=== PATIENT | female | born 1955 | race Caucasian/White ===

== ENCOUNTER → 2018-01-18 09:45 | Outpatient (CLI) | payer OTHER, SELFPAY ==
[2018-01-18 12:20] LABS: Anion Gap 8 (5-15); BUN 9 mg/dL (7-18); BUN/Creat Ratio 11.8 RATIO (10-20); Calcium,Total 9.6 mg/dL (8.5-10.1); Chloride 105 mmol/L (98-107); Creatinine, Serum 0.76 mg/dL (0.55-1.02); EST Glomerular Filtration Rate 82 mL/min (>60); Est Glom Filt Rate - Afr Amer 99 mL/min (>60); Glucose 96 mg/dL (74-106); Sodium Level 141 mmol/L (136-145)
== END ==
PROVIDERS: Family Provider Family Medicine; PCP Family Medicine; Visit Provider Family Medicine
DX: I10 Essential (primary) hypertension (principal)
CPT/HCPCS: 36415; 80048

== ENCOUNTER → 2018-02-02 10:51 | Outpatient (CLI) | payer OTHER, SELFPAY ==
--- NOTE | 2018-02-02 10:54 | ECHOD_ITS ---
Reason For Study: MURMUR Procedure This was a 2D Doppler, Color Flow transthoracic echocardiogram. Exam performed in department. Left Ventricle Normal LV size. Moderate eccentric left ventricular hypertrophy. Left ventricular systolic function is hyperdynamic. The estimated ejection fraction is 75 %. Mid cavitary dynamic gradient 64 mm/Hg. Transmitral diastolic flow velocities suggest mild (stage 1) diastolic dysfunction (reversed pattern). No regional wall motion abnormalities noted. Right Ventricle Normal RV size. Normal systolic function. Atria Normal left atrium. Normal right atrium. Mitral Valve Bileaflet diffuse mitral valve thickening. Systolic anterior motion of the mitral valve. Tricuspid Valve Normal tricuspid valve. Unable to estimate RV systolic pressure, pulmonary artery pressure probably normal. Aortic Valve Normal aortic valve. Trisinus/trileaflet aortic valve. Pulmonic Valve Normal pulmonic valve. Great Vessels Normal aortic root. Pericardium/Pleural No pericardial effusion. MMode/2D Measurements & Calculations LVIDd: 2.8 cm IVSd: 1.5 cm Ao root diam: 3.0 cm LVIDs: 1.9 cm LVPWd: 1.0 cm RVDd: 2.3 cm FS: 33.1 % LAV(MOD-bp): 16.7 ml EDV(MOD-sp4): 48.0 ml SV(MOD-sp4): 29.8 ml LAV(MOD-bp) Indexed: 9.5 ml/m2 ESV(MOD-sp4): 18.1 ml LAV(MOD-sp2): 15.5 ml EF(MOD-sp4): 62.2 % LAV(MOD-sp4): 17.4 ml LA A4 area: 8.9 cm2 RA A4 area: 7.7 cm2 Doppler Measurements & Calculations MV E max mikey: 64.3 cm/sec Lat Peak E' Mikey: 9.3 cm/sec Med Peak E' Mikey: 6.9 cm/sec MV A max mikey: 110.6 cm/sec E/E' lat: 6.9 E/E' med: 9.4 MV E/A: 0.58 Ao V2 max: 194.9 cm/sec LV V1 max: 190.7 cm/sec PA V2 max: 153.8 cm/sec Ao max P.2 mmHg LV V1 max P.5 mmHg Interpretation Summary Mid cavitary dynamic gradient 64 mm/Hg. Normal LV size. Moderate eccentric left ventricular hypertrophy. Left ventricular systolic function is hyperdynamic. The estimated ejection fraction is 75 %. Systolic anterior motion of the mitral valve. Ordering Physician: Hoda Concepcion Referring Physician: HODA CONCEPCION Performed By: So Wise RDCS
== END ==
PROVIDERS: Family Provider Family Medicine; PCP Family Medicine; Visit Provider Family Medicine
DX: R01.1 Cardiac murmur, unspecified (principal)
CPT/HCPCS: 93306

== ENCOUNTER → 2018-03-15 11:06 | Outpatient (CLI) | payer OTHER, SELFPAY ==
--- NOTE | 2018-03-15 17:59 | STRESSREP ---
Stress Test Report Exercise stress test. 62-year-old lady with a history of hypertrophic cardiomyopathy. Stress protocol: Resting EKG demonstrates sinus bradycardia with a rate of 57 bpm normal intervals and noted resting blood pressure is 124/84 mmHg. The patient exercised according to regular Brandon protocol for total duration of 9 minutes completing stage III of the Brandon protocol the maximum heart rate attained was 136 bpm which was 85% of maximum predicted heart rate the maximum workload attained was 10.1 metabolic equivalents. At rest there were no ST or T-wave changes noted suggest ischemia peak exercise upsloping ST changes only were noted with no meet the criteria for ischemia. No clinical angina was noted the test was terminated due to leg fatigue no arrhythmias were present. The resting blood pressure is 124/84 with a peak blood pressure 178/60. Exercise stress test with no EKG criteria at a high workload for ischemia No arrhythmias noted.
== END ==
PROVIDERS: Family Provider Family Medicine; PCP Family Medicine; Visit Provider Internal Medicine Cardiovascular Disease
DX: I42.2 Other hypertrophic cardiomyopathy (principal); I10 Essential (primary) hypertension; R00.2 Palpitations; R00.1 Bradycardia, unspecified
CPT/HCPCS: 93017; 93225; 93226

== ENCOUNTER → 2018-03-31 09:02 | Outpatient (CLI) | payer OTHER, SELFPAY ==
--- NOTE | 2018-03-31 09:06 | BI_ITS ---
MAMMOGRAPHY - UNILATERAL DIAGNOSTIC: RIGHT BREAST REASON FOR EXAM: Female, 62 years old. Abnormal screening mammogram. PERTINENT HISTORY: Non-contributory. TECHNIQUE: Compression spot views of the right breast were obtained in the mediolateral oblique and craniocaudad projections. A 90 degree lateral view was obtained as well. Were obtained. CAD: Full Field Digital Mammography with Computer Added Detection was performed. COMPARISON: Comparison is made with prior examination dated March 07, 2018. FINDINGS: Breast Composition: There are scattered areas of fibroglandular density. There is a 1.2 cm x 0.9 cm nodular density in the slightly upper lateral portion of the right breast. A central notch is seen. This may represent a small lymph node. Correlation with ultrasound is recommended. No other significant abnormalities are identified. BI/DIAG MAMM W/CAD, UNILAT IMPRESSION: 1.2 cm x 0.9 sign a nodular density in the right breast as described. Correlation with ultrasound is recommended. ASSESSMENT CATEGORY: BIRADS Category 0: Incomplete. Need additional imaging evaluation. A letter regarding these results will be sent to the patient by the facility within 30 days. Approximately 10% of breast cancers are not detected by mammography. A normal mammogram should not delay biopsy of a clinically suspicious abnormality. Electronically Signed: Radhames Nielsen MD at 10:26 EDT Tel [phone], Service support ,
--- NOTE | 2018-03-31 09:06 | US_ITS ---
STUDY: ULTRASOUND BREAST - RIGHT REASON FOR EXAM: Female, 62 years old. Abnormal screening mammogram. TECHNIQUE: Axial and longitudinal images of the RIGHT breast were performed with a high resolution ultrasound transducer. COMPARISON: Comparison is made with prior mammogram done earlier today. FINDINGS: RIGHT Breast: The lateral aspect of the right breast was examined by ultrasound. There is homogeneous fibroglandular tissue. No sonographic abnormality is seen. MRI of the breast is recommended. US/Breast Limited Unilateral IMPRESSION: No sonographic abnormality is seen. Correlation with MRI of the breast is recommended. ASSESSMENT CATEGORY: BIRADS Category 0: Incomplete. Need additional imaging evaluation. A letter regarding these results will be sent to the patient by the facility within 30 days. Electronically Signed: Radhames Nielsen MD at 11:14 EDT Tel [phone], Service support ,
== END ==
PROVIDERS: Family Provider Family Medicine; PCP Family Medicine; Visit Provider Family Medicine
DX: R92.8 Other abnormal and inconclusive findings on diagnostic imaging of breast (principal)
CPT/HCPCS: 76642; 77065

== ENCOUNTER → 2018-04-20 10:04 | Outpatient (CLI) | payer OTHER, SELFPAY ==
--- NOTE | 2018-04-20 10:08 | MRI_ITS ---
STUDY: BILATERAL BREAST MR WITHOUT AND WITH CONTRAST REASON FOR EXAM: Female, 62 years old. Abnormal mammogram with no ultrasonographic correlate. TECHNIQUE: Multi-sequence multi-echo imaging of both breasts was performed with a dedicated breast coil. T1-weighted and T2-weighted images were performed before the administration of contrast. T1-weighted images were also performed after the administration of 8 mL of Gadavist contrast intravenously without complications. COMPARISON: Mammograms dated July 08, 2005 and March 07, 2018. Diagnostic right mammogram and ultrasound dated March 31, 2018. FINDINGS: RIGHT BREAST: The breast tissue is fatty with minimal background enhancement. There are no abnormal enhancing masses or areas of non-mass enhancement in the right breast. As there is a small asymmetry in the upper outer quadrant of the right breast on the mammogram, a 6 month follow-up right mammogram is recommended. LEFT BREAST: The breast tissue is fatty with minimal background enhancement. There are no abnormal enhancing masses or areas of non-mass enhancement in the left breast. There are no enlarged or abnormal lymph nodes. There is no abnormality in the visualized regions of the chest or liver. MRI/Breast w/o and/or W Cont Bilat IMPRESSION: Unremarkable breast MR examination with contrast. A six-month follow-up right mammogram is recommended because of the small asymmetry in the upper outer quadrant of the breast. Since there is no enhancing area, this most likely represents a rest of glandular tissue. CATEGORY: BIRADS Category 3: Probably Benign - Short-Interval Follow-up Suggested. A letter regarding these results will be sent to the patient by the facility within 30 days. Electronically Signed: Unruly Colon MD at 10:22 EDT , Service support ,
[2018-04-20 10:46] LABS: CREATININE FINGERSTICK 0.8 mg/dL (0.55-1.02); EGFR FINGERSTICK > 60.0000 mL/min (>60)
== END ==
PROVIDERS: Family Provider Family Medicine; PCP Family Medicine; Visit Provider Family Medicine
DX: R92.8 Other abnormal and inconclusive findings on diagnostic imaging of breast (principal)
CPT/HCPCS: 77059; A9585; C8908

== ENCOUNTER → 2018-10-03 15:26 | Outpatient (CLI) | payer OTHER, SELFPAY ==
[2018-03-01 15:27] VITALS: BMI 26.2
[2018-10-03 18:28] LABS: AST(SGOT) 27 U/L (15-37); Anion Gap 10 (5-15); BUN 12 mg/dL (7-18); BUN/Creat Ratio 14.6 RATIO (10-20); Calcium,Total 10.1 mg/dL (8.5-10.1); Chloride 101 mmol/L (98-107); Cholesterol 208 mg/dL (200); Creatinine, Serum 0.82 mg/dL (0.55-1.02); EST Glomerular Filtration Rate 75 mL/min (>60); Est Glom Filt Rate - Afr Amer 91 mL/min (>60); Glucose 93 mg/dL (74-106); High Density Lipoprotein 38 mg/dL; Potassium 4.1 mmol/L (3.5-5.1); Sodium Level 140 mmol/L (136-145); Thyroid Stim Hormone (TSH) 2.48 uIU/mL (0.358-3.74); Triglycerides 443 mg/dL
--- OUTSIDE RECORDS SUMMARY | 2018-11-29 08:25 | XMS RPT_ITS ---
:1955 Author Organization [place] Support Name Relationship Address Phone LUIS MICK Unavailable [address] + [place] [address] NAVDEEP MORRISSEY Unavailable [address] + [place] [address] [employer] Unavailable [address] + [place] [address] LUIS, MICK Unavailable [address] + [place] [address] NAVDEEP MORRISSEY Unavailable [address] + [place] [address] [employer] Unavailable [address] + [place] [address] LUIS, MICK Unavailable [address] + [place] [address] NAVDEEP MORRISSEY Unavailable [address] + [place] [address] [employer] Unavailable [address] + [place] [address] LUIS, MICK Unavailable [address] + [place], [place] [address]NAVDEEP JAVIER Unavailable [address] + [place] [address] [employer] Unavailable [address] + [place] [address] LUIS, MICK Unavailable [address] + [place], [place] [address]NAVDEEP JAVIER Unavailable [address] + [place] [address] [employer] Unavailable [address] + [place] [address] LUIS, MICK Unavailable [address] + [place] [address] NAVDEEP MORRISSEY Unavailable [address] + [place] [address] [employer] Unavailable [address] + [place] [address] LUIS, MICK Unavailable [address] + [place] [address] NAVDEEP MORRISSEY Unavailable [address] + [place] [address] [employer] Unavailable [address] + [place] [address] LUIS, EMILY Unavailable [address] + [place] NAVDEEP MORRISSEY Unavailable [address] + [place] [address] [employer] Unavailable [address] + [place] [address] LUIS, EMILY Unavailable [address] + [place] NAVDEEP MORRISSEY Unavailable [address] + [place] [address] [employer] Unavailable [address] + [place] [address] LUIS, EMILY Unavailable [address] + [place], [place] / NAVDEEP MORRISSEY Unavailable [address] + [place] [address] [employer] Unavailable [address] + [place] [address] Care Team Providers Name Role Phone Hoda Concepcion Attending Unavailable Jolliff, Hoda Primary Care Unavailable Jolliff, Hoda Attending Unavailable Jolliff, Hoda Primary Care Unavailable Jaymie, Rodrigo Attending Unavailable Jolliff, Hoda Referring Unavailable Jaymie, Rodrigo Attending Unavailable Jolliff, Hoda Referring Unavailable Jolliff, Hoda Primary Care Unavailable Jaymie, Mellen Attending Unavailable Jaymie, Mellen Referring Unavailable Jolliff, Hoda Primary Care Unavailable Jolliff, Hoda Attending Unavailable Jolliff, Hoda Referring Unavailable Jolliff, Hoda Primary Care Unavailable Jaymie, Mellen Attending Unavailable Jaymie, Mellen Attending Unavailable Jolliff, Hoda Attending Unavailable Jolliff, Hoda Referring Unavailable Jolliff, Hoda Primary Care Unavailable Hoda Concepcion Attending Unavailable Hoda Concepcion Primary Care Unavailable PROBLEMS PROBLEMS DATE TYPE CONDITION / CODE ATTENDING STATUS SOURCE 04/20/2018 Unknown R92.8 - Other Hoda Concepcion Active [facility] abnormal and Community inconclusive Hospital findings on Repository diagnostic imaging of breast / R92.8(ICD-10) 03/01/2018 Unknown R01.1 - Cardiac Jaymie, Rodrigo Active [facility] murmur, unspecified Community / R01.1(ICD-10) Hospital Repository 03/01/2018 Unknown I42.2 - Other Jaymie, Mellen Active [facility] hypertrophic Community cardiomyopathy / Hospital I42.2(ICD-10) Repository 03/01/2018 Unknown I10 - Essential Jaymie, Mellen Active [facility] (primary) Community hypertension / Hospital I10(ICD-10) Repository 03/01/2018 Unknown R07.9 - Chest pain, Jaymie, Mellen Active [facility] unspecified / Community R07.9(ICD-10) Hospital Repository PROCEDURES PROCEDURES No Procedure Records FoundRESULTS RESULTS BASIC METABOLIC Collected: 10/03/2018 Status: F Source: CODY PROFILE (BMP) 3:27 PM [facility] REPOSITORY TYPE CODE TESTS RESULT OUT OF RANGE REFERENCE UNITS LAB L501.0100 74-106 mg/dL Normal GLU 93 Result Comment: Please note revised GLUCOSE reference range effective 2017. LAB L501.1000 7-18 mg/dL Normal BUN 12 LAB L501.1100 0.55-1.02 mg/dL Normal CREAT,SERUM 0.82 Result Comment: The validity of the calculated GFR AND GFRAA in patients over 70 years has not been determined. Clinical correlation is essential. LAB L501.1110 >60 mL/min Normal EST GFR 75 Result Comment: Non- GFR Calc LAB L501.1115 >60 mL/min Normal EST GFR - AA 91 Result Comment: GFR Calc LAB L501.1300 10-20 RATIO Normal BUN/CRE 14.6 LAB L501.2200 8.5-10.1 mg/dL CA Normal 10.1 LAB L501.5300 136-145 mmol/L NA Normal 140 LAB L501.5600 3.5-5.1 mmol/L K Normal 4.1 LAB L501.5900 98-107 mmol/L CL Normal 101 LAB L501.6100 21.0-32.0 mmol/L Normal CO2 29.0 LAB L501.6200 5-15 Normal GAP 10 Performed By: #### L500.2500, L500.4100, L501.4100, L501.9520 #### [facility] [address] [place], [address] LIPID PROFILE Collected: 10/03/2018 Status: F Source: MOBILE 3:27 PM [facility] [place] TYPE CODE TESTS RESULT OUT OF RANGE REFERENCE UNITS LAB L501.4900 200 mg/dL High CHOL 208 Result Comment: <200 mg/dL Desirable 200-240 mg/dL Borderline >240 mg/dL High Risk LAB L501.5000 mg/dL High TRIG 443 Result Comment: The drugs N-Acetylcysteine and Metamizole may falsely depress this assay. TRIGLYCERIDE IS GREATER THAN 400 mg/dL. LDL RESULT IS INVALID AND WILL NOT BE REPORTED. Serum Triglycerides Reference Interval Normal <150 mg/dL Borderline high 150 - 199 mg/dL High 200 - 499 mg/dL Very High > or = 500 mg/dL LAB L501.6400 mg/dL Low HDL 38 Result Comment: The drugs N-Acetylcysteine and Metamizole may falsely depress this assay. Reference Range HDL <40 mg/dL Low HDL Cholesterol HDL >or= 60 mg/dL High HDL Cholesterol LAB L501.6500 0-130 mg/dL Test Normal not performed LDL LAB L501.6600 5-40 mg/dL Test Normal not performed VLDL Performed By: #### L500.2500, L500.4100, L501.4100, L501.9520 #### [facility] [address] [place], [address] AST(SGOT) Collected: 10/03/2018 Status: F Source: MOBILE 3:27 PM [facility] [place] TYPE CODE TESTS RESULT OUT OF RANGE REFERENCE UNITS LAB L501.4100 15-37 U/L Normal AST 27 Performed By: #### L500.2500, L500.4100, L501.4100, L501.9520 #### [facility] [address] [place], [address] THYROID STIM HORMONE Collected: 10/03/2018 Status: F Source: CODY (TSH) 3:27 PM [facility] [place] TYPE CODE TESTS RESULT OUT OF RANGE REFERENCE UNITS LAB L501.9520 0.358-3.74 uIU/mL Normal TSH 2.48 Performed By: #### L500.2500, L500.4100, L501.4100, L501.9520 #### [facility] [address] [place], [address] CREATININE FINGERSTICK Collected: 04/20/2018 Status: F Source: CODY 10:25 AM [facility] [place] TYPE CODE TESTS RESULT OUT OF RANGE REFERENCE UNITS LAB L9100.0210 0.55-1.02 mg/dL Normal CREATININE WB 0.8 LAB L9100.0220 >60 mL/min EGFR WB Normal > 60.0000 Performed By: #### L9100.0200 #### [facility] Point of Care [address] [place] [address] BREAST W/O AND/OR W Observed: 04/20/2018 Status: F Source: CODY CONT BILAT 10:08 AM [facility] [place] [facility] Imaging Services [address] [place] [address] Breast w/o and/or W Cont Bilat MR#: [id number] Acct: [id number] Name: FELIBERTO MORRISSEY Rep #: [id number] : 1955 F 62 From: Unruly Colon MD PCP: Hoda Concepcion MD Status: REG CLI Study: Breast w/o and/or W Cont Bilat Date of Exam: 04/20/18 Exam# [id number] Ordering Dr: Hoda Concepcion MD STUDY: BILATERAL BREAST MR WITHOUT AND WITH CONTRAST REASON FOR EXAM: Female, 62 years old. Abnormal mammogram with no ultrasonographic correlate. TECHNIQUE: Multi-sequence multi-echo imaging of both breasts was performed with a dedicated breast coil. T1-weighted and T2- weighted images were performed before the administration of contrast. T1- weighted images were also performed after the administration of 8 mL of Gadavist contrast intravenously without complications. COMPARISON: Mammograms dated July 08, 2005 and March 07, 2018. Diagnostic right mammogram and ultrasound dated March 31, 2018. FINDINGS: RIGHT BREAST: The breast tissue is fatty with minimal background enhancement. There are no abnormal enhancing masses or areas of non-mass enhancement in the right breast. As there is a small asymmetry in the upper outer quadrant of the right breast on the mammogram, a 6 month follow-up right mammogram is recommended. LEFT BREAST: The breast tissue is fatty with minimal background enhancement. There are no abnormal enhancing masses or areas of non-mass enhancement in the left breast. There are no enlarged or abnormal lymph nodes. There is no abnormality in the visualized regions of the chest or liver. MRI/Breast w/o and/or W Cont Bilat IMPRESSION: Unremarkable breast MR examination with contrast. A six-month follow-up right mammogram is recommended because of the small asymmetry in the upper outer quadrant of the breast. Since there is no enhancing area, this most likely represents a rest of glandular tissue. CATEGORY: BIRADS Category 3: Probably Benign - Short-Interval Follow- up Suggested. A letter regarding these results will be sent to the patient by the facility within 30 days. Electronically Signed: Unruly Colon MD at 10:22 EDT , Service support , CC: Hoda Concepcion MD Guest Relations Representative: Signed DIAG MAMM W/CAD, Observed: 03/31/2018 Status: F Source: CODY ARIZMENDI 9:07 AM [facility] [place] [facility] Imaging Services [address] [place] [address] DIAG MAMM W/CAD, UNILAT MR#: [id number] Acct: [id number] Name: FELIBERTO MORRISSEY Rep #: [id number] : 1955 F 62 From: Radhames Nielsen MD PCP: Hoda Concepcion MD Status: REG CLI Study: DIAG MAMM W/CAD, UNILAT Date of Exam: 03/31/18 Exam# [id number] Ordering Dr: Hoda Concepcion MD MAMMOGRAPHY - UNILATERAL DIAGNOSTIC: RIGHT BREAST REASON FOR EXAM: Female, 62 years old. Abnormal screening mammogram. PERTINENT HISTORY: Non-contributory. TECHNIQUE: Compression spot views of the right breast were obtained in the mediolateral oblique and craniocaudad projections. A 90 degree lateral view was obtained as well. Were obtained. CAD: Full Field Digital Mammography with Computer Added Detection was performed. COMPARISON: Comparison is made with prior examination dated March 07, 2018. FINDINGS: Breast Composition: There are scattered areas of fibroglandular density. There is a 1.2 cm x 0.9 cm nodular density in the slightly upper lateral portion of the right breast. A central notch is seen. This may represent a small lymph node. Correlation with ultrasound is recommended. No other significant abnormalities are identified. BI/DIAG MAMM W/CAD, UNILAT IMPRESSION: 1.2 cm x 0.9 sign a nodular density in the right breast as described. Correlation with ultrasound is recommended. ASSESSMENT CATEGORY: BIRADS Category 0: Incomplete. Need additional imaging evaluation. A letter regarding these results will be sent to the patient by the facility within 30 days. Approximately 10% of breast cancers are not detected by mammography. A normal mammogram should not delay biopsy of a clinically suspicious abnormality. Electronically Signed: Radhames Nielsen MD at 10:26 EDT Tel [phone], Service support , CC: Hoda Concepcion MD Guest Relations Representative: Signed BREAST LIMITED Observed: 03/31/2018 Status: F Source: CODY UNILATERAL 9:07 AM [facility] [place] [facility] Imaging Services [address] [place] [address] Breast Limited Unilateral MR#: [id number] Acct: [id number] Name: FELIBERTO MORRISSEY Rep #: [id number] : 1955 F 62 From: Radhames Nielsen MD PCP: Hoda Concepcion MD Status: REG CLI Study: Breast Limited Unilateral Date of Exam: 03/31/18 Exam# [id number] Ordering Dr: Hoda Concepcion MD STUDY: ULTRASOUND BREAST - RIGHT REASON FOR EXAM: Female, 62 years old. Abnormal screening mammogram. TECHNIQUE: Axial and longitudinal images of the RIGHT breast were performed with a high resolution ultrasound transducer. COMPARISON: Comparison is made with prior mammogram done earlier today. FINDINGS: RIGHT Breast: The lateral aspect of the right breast was examined by ultrasound. There is homogeneous fibroglandular tissue. No sonographic abnormality is seen. MRI of the breast is recommended. US/Breast Limited Unilateral IMPRESSION: No sonographic abnormality is seen. Correlation with MRI of the breast is recommended. ASSESSMENT CATEGORY: BIRADS Category 0: Incomplete. Need additional imaging evaluation. A letter regarding these results will be sent to the patient by the facility within 30 days. Electronically Signed: Radhames Nielsen MD at 11:14 EDT Tel [phone], Service support , CC: Hoda Concepcion MD Guest Relations Representative: Signed STRESS REPORT Observed: 03/15/2018 Status: F Source: CODY 6:01 PM [facility] REPOSITORY [facility] Cardiovascular Services [address] [place] [address] MR#: [id number] Acct: [id number] Name: FELIBERTO MORRISSEY Rep #: [id number] : 1955 62 From: Rodrigo Coon MD Primary Care: Hoda Concepcion MD Status: REG CLI Ordering Dr: Sex: F C Stress Test Report Exercise stress test. 62-year-old lady with a history of hypertrophic cardiomyopathy. Stress protocol: Resting EKG demonstrates sinus bradycardia with a rate of 57 bpm normal intervals and noted resting blood pressure is 124/84 mmHg. The patient exercised according to regular Brandon protocol for total duration of 9 minutes completing stage III of the Brandon protocol the maximum heart rate attained was 136 bpm which was 85% of maximum predicted heart rate the maximum workload attained was 10.1 metabolic equivalents. At rest there were no ST or T-wave changes noted suggest ischemia peak exercise upsloping ST changes only were noted with no meet the criteria for ischemia. No clinical angina was noted the test was terminated due to leg fatigue no arrhythmias were present. The resting blood pressure is 124/84 with a peak blood pressure 178/60. Exercise stress test with no EKG criteria at a high workload for ischemia No arrhythmias noted. 03/15/181800 <Electronically signed by Rodrigo Coon MD> Date Rodrigo Coon MD CC: Hoda Concepcion MD; Rodrigo Coon MD Date Dictated: 03/15/181758 Date Transcribed: 03/15/181758 Guest Relations Representative: [place] Signed CARDIOLOGY VISIT Observed: 03/01/2018 Status: F Source: MOBILE REPORT 4:04 PM [facility] [place] [facility] [address] [place] [address] OFFICE VISIT Date of Service: 03/01/18 MR#: [id number] Acct: [id number] Name: FELIBERTO MORRISSEY Rep #: [id number] : 1955 Provider: Rodrigo Coon MD Age/Sex: 62/F [place] [facility] [place]: Signed HPI HPI Chief Complaint: initial visit Details: FELIBERTO MORRISSEY, is a 62 F who presents to the office today for an initial visit. She tells me that she had had some shortness of breath and had presented to see you in the office and during the physical exam a heart murmur was heard. She has had no recent dizziness or diaphoresis no near syncope or syncope she does have a history of hypertension as well as hyperlipidemia. She states that a number of years ago however she did have a syncopal episode. She has been compliant with her medications. As part of her workup she underwent an echocardiogram which demonstrated an ejection fraction of 75% with moderate concentric left ventricular hypertrophy and a mid cavitary dynamic gradient of 64 mmHg. She also did have systolic anterior motion of the mitral valve. She has complained of some chest discomfort which appears to be alongside both clavicles and not necessarily related to activity or position. Her physical exam today demonstrates clear lung wilson regular rate and rhythm a 2/6 systolic murmur noted over the left sternal border increasing with Valsalva motion. Intake Vital Signs03/01/18 Height 5 ft 4 in 03/01/18 Weight: 153 lb 03/01/18 Body Mass Index (BMI) 26.2 03/01/18 Blood Pressure 120/60 Intake Visit Reasons: PCP ref'd for murmur, SOB, fatigue Allergies mold spores Allergy (Intermediate, Uncoded 02/27/18 20:55) URI symptoms pollens Allergy (Intermediate, Uncoded 02/27/18 20:55) URI symptoms Medications atorvastatin 40 mg tablet 40 mg PO .q hs tab 02/27/18 [History Confirmed 02/27/18] cholecalciferol (vitamin D3) 2,000 unit capsule 2,000 unit PO QDAY 02/27/18 [History Confirmed 02/27/18] esomeprazole magnesium 40 mg capsule,delayed release 40 mg PO QDAY 02/27/18 [History Confirmed 02/27/18] loratadine 10 mg tablet 10 mg PO QDAY 02/27/18 [History Confirmed 02/27/18] paroxetine 40 mg tablet 20 mg PO QDAY tab 02/27/18 [History Confirmed 02/27/18] lisinopril 10 mg-hydrochlorothiazide 12.5 mg tablet 1 tab PO QDAY #90 tab 03/01/18 [Rx Confirmed 03/01/18] metoprolol succinate ER 50 mg tablet,extended release 24 hr 50 mg PO QDAY #90 tab 03/01/18 [Rx Confirmed 03/01/18] Ejection fraction %: 65 to 70 [facility] Medical History Chest pain on exertion (Acute) SOB (shortness of breath) on exertion (Chronic) Seasonal allergies (Chronic) GERD (gastroesophageal reflux disease) (Chronic) Fatigue (Acute) Shortness of breath (Acute) Hyperlipidemia (Chronic) Hypertension (Chronic) Family History Mother CAD (coronary artery disease) Diabetes Arthritis Father CAD (coronary artery disease) Social History Smoking Status: Former smoker ROS Const Const: Positive for other (Referred by PCP for murmur, also some chest tightness and sob); negative for fatigue, weakness, body ache, fever(s), headache(s), chills, frequent falls, night sweats, daytime sleepiness, difficulty sleeping, excessive sweating, weight gain, weight loss, increased appetite, poor appetite or anorexia Eyes Eyes: Negative for blind spots, loss of peripheral vision, transient loss of vision, blurry vision, change in vision, double vision, floaters, tunnel vision or other ENT ENT: Negative for headache(s), dizziness, hearing loss, tinnitus, Nosebleed/epistaxis, balance problems, post nasal drip, lip swelling, tongue swelling, bleeding gums, hoarseness, neck pain, dry mouth or other Cardio Chest Pain: Yes (Has had tightness near each clavicle when walking) Frequency: other (every day when walking any distance) Location: other (bilateral clavicles) Duration: brief Exacerbation: exercise Recurrence: rest Palpitations: No Edema: None Muscle aches with walking: None Additional Details: Murmur is readily audible on auscultation. Resp Respiratory: Positive for SOB with activity; negative for SOB at rest, SOB orthopnea\SOB lying down, Coughing up blood/hemoptysis, chest congestion, pain on inspiration, snoring, stridor, wheezing, crackles, paroxysmal nocturnal dyspnea or other GI GI: Negative nausea, vomiting, heartburn, constipation, belching, bloating, cramping, vomiting blood/hematemesis, bright, red blood in stools, black,tarry stools, loose stools, Difficulty Swallowing or other : Negative for hematuria, frequent nighttime urination/ nocturia, erectile dysfunction or abnormal vaginal bleeding Musc Musc: Negative for balance problems, muscle aches/ myalgia, muscle weakness or joint pain Skin Skin: Negative redness, non-healing lesions, rash, unusual bruising, skin ulcer, wounds, jaundice or other Neuro Neuro: Negative for weakness, headache(s), frequent falls, blurry vision, double vision, dizziness, lightheadedness, near syncope, syncope, orthostatic symptoms, confusion, memory loss, restless legs, vertigo, seizures, lack of coordination or other Marco Hematologic/Lymphatic: Negative for easy bleeding, easy bruising, enlarged lymph nodes or other Endo Endo: Negative for fatigue, excessive sweating, cold intolerance, heat intolerance, flushing, increased thirst/drinking, increased hunger, hair loss, hair growth or other Psych Psych: Negative for anxiety, depression, thoughts of harming anyone, thoughts of harming yourself, visual hallucinations, panic attacks or audible hallucinations Allergy Allergy/Immunology: Negative for lip swelling, Negative for tongue swelling, Negative for rash, Negative for throat swelling, Negative for hives Cardiology Exam Const Appearance: cooperative, healthy appearing, well developed, well groomed and no acute distress Nutritional Appearance: well nourished and average body habitus Orientation: alert, awake and oriented x3 Head Head: normal to inspection, normocephalic and atraumatic Ears: hearing grossly normal bilaterally and external ears normal Nose: external nose normal, nasal mucous membranes and turbinates normal, nares normal, septum normal, no nasal discharge Face and Sinus: face symmetric Mouth: oral mucosae normal, tongue normal, oropharynx normal and moist mucous membranes Teeth and gingiva: dentition normal Throat: posterior oropharynx normal, tonsils normal and uvula midline Eyes General: appearance normal, both eyes and all related structures Eyelids: eyelids normal Conjunctivae: conjunctivae normal Pupils: PERRL, normal by confrontation and accommodation normal EOM: EOM intact bilaterally Neck Neck: normal visual inspection, trachea midline and no JVD JVD: +5 Carotids: normal carotid upstroke and bounding pulses Chest Chest inspection: normal inspection of the chest, symmetric chest movement and normal respiratory effort Auscultation: Bilateral: Clear to Auscultation Cardio Palpation: normal PMI Rate: regular rate Rhythm: regular rhythm Heart sounds: S1 normal and S2 normal Murmur: Grade 2/6, soft, mid systolic and LLSB GI GI: normal to inspection, soft, no hepatosplenomegaly and bowel sounds present Neuro General: alert, awake, oriented x3, no focal sensory deficit, gait normal and moves all extremities Skin Skin: no rashes or lesions noted Extremities Pulses: Normal: Right Femoral Pulse, Left Femoral Pulse, Right Dorsalis Pedis Pulse, Left Dorsalis Pedis Pulse, Right Posterior Tibial Pulse, Left Posterior Tibial Pulse, Right Radial Pulse, Left Radial Pulse Lower Extremity Edema: None: Bilateral Musculoskel Musculoskeletal: No joint tenderness Psych Psychological: normal affect Assessment AND Plan 1. 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 With his septum measuring 1.5 cm. She has systolic anterior motion noted of the mitral valve with a mid cavitary gradient. This appears to be worse with Valsalva. My recommendation would for us to place on a beta-saul with Toprol-XL 50 mg a day and reduce the dose of her lisinopril hydrochlorothiazide. We would want to avoid vasodilatation as this may make the murmur worse and predispose her to syncope. I would also like us to obtain a 24-hour Holter monitor to exclude any arrhythmias. She also should be considered for an exercise stress test to exclude the same. She will need antibiotic prophylaxis as per AHA recommendations. Orders Orders: 2. Essential hypertension I10 Plan Her blood pressure appears to be under good control on the current medical therapy and the only change will be to reduce the dose to 10/12.5 mg once a day. 3. Chest pain on exertion R07.9 Plan This appears to be atypical and I do not think is secondary to coronary artery disease and may be related to costochondritis due to the location of her discomfort. Thank you for allowing me to participate in the care of your patient. 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) Coding Level of Care Code Off vis,new,level 4 Diagnoses Hypertrophic cardiomyopathy I42.2 Essential hypertension I10 Hypertension type: essential hypertension Chest pain on exertion R07.9 Coding Level of Care Code Off vis,new,level 4 Diagnoses Hypertrophic cardiomyopathy I42.2 Essential hypertension I10 Hypertension type: essential hypertension Chest pain on exertion R07.9 03/01/18 1604 <Electronically signed by Rodrigo Coon MD> Date Rodrigo Coon MD Cosigner Signature: Date (if applicable) CC: Hoda Concepcion MD 12 LEAD EKG PERFORMED Observed: 03/01/2018 Status: F Source: MOBILE [place] [facility] [place] 3:[address] [address] 12 Lead EKG performed by [facility] [place] 03/01/18 152 MR#: [id number] Acct: [id number] Name: FELIBERTO MORRISSEY Rep #: [id number] : 1955 62 From: Rodrigo Coon MD Attending Dr: Rodrigo Coon MD Status: DEP AMB Ordering Dr: Rodrigo Coon MD Date: 03/01/18 [place] [facility] [place]: F C Admitted: [facility] [place]/12 Lead EKG performed by [facility] [place] ECG Report Interpretation Atrial flutter ABNORMAL RHYTHMElectronically signed on 03/09/2018 at 17:09 by Rodrigo Coon 03/09/18 1710 Date Rodrigo Coon MD CC: Hoda Concepcion MD Date Dictated: 03/01/18 152 Date Transcribed: 03/01/181521 Guest Relations Representative: CO Signed ECHOCARDIOGRAM COMPLETE Observed: 02/02/2018 Status: F Source: MOBILE 5:43 PM [facility] [place] [facility] Cardiovascular [place] [address] Echo Complete 02/02/18 1111 MR#: [id number] Acct: [id number] Name: FELIBERTO MORRISSEY Rep #: [id number] : 1955 62 From: Rodrigo Coon MD Attending Dr: Hoda Concepcion MD Status: REG CLI Ordering Dr: Hoda Concepcion MD Date: 02/02/18 Location: [facility] Sex: F C Admitted: Reason For Study: MURMUR Procedure This was a 2D Doppler, Color Flow transthoracic echocardiogram. Exam performed in department. Left Ventricle Normal LV size. Moderate eccentric left ventricular hypertrophy. Left ventricular systolic function is hyperdynamic. The estimated ejection fraction is 75 %. Mid cavitary dynamic gradient 64 mm/Hg. Transmitral diastolic flow velocities suggest mild (stage 1) diastolic dysfunction (reversed pattern). No regional wall motion abnormalities noted. Right Ventricle Normal RV size. Normal systolic function. Atria Normal left atrium. Normal right atrium. Mitral Valve Bileaflet diffuse mitral valve thickening. Systolic anterior motion of the mitral valve. Tricuspid Valve Normal tricuspid valve. Unable to estimate RV systolic pressure, pulmonary artery pressure probably normal. Aortic Valve Normal aortic valve. Trisinus/trileaflet aortic valve. Pulmonic Valve Normal pulmonic valve. Great Vessels Normal aortic root. Pericardium/Pleural No pericardial effusion. MMode/2D Measurements AND Calculations LVIDd: 2.8 cm IVSd: 1.5 cm Ao root diam: 3.0 cm LVIDs: 1.9 cm LVPWd: 1.0 cm RVDd: 2.3 cm FS: 33.1 % LAV(MOD-bp): 16.7 ml EDV(MOD-sp4): 48.0 ml SV(MOD-sp4): 29.8 ml LAV(MOD-bp) Indexed: 9.5 ml/m2 ESV(MOD-sp4): 18.1 ml LAV(MOD-sp2): 15.5 ml EF(MOD-sp4): 62.2 % LAV(MOD-sp4): 17.4 ml LA A4 area: 8.9 cm2 RA A4 area: 7.7 cm2 Doppler Measurements AND Calculations MV E max mikey: 64.3 cm/sec Lat Peak E' Mikey: 9.3 cm/sec Med Peak E' Mikey: 6.9 cm/sec MV A max mikey: 110.6 cm/sec E/E' lat: 6.9 E/E' med: 9.4 MV E/A: 0.58 Ao V2 max: 194.9 cm/sec LV V1 max: 190.7 cm/sec PA V2 max: 153.8 cm/sec Ao max P.2 mmHg LV V1 max P.5 mmHg Interpretation Summary Mid cavitary dynamic gradient 64 mm/Hg. Normal LV size. Moderate eccentric left ventricular hypertrophy. Left ventricular systolic function is hyperdynamic. The estimated ejection fraction is 75 %. Systolic anterior motion of the mitral valve. Ordering Physician: Hoda Concepcion Referring Physician: HODA CONCEPCION Performed By: So Wise RDCS 02/02/18 174 Date Rodrigo Coon MD CC: Hoda Concepcion MD Date Dictated: 02/02/18 1111 Date Transcribed: 02/02/181742 Guest Relations Representative: Signed BASIC METABOLIC Collected: 01/18/2018 Status: F Source: MOBILE PROFILE ([facility]) 9:48 AM [facility] [place] TYPE CODE TESTS RESULT OUT OF RANGE REFERENCE UNITS LAB L501.0100 74-106 mg/dL Normal GLU 96 Result Comment: Please note revised GLUCOSE reference range effective 2017. LAB L501.1000 7-18 mg/dL Normal BUN 9 LAB L501.1100 0.55-1.02 mg/dL Normal CREAT,SERUM 0.76 Result Comment: The validity of the calculated GFR AND GFRAA in patients over 70 years has not been determined. Clinical correlation is essential. LAB L501.1110 >60 mL/min Normal EST GFR 82 Result Comment: Non- GFR Calc LAB L501.1115 >60 mL/min Normal EST GFR - AA 99 Result Comment: GFR Calc LAB L501.1300 10-20 RATIO Normal BUN/CRE 11.8 LAB L501.2200 8.5-10.1 mg/dL CA Normal 9.6 LAB L501.5300 136-145 mmol/L NA Normal 141 LAB L501.5600 3.5-5.1 mmol/L K Normal 4.0 LAB L501.5900 98-107 mmol/L CL Normal 105 LAB L501.6100 21.0-32.0 mmol/L Normal CO2 28.0 LAB L501.6200 5-15 Normal GAP 8 Performed By: #### L500.2500 #### [facility] [address] [place], [address] ALLERGIES ALLERGIES DATE TYPE / CODE NAME / CODE REACTION SEVERITY SOURCE 02/27/2018 Miscellaneous mold spores URI symptoms [place] Allergy/[id number]([facility]) Hospital Repository 02/27/2018 Miscellaneous pollens URI symptoms [place] Allergy/[id number]([facility]) Hospital Repository ENCOUNTERS ENCOUNTERS ADMIT/DISCHARGE ACCOUNT ADMITTING ENCOUNTER LOCATION SOURCE NUMBER CLASS 10/03/2018 [id number] Ambulatory [place] 2 [facility] ing:MFPLAB Repository 04/20/2018 [id number] Ambulatory [place] 5 [facility] ing:MRI Repository 03/31/2018 [id number] Amb[place] [facility] ing:OPUS Repository 03/17/2018 [id number] Ambulatory BMSBuilding:W [place] 8 [facility] Repository 03/15/2018 [id number] Ambulatory [place] 3 [facility] ing:PSN Repository 03/15/2018 [id number] Ambulatory BMSBuilding:W [place] 9 [facility] Repository 03/01/2018/ [id number] Ambulatory BMSBuilding:B [place] 8 6 [facility] Repository 02/02/2018 [id number] Ambulatory [place] 1 [facility] ing:[facility]S Repository 02/02/2018 [id number] Ambulatory BMSBuilding:W [place] 8 [facility] Repository 01/18/2018 [id number] Ambulatory [place] 4 [facility] ing:MFPLAB Repository PAYERS PAYERS ENCOUNTER GUARANTOR PAYER SUBSCRIBER SOURCE 10/03/2018 FELIBERTO S Primary FELIBERTO S [place] [id number] [facility] [id number] [id number] Number: Repository [address]Ieb: [phone] [id number] [phone] () Date:0123-27-13[address], [place] [address]UD: 10/03/2018 Secondary NOT GIVENUNK [place] Insurance:SELF PAY [facility] Number: Effective Repository Date:2018-10-03 04/20/2018 FELIBERTO S Primary FELIBERTO S [place] [id number] Insurance:[facility] MURPHYDOB: [address] [id number], [place] Number: Repository [address]Bhj: 330 [id number] [phone] (HP) Date:5178-81-87TI [address] [place] [address]EK: 04/20/2018 Secondary NOT GIVENUNK [place] Insurance:SELF PAY [facility] Number: Effective Repository Date:2018-04-13 03/31/2018 FELIBERTO S Primary FELIBERTO S [place] [id number] Insurance:[employer] [facility] MURPHYDOB: [address] [id number], [place] Number: Repository [address]Sku: 330 [id number] [phone] () Date:2978-10-68JK [address] [address]FX: 03/31/2018 Secondary NOT GIVENUNK [place] Insurance:SELF PAY [facility] Number: Effective Repository Date:2018-03-27 03/17/2018 FELIBERTO S Primary FELIBERTO S [place] [id number] Insurance:UNITED TH MURPHYDOB: [place] 412166-10-25[facility] [place] Number: Repository [address]Vmt: 330 [id number] [phone] (HP) Date:6859-99-48JA [id number] [place] [address]AR: 03/17/2018 Secondary NOT GIVENUNK [place] Insurance:SELF PAY [facility] Number: Effective Repository Date:2018-03-17 03/15/2018 FELIBERTO S Primary FELIBERTO S [place] [id number] Insurance:[facility] MURPHYDOB: [address] [id number] [place] Number: Repository [address]Vwq: 330 [id number] [phone] (HP) Date:9243-61-36UG [facility] [address]16[address]RN[place], [place] [address]IJ: 03/15/2018 Secondary NOT GIVENUNK [place] Insurance:SELF PAY [facility] Number: Effective Repository Date:2018-03-01 03/15/2018 FELIBERTO S Primary FELIBERTO [place] [id number] Insurance:[facility] MURPHYDOB: [facility] [address]Xvukxh 1298-13-13RBNEly, [place] Number: Repository [address]Ieh: 330 [id number] [phone] (HP) Date:0848-41-88UA [facility] [address]88[address]KO, [place] [address]AQ: 03/15/2018 Secondary NOT GIVENUNK [place] Insurance:SELF PAY [facility] Number: Effective Repository Date:2018-03-15 03/01/2018 Navdeep Primary FELIBERTO [place] [id number] Insurance:[facility] HLTH YUNIDOB: [facility] [id number] 0587-17-87[place]CD[place], [place] Number: Repository [address]Yzz: 330 [id number] [phone] (HP) Date:0890-60-65BX [address]GEZMYN, [place] [address]WY: 03/01/2018 Secondary NOT GIVENUNK [place] Insurance:SELF PAY [facility] Number: Effective Repository Date:2018-03-01 02/02/2018 Navdeep Primary FELIBERTO [place] [id number] Insurance:UNITED TH YUNIDOB: [facility] [id number] 1822-72-25LBNOlalla, [place] Number: Repository [address]Bfh: 330 [id number] [phone] (HP) Date:8247-62-43KH [facility] [address]2338QTKJSKT, [place] [address]FD: 02/02/2018 Secondary NOT GIVENUNK [place] Insurance:SELF PAY [facility] Number: Effective Repository Date:2018-01-18 02/02/2018 Navdeep [place] [id number] [facility] [id number] [id number], [place] Number: Repository [address]Fxz: [phone] [id number] [phone] () Date:3955-22-56DP [address]MYTDNBQ, [place] [address]VC: 02/02/2018 Secondary NOT GIVENUNK [place] Insurance:SELF PAY [facility] Number: Effective Repository Date:2018-02-02 01/18/2018 Navdeep [place] [id number] [facility] [id number], [place] Number: Repository [address]Sih: [phone] [id number] [phone] () Date:8617-07-40WK [address]FNEWWSU, [place] [address]NC: 01/18/2018 Secondary NOT GIVENUNK [place] Insurance:SELF PAY [facility] Number: Effective Repository Date:2018-01-18
== END ==
PROVIDERS: Family Provider Family Medicine; PCP Family Medicine; Visit Provider Family Medicine
DX: I10 Essential (primary) hypertension (principal); E78.5 Hyperlipidemia, unspecified
CPT/HCPCS: 36415; 80048; 80061; 84443; 84450

== ENCOUNTER 2018-11-08 15:06 | Emergency (ER) | payer OTHER, SELFPAY ==
[2018-11-08 15:07] VITALS: BP 157/86; PULSE 71; RESP 16; TEMP 36.6; O2SAT 97; BMI 29.2
--- NOTE | 2018-11-08 15:27 | ED.VISSUMM ---
- ER Visit Summary Date of Service: 11/08/18 Chief Complaint: Depression History of Present Illness: The patient is a 63 F presenting with depression and suicidal thoughts. Patient was sent in by her primary care physician due to suicidal comments. Patient states she has been crying frequently. She states her work is currently overwhelming and she has had increased stress. She states she is unable to focus and frequently starts crying. She has no specific suicide plan. She states that she does not care what happens to her. She has had a history of previous overdose 40 years ago when she was having depression. She was recently switched from Paxil to Cymbalta. She denies homicidal ideations. Denies hallucinations. Physical Examination: Vitals are stable. Patient is afebrile. Alert no acute distress. HEENT exam is unremarkable. Neck is supple. Lungs are clear and equal bilaterally. Heart is regular rate and rhythm. Abdomen is soft nontender nondistended. Extremities are unremarkable. Skin is warm and dry. No focal neurologic deficit. Depressed affect Remainder of exam is unremarkable. Emergency Department Course and Treatment: Patient was seen by the outreach and education social worker in the emergency department. Patient is not currently suicidal. She has good support at home. Follow-up was arranged with the counseling center. She agreed to safety plan. She will be discharged with her . She is comfortable with this plan. Advised return to ED if worsening complaints. Disposition: Discharge home Impression: Depression This note was generated with [employer] dictation software. It may contain incorrect words, spelling, and punctuation that were not noted in review of the chart prior to signing ED Disposition - Plan for ED Patient: Chief Complaint: Depression Referrals: Hoda Concepcion MD [Primary Care Provider] -
--- NOTE | 2018-11-08 15:30 | ED.DCSUM_ITS ---
- ER Visit Summary Date of Service: 11/08/18 Chief Complaint: Depression History of Present Illness: The patient is a 63 F presenting with depression and suicidal thoughts. Patient was sent in by her primary care physician due to suicidal comments. Patient states she has been crying frequently. She states her work is currently overwhelming and she has had increased stress. She states she is unable to focus and frequently starts crying. She has no specific suicide plan. She states that she does not care what happens to her. She has had a history of previous overdose 40 years ago when she was having depression. She was recently switched from Paxil to Cymbalta. She denies homicidal ideations. Denies hallucinations. Physical Examination: Vitals are stable. Patient is afebrile. Alert no acute distress. HEENT exam is unremarkable. Neck is supple. Lungs are clear and equal bilaterally. Heart is regular rate and rhythm. Abdomen is soft nontender nondistended. Extremities are unremarkable. Skin is warm and dry. No focal neurologic deficit. Depressed affect Remainder of exam is unremarkable. Emergency Department Course and Treatment: Patient was seen by the manager social work in the emergency department. Patient is not currently suicidal. She has good support at home. Follow-up was arranged with the counseling center. She agreed to safety plan. She will be discharged with her . She is comfortable with this plan. Advised return to ED if worsening complaints. Disposition: Discharge home Impression: Depression This note was generated with [employer] dictation software. It may contain incorrect words, spelling, and punctuation that were not noted in review of the chart prior to signing ED Disposition - Plan for ED Patient: Chief Complaint: Depression Referrals: Hoda Concepcion MD [Primary Care Provider] -
--- NOTE | 2018-11-08 16:40 | CM.ED ---
SOCIAL WORK ASSESSMENT REFERRAL DATE: 11/08/18 DATE OF ASSESSMENT: 11/08/18 INFORMANT: SELF-REFERRAL REASON FOR CONSULT: PT WITH DEPRESSION INFORMATION OBTAINED FROM: PT, PT'S , AND CHART REVIEW LIVING ARRANGEMENTS: PT LIVES HOME WITH . PT REPORTS NEIGHBORS ARE DTR, SISTER, AND NEPHEW. 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 PT HAS RESOURCES TO SUPPORT FINANCIAL NEEDS. SUPPORTS: PT REPORTS GOOD SUPPORT FROM FAMILY. AGREES. SOCIAL/FAMILY STRESSORS: PT STATES HX OF DEPRESSION AND FRUSTRATION WITH CHANGE IN MEDICATION. PT STATES HAS BEEN TEARFUL SINCE TUESDAY. MENTAL HEALTH HX: PT ADMITS TO HX OF MENTAL HEALTH. PT STATES FOLLOWED WITH THE [facility]SELING C[facility] IN THE [place] AND WOULD BE IN AGREEMENT TO COUNSELING SERVICES AGAIN. DIAGNOSIS: DEPRESSION MEDICATIONS: PT STATES DID WELL ON PAXIL FOR MANY YEARS AND WAS RECENTLY SWITCHED TO CYMBALTA. PT STATES DOES NOT FEEL THE MEDICATION IS WORKING SHE HAS BEEN TEARFUL AND FEELS DEPRESSION IS WORSE. PT STATES IS OUT PICKING UP NEW PRESCRIPTION FOR PAXIL PRESCRIBED BY PCP DR. MARIN. SUBSTANCE ABUSE HX: PT ADMITS TO HX OF SUBSTANCE USE. SUBSTANCE: MARIJUANA AND ALCOHOL LAST USE: PT STATES HAS NOT USED MARIJUANA OR ALCOHOL SINCE HER 20'S. INTERVENTIONS: SET UP INTAKE APPOINTMENT WITH COUNSELING AT THE [facility]ING C[facility] ESTABLISH SAFETY PLAN WITH FAMILY ASSESSMENT: PT IS A 63 Y/O FEMALE WHO PRESENTS TO THE ER FROM DR. MARIN'S OFFICE. PT WITH DEPRESSION AND CURRENTLY HAS A SITTER. PT DENIES ANY SUICIDAL OR HOMICIDAL IDEATION TO THIS WORKER. PT DENIES PLAN OR INTENT OF HARMING SELF. PT DISCUSSED WITH THIS WORKER THE RECENT CHANGE IN MEDICATIONS AND FEELINGS OF DEPRESSION. PT STATES HAS BEEN UNABLE TO CONTROL CRYING SINCE TUESDAY. 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 PT STATES HER EMPLOYER HAS BEEN VERY UNDERSTANDING OF HER MENTAL HEALTH. PT STATES PLANS TO TAKE THE REST OF THE WEEK OFF. PT ADMITS TO HX OF SUBSTANCE USE: ALCOHOL AND MARIJUANA AND STATES HAS NOT USED EITHER SINCE HER 20'S. DISCUSSED PREVIOUS HX OF DEPRESSION AND PT STATES USED TO ATTEND COUNSELING AT THE [facility]ING C[facility]. PT IN AGREEMENT WITH THIS WORKER SETTING UP INTAKE APPOINTMENT. DISCUSSED PLAN FOR SAFETY WITH A D/C PLAN FOR HOME GOING. PT STATES WOULD LIKE TO GO ON THE ROAD WITH HER KIM ( IS A LUCIEN). PT STATES HAS FAMILY MEMBERS THAT ARE NEIGHBORS (SISTER, DTR, AND NEPHEWS). THIS WORKER TO DISCUSS PLAN WITH PT'S AND ED PHYSICIAN-DR. IQBAL. UPDATED PT'S NURSE ON THIS WORKER'S ASSESSMENT. PLAN: RECOMMEND D/C OF SITTER PROTOCOL PT IS NOT SUICIDAL-NO PLAN OR INTENT. D/C HOME WITH AND FAMILY SUPPORT.
--- NOTE | 2018-11-08 16:50 | CM.ED ---
SOCIAL WORK NOTE DISCUSSED WITH ED PHYSICIAN-DR. IQBAL AND RECOMMENDED THE REMOVAL OF THE SITTER THIS PROTOCOL IS NOT NECESSARY AT THIS TIME. CALL TO PT'S , NAVDEEP WITH PT'S PERMISSION TO DISCUSS SAFETY OF PLAN FOR HOME GOING. IN AGREEMENT WITH PLAN AND DOES NOT FEEL PT IS SUICIDAL. CALL TO THE [facility], SPOKE WITH YORDAN. INTAKE APPOINTMENT SCHEDULED FOR 11/21/18 AT 8:30AM. WILL UPDATE PT, AND DR. IQBAL. CAMERON MARTINEZ, ACO COORDINATOR, GL ACCOUNTANT.
--- NOTE | 2018-11-08 17:09 | ED.DEP ---
ED Disposition - Plan for ED Patient: Chief Complaint: Depression Instructions: ED Depression Referrals: Hoda Concepcion MD [Primary Care Provider] - Counseling,Center [GROUP OF PHYSICIANS] -
--- NOTE | 2018-11-08 17:10 | CM.ED ---
Addendum entered by Camilla Krishnan 11/08/18 17:59: PT AND GIVEN INFORMATION ON CRISIS HOTLINE IF NEEDED. Original Note: SOCIAL WORK NOTE MET WITH PT AND PT'S IN ROOM. UPDATED ON APPOINTMENT WITH THE [facility]SELING [facility] SCHEDULED FOR 11/21/18 AT 8:30A. PT AND STATE PT IS GOING TO GO ON THE ROAD WITH HIM THIS EVENING HE IS A MANAGER PAYMENT. PT WITH SAFE PLAN IN PLACE. PT CONTINUES TO DENY ANY SUICIDAL OR HOMICIDAL IDEATIONS, NO PLAN OR INTENT. UPDATED NURSING AND DR. IQBLA ON PLAN. PLAN: PT TO BE D/C'ED HOME WITH SPOUSE.
[2018-11-08 17:28] VITALS: BP 152/65; PULSE 89; RESP 16; O2SAT 96
== END 2018-11-08 17:35 | disposition home or self-care (01) ==
PROVIDERS: Emergency Provider Emergency Medicine; Family Provider Family Medicine; PCP Family Medicine
DX: F32.9 Major depressive disorder, single episode, unspecified (principal); R45.851 Suicidal ideations; I10 Essential (primary) hypertension; I42.2 Other hypertrophic cardiomyopathy; M79.7 Fibromyalgia; K21.9 Gastro-esophageal reflux disease without esophagitis; Z79.899 Other long term (current) drug therapy
CPT/HCPCS: 99283

== ENCOUNTER → 2018-12-08 13:27 | Outpatient (CLI) | payer OTHER, SELFPAY ==
[2018-11-08 15:07] VITALS: BMI 29.2
--- NOTE | 2018-12-08 13:30 | US_ITS ---
STUDY: ULTRASOUND BREAST - RIGHT REASON FOR EXAM: Female, 63 years old. Abnormal screening mammogram. TECHNIQUE: Axial and longitudinal images of the RIGHT breast were performed with a high resolution ultrasound transducer. COMPARISON: Comparison is made with prior mammogram dated December 08, 2018 and prior ultrasound of the right breast dated March 31, 2018. FINDINGS: RIGHT Breast: The lateral half of the right breast was examined by ultrasound. There is homogeneous fibroglandular tissue. No solid or cystic masses seen. This is unchanged as compared to prior study. Mammographic follow-up is recommended. US/Breast Limited Unilateral IMPRESSION: Unremarkable sonographic examination of the lateral half of the right breast ASSESSMENT CATEGORY: BIRADS Category 1: Negative. A letter regarding these results will be sent to the patient by the facility within 30 days. Electronically Signed: Radhames Nielsen MD at 8:30 EST , Service support ,
--- NOTE | 2018-12-08 13:30 | BI_ITS ---
MAMMOGRAPHY - UNILATERAL DIAGNOSTIC: RIGHT BREAST REASON FOR EXAM: Female, 63 years old. Abnormal screening mammogram. Follow-up for nodular density in the upper outer quadrant of the breast. PERTINENT HISTORY: Non-contributory. TECHNIQUE: Digital unilateral breast iliana (3D mammographic acquisition) in the CC and MLO projections. 2-D mediolateral oblique (MLO) and craniocaudad (CC) views of both breasts were obtained. CAD: Full Field Digital Mammography with Computer Added Detection was performed. COMPARISON: Comparison is made with prior mammogram dated March 31, 2018 and prior MRI of the breasts dated April 20, 2018. FINDINGS: Breast Composition: There are scattered areas of fibroglandular density. There are no dominant masses or suspicious calcifications. There is a stable slightly lobulated well-defined 1.2 cm x 0.7 cm nodular density in the upper lateral portion of the right breast. No other significant abnormalities are identified. There has been no significant change since the prior study. BI/DIAG MAMM W/CAD, UNILAT IMPRESSION: Stable unilateral diagnostic mammogram. A repeat sonogram is recommended. ASSESSMENT CATEGORY: BIRADS Category 0: Incomplete. Need additional imaging evaluation. A letter regarding these results will be sent to the patient by the facility within 30 days. Approximately 10% of breast cancers are not detected by mammography. A normal mammogram should not delay biopsy of a clinically suspicious abnormality. Electronically Signed: Radhames Nielsen MD at 14:57 EST , Service support ,
== END ==
PROVIDERS: Family Provider Family Medicine; PCP Family Medicine; Referring Provider Family Medicine; Visit Provider Family Medicine
DX: R92.8 Other abnormal and inconclusive findings on diagnostic imaging of breast (principal); N63.11 Unspecified lump in the right breast, upper outer quadrant
CPT/HCPCS: 76642; 77061; 77065; G0279

== ENCOUNTER → 2018-12-11 17:15 | Outpatient (CLI) | payer OTHER, SELFPAY ==
[2018-12-11 17:57] LABS: Absolute Lymphocyte Count 2.11 X10^3/ul (0.83-4.51); Absolute Neutrophil Count 3.7 X10^3/uL (2.0-7.7); Basophil# 0.04 X10^3/uL; Basophil% 0.6 % (0-1); Eosinophil# 0.12 X10^3/uL; Eosinophils% 1.9 % (0-5); Hematocrit 41.6 % (37-47); Lymphocyte # 2.11 X10^3/ul (4.0); Lymphocyte % 32.9 % (19-41); Mean Corp Hgb Conc 33.7 g/gl (32-36); Mean Corpuscular Hgb 30.9 pg (27.0-32.0); Mean Corpuscular Volume 91.8 fL (81-99); Mean Platelet Vol. 10.5 fl (6.2-12.0); Monocyte# 0.42 X10^3/uL; Monocyte% 6.5 % (0-10); Neutrophil # 3.71 X10^3/uL (2.7-7.7); Neutrophil % 57.8 % (47-70); Platelet Count 316 K/mm3 (150-450); RBC Distribution Width CV 12.3 % (11.6-14.6); RBC Distribution Width SD 40.7 fl (35.1-43.9); Red Blood Count 4.53 M/mm3 (4.2-5.4); White Blood Count 6.4 K/mm3 (4.4-11.0)
[2018-12-11 18:02] LABS: POSITIVE COUNT NO; POSITIVE DIFFERENTIAL NO; POSITIVE MORPHOLOGY NO
[2018-12-11 18:21] LABS: Internal QC Validated? YES +Cl - CLEAR BKGD; Monotest Negative (Negative)
[2018-12-11 18:27] LABS: ALB/GLOB Ratio 1.3 RATIO (0.9-2.4); AST(SGOT) 23 U/L (15-37); Alanine Aminotransfer ALT/SGPT 49 U/L (13-56); Albumin, Serum 4.4 g/dL (3.2-5.0); Alkaline Phosphatase 137 U/L (45-117); Anion Gap 9 (5-15); BUN 14 mg/dL (7-18); BUN/Creat Ratio 16.6 RATIO (10-20); Calcium,Total 10.3 mg/dL (8.5-10.1); Chloride 104 mmol/L (98-107); Creatinine, Serum 0.84 mg/dL (0.55-1.02); EST Glomerular Filtration Rate 73 mL/min (>60); Est Glom Filt Rate - Afr Amer 88 mL/min (>60); Globulin 3.3 g/dL (2.2-4.2); Glucose 149 mg/dL (74-106); Potassium 3.9 mmol/L (3.5-5.1); Protein, Total 7.7 g/dL (6.4-8.2); Sodium Level 142 mmol/L (136-145)
[2018-12-12 15:18] LABS: Hemoglobin A1c 6.7 % (4.2-6.3)
== END ==
PROVIDERS: Family Provider Family Medicine; PCP Family Medicine; Referring Provider Family Medicine; Visit Provider Family Medicine
DX: R42 Dizziness and giddiness (principal)
CPT/HCPCS: 36415; 80053; 83036; 85025; 86308

== ENCOUNTER → 2019-04-03 13:49 | Outpatient (CLI) | payer OTHER, SELFPAY ==
[2019-03-02 16:06] VITALS: BMI 27.3
--- NOTE | 2019-04-03 13:58 | ECHOCS_ITS ---
Reason For Study: HCM Procedure This was a 2D Doppler, Color Flow transthoracic echocardiogram. The study was technically difficult. Contrast injection was performed. Exam performed in department. Left Ventricle Normal LV size. Left ventricular systolic function is normal. The estimated ejection fraction is 65 %. Stage 1 diastolic dysfunction. No regional wall motion abnormalities noted. Right Ventricle Normal RV size. Normal systolic function. Atria Normal left atrium. Normal right atrium. Mitral Valve Normal mitral valve. Tricuspid Valve Normal tricuspid valve. Aortic Valve The aortic valve is not well visualized. Pulmonic Valve Normal pulmonic valve. Great Vessels Normal aortic root. The pulmonary artery is normal size. Normal inferior vena cava. Pericardium/Pleural No pericardial effusion. Medication 22 gauge I.V. with prn adaptor inserted into right arm. Diluted definity 2ml given slow IV push to enhance endocardial definition. MMode/2D Measurements & Calculations LVIDd: 3.7 cm IVSd: 1.0 cm Ao root diam: 3.0 cm LVIDs: 2.2 cm LVPWd: 0.91 cm RVDd: 3.5 cm FS: 40.3 % LAV(MOD-bp): 35.8 ml LA A4 area: 15.1 cm2 RA A4 area: 14.1 cm2 LAV(MOD-bp) Indexed: 20.3 ml/m2 LAV(MOD-sp2): 35.5 ml LAV(MOD-sp4): 36.1 ml Time Measurements MV dec time: 0.26 sec Doppler Measurements & Calculations MV E max mikey: 86.3 cm/sec Lat Peak E' Mikey: 9.4 cm/sec Med Peak E' Mikey: 6.3 cm/sec MV A max mikey: 103.5 cm/sec E/E' lat: 9.2 E/E' med: 13.8 MV E/A: 0.83 MV V2 max: 125.2 cm/sec MV P1/2t max mikey: 99.2 cm/sec Ao V2 max: 141.3 cm/sec MV max P.3 mmHg MV P1/2t: 61.2 msec Ao max P.0 mmHg MV V2 mean: 71.1 cm/sec MV dec slope: 474.8 cm/sec2 MV mean P.3 mmHg MV V2 VTI: 43.2 cm MVA(P1/2t): 3.6 cm2 LV V1 max: 128.3 cm/sec PA V2 max: 105.9 cm/sec LV V1 max P.6 mmHg Interpretation Summary Normal LV size. Left ventricular systolic function is normal. The estimated ejection fraction is 65 %. Stage 1 diastolic dysfunction. Contrast injection was performed. Ordering Physician: Dilan Kimble Referring Physician: Dilan Kimble Performed By: Willie Guerrero RCS
== END ==
PROVIDERS: Family Provider Family Medicine; PCP Family Medicine; Referring Provider Nurse Practitioner Family; Visit Provider Nurse Practitioner Family
DX: E78.5 Hyperlipidemia, unspecified (principal); I42.2 Other hypertrophic cardiomyopathy
CPT/HCPCS: 93306; Q9957; A4216; C8929

== ENCOUNTER → 2019-04-25 16:27 | Outpatient (CLI) | payer OTHER, SELFPAY ==
[2019-03-02 16:06] VITALS: BMI 27.3
[2019-04-25 17:47] LABS: Absolute Lymphocyte Count 2.85 X10^3/ul (0.83-4.51); Absolute Neutrophil Count 3.1 X10^3/uL (2.0-7.7); Basophil# 0.04 X10^3/uL; Basophil% 0.6 % (0-1); Eosinophil# 0.12 X10^3/uL; Eosinophils% 1.9 % (0-5); Hematocrit 39.5 % (37-47); Hemoglobin 13.2 g/dl (12.0-15.0); Lymphocyte # 2.85 X10^3/ul (4.0); Mean Corp Hgb Conc 33.4 g/gl (32-36); Mean Corpuscular Hgb 30.1 pg (27.0-32.0); Mean Corpuscular Volume 90.2 fL (81-99); Mean Platelet Vol. 9.8 fl (6.2-12.0); Monocyte# 0.39 X10^3/uL; Neutrophil # 3.08 X10^3/uL (2.7-7.7); Neutrophil % 47.5 % (47-70); Platelet Count 300 K/mm3 (150-450); RBC Distribution Width CV 12.3 % (11.6-14.6); RBC Distribution Width SD 40.4 fl (35.1-43.9); Red Blood Count 4.38 M/mm3 (4.2-5.4); White Blood Count 6.5 K/mm3 (4.4-11.0)
[2019-04-25 17:56] LABS: POSITIVE COUNT NO; POSITIVE DIFFERENTIAL NO; POSITIVE MORPHOLOGY NO
[2019-04-25 18:26] LABS: Erythrocyte Sedimentation Rate 12 mm/hr (0-30)
[2019-04-25 19:08] LABS: CRP < 2.90 mg/L (0.0-3.0); Rheumatoid Factor < 10.0 IU/mL (<15); Thyroid Stim Hormone (TSH) 1.76 uIU/mL (0.358-3.74)
[2019-04-27 14:43] LABS: ANTINUCLEAR ANTIBODIES DIRECT Negative (Negative)
== END ==
PROVIDERS: Family Provider Family Medicine; PCP Family Medicine; Referring Provider Family Medicine; Visit Provider Family Medicine
DX: M79.7 Fibromyalgia (principal)
CPT/HCPCS: 36415; 84443; 85025; 85652; 86038; 86140; 86431

== ENCOUNTER → 2020-12-24 13:33 | Outpatient (CLI) | payer OTHER, SELFPAY ==
[2020-02-18 14:11] VITALS: BMI 27.9
== END ==
PROVIDERS: PCP Family Medicine; Visit Provider Family Medicine
DX: R35.0 Frequency of micturition (principal)
CPT/HCPCS: 87077; 87086; 87088; 87186

== ENCOUNTER → 2021-02-11 | Outpatient (CLI) | payer OTHER, SELFPAY ==
[2020-02-18 14:11] VITALS: BMI 27.9
== END | disposition home or self-care (01) ==
PROVIDERS: PCP Family Medicine; Visit Provider Family Medicine
DX: N39.0 Urinary tract infection, site not specified (principal)
CPT/HCPCS: 87086; 87088

== ENCOUNTER → 2021-02-16 07:46 | Outpatient (CLI) | payer OTHER, SELFPAY ==
[2020-02-18 14:11] VITALS: BMI 27.9
--- NOTE | 2021-02-16 07:51 | ECHOD_ITS ---
Reason For Study: HTN Procedure This was a 2D Doppler, Color Flow transthoracic echocardiogram. Exam performed in department. Left Ventricle Normal LV size. Sigmoid septum. Left ventricular systolic function is normal. Stage 1 diastolic dysfunction. The estimated ejection fraction is 65 %. No regional wall motion abnormalities noted. Right Ventricle Normal RV size. Normal systolic function. Atria Normal left atrium. Normal right atrium. Mitral Valve Normal mitral valve. Mild-Moderate (1-2+) eccentric mitral valve insufficiency. Tricuspid Valve Normal tricuspid valve. Mild tricuspid valve insufficiency. Pulmonary artery systolic pressure is 34 mmHg. Aortic Valve Normal aortic valve. Trisinus/trileaflet aortic valve. Pulmonic Valve Normal pulmonic valve. Great Vessels Normal aortic root. The pulmonary artery is normal size. Normal inferior vena cava. Pericardium/Pleural No pericardial effusion. MMode/2D Measurements & Calculations LVIDd: 3.3 cm IVSd: 1.3 cm Ao root diam: 2.8 cm LVIDs: 1.5 cm LVPWd: 0.83 cm RVDd: 3.6 cm FS: 52.7 % LAV(MOD-bp): 30.4 ml LVAd ap4: 22.1 cm2 SV(MOD-sp4): 36.9 ml LAV(MOD-bp) Indexed: 16.9 ml/m2 EDV(MOD-sp4): 55.5 ml LAV(MOD-sp2): 27.9 ml EDV(sp4-el): 59.2 ml LAV(MOD-sp4): 32.9 ml LVAs ap4: 11.3 cm2 ESV(MOD-sp4): 18.6 ml ESV(sp4-el): 19.4 ml EF(MOD-sp4): 66.4 % EF(sp4-el): 67.2 % SV(sp4-el): 39.8 ml LA A4 area: 14.1 cm2 LA dimension(2D): 3.4 cm RA A4 area: 14.5 cm2 Doppler Measurements & Calculations MV E max mikey: 96.1 cm/sec Lat Peak E' Mikey: 9.6 cm/sec Med Peak E' Mikey: 5.8 cm/sec MV A max mikey: 109.6 cm/sec E/E' lat: 10.0 E/E' med: 16.7 MV E/A: 0.88 Ao V2 max: 158.4 cm/sec LV V1 max: 118.0 cm/sec PA V2 max: 111.5 cm/sec Ao max P.0 mmHg LV V1 max P.6 mmHg TR max mikey: 263.7 cm/sec TR max P.0 mmHg ECHO/Echo Complete Interpretation Summary Normal LV size. Left ventricular systolic function is normal. Stage 1 diastolic dysfunction. The estimated ejection fraction is 65 %. Mild tricuspid valve insufficiency. Pulmonary artery systolic pressure is 34 mmHg. Ordering Physician: Rodrigo Coon Referring Physician: Hoda Concepcion M.D. Performed By: Kasie Mckeon RDCS
== END ==
PROVIDERS: PCP Family Medicine; Referring Provider Internal Medicine Cardiovascular Disease; Visit Provider Internal Medicine Cardiovascular Disease
DX: R06.00 Dyspnea, unspecified (principal); I10 Essential (primary) hypertension
CPT/HCPCS: 93306

== ENCOUNTER → 2021-02-18 06:51 | Outpatient (CLI) | payer OTHER, SELFPAY ==
[2020-02-18 14:11] VITALS: BMI 27.9
[2021-02-17 08:31] VITALS: BMI 28.1
--- NOTE | 2021-02-18 07:05 | US_ITS ---
STUDY: RENAL ULTRASOUND - COMPLETE REASON FOR EXAM: Female, 65 years old. recurrent UTI TECHNIQUE: Ultrasound evaluation of the kidneys was performed with real-time and static albright-scale imaging. COMPARISON: None. FINDINGS: RIGHT KIDNEY: Normal location of the right kidney, which is normal in size. The right kidney measures 11 cm. There is a normal cortex of the right kidney. There is no right renal mass or cyst. There are no right renal calculi. There is no right hydronephrosis. DISTAL RIGHT URETER: There is non-visualization of the distal right ureter. There is no demonstrated right ureterovesical junction calculus. There is a visualized right ureteral jet. LEFT KIDNEY: Normal location of the left kidney, which is normal in size. The left kidney measures 11.3 cm. There is a normal cortex of the left kidney. There is no left renal mass or cyst. There is a 5 mm nonobstructing midpole renal pelvic stone. There is no left hydronephrosis. DISTAL LEFT URETER: There is non-visualization of the distal left ureter. There is no demonstrated left ureterovesical junction calculus. There is a visualized left ureteral jet. BLADDER: The distended urinary bladder has a volume of 156 ml. There is a normal wall thickness of the distended urinary bladder. There is no demonstrated mass within the urinary bladder. There are no demonstrated bladder calculi. US/Kidney and Bladder IMPRESSION: Normal ultrasound of the kidneys and urinary bladder. There is a nonobstructing 5 mm stone in the left renal midpole. Electronically Signed: Carey Dailey MD at 11:08 EDT Tel , Service support ,
[2021-02-18 07:37] LABS: AST(SGOT) 26 U/L (15-37); Alanine Aminotransfer ALT/SGPT 62 U/L (13-56); Albumin, Serum 4.3 g/dL (3.2-5.0); Alkaline Phosphatase 136 U/L (45-117); Bilirubin, Direct 0.15 mg/dL (0.00-0.30); Cholesterol 144 mg/dL (200); Globulin 3.4 g/dL (2.2-4.2); High Density Lipoprotein 55 mg/dL; Protein, Total 7.7 g/dL (6.4-8.2); Triglycerides 121 mg/dL; Very Low Density Lipoprotein 24 mg/dL (5-40)
== END ==
PROVIDERS: Internal Medicine Cardiovascular Disease; PCP Family Medicine; Referring Provider Family Medicine; Visit Provider Family Medicine
DX: N39.0 Urinary tract infection, site not specified (principal); E78.00 Pure hypercholesterolemia, unspecified
CPT/HCPCS: 36415; 76770; 80061; 80076

== ENCOUNTER → 2021-03-20 13:15 | Outpatient (CLI) | payer OTHER, SELFPAY ==
[2021-02-17 08:31] VITALS: BMI 28.1
--- NOTE | 2021-03-20 13:16 | BI_ITS ---
MAMMOGRAPHY - BILATERAL SCREENING REASON FOR EXAM: Female, 65 years old. Routine annual screening examination. PERTINENT HISTORY: Non-contributory. TECHNIQUE: Digital bilateral breast ashley (3D mammographic acquisition) in the CC and MLO projections. 2-D mediolateral oblique (MLO) and craniocaudad (CC) views of both breasts were obtained. CAD: Full Field Digital Mammography with Computer Added Detection was performed. COMPARISON: Comparison is made with prior study dated 03/31/2018. FINDINGS: Breast Composition: There are scattered areas of fibroglandular density. There are no dominant masses or suspicious calcifications. Previously seen 1.2 cm nodular density in the deep upper lateral portion of the right breast is not seen at this time. No other significant abnormalities are identified. BI/SCRN MAMM (CAD)W/ASHLEY BILAT IMPRESSION: Interval resolution of the nodular density in the deep upper lateral portion of the right breast. Yearly follow-up mammogram recommended. (A) ASSESSMENT CATEGORY: BIRADS Category 2: Benign. A letter regarding these results will be sent to the patient by the facility within 30 days. Approximately 10% of breast cancers are not detected by mammography. A normal mammogram should not delay biopsy of a clinically suspicious abnormality. [id number] Electronically Signed: Radhames Nielsen MD at 14:06 EDT , Service support ,
== END ==
PROVIDERS: PCP Family Medicine; Referring Provider Student in an Organized Health Care Education/Training Program; Visit Provider Student in an Organized Health Care Education/Training Program
DX: Z12.31 Encounter for screening mammogram for malignant neoplasm of breast (principal)
CPT/HCPCS: 77063; 77067

== ENCOUNTER 2021-07-21 22:00 | Emergency (ER) | payer OTHER, SELFPAY ==
[2021-07-21 22:01] VITALS: BP 124/53; PULSE 61; RESP 18; TEMP 36.4; O2SAT 93; BMI 25.4
[2021-07-21 22:06] VITALS: BP 124/53; PULSE 61; RESP 18; O2SAT 93
--- NOTE | 2021-07-21 22:17 | EKG12_ITS ---
Test Reason : DYSRHYTHMIA Blood Pressure : / mmHG Vent. Rate : 063 BPM Atrial Rate : 063 BPM P-R Int : 212 ms QRS Dur : 090 ms QT Int : 398 ms P-R-T Axes : 054 049 036 degrees QTc Int : 407 ms Sinus rhythm with 1st degree A-V block Otherwise normal ECG Confirmed by JOSELIN PRATER, ALEN ([id number]), editor dictionary HARISH SALAZAR ([id number]) on 07/22/2021 1:26:11 PM Referred By: BERYL Confirmed By:ALEN OLIVERA MD
--- NOTE | 2021-07-21 22:17 | EDS_ITS ---
HPI History of Present Illness Chief Complaint: Syncope Detail of Chief Complaint: Near syncope Informant: patient Narrative Narrative: Patient presents to the emergency department via EMS from the [facility]. Patient states that she had spent the day in her pool and then went to the [facility] this evening. Patient was sitting in the stands at the [facility] and it was quite hot. Patient recalls feeling very hot and sweaty and lightheaded. Patient be tahmina feeling nauseated and felt like she was in a pass out. Patient went to the [place] tent where she was able to lay down and then began having dry heaves. Patient was referred to the emergency department. She denied any chest pain or palpitations. Patient has had similar thing happen in the past when she was dehydrated. Patient states that they were talking to her in the tent but she just felt like she was numb and tingly and could not really speak back to them but did not completely pass out. On arrival to the emergency department patient states that she feels much improved currently. She is no longer nauseated. Patient would like something to drink. Prior similar symptoms: Yes PFSH PFSH Medical History (Updated 07/21/21 @ 23:[address] Enedina Silveira DO) Essential (primary) hypertension GERD (gastroesophageal reflux disease) Hyperlipidemia Hypertrophic cardiomyopathy Obstructive sleep apnea Seasonal allergies Home Medications esomeprazole magnesium 40 mg capsule,delayed release 40 mg PO QDAY 02/27/18 [History Last Taken Unknown] rosuvastatin 40 mg tablet 40 mg PO DAILY tab 02/18/20 [History Last Taken Unknown] lisinopril 10 mg-hydrochlorothiazide 12.5 mg tablet 1 tab PO QDAY #90 tab 03/23/21 [Rx Last Taken Unknown] metoprolol succinate 100 mg tablet,extended release 24 hr 100 mg PO QDAY #90 tablet 03/23/21 [Rx Last Taken Unknown] Allergy/AdvReac Type Severity Reaction Status Date / Time mold spores Allergy Intermediate URI Uncoded 07/21/21 22:01 symptoms pollens Allergy Intermediate URI Uncoded 07/21/21 22:01 symptoms Family History Mother CAD (coronary artery disease) Diabetes Arthritis Father CAD (coronary artery disease) Surgical History (Updated 07/21/21 @ 22:05 by Gonzalo Torres) History of tonsillectomy History of tubal ligation Social History (Updated 02/17/21 @ 09:[address] Rodrigo Coon MD) Smoking Status: Former smoker ROS ROS ED ROS Narrative Near syncope, lightheadedness, diaphoresis Constitutional Constitutional ED: Reports systems reviewed and no addt'l complaints, except as documented; Denies body ache(s), change in weight or chills Eyes Eyes: Denies acute decrease in peripheral vision, change in vision, double vision or loss of vision ENT ENT ED: Reports none; Denies ear pain, lip swelling, loss taste/smell, neck pain, otalgia or sore throat Cardiovascular Cardiovascular: Reports none; Denies abdominal pain, chest pain with activity, leg edema, lightheadedness, palpitations, rapid heart rate or syncope Respiratory/Chest Respiratory/Chest: Reports none; Denies change in mental status, dry cough, dyspnea, hemoptysis, shortness of breath at rest or shortness of breath with exertion Gastrointestinal Gastrointestinal: Reports none; Denies abdominal pain, change in stool character, diarrhea, hematemesis, hematochezia, melena, rectal bleeding or vomiting Genitourinary Genitourinary ED: Reports none; Denies abdominal discomfort, anuria, dysuria, genital pain or polyuria Musculoskeletal Musculoskeletal: Reports none; Denies arthralgias, back pain, difficulty walking, extremity pain, muscle weakness or myalgias Integumentary Reports none; Denies abscess or rash Neurologic Neurologic: Reports none; Denies abnormal gait, confusion, focal weakness, frequent falls, headache(s), loss of vision, numbness, paresthesias, radicular pain, vertigo or weakness Psychiatric Psychiatric: Reports systems reviewed and no addt'l complaints, except as documented and none; Denies behavioral changes, confusion, difficulty concentrating, hallucinations, suicidal ideation, tactile hallucinations or visual hallucinations Endocrine Endocrinology: Denies none, cold intolerance, excessive sweating, fatigue or heat intolerance Hematologic/Lymphatic Hematologic/Lymphatic: Reports none; Denies anemia, easy bleeding or easy bruising Allergic/Immunologic Allergic/Immunologic ED: Denies as per HPI, none, lip swelling, mouth swelling, throat swelling, tongue swelling or hives EXAM Physical Exam Const Vital Signs: 07/21/21 22:01 07/21/21 22:06 07/21/21 22:07 Temperature 97.5 F L Temperature Source Temporal Pulse Rate 61 61 Respiratory Rate 18 18 Respiratory Effort Normal Non-Labored Respiratory Pattern Normal Blood Pressure 124/53 H 124/53 H Blood Pressure Mean 76 76 Pulse Ox 93 93 Oxygen Delivery Method Room Air Room Air Positive well nourished and well developed General Appearance ED: well developed and NAD HEENT Reports TM's clear and moist mucous membranes normocephalic and atraumatic; Negative for trauma or tenderness Tympanic Membrane ED: Yes TM's clear Eyes PERRL and EOMs intact bilaterally General Eye ED: Negative for pale conjunctiva or scleral icterus Neck no lymphadenopathy, supple and no JVD General: Negative for tenderness Chest Wall inspection of chest normal and palpation of chest normal Chest: Negative for tenderness Resp normal respiratory effort and clear to auscultation bilaterally Effort and Inspection: Negative for respiratory distress or pain with movement Auscultation: Negative for rhonchi, wheezes or diminished lung sounds Cardio regular rate, regular rhythm, S1 normal heart sound, S2 normal heart sound and no murmurs Peripheral Pulses: pulses 2+ throughout GI normal to inspection, nondistended, normoactive bowel sounds, soft to palpation, non-tender, non-distended and no masses Back/Spine no CVA tenderness and no thoracic nor lumbar tenderness Extremity normal to inspection General Extremety ED: Negative for edema General Extremity: Negative for edema Neuro oriented x3, CN's II-XII intact bilaterally, no sensory deficits noted and gait normal Sensorium / Orientation: awake, alert, oriented to person, oriented to place and oriented to time Motor Exam: strength 5/5 throughout and strength abnormal Psych mental status grossly normal Skin no rashes or lesions noted and no wounds MDM MDM MDM Narrative Medical decision making narrative: IV line established. Patient was given a liter massive fluid bolus. Patient was placed on a personnel monitor. Patient had no recurrence of symptoms. Orthostatic vital signs this point unremarkable. Patient feels well. I suspect she likely had a vasovagal episode. Lab Data Attestation: I reviewed the patient's lab results. Labs: Laboratory Results - last 24 hr 07/21/21 07/21/21 22:30 22:30 WBC 8.0 RBC 4.41 Hgb 13.6 Hct 39.5 MCV 89.6 MCH 30.8 MCHC 34.4 RDW Std Deviation 40.0 RDW Coeff of Mark 12.2 Plt Count 269 MPV 10.5 Immature Gran % (Auto) 0.300 Neut % (Auto) 68.3 Lymph % (Auto) 24.1 [place] % (Auto) 5.6 Eos % (Auto) 1.1 Baso % (Auto) 0.6 Absolute Neuts (auto) 5.4 Absolute Lymphs (auto) 1.92 Nucleated RBC % 0 Sodium 139 Potassium 3.1 L Chloride 104 Carbon Dioxide 25.0 Anion Gap 10 BUN 16 Creatinine 1.07 H Estim Creat Clear Calc 45.87 Est GFR (MDRD) Af Amer 66 Est GFR (MDRD) Non-Af 55 L BUN/Creatinine Ratio 15.0 Glucose 175 H Calcium 11.0 H Troponin I High Sens 6 EKG Initial EKG: Attestation: I personally reviewed and interpreted this EKG as follows: Comments: Sinus rhythm with a ventricular rate of 63 bpm with a first- degree AV block Discharge Plan Triage Chief Complaint: Syncope ED Provider: Enedina Silveira Dx/Rx/DC Orders Clinical Impression: Near syncope, Vasovagal episode Instructions: ED Fainting, Vagal Reaction Prescriptions: No Action esomeprazole magnesium 40 mg capsule,delayed release(DR/EC) 40 mg PO QDAY RF: 0 rosuvastatin 40 mg tablet 40 mg PO DAILY RF: 0 lisinopril-hydrochlorothiazide 10-12.5 mg tablet 1 tab PO QDAY Qty: 90 RF: 3 metoprolol succinate 100 mg tablet extended release 24 hr 100 mg PO QDAY Qty: 90 RF: 3 Primary Care Provider: Hoda Concepcion Referrals: Hoda Concepcion MD [Primary Care Provider] - 3-5 Days Disposition Disposition: Home, Self Care
[2021-07-21] MEDS: 0.9% Normal Saline 1,000 ML 1000 ML IV (22:33)
[2021-07-21 22:51] LABS: Absolute Lymphocyte Count 1.92 X10^3/uL (0.83-4.51); Absolute Neutrophil Count 5.4 X10^3/uL (2.0-7.7); Basophil# 0.05 X10^3/uL; Basophil% 0.6 % (0-1); Eosinophil# 0.09 X10^3/uL; Eosinophils% 1.1 % (0-5); Hematocrit 39.5 % (37-47); Hemoglobin 13.6 g/dL (12.0-15.0); Lymphocyte # 1.92 X10^3/ul (0.83-4.51); Lymphocyte % 24.1 % (19-41); Mean Corp Hgb Conc 34.4 g/dL (32-36); Mean Corpuscular Hgb 30.8 pg (27.0-32.0); Mean Corpuscular Volume 89.6 fL (81-99); Mean Platelet Vol. 10.5 fl (6.2-12.0); Monocyte# 0.45 X10^3/uL; Monocyte% 5.6 % (0-10); NRBC Flagged by Analyzer 0 % (0-5); Neutrophil # 5.44 X10^3/uL (2.7-7.7); Neutrophil % 68.3 % (47-70); Platelet Count 269 K/mm3 (150-450); RBC Distribution Width CV 12.2 % (11.6-14.6); Red Blood Count 4.41 M/mm3 (4.2-5.4)
[2021-07-21 23:04] LABS: Anion Gap 10 (5-15); BUN 16 mg/dL (7-18); Chloride 104 mmol/L (98-107); Creatinine, Serum 1.07 mg/dL (0.55-1.02); EST Glomerular Filtration Rate 55 mL/min (>60); Est Glom Filt Rate - Afr Amer 66 mL/min (>60); Estimated Creatinine Clearance 45.87 ml/min; Glucose 175 mg/dL (74-106); Potassium 3.1 mmol/L (3.5-5.1); Sodium Level 139 mmol/L (136-145); Troponin-I HS 6 pg/mL (3.0-54.0)
[2021-07-21 23:05] VITALS: BP 118/66; BP 123/72; BP 130/97; PULSE 75; PULSE 77; PULSE 80
[2021-07-21] MEDS: Potassium Chloride Oral Tablet 20 MEQ 40 MEQ PO (23:30)
[2021-07-21] MEDS: Ondansetron 4 MG/2 ML Vial IV (23:30)
== END 2021-07-21 23:59 | disposition home or self-care (01) ==
PROVIDERS: Emergency Provider Emergency Medicine; PCP Family Medicine
DX: R55 Syncope and collapse (principal); I10 Essential (primary) hypertension; I42.2 Other hypertrophic cardiomyopathy; E78.5 Hyperlipidemia, unspecified; Z79.899 Other long term (current) drug therapy; Z87.891 Personal history of nicotine dependence
CPT/HCPCS: 80048; 84484; 85025; 93005; 96361; 96374; 99285; J2405

== ENCOUNTER → 2021-08-10 11:22 | Outpatient (CLI) | payer OTHER, SELFPAY ==
[2021-08-10 15:42] LABS: Thyroid Stim Hormone (TSH) 0.95 uIU/mL (0.358-3.74)
== END ==
PROVIDERS: PCP Family Medicine; Referring Provider Family Medicine; Visit Provider Family Medicine
DX: R73.02 Impaired glucose tolerance (oral) (principal); R55 Syncope and collapse; N39.0 Urinary tract infection, site not specified
CPT/HCPCS: 36415; 84443; 87086

== ENCOUNTER → 2021-08-14 08:47 | Outpatient (CLI) | payer OTHER, SELFPAY ==
--- NOTE | 2021-08-14 08:55 | US_ITS ---
INDICATION: rule out cholelithiasis EXAMINATION: Ultrasound US Abdomen Limited (quadrant) TECHNIQUE: Aguilar scale and color doppler imaging was performed of the right upper quadrant. COMPARISON: 02/18/2021. FINDINGS: LIVER: The liver demonstrates increased echogenicity suggestive of for hepatic steatosis. No evidence of hepatic masses, no evidence of intrahepatic biliary dilatation is seen. There is no free fluid. GALLBLADDER AND BILIARY TREE: No shadowing gallstone, pericholecystic fluid or gallbladder wall thickening is demonstrated. The proximal common bile duct measures 4, which is within normal limits for the patient''s age. Songraphic Meng''s sign: Negative. PANCREAS: No focal abnormality is demonstrated in the pancreas. No pancreatic ductal dilatation. The right kidney demonstrates unremarkable echogenicity, unremarkable size, shape and configuration, no evidence of right renal masses, no evidence of right hydronephrosis. The right kidney measures 10.9 x 5.0 x 4.7 cm. The right renal cortex measures 1.7 cm. US/Abdomen Limited IMPRESSION: Hepatic steatosis, no evidence of hepatic masses, no evidence of acute abdominal pathology is seen. Electronically Signed: Moses Zelaya MD at 12:29 EDT Tel , Service support ,
== END ==
PROVIDERS: PCP Family Medicine; Visit Provider Family Medicine
DX: K76.0 Fatty (change of) liver, not elsewhere classified (principal)
CPT/HCPCS: 76705

== ENCOUNTER → 2021-08-21 09:08 | Outpatient (CLI) | payer OTHER, SELFPAY ==
[2021-08-21 10:41] LABS: AST(SGOT) 21 U/L (15-37); Alanine Aminotransfer ALT/SGPT 41 U/L (13-56); Albumin, Serum 4.2 g/dL (3.2-5.0); Alkaline Phosphatase 128 U/L (45-117); Bilirubin, Direct 0.18 mg/dL (0.00-0.30); Cholesterol 125 mg/dL (200); Globulin 3.8 g/dL (2.2-4.2); High Density Lipoprotein 51 mg/dL; Triglycerides 94 mg/dL; Very Low Density Lipoprotein 19 mg/dL (5-40)
[2021-08-21 10:47] LABS: Anion Gap 3 (5-15); BUN 12 mg/dL (7-18); BUN/Creat Ratio 14.4 RATIO (10-20); Calcium,Total 11.7 mg/dL (8.5-10.1); Chloride 106 mmol/L (98-107); Creatinine, Serum 0.83 mg/dL (0.55-1.02); EST Glomerular Filtration Rate 73 mL/min (>60); Est Glom Filt Rate - Afr Amer 88 mL/min (>60); Glucose 127 mg/dL (74-106); Sodium Level 140 mmol/L (136-145)
== END ==
PROVIDERS: Internal Medicine Cardiovascular Disease; PCP Family Medicine; Referring Provider Nurse Practitioner Gerontology; Visit Provider Nurse Practitioner Gerontology
DX: E87.6 Hypokalemia (principal); E78.00 Pure hypercholesterolemia, unspecified
CPT/HCPCS: 36415; 80048; 80061; 80076

== ENCOUNTER → 2022-02-25 | Outpatient (CLI) | payer MEDICARE, SELFPAY ==
[2022-02-25 11:13] LABS: Absolute Lymphocyte Count 2.32 X10^3/uL (0.83-4.51); Absolute Neutrophil Count 2.9 X10^3/uL (2.0-7.7); Basophil# 0.08 X10^3/uL; Basophil% 1.4 % (0-1); Eosinophil# 0.16 X10^3/uL; Eosinophils% 2.7 % (0-5); Hemoglobin 14.4 g/dL (12.0-15.0); Lymphocyte # 2.32 X10^3/ul (0.83-4.51); Lymphocyte % 39.6 % (19-41); Mean Corp Hgb Conc 33.5 g/dL (32-36); Mean Corpuscular Hgb 30.1 pg (27.0-32.0); Mean Corpuscular Volume 89.8 fL (81-99); Monocyte# 0.39 X10^3/uL; Monocyte% 6.7 % (0-10); NRBC Flagged by Analyzer 0 % (0-5); Neutrophil # 2.89 X10^3/uL (2.7-7.7); Neutrophil % 49.3 % (47-70); Platelet Count 292 K/mm3 (150-450); RBC Distribution Width CV 12.2 % (11.6-14.6); RBC Distribution Width SD 40.5 fl (35.1-43.9); Red Blood Count 4.79 M/mm3 (4.2-5.4); White Blood Count 5.9 K/mm3 (4.4-11.0)
[2022-02-25 11:39] LABS: AST(SGOT) 23 U/L (15-37); Alanine Aminotransfer ALT/SGPT 35 U/L (13-56); Alkaline Phosphatase 137 U/L (45-117); Cholesterol 150 mg/dL (200); Globulin 3.7 g/dL (2.2-4.2); High Density Lipoprotein 54 mg/dL; Protein, Total 7.7 g/dL (6.4-8.2); Triglycerides 138 mg/dL; Very Low Density Lipoprotein 28 mg/dL (5-40)
[2022-02-25 11:45] LABS: Anion Gap 3 (5-15); BUN 11 mg/dL (7-18); BUN/Creat Ratio 13.3 RATIO (10-20); Calcium,Total 11.3 mg/dL (8.5-10.1); Chloride 106 mmol/L (98-107); Creatinine, Serum 0.83 mg/dL (0.55-1.02); EST Glomerular Filtration Rate 73 mL/min (>60); Est Glom Filt Rate - Afr Amer 89 mL/min (>60); Free T3 2.6 pg/mL (2.18-3.98); Glucose 107 mg/dL (74-106); Magnesium 2.1 mg/dL (1.6-2.6); Potassium 4.1 mmol/L (3.5-5.1); Sodium Level 140 mmol/L (136-145); T4 Free Direct 0.85 ng/dL (0.76-1.46); Thyroid Stim Hormone (TSH) 1.27 uIU/mL (0.358-3.74)
== END | disposition home or self-care (01) ==
LOC: LAB 10:42
PROVIDERS: Nurse Practitioner Gerontology; PCP Family Medicine; Referring Provider Internal Medicine Cardiovascular Disease; Visit Provider Internal Medicine Cardiovascular Disease
DX: R00.2 Palpitations (principal); E78.00 Pure hypercholesterolemia, unspecified; E78.5 Hyperlipidemia, unspecified
CPT/HCPCS: 36415; 80048; 80061; 80076; 83735; 84439; 84443; 84481; 85025

== ENCOUNTER → 2022-03-16 | Outpatient (CLI) | payer MEDICARE, SELFPAY | END | disposition home or self-care (01) | LOC: PSN 10:34 | PROVIDERS: PCP Family Medicine; Referring Provider Nurse Practitioner Gerontology; Visit Provider Nurse Practitioner Gerontology | DX: R00.2 Palpitations (principal) | CPT/HCPCS: 93225; 93226 ==

== ENCOUNTER → 2022-04-19 | Outpatient (CLI) | payer MEDICARE, SELFPAY ==
[2022-04-19 18:07] LABS: Anion Gap 7 (5-15); BUN 15 mg/dL (7-18); BUN/Creat Ratio 15.4 RATIO (10-20); Calcium,Total 11.7 mg/dL (8.5-10.1); Chloride 98 mmol/L (98-107); Creatinine, Serum 0.97 mg/dL (0.55-1.02); EST Glomerular Filtration Rate 61 mL/min (>60); Est Glom Filt Rate - Afr Amer 74 mL/min (>60); Glucose 105 mg/dL (74-106); Magnesium 2.1 mg/dL (1.6-2.6); Potassium 3.8 mmol/L (3.5-5.1); Sodium Level 134 mmol/L (136-145)
== END | disposition home or self-care (01) ==
LOC: MFPLAB 15:10
PROVIDERS: PCP Family Medicine; Visit Provider Nurse Practitioner Family
DX: E86.0 Dehydration (principal)
CPT/HCPCS: 36415; 80048; 83735

== ENCOUNTER → 2022-04-20 | Outpatient (CLI) | payer MEDICARE, SELFPAY ==
[2022-04-20 10:13] LABS: Absolute Lymphocyte Count 1.03 X10^3/uL (0.83-4.51); Basophil# 0.02 X10^3/uL; Basophil% 0.8 % (0-1); Eosinophil# 0.01 X10^3/uL; Eosinophils% 0.4 % (0-5); Hematocrit 42.4 % (37-47); Hemoglobin 14.3 g/dL (12.0-15.0); Lymphocyte # 1.03 X10^3/ul (0.83-4.51); Mean Corp Hgb Conc 33.7 g/dL (32-36); Mean Corpuscular Hgb 30.3 pg (27.0-32.0); Mean Corpuscular Volume 89.8 fL (81-99); Mean Platelet Vol. 9.9 fl (6.2-12.0); Monocyte% 15.9 % (0-10); NRBC Flagged by Analyzer 0 % (0-5); Neutrophil # 1.04 X10^3/uL (2.7-7.7); Neutrophil % 41.5 % (47-70); Platelet Count 228 K/mm3 (150-450); RBC Distribution Width CV 11.9 % (11.6-14.6); RBC Distribution Width SD 39.4 fl (35.1-43.9); Red Blood Count 4.72 M/mm3 (4.2-5.4); White Blood Count 2.5 K/mm3 (4.4-11.0)
[2022-04-20 11:07] LABS: BNP,B-Type NATRIURETIC PEPTIDE 6.5 pg/mL (0-100)
== END | disposition home or self-care (01) ==
LOC: LAB 09:44
PROVIDERS: PCP Family Medicine; Referring Provider Nurse Practitioner Gerontology; Visit Provider Nurse Practitioner Gerontology
DX: R06.00 Dyspnea, unspecified (principal); R53.83 Other fatigue
CPT/HCPCS: 36415; 83880; 85025

== ENCOUNTER 2022-04-22 11:18 | Emergency (ER) | payer MEDICARE, SELFPAY ==
[2022-04-22 11:19] VITALS: BP 146/83; PULSE 74; RESP 12; TEMP 36.7; O2SAT 99; BMI 24.5
--- NOTE | 2022-04-22 11:31 | RAD_ITS ---
STUDY: X-RAY CHEST REASON FOR EXAM: Female, 66 years old. Cough and weakness. TECHNIQUE: Single AP portable view of the chest. COMPARISON: None. FINDINGS: The lungs are clear and expanded. There is no demonstrated pleural abnormality. Normal size heart. Normal mediastinum and lauren. Normal visualized pulmonary arteries. Normal visualized aortic arch and descending thoracic aorta. Normal visualized thoracic spine. Normal visualized ribs, clavicles, and shoulders. There is no demonstrated abnormality of the visualized soft tissue structures of the upper abdomen. RAD/Chest 1 View (Portable) IMPRESSION: Normal x-ray examination of the chest. Electronically Signed: Radhames Nielsen MD at 12:46 EDT ,
--- NOTE | 2022-04-22 11:32 | EX.ED.DYSGE1 ---
HPI <RANJANA Parrish - Last Filed: 04/22/22 12:38> History of Present Illness Chief Complaint: Fatigue Narrative Narrative: 66-year-old female presents with 6-day history of fatigue, hot and cold spells, nausea, and myalgias. Over the last 3 days she is also had phlegm and a dry cough. The day symptoms started she was seen at [facility] ED and had blood work which showed low potassium and magnesium. These were replaced and she was discharged. She followed up with her primary care who did blood work which showed low WBCs. Patient is concerned she is not getting better and presents for evaluation. She denies documented fever, chest pain, shortness of breath, abdominal pain, diarrhea, or urinary symptoms. She is not vaccinated but denies sick contacts. [facility] <RANJANA Parrish - Last Filed: 04/22/22 12:38> [facility] Medical History (Updated 04/22/22 @ 12:36 by Kelly Nguyen) Depression Essential (primary) hypertension Fibromyalgia GERD (gastroesophageal reflux disease) Hyperlipidemia Hypertrophic cardiomyopathy Obstructive sleep apnea Seasonal allergies Home Medications esomeprazole magnesium 40 mg capsule,delayed release 40 mg PO QDAY 02/27/18 [History Last Taken Unknown] rosuvastatin 40 mg tablet 40 mg PO DAILY #90 tabs 02/25/22 [Rx Last Taken Unknown] metoprolol succinate 50 mg tablet,extended release 24 hr 100 mg PO QDAY #90 tabs 04/14/22 [Rx Last Taken Unknown] duloxetine 30 mg capsule,delayed release (Cymbalta) 30 mg PO DAILY 04/20/22 [History Last Taken Unknown] lisinopril 10 mg tablet 10 mg PO DAILY #30 tabs 04/20/22 [Rx Last Taken Unknown] Allergy/AdvReac Type Severity Reaction Status Date / Time mold spores Allergy Intermediate URI Uncoded 04/22/22 11:19 symptoms pollens Allergy Intermediate URI Uncoded 04/22/22 11:19 symptoms Family History (Reviewed 04/20/22 @ 15:10 by Brooklynn Herbert [employer], [employer]) Mother CAD (coronary artery disease) Diabetes Arthritis Father CAD (coronary artery disease) Surgical History History of tonsillectomy History of tubal ligation Social History Smoking Status: Former smoker how long ago did patient quit smokin years ago alcohol intake: never substance use type: marijuana caffeine: Yes Type: coffee Number of servings: 2 ROS <RANJANA Parrish - Last Filed: 04/22/22 12:38> ROS ED ROS Narrative Constitutional: Positive for chills, malaise. Negative for fever. Eyes: Negative for visual change. ENT: Negative for sore throat, ear pain, rhinorrhea. CVS: Negative for palpitations, chest pain, syncope. Respiratory: Positive for cough. Negative for shortness of breath, orthopnea. GI: Positive for nausea. Negative for abdominal pain, vomiting, diarrhea, constipation, melena, hematochezia. : Negative for dysuria, hematuria or frequency. Neuro: Negative for headache, motor/sensory dysfunction. Skin: Negative for rash, abscess, or wound. Musc: Positive for myalgias. Negative for joint pain, swelling, trauma. Heme: Negative for easy bruising, bleeding, lymphadenopathy. EXAM <RANJANA Parrish - Last Filed: 04/22/22 12:38> Physical Exam Const Vital Signs: 04/22/22 11:19 04/22/22 12:00 04/22/22 12:38 Temperature 98.1 F Temperature Source Temporal Pulse Rate 74 Respiratory Rate 12 18 Respiratory Effort Normal Non-Labored Respiratory Pattern Normal Blood Pressure 146/83 H Blood Pressure Mean 104 Pulse Ox 99 Oxygen Delivery Method Room Air <Dr. Ralph Ruano DO - Last Filed: 04/22/22 13:07> Physical Exam Const Vital Signs: 04/22/22 11:19 04/22/22 12:00 04/22/22 12:38 Temperature 98.1 F Temperature Source Temporal Pulse Rate 74 Respiratory Rate 12 18 Respiratory Effort Normal Non-Labored Respiratory Pattern Normal Blood Pressure 146/83 H Blood Pressure Mean 104 Pulse Ox 99 Oxygen Delivery Method Room Air MDM <RANJANA Parrish - Last Filed: 04/22/22 12:38> MDM MDM Narrative Medical decision making narrative: Patient presents with fatigue, myalgias, cough and cold symptoms. She appears well and nontoxic. Afebrile and vital signs unremarkable. Medical exam is benign. Labs show leukocytosis of 2.9, otherwise normal. K and Mg are within normal limits. COVID-19 test is positive. This explains her symptoms and also her leukocytosis. Her CXR is clear and with no hypoxia she does not require admission. She is out of the treatment window for oral antivirals so we discussed symptomatic treatment at home and return precautions and she was discharged in stable condition. 1. Covid 19 Lab Data Attestation: I reviewed the patient's lab results. Labs: Laboratory Results - last 24 hr 04/22/22 04/22/22 04/22/22 11:57 11:57 11:57 WBC 2.9 L RBC 5.12 Hgb 15.4 H Hct 45.1 MCV 88.1 MCH 30.1 MCHC 34.1 RDW Std Deviation 38.3 RDW Coeff of Mark 11.8 Plt Count 223 MPV 9.8 Immature Gran % (Auto) 0.300 Neut % (Auto) 38.4 L Lymph % (Auto) 47.2 H [place] % (Auto) 13.5 H Eos % (Auto) 0.3 Baso % (Auto) 0.3 Absolute Neuts (auto) 1.1 L Absolute Lymphs (auto) 1.36 Nucleated RBC % 0 Sodium 133 L Potassium 3.9 Chloride 99 Carbon Dioxide 29.0 Anion Gap 5 BUN 11 Creatinine 0.72 Estim Creat Clear Calc 67.27 Est GFR (MDRD) Af Amer 105 Est GFR (MDRD) Non-Af 87 BUN/Creatinine Ratio 15.4 Glucose 100 Lactic Acid 1.3 Calcium 11.5 H Magnesium 2.3 Total Bilirubin 0.60 AST 29 ALT 56 Alkaline Phosphatase 120 H Total Protein 8.0 Albumin 4.1 Globulin 3.9 Albumin/Globulin Ratio 1.1 Radiography Chest X-Ray - ED: 1 View, Read by ED Physician, Normal, Heart, Lungs, Mediastinum, Bony Structures and No Acute Disease Diagnostic Testing: Clinical Impression(s) from Imaging Studies Chest X-Ray 04/22/22 11:31 IMPRESSION: Normal x-ray examination of the chest. Electronically Signed: Radhames Nielsen MD at 12:46 EDT , ED attending interpretation shows normal heart size, no acute infiltrate, edema, or effusion. <Dr. Ralph Ruano DO - Last Filed: 04/22/22 13:07> [facility] Narrative Medical decision making narrative: Patient presents with fatigue, myalgias, cough and cold symptoms. She appears well and nontoxic. Afebrile and vital signs unremarkable. Medical exam is benign. Labs show leukocytosis of 2.9, otherwise normal. K and Mg are within normal limits. COVID-19 test is positive. This explains her symptoms and also her leukocytosis. Her CXR is clear and with no hypoxia she does not require admission. She is out of the treatment window for oral antivirals so we discussed symptomatic treatment at home and return precautions and she was discharged in stable condition. 1. Covid 19 I performed a history and physical examination of the patient and discussed management plan with the physician assistant fitness manager. I reviewed the physician assistant fitness manager's note and agree with the documented findings and plan of care. Residual palmar ring couple days ago was following up with her primary care noted to have a low white blood cell count. She continues to feel poorly have nausea and diarrhea. She notes fatigue and dizziness. She is COVID-positive. Hemodynamically she is stable. On interpretation of the chest x-ray is no acute process. Ralph Ruano DO, MS Lab Data Labs: Laboratory Results - last 24 hr 04/22/22 04/22/22 04/22/22 11:57 11:57 11:57 WBC 2.9 L RBC 5.12 Hgb 15.4 H Hct 45.1 MCV 88.1 MCH 30.1 MCHC 34.1 RDW Std Deviation 38.3 RDW Coeff of Mark 11.8 Plt Count 223 MPV 9.8 Immature Gran % (Auto) 0.300 Neut % (Auto) 38.4 L Lymph % (Auto) 47.2 H [place] % (Auto) 13.5 H Eos % (Auto) 0.3 Baso % (Auto) 0.3 Absolute Neuts (auto) 1.1 L Absolute Lymphs (auto) 1.36 Nucleated RBC % 0 Sodium 133 L Potassium 3.9 Chloride 99 Carbon Dioxide 29.0 Anion Gap 5 BUN 11 Creatinine 0.72 Estim Creat Clear Calc 67.27 Est GFR (MDRD) Af Amer 105 Est GFR (MDRD) Non-Af 87 BUN/Creatinine Ratio 15.4 Glucose 100 Lactic Acid 1.3 Calcium 11.5 H Magnesium 2.3 Total Bilirubin 0.60 AST 29 ALT 56 Alkaline Phosphatase 120 H Total Protein 8.0 Albumin 4.1 Globulin 3.9 Albumin/Globulin Ratio 1.1 Radiography Diagnostic Testing: Clinical Impression(s) from Imaging Studies Chest X-Ray 04/22/22 11:31 IMPRESSION: Normal x-ray examination of the chest. Electronically Signed: Radhames Nielsen MD at 12:46 EDT , Discharge Plan Triage Chief Complaint: Fatigue ED Midlevel Provider: Jacqueline Hernandez ED Provider: Ralph Ruano Dx/Rx/DC Orders Clinical Impression: COVID-19 Instructions: Coronavirus Disease 2019 (COVID-19): Caring for Yourself or Others Prescriptions: No Action esomeprazole magnesium 40 mg capsule,delayed release(DR/EC) 40 mg PO QDAY rosuvastatin 40 mg tablet 40 mg PO DAILY Qty: 90 3RF duloxetine [Cymbalta] 30 mg capsule,delayed release(DR/EC) 30 mg PO DAILY lisinopril 10 mg tablet 10 mg PO DAILY Qty: 30 6RF metoprolol succinate 50 mg tablet extended release 24 hr 100 mg PO QDAY Qty: 90 3RF Primary Care Provider: Hoda Concepcion Referrals: Hoda Concepcion MD [Primary Care Provider] - Activity Restrictions/Additional Instructions: Today you tested positive for COVID-19. Continue symptomatic treatment with rest, fluids, Tylenol or ibuprofen as needed. If you develop worsening symptoms or shortness of breath return to the ER. Disposition Disposition: Home, Self Care
[2022-04-22] MEDS: 0.9% Normal Saline 1,000 ML 1000 ML IV (12:04)
[2022-04-22 12:06] LABS: Absolute Lymphocyte Count 1.36 X10^3/uL (0.83-4.51); Absolute Neutrophil Count 1.1 X10^3/uL (2.0-7.7); Basophil# 0.01 X10^3/uL; Basophil% 0.3 % (0-1); Eosinophil# 0.01 X10^3/uL; Eosinophils% 0.3 % (0-5); Hematocrit 45.1 % (37-47); Hemoglobin 15.4 g/dL (12.0-15.0); Lymphocyte # 1.36 X10^3/ul (0.83-4.51); Lymphocyte % 47.2 % (19-41); Mean Corp Hgb Conc 34.1 g/dL (32-36); Mean Corpuscular Hgb 30.1 pg (27.0-32.0); Mean Corpuscular Volume 88.1 fL (81-99); Mean Platelet Vol. 9.8 fl (6.2-12.0); Monocyte# 0.39 X10^3/uL; Monocyte% 13.5 % (0-10); NRBC Flagged by Analyzer 0 % (0-5); Neutrophil % 38.4 % (47-70); Platelet Count 223 K/mm3 (150-450); RBC Distribution Width CV 11.8 % (11.6-14.6); RBC Distribution Width SD 38.3 fl (35.1-43.9); Red Blood Count 5.12 M/mm3 (4.2-5.4); White Blood Count 2.9 K/mm3 (4.4-11.0)
[2022-04-22 12:24] LABS: ALB/GLOB Ratio 1.1 RATIO (0.9-2.4); AST(SGOT) 29 U/L (15-37); Alanine Aminotransfer ALT/SGPT 56 U/L (13-56); Albumin, Serum 4.1 g/dL (3.2-5.0); Alkaline Phosphatase 120 U/L (45-117); Anion Gap 5 (5-15); BUN 11 mg/dL (7-18); BUN/Creat Ratio 15.4 RATIO (10-20); Calcium,Total 11.5 mg/dL (8.5-10.1); Chloride 99 mmol/L (98-107); Creatinine, Serum 0.72 mg/dL (0.55-1.02); EST Glomerular Filtration Rate 87 mL/min (>60); Est Glom Filt Rate - Afr Amer 105 mL/min (>60); Estimated Creatinine Clearance 67.27 ml/min; Globulin 3.9 g/dL (2.2-4.2); Glucose 100 mg/dL (74-106); Magnesium 2.3 mg/dL (1.6-2.6); Potassium 3.9 mmol/L (3.5-5.1); Sodium Level 133 mmol/L (136-145)
[2022-04-22 12:33] LABS: Lactic Acid 1.3 mmol/L (0.4-1.9)
[2022-04-22 12:38] VITALS: RESP 18
== END 2022-04-22 13:17 | disposition home or self-care (01) ==
PROVIDERS: Physician Assistant; Emergency Provider Emergency Medicine; PCP Family Medicine; Visit Provider Emergency Medicine
DX: U07.1 COVID-19 (principal); I10 Essential (primary) hypertension; E78.5 Hyperlipidemia, unspecified; M79.7 Fibromyalgia; Z28.310 Unvaccinated for COVID-19; Z28.9 Immunization not carried out for unspecified reason; Z79.899 Other long term (current) drug therapy; Z87.891 Personal history of nicotine dependence
CPT/HCPCS: 71045; 80048; 80053; 83605; 83735; 85025; 87040; 87428; 96360; 99284; J7030; A4216

== ENCOUNTER → 2022-05-03 | Outpatient (CLI) | payer MEDICARE, SELFPAY | END | disposition home or self-care (01) | LOC: SL 21:40 | PROVIDERS: PCP Family Medicine; Referring Provider Nurse Practitioner Gerontology; Visit Provider Nurse Practitioner Gerontology | DX: G47.33 Obstructive sleep apnea (adult) (pediatric) (principal) | CPT/HCPCS: 95811 ==

== ENCOUNTER → 2022-06-30 | Outpatient (CLI) | payer MEDICARE, SELFPAY ==
[2022-06-30 17:21] LABS: Anion Gap 4 (5-15); BUN 22 mg/dL (7-18); BUN/Creat Ratio 25.9 RATIO (10-20); Calcium,Total 11.1 mg/dL (8.5-10.1); Chloride 104 mmol/L (98-107); Creatinine, Serum 0.85 mg/dL (0.55-1.02); EST Glomerular Filtration Rate 71 mL/min (>60); Est Glom Filt Rate - Afr Amer 86 mL/min (>60); Glucose 102 mg/dL (74-106); Potassium 4.5 mmol/L (3.5-5.1); Sodium Level 138 mmol/L (136-145)
== END | disposition home or self-care (01) ==
LOC: LAB 15:16
PROVIDERS: PCP Family Medicine; Referring Provider Nurse Practitioner Gerontology; Visit Provider Nurse Practitioner Gerontology
DX: E87.1 Hypo-osmolality and hyponatremia (principal)
CPT/HCPCS: 36415; 80048

== ENCOUNTER → 2022-08-20 | Outpatient (CLI) | payer MEDICARE, SELFPAY | END | disposition home or self-care (01) | LOC: SL 10:23 | PROVIDERS: PCP Family Medicine; Visit Provider Nurse Practitioner Acute Care | DX: G47.33 Obstructive sleep apnea (adult) (pediatric) (principal) ==

== ENCOUNTER → 2022-08-25 | Outpatient (CLI) | payer MEDICARE, SELFPAY ==
--- NOTE | 2022-08-25 14:00 | RAD_ITS ---
STUDY: X-RAY CHEST REASON FOR EXAM: Female, 66 years old. HYPERCALCEMIA TECHNIQUE: PA and lateral views of the chest. COMPARISON: 04/22/2022 FINDINGS: The lungs are clear and expanded. There is no demonstrated pleural abnormality. Normal size heart. Normal mediastinum and lauren. Normal visualized pulmonary arteries. Normal visualized aortic arch and descending thoracic aorta. Normal visualized thoracic spine. Normal visualized ribs, clavicles, and shoulders. There is no demonstrated abnormality of the visualized soft tissue structures of the upper abdomen. RAD/Chest PA and Lateral IMPRESSION: Normal x-ray examination of the chest. No interval change Electronically Signed: Hugo Keller MD at 14:11 EDT ,
[2022-08-25 15:33] LABS: PTHIN 202.6 pg/mL (18.4-80.1)
== END | disposition home or self-care (01) ==
LOC: MTRAD 13:58
PROVIDERS: PCP Family Medicine; Visit Provider Family Medicine
DX: E83.52 Hypercalcemia (principal)
CPT/HCPCS: 36415; 71046; 83970

== ENCOUNTER → 2022-08-30 | Outpatient (CLI) | payer MEDICARE, SELFPAY ==
[2022-08-30 13:40] LABS: AST(SGOT) 21 U/L (15-37); Alanine Aminotransfer ALT/SGPT 34 U/L (13-56); Albumin, Serum 3.9 g/dL (3.2-5.0); Alkaline Phosphatase 165 U/L (45-117); Anion Gap 9 (5-15); BUN 15 mg/dL (7-18); BUN/Creat Ratio 18.3 RATIO (10-20); Bilirubin, Direct 0.13 mg/dL (0.00-0.30); Calcium,Total 11.2 mg/dL (8.5-10.1); Chloride 107 mmol/L (98-107); Cholesterol 114 mg/dL (200); Creatinine, Serum 0.82 mg/dL (0.55-1.02); EST Glomerular Filtration Rate 74 mL/min (>60); Est Glom Filt Rate - Afr Amer 90 mL/min (>60); Globulin 3.7 g/dL (2.2-4.2); Glucose 114 mg/dL (74-106); High Density Lipoprotein 48 mg/dL; Potassium 4.2 mmol/L (3.5-5.1); Protein, Total 7.6 g/dL (6.4-8.2); Sodium Level 142 mmol/L (136-145); Triglycerides 106 mg/dL; Very Low Density Lipoprotein 21 mg/dL (5-40)
== END | disposition home or self-care (01) ==
LOC: MTLAB 09:30
PROVIDERS: PCP Family Medicine; Referring Provider Nurse Practitioner Gerontology; Visit Provider Nurse Practitioner Gerontology
DX: E87.1 Hypo-osmolality and hyponatremia (principal); E78.00 Pure hypercholesterolemia, unspecified
CPT/HCPCS: 36415; 80048; 80061; 80076

== ENCOUNTER → 2022-08-31 | Outpatient (CLI) | payer MEDICARE, SELFPAY ==
--- NOTE | 2022-08-31 16:22 | US_ITS ---
STUDY: THYROID ULTRASOUND REASON FOR EXAM: Female, 67 years old. tumor on parathyroid gland TECHNIQUE: Ultrasound evaluation of the thyroid was performed with real-time and static alvarado-scale imaging. COMPARISON: None. FINDINGS: RIGHT LOBE: The right lobe of the thyroid gland measures 4.8 x 1.7 cm. There is a homogeneous echotexture. There are no demonstrated solid, cystic or complex lesions. LEFT LOBE: The left lobe of the thyroid gland measures 3.9 x 1.2 cm. There is a homogeneous echotexture. There are nodules. Smaller nodules 2.7 x 1.4 mm. Left thyroid nodule is 3.1 mm. ISTHMUS: The isthmus measures 2 mm. Inferior to the left thyroid gland nodule measures 14 x 9 mm. this is vascular. US/Thyroid IMPRESSION: There are left nodules. This nodule is mixed cystic and solid, hypoechoic, [id number], smoothly marginated and contains no echogenic foci. TI-RADS points: 3. TI-RADS category: TR3. This nodule is mildly suspicious but no FNA or follow-up is necessary given the small size of this nodule. Left nodule is external to the thyroid gland and may be the patients known parathyroid tumor. Electronically Signed: Benigno Perales MD at 18:35 EDT ,
== END | disposition home or self-care (01) ==
LOC: US 16:20
PROVIDERS: PCP Family Medicine; Referring Provider Family Medicine; Visit Provider Family Medicine
DX: R94.6 Abnormal results of thyroid function studies (principal)
CPT/HCPCS: 76536

== ENCOUNTER → 2022-09-03 | Outpatient (CLI) | payer MEDICARE, SELFPAY ==
[2022-09-03 10:31] LABS: PTHIN 196.6 pg/mL (18.4-80.1)
[2022-09-03 10:46] LABS: Calcium,Total 11.4 mg/dL (8.5-10.1); Free T3 3.2 pg/mL (2.18-3.98); T4 Total, Thyroxin 9.6 ug/dL (4.8-13.9); Thyroid Stim Hormone (TSH) 1.44 uIU/mL (0.358-3.74)
== END | disposition home or self-care (01) ==
LOC: LAB 09:31
PROVIDERS: PCP Family Medicine; Referring Provider Surgery; Visit Provider Surgery
DX: E21.3 Hyperparathyroidism, unspecified (principal); I10 Essential (primary) hypertension
CPT/HCPCS: 82310; 82652; 83970; 84436; 84443; 84481

== ENCOUNTER → 2022-09-15 | Outpatient (CLI) | payer MEDICARE, SELFPAY ==
--- NOTE | 2022-09-15 08:52 | BD_ITS ---
STUDY: DUAL ENERGY X-RAY ABSORPTIOMETRY / DXA REASON FOR EXAM: Female, 67 years old. Hyperparathyroidism TECHNIQUE: Bone Mineral Density (BMD) measurements of lumbar spine and bilateral hips were obtained. COMPARISON: None. FINDINGS: Lumbar Spine (L1-L4): g/cm2 (0.663) / T-score (-3.5) / Z-score (-1.7) Findings are suggestive of osteoporosis with a high fracture risk. Left Femur Total: g/cm2 (0.677) / T-score (-2.2) / Z-score (-0.9) Left Femoral Neck: g/cm2 (0.527) / T-score (-2.9) / Z-score (-1.3) Right Femur Total: g/cm2 (0.683) / T-score (-2.1) / Z-score (-0.8) Right Femoral Neck: g/cm2 (0.519) / T-score (-3.0) / Z-score (-1.4) BD/Dexa Bone Density Study IMPRESSION: The patient is considered osteoporotic as outlined below according to World [place] Organization (WHO) criteria with a high fracture risk. Reference Information: The T-score is the number of standard deviations above or below the standard which is normal for young adults at their peak bone mineral density. The World Health Organization (WHO) interprets the T-scores as follows: Above -1 Normal bone density Between -1 and -2.5 Osteopenia Equal to / or below -2.5 Osteoporosis As a practical clinical guideline, osteopenia may be graded as follows: Mild -1 through -1.5 Moderate -1.6 through -2.0 Severe -2.1 through -2.4 The Z-score is the number of standard deviations above or below age-matched controls. A Z-score of less than -1.5 would be considered abnormal. References: 1. NIH Osteoporosis and Related Bone Diseases www osteo.org 2. International Society for Clinical Densitometry www iscd.org 3. National Osteoporosis Foundation www nof.org Electronically Signed: Radhames Nielsen MD at 12:53 EST ,
== END | disposition home or self-care (01) ==
LOC: OPBD 08:45
PROVIDERS: PCP Family Medicine; Referring Provider Surgery; Visit Provider Surgery
DX: M81.0 Age-related osteoporosis without current pathological fracture (principal); E21.3 Hyperparathyroidism, unspecified
CPT/HCPCS: 77080

== ENCOUNTER → 2022-09-27 | Outpatient (CLI) | payer MEDICARE, SELFPAY ==
--- NOTE | 2022-09-27 09:56 | NM_ITS ---
CLINICAL: 67-year-old female with history of clinical hyperparathyroidism. 99m Tc SESTAMIBI DUAL PHASE PARATHYROID SCINTIGRAPHY COMPARISON: None available FINDINGS: Following the intravenous administration of 24.7 mCi of 99m Tc sestamibi, image acquisitions of the anterior neck at 15 minutes and 2.0 hours post radiopharmaceutical provision reveal: 1. Immediate static blood pool acquisitions demonstrate uniform distribution of the radiopharmaceutical in the right-left thyroid colloid. Accentuated uptake is noted caudal to the inferior pole of the left lobe thyroid colloid. 2. Delayed images depict persistent increased tracer uptake identified caudal to the inferior pole of the left lobe thyroid colloid with otherwise uniform washout of the radiotracer from the previously identified right and left thyroid parenchyma. NM/Parathyroid SPECT w/ CONCUR CT IMPRESSION: 1. ABNORMAL 99m Tc SESTAMIBI PARATHYROID IMAGING DUAL PHASE EXAMINATION. 2. There is scintigraphic evidence of an apparent parathyroid adenoma involving the region caudal to the inferior pole of the left thyroid bed. Electronically Signed: Deondre White, at 21:33 EST ,
== END | disposition home or self-care (01) ==
LOC: NM 09:52
PROVIDERS: PCP Family Medicine; Referring Provider Surgery; Visit Provider Surgery
DX: E21.3 Hyperparathyroidism, unspecified (principal)
CPT/HCPCS: 78072; A9500

== ENCOUNTER 2022-12-01 05:56 | Day surgery (SDC) | payer MEDICARE, SELFPAY ==
--- NOTE | 2022-11-25 13:00 | EKG12_ITS ---
Test Reason : PREOP Blood Pressure : / mmHG Vent. Rate : 072 BPM Atrial Rate : 072 BPM P-R Int : 176 ms QRS Dur : 082 ms QT Int : 376 ms P-R-T Axes : 061 048 034 degrees QTc Int : 411 ms Normal sinus rhythm Normal ECG Confirmed by ANDRIA PRATER, MERLY ([id number]), script editor HARISH SALAZAR ([id number]) on 11/29/2022 9:49:44 AM Referred By: Chad Zhong Confirmed By:MORRO AYERS MD
[2022-11-25 13:50] LABS: Hematocrit 46.6 % (37-47); Mean Corp Hgb Conc 32.2 g/dL (32-36); Mean Corpuscular Hgb 29.9 pg (27.0-32.0); Mean Platelet Vol. 9.8 fl (6.2-12.0); Platelet Count 371 K/mm3 (150-450); RBC Distribution Width CV 12.2 % (11.6-14.6); RBC Distribution Width SD 41.9 fl (35.1-43.9); Red Blood Count 5.01 M/mm3 (4.2-5.4); White Blood Count 5.9 K/mm3 (4.4-11.0)
[2022-11-25 14:09] LABS: Anion Gap 5 (5-15); BUN 10 mg/dL (7-18); BUN/Creat Ratio 9.5 RATIO (10-20); Calcium,Total 12.1 mg/dL (8.5-10.1); Chloride 107 mmol/L (98-107); Creatinine, Serum 1.05 mg/dL (0.55-1.02); EST Glomerular Filtration Rate 56 mL/min (>60); Est Glom Filt Rate - Afr Amer 67 mL/min (>60); Glucose 140 mg/dL (74-106); Potassium 4.3 mmol/L (3.5-5.1); Sodium Level 141 mmol/L (136-145)
[2022-11-25 14:10] LABS: PTHIN 204.7 pg/mL (18.4-80.1)
[2022-12-01] VITALS (8 sets, daily range): BP systolic 117–129; BP diastolic 54–80; PULSE 61–90; RESP 14–16; TEMP 36.4–37.3; O2SAT 91–99; BMI 27.7
--- NOTE | 2022-12-01 | PARA_PTH ---
PATIENT: FELIBERTO MORRISSEY [place] [facility] [place][id number] AGE/SX: 67/F ROOM: RE12/01/[address]: Dr. Chad Zhong MD : 1955 BED: DIS: 12/01/2022 SPEC #: [id number] RECD: 12/01/22 09:15 STATUS: CARLOS MARY #: [id number] MADAY: 12/01/22 00:[address]: Chad Zhong DEPT: SURGICAL PATHOLOGY RECD BY: Esther Smith ENTERED: 12/01/22 10:47 SP TYPE: PARATHY OTHR DR: Dr. Hoda Concepcion MD Tissues: Parathyroid Procedures: Frozen Section (charge) Surgery Specimen Level IV HEADER OPERATION: Parathyroidectomy with PTH and intraoperative nerve monitoring PRE-OP DIAGNOSIS: Hyperparathyroidism TISSUE SUBMITTED: Parathyroid tissue, left inferior, frozen section FROZEN SECTION DIAGNOSIS Left inferior parathyroid, biopsy: Parathyroid tissue (0.8 gm). SJ:sean 12/01/2022 MICROSCOPIC DIAGNOSIS Left inferior parathyroid, biopsy: Hyperplastic parathyroid tissue. AM:sean 12/02/2022 MICROSCOPIC DESCRIPTION Slides are reviewed. GROSS DESCRIPTION Received fresh for frozen section diagnosis labeled with the patient's name is a specimen designated left inferior parathyroid. The specimen consists of an ovoid piece of pinkish-brown tissue measuring 1.5 x 1 x 0.6 cm and weighing 0.8 gm. The specimen is bisected and submitted entirely in one cassette for frozen section diagnosis. / SJ:sean 12/01/2022 TC:5 CPT: 34689, 19027
[2022-12-01] MEDS: Lactated Ringers 1,000 ML 15 ML IV (06:29)
[2022-12-01 06:59] LABS: PTHIN 258.8 pg/mL (18.4-80.1)
--- NOTE | 2022-12-01 07:27 | HP.PCM_ITS ---
History and Physical Date of Admission: 12/01/22 Date of Service:? 10/25/22 MR#: [id number] Acct: [id number] Name:FELIBERTO PINEDO Rep #: [id number] : 1955 ? ? Provider: Dr. Chad Zhong MD Age/Sex:? 67/F ? ? Location: [facility] Status: Signed Intake Vital Signs ? 10/25/2209:14 Height 5 ft 3 in Weight: 154 lb 8 oz BMI 27.3 BP 119/80 Blood Pressure Location Lt brachial Position Sitting Respiration 18 Pulse 76 Pulse Source Monitor Temp 97 F L Temp Source Temporal Pulse Oximetry (%) 96 Oxygen Delivery Method room air Intake Visit Reasons:?DISCUSS SURGERY FOR PARATHYROIDECTOMY Chief Complaint: Discuss surgery for parathyroidectomy Is patient in pain?: No Allergies pollen extracts Allergy (Intermediate, Verified 10/25/22 09:15) Othermold Adverse Reaction (Intermediate, Verified 10/25/22 09:15) Other Medications esomeprazole magnesium 40 mg capsule,delayed release 40 mg PO QDAY 02/27/18 [History Confirmed 10/25/22] rosuvastatin 40 mg tablet 40 mg PO DAILY #90 tabs 02/25/22 [Rx Confirmed 10/25/22] lisinopril 10 mg tablet 10 mg PO DAILY #30 tabs 05/13/22 [Rx Confirmed 10/25/22] metoprolol succinate 50 mg tablet,extended release 24 hr 50 mg PO QDAY #90 tabs 05/25/22 [Rx Confirmed 10/25/22] duloxetine 60 mg capsule,delayed release 60 mg PO DAILY 06/18/22 [History Confirmed 10/25/22] PFSH Medical History? Depression Essential (primary) hypertension Fibromyalgia GERD (gastroesophageal reflux disease) History of back problems Hyperlipidemia Hypersomnolence Hypertrophic cardiomyopathy Mitral valve prolapse Obstructive sleep apnea Seasonal allergies Surgical History? History of tonsillectomy History of tubal ligation Family History? Mother CAD (coronary artery disease) Diabetes ArthritisFather CAD (coronary artery disease)Daughter Thyroid disorderSister Thyroid disorderGrandmother Thyroid disorder Social History? Smoking Status:? Former smoker how long ago did patient quit smoking:? 20 years ago alcohol intake:? never substance use type:? marijuana caffeine:? Yes Type: coffee Number of servings: 2 HPI HPI HPI: Patient reports for update H&P and review of recent clinical work-up regarding her diagnosis of primary hyperparathyroidism.? She denies any significant personal interval health updates.? Patient's last visit was 09/03/2022 Below is recapitulated from patient's initial consultation visit for ease of review: HPI: Patient is a 67-year-old female who presents for probable hyperparathyroidism given recent history of hypercalcemia and elevated PTH.? They are referred from Dr. Concepcion.? Patient has no history of bone density evaluation. Patient has no history of pathologic fractures. ? Patient initially denies a history of kidney stones, but her record is reviewed and renal ultrasound imaging from February 2021 shows a 5 mm nonobstructing kidney stone.? Patient has no history of frequent de ntal caries or chipped teeth.? Patient has a history of brittle fingernails.? Patient has a history of GERD, but she reports this is well controlled with her consistent of Nexium.? Patient has a history of hypertension which she states has been somewhat worse in recent months (technically dating back to 2019).? Additional symptoms include: Difficulty concentrating, fatigue, depression, and some muscle aches.? In fact, patient reports that she just retired from her job in November after she felt that she could no longer intellectually handle her work as she was finding herself making too many mistakes.? She also reports that since her nursing home, she expected to feel more refreshed, but feels her self persistently fatigued despite sleeping 10 hours a night.? Overall her depression has gotten better with treatment?as well as her myalgias which she states have been diagnosed as fibromyalgia. And screening patient for general thyroid issues, she reports some heat and cold intolerance which has been present most of her life.? She also reports some visual changes at her peripheral vision and some ongoing hair loss.? She also notes from a compressive standpoint that her granddaughter is commented that she has some hoarseness now.? She is not sure whether this may be actually due to her more consistent use of a CPAP now at night with her diagnosis of obstructive sleep apnea. Patient has no history of significant prior radiation exposure.? Patient has a family history of other endocrinopathies including hypothyroidism and her sister and daughter as well as goiter in her maternal grandmother. Patient does have a diet high in dairy and she states she enjoys foods such as cheese, yogurt, and milk. Patient's current labs are calcium: 11.2 mg/dL 08/30/2022 (range of 11-11.7 over the past 1 year), Vitamin D: 46.7 ng/mL to 12/27/2014, Ionized calcium: [Value]mg/dL [date], PTH: [Value]pg/mL [date] [(Range of: over time period)], Phosphorus: [Value] [date] Current medications include: No calcium or vitamin D supplementation as patient confirms she has stopped her daily multivitamin. Imaging as been done thyroid ultrasound 08/31/2022 and showed some subcentimeter nodules of the left thyroid lobe as well as a possible parathyroid adenoma inferior to the inferior pole of the left thyroid lobe. Patient has a history of hypertrophic cardiomyopathy as well as some mitral valve insufficiency.? She follows with [facility] [facility] for this issue and reports that she is due for a follow-up visit with Dr. Coon on 09/06/2022.? She states that they have been in continual flux with some antihypertensive agents as her heart rate and blood pressure have been varying indirectly for some time. ROS General General: Yes fatigue; No weight change, appetite, colon cancer, breast cancer or weakness HEENT HEENT: Yes hoarseness; No difficulty swallowing, eye injury, eye surgery or swollen glands Endo Endocrine: Yes diabetes mellitus; No thyroid disease, thyroid cancer, Hair loss, heat intolerance or cold intolerance Additional Details: Consult for parathyroid. Symptoms include hoarseness, heat/cold intolerance sweating, visual changes/watery eyes, difficulty concentrating, hair loss, kidney stones, brittle/chipping nails Skin Skin: No rash or changing moles Musc Musculoskeletal: Yes back problems; No arthritis, rheumatoid arthritis, gout or joint pain Cardio Cardiovascular: Yes murmur and high blood pressure; No pacemaker, heart disease, atrial fibrillation, heart attack, heart stent, palpitations, shortness of breat with exertion or chest pain Psych Psychiatric: Yes depression and anxiety; No hearing voices Resp Respiratory: No shortness of breath, Yes sleep apnea, No cough, No COPD, No asthma, No emphysema and No wheezing Gastro Gastrointestinal: No abdominal pain, No nausea or vomiting, No diarrhea, No constipation, No blood in stool, Yes acid reflux, No hemorrhoids, No ulcers, No gallbladder problem and No black,tarry stools Marco Hematologic: No blood thinners, No blood disorders, No bleeding, No anemia and No blood clots Neuro Neurologic: No system reviewed and no additional complaints, except as documented, No as per HPI, No abnormal gait, No abnormal hearing, No abnormal movements, No abnormal speech, No behavioral changes, No burning sensations, No confusion, No convulsions, No disequilibrium, No dizziness, No localized weakness, No frequent falls, No headache(s), No lack of coordination, No loss of vision, No memory loss, No numbness, No other visual disturbances, No radicular pain, No restless legs, No sensory deficit, No syncope, No tingling, No tremor(s), No weakness and No other Exam Const General: cooperative, healthy appearing, comfortable, no acute distress and not anxious Orientation: alert, awake and oriented x3 Neck Other: Neck is reexamined and soft to palpation.? Patient has skin creases at the level of the top of the thyroid cartilage and then very low in the cervical neck.? I do not see an ideal skin crease for incision planning. Assessment and Plan Assessment and Plan (1) Hyperparathyroidism: ?Status:?Acute ?Comment: Is a 67-year-old female who presents with primary hyperparathyroidism given her laboratories and signs/symptoms.? Diagnosis is confirmed biochemically.? Patient is a surgical candidate on the basis of a calcium value greater than 1 g/dL over the upper limit of normal as well as objective findings of kidney stones with abdominal imaging and now most recently finding of osteoporosis with recent DEXA scan.? I reviewed with patient these DEXA results as well as her sestamibi imaging which finds itself in accordance with patient's ultrasound imaging suggesting a adenoma location along the inferior pole of the left thyroid lobe. With both of these results, I have recommended we proceed with planned minimally invasive parathyroidectomy with intraoperative nerve and PTH monitoring.? I have shared with her that I would plan for an outpatient procedure, but that if the intraoperative results differed from those expected, would reserve the right to admit for overnight observation (in the event of 4 gland hyperplasia and need to do a subtotal parathyroidectomy).? Patient expresses understanding of this information and wishes to know when we would be able to proceed as described. ?Plan: ? Plan for minimally invasive parathyroidectomy with intraoperative nerve and PTH monitoring.? Tentatively planning for middle November 2022 I have examined the patient and the H&P has been reviewed. There are no clinical changes since date of exam. Procedure and post procedure expectations were reviewed with patient and her spouse. They offer no further questions and breast that they are ready to proceed as described.
[2022-12-01 09:07] LABS: PTHIN 174.2 pg/mL (18.4-80.1)
[2022-12-01 09:41] LABS: PTHIN 48.7 pg/mL (18.4-80.1)
[2022-12-01 09:47] LABS: PTHIN 42.8 pg/mL (18.4-80.1)
--- NOTE | 2022-12-01 09:52 | PCM.OPRPT ---
Problems Associated Problem List Diagnoses (1) Status post parathyroidectomy: Report of Operation Date of Procedure: 12/01/22 Pre-Operative Diagnosis: Primary hyperparathyroidism Post-Operative Diagnosis: Same (left inferior parathyroid adenoma) Surgery/Procedure Performed:: Parathyroidectomy with intraoperative PTH and nerve monitoring Description of Surgical Findings:: ? Large parathyroid adenoma located just deep and inferior to the inferior pole of the left thyroid lobe ? Intact recurrent laryngeal nerve signal ? Appropriate fall and PTH from baseline of 175-42.8 (15 minutes ex vivo) via left internal jugular sampling Surgeon: Chad Zhong hydro electric station operator: Wandy Juarez Type of Anesthesia: General/Supplemental Anesthesiologist: Phillip Alonzo Specimen's removed: Left inferior parathyroid Drains: N/A Estimated Blood Loss (mL): 10 Description of Procedure: Preoperative PTH 258.8. Baseline left internal jugular vein PTH 174.2 Gland out with pathology confirmation of the hyperplastic appearing gland weighing 800 mg PTH #1 10 minutes post explant: 48.7 PTH #2 15 minutes post explant: 42.8 After appropriate identification in the preoperative holding area the patient was brought to the operating room where she was positioned supine on the operating room table. There she was induced with general endotracheal anesthetic. Of note, a preoperative PTH had been obtained and was reported as 259. Patient was then intubated using a Nims tube and glide a scope to ensure coaptation between the vocal cords and the Nims tube electrodes. A resistance check confirmed appropriate function of the tube after the electrodes were properly connected to the monitoring box. Patient was then positioned in cervical extension, but with adequate support. She was prepped and draped in the usual sterile fashion and a formal timeout followed to confirm patient and the procedure to be performed. A local block was produced with infiltration of local anesthetic and a 4 cm transverse incision was made. This was deepened with the use of electrocautery through the platysma and subplatysmal flaps were raised superiorly and inferiorly. Ultimately the strap muscles were exposed and were divided along their raphe with electrocautery. I then used blunt dissection to free the sternothyroid muscle from the thyroid capsule of the left thyroid lobe deeply. Several bridging vessels were secured with LigaSure. The strap muscles were from 1 another as I proceeded with dissection laterally towards the patient's left internal jugular vein. Once this structure was sufficiently exposed I obtained a baseline central vein PTH level. This ultimately returned at 174.2. For the interim I returned to the patient's neck and elevated the inferior pole of the left thyroid lobe. It became immediately apparent that patient had a large parathyroid gland located just deeply and inferiorly to this pole. Careful blunt dissection was employed to free the structure from its surrounding soft tissue attachments it was then circumferentially freed so that it remains suspended by its vascular pole only. At this point a small titanium clip was placed across the pole and the plan was sharply amputated free. This specimen was passed off the field for frozen section confirmation. (Later, pathology telephoned the room to notify us that indeed this represented a large parathyroid gland weighing 800 mg). As we awaited this result, I irrigated the surgical cavity with sterile water examined for hemostasis. Finding this intact, I also developed a tracheoesophageal groove bluntly and confirmed an intact signal from our left recurrent laryngeal nerve using our Nims monitor. Left internal jugular ex vivo blood draws were made with a 22-gauge needle and syringe at 10 and 15 minutes were 48.7 and 42.8, respectively. Satisfied with this result, the case was terminated and hemostasis was once again confirmed in the surgical bed. Then I performed closure of the neck in layers. The strap muscles were run with a 3-0 Vicryl suture to reapproximate the raphe, but a gap was left in the inferior most portion of the strap muscles. Then the platysmal layer was reapproximated with interrupted 3-0 Vicryl. Additional local anesthetic was instilled. The skin was closed using a running 4-0 Monocryl in a subcuticular fashion. Steri-Strips and Telfa OpSite was applied as a dressing. Patient was then awoken from general anesthetic and taken to PACU for ongoing recovery. Complications None Admit VTE Documentation VTE Mechan Device Prophylaxis: SCD's
--- NOTE | 2022-12-01 09:58 | EX.PCM.DISCH ---
Discharge Instructions Diet Discharge Diet: No restrictions (However recommend a liquid to soft diet initially postoperatively) Activity Discharge Activity: May Not Drive (While it remains difficult to check blind spots quickly) May shower in (days): 2 Ice area for (Minutes): 20 Lifting Restrictions: No lifting greater than 15 pounds for 2 weeks after surgery Dressing / Incision Call your doctor if your incision/area has: Continuous Slow Oozing, Sudden Increased Bleeding, Increased Pain/ Swelling, Increased Redness and Swelling at the incision site Call your doctor if you observe: Numbness or Tingling Remove Dressing in: 2 days (Please leave Steri-Strips intact until they fall off spontaneously or are taken off at your follow-up visit) Cleanse incision/area with: Soap & Water Follow Up Care Please Follow Up With: Chad Zhong MD When: 7 days postop Test Results: Test results from this visit will be discussed in further detail at your follow-up appointment, if applicable. Discharge Plan Admission Primary Reason for Your Visit: Parathyroidectomy Attending Provider: Chad Zhong Primary Care Provider: Hoda Concepcion Instructions Patient Instructions: Hypocalcemia Dc Discharge Orders/Prescriptions Prescriptions: New calcium carbonate-vitamin D3 [Os-Florentino 500 + D3] 500 mg-15 mcg (600 unit) tablet 1 tab PO BID 30 Days Qty: 60 0RF Continued esomeprazole magnesium 40 mg capsule,delayed release(DR/EC) 40 mg PO QDAY duloxetine 60 mg capsule,delayed release(DR/EC) 60 mg PO DAILY Label Comments: TAKE 1 CAPSULE BY MOUTH EVERY DAY rosuvastatin 40 mg tablet 40 mg PO QHS lisinopril 10 mg tablet 10 mg PO DAILY Qty: 30 11RF metoprolol succinate 50 mg tablet extended release 24 hr 50 mg PO QDAY Qty: 90 3RF Other Ambulatory Orders: PTHIN (Routine) Timeframe: 1 Week Facility: [facility] - Location: Laboratory Ordered By: Dr. Chad Zhong Calcium,Total (Routine) Timeframe: 1 Week Facility: [facility] - Location: Laboratory Ordered By: Dr. Chad Zhong Referrals / Follow Up: Hoda Concepcion MD [Primary Care Provider] - Disposition Disposition (needs filled in before D/C Order can be placed): Home, Self Care
[2022-12-01] MEDS: Acetaminophen 325 MG Tablet 650 MG PO (11:57)
== END 2022-12-01 12:55 | disposition home or self-care (01) ==
LOC: SDC 05:59 → AC 05:59
PROVIDERS: Anesthesiology; PCP Family Medicine; Referring Provider Surgery; Visit Provider Surgery
PROC: (CPT 60500; principal; 2022-12-01 07:15)
DX: D35.1 Benign neoplasm of parathyroid gland (principal); E21.0 Primary hyperparathyroidism; I10 Essential (primary) hypertension; E78.5 Hyperlipidemia, unspecified; K21.9 Gastro-esophageal reflux disease without esophagitis; F41.9 Anxiety disorder, unspecified; F32.9 Major depressive disorder, single episode, unspecified; M79.10 Myalgia, unspecified site; M81.0 Age-related osteoporosis without current pathological fracture; F12.90 Cannabis use, unspecified, uncomplicated; G47.33 Obstructive sleep apnea (adult) (pediatric); Z79.899 Other long term (current) drug therapy; Z87.891 Personal history of nicotine dependence
CPT/HCPCS: 60500; 00320; 36415; 80048; 83970; 85027; 88305; 88331; 93005; J7120

== ENCOUNTER → 2022-12-07 | Outpatient (CLI) | payer MEDICARE, SELFPAY ==
[2022-12-07 10:37] LABS: Calcium,Total 9.7 mg/dL (8.5-10.1)
[2022-12-07 10:39] LABS: PTHIN 125.9 pg/mL (18.4-80.1)
== END | disposition home or self-care (01) ==
LOC: LAB 09:37
PROVIDERS: PCP Family Medicine; Referring Provider Surgery; Visit Provider Surgery
DX: E89.2 Postprocedural hypoparathyroidism (principal)
CPT/HCPCS: 36415; 82310; 83970

== ENCOUNTER → 2022-12-13 | Outpatient (CLI) | payer MEDICARE, SELFPAY ==
--- NOTE | 2022-12-14 13:18 | PFT ---
INTRODUCTION: The patient is a 67-year-old female that presents for pulmonary function studies secondary to a diagnosis of dyspnea. Respiratory therapy reported good patient effort. Bronchodilators were used during testing. INTERPRETATION: Forced expiration spirometry demonstrates the presence of a mild large airways obstructive ventilatory defect. There was no significant response to aerosolized bronchodilators. Spirograms are of good quality and plateau gradually indicating slow emptying of the lungs. Body plus tomography was performed and revealed an elevated RV to 124% of predicted, indicative of underlying air trapping. Diffusing capacity by single breath CO is within normal limits. IMPRESSION: Irreversible mild large airways obstructive ventilatory defect with associated air trapping and preserved diffusing capacity.
== END | disposition home or self-care (01) ==
PROVIDERS: PCP Family Medicine; Visit Provider Internal Medicine Critical Care Medicine
DX: R06.00 Dyspnea, unspecified (principal)
CPT/HCPCS: 94060; 94726; 94729

== ENCOUNTER → 2022-12-17 | Outpatient (CLI) | payer MEDICARE, SELFPAY ==
[2022-12-17 13:39] LABS: Calcium,Total 9.3 mg/dL (8.5-10.1); PTHIN 132.1 pg/mL (18.4-80.1)
== END | disposition home or self-care (01) ==
PROVIDERS: PCP Family Medicine; Visit Provider Surgery
DX: E89.2 Postprocedural hypoparathyroidism (principal)
CPT/HCPCS: 36415; 82310; 83970

== ENCOUNTER → 2023-02-01 | Outpatient (CLI) | payer MEDICARE, SELFPAY | END | disposition home or self-care (01) | LOC: SL 19:54 | PROVIDERS: PCP Family Medicine; Visit Provider Nurse Practitioner Acute Care | DX: G47.33 Obstructive sleep apnea (adult) (pediatric) (principal) | CPT/HCPCS: 95811 ==

== ENCOUNTER → 2023-03-24 | Outpatient (CLI) | payer MEDICARE, SELFPAY ==
--- NOTE | 2023-03-24 13:00 | ECHOCS_ITS ---
Reason For Study: BEKAH, HYPERTROPHIC Procedure This was a 2D Doppler, Color Flow transthoracic echocardiogram. The study was technically limited. Contrast injection was performed. Exam performed in department. Left Ventricle Normal left ventricle. Left ventricular systolic function is normal. The estimated ejection fraction is 60 %. Stage 1 diastolic dysfunction. No regional wall motion abnormalities noted. Right Ventricle Normal RV size. Normal systolic function. Atria Normal left atrium. Normal right atrium. Mitral Valve Normal mitral valve. Tricuspid Valve Normal tricuspid valve. Aortic Valve Normal aortic valve. Pulmonic Valve Normal pulmonic valve. Great Vessels Normal aortic root. The pulmonary artery is normal size. Normal inferior vena cava. Pericardium/Pleural No pericardial effusion. Medication 22 gauge I.V. with prn adaptor inserted into right arm. Diluted definity 2ml given slow IV push to enhance endocardial definition. MMode/2D Measurements & Calculations LVIDd: 3.5 cm IVSd: 1.0 cm Ao root diam: 3.2 cm LVIDs: 2.6 cm LVPWd: 1.1 cm RVDd: 3.5 cm FS: 26.7 % LAV(MOD-bp): 40.0 ml LVAd ap4: 30.1 cm2 SV(MOD-sp4): 66.9 ml LAV(MOD-bp) Indexed: 22.5 ml/m2 LVLd ap4: 7.8 cm LAV(MOD-sp2): 39.2 ml EDV(MOD-sp4): 95.0 ml LAV(MOD-sp4): 38.8 ml EDV(sp4-el): 98.5 ml LVAs ap4: 13.9 cm2 LVLs ap4: 5.7 cm ESV(MOD-sp4): 28.2 ml ESV(sp4-el): 29.0 ml EF(MOD-sp4): 70.4 % EF(sp4-el): 70.5 % SV(sp4-el): 69.4 ml LA A4 area: 15.2 cm2 LA dimension(2D): 3.4 cm RA A4 area: 12.6 cm2 Time Measurements MV dec time: 0.22 sec Doppler Measurements & Calculations MV E max mikey: 88.9 cm/sec Lat Peak E' Mikey: 11.2 cm/sec Med Peak E' Mikey: 6.4 cm/sec MV A max mikey: 105.0 cm/sec E/E' lat: 7.9 E/E' med: 13.9 MV E/A: 0.85 MV V2 max: 121.5 cm/sec MV dec slope: 422.5 cm/sec2 Ao V2 max: 154.9 cm/sec MV max P.9 mmHg Ao max P.7 mmHg MV V2 mean: 74.8 cm/sec Ao V2 mean: 110.1 cm/sec MV mean P.5 mmHg Ao mean P.5 mmHg MV V2 VTI: 37.8 cm Ao V2 VTI: 38.5 cm AV (velocity ratio): 0.81 LV V1 max: 127.4 cm/sec PA V2 max: 100.4 cm/sec LV V1 max P.5 mmHg PA V2 mean: 76.5 cm/sec LV V1 mean P.0 mmHg LV V1 mean: 95.4 cm/sec LV V1 VTI: 31.3 cm ECHO/Echo Complete W/ Contrast Interpretation Summary Normal left ventricle. Left ventricular systolic function is normal. The estimated ejection fraction is 60 %. Stage 1 diastolic dysfunction. Ordering Physician: Cary Walls Referring Physician: Cary Walls Performed By: Juanis Enamorado RCS
== END | disposition home or self-care (01) ==
PROVIDERS: PCP Family Medicine; Referring Provider Physician Assistant Medical; Visit Provider Physician Assistant Medical
DX: G47.33 Obstructive sleep apnea (adult) (pediatric) (principal)
CPT/HCPCS: 93306; Q9957; A4216; C8929

== ENCOUNTER → 2023-04-27 | Outpatient (CLI) | payer MEDICARE, SELFPAY ==
[2023-04-27 12:00] LABS: Calcium,Total 9.4 mg/dL (8.5-10.1)
[2023-04-27 12:11] LABS: PTHIN 98.3 pg/mL (18.4-80.1)
== END | disposition home or self-care (01) ==
LOC: LAB 11:21
PROVIDERS: PCP Family Medicine; Referring Provider Surgery; Visit Provider Surgery
DX: E21.3 Hyperparathyroidism, unspecified (principal); E89.2 Postprocedural hypoparathyroidism
CPT/HCPCS: 36415; 82310; 83970

== ENCOUNTER → 2023-05-06 | Outpatient (CLI) | payer MEDICARE, SELFPAY ==
--- NOTE | 2023-05-06 14:25 | CT_ITS ---
STUDY: LOW DOSE CT LUNG CANCER SCREENING REASON FOR EXAM: Female, 67 years old. 20 pack years quit 2014 RADIATION DOSAGE (If Supplied By Facility): CTDIvol = ( 2.39 ) mGy, DLP = ( 75.04 ) mGycm TECHNIQUE: No contrast was administered. Low dose technique was utilized (average mAS-38 and kVp 120). 1.25 mm axial source images with a slice interval of 1.25-mm were reconstructed in lung windows. 2.5 mm axial source images with a slice interval of 2.5-mm were reconstructed in lung windows. 5.0 mm axial source images with a slice interval of 5.0-mm were reconstructed in soft tissue windows. COMPARISON: None. NODULES: No suspicious nodules are seen. Emphysema: Hyperinflation. Emphysematous changes. Scarring at the lung apices more prominent on the right side. Mild increased markings in the posterior medial segment of the right lower lobe suggestive of scarring. Endobronchial lesion: Unremarkable. Aorta: Mild atherosclerotic plaque formation of the aortic arch. CORONARY ARTERIES: Coronary artery calcification is seen. Heart: Unremarkable Pulmonary artery: Unremarkable Mediastinal nodes: Small mediastinal lymph nodes. Other chest and abdominal findings: CT/Low Dose CT Lung Screening IMPRESSION: Lung-RADS category 2 - Continue annual screening with LDCT in 12 months. IMPORTANT NOTES FOR USE: ACR Lung-RADS Version 1.1 Assessment Categories Release Date: 2018 Category: Coded 0-4 bases on nodule(s) with highest degree of suspicion. Negative screen is defined as categories 1 and 2; a positive screen is defined as categories 3 and 4. Category 3 and 4A nodules that are unchanged on interval CT should be coded as category 2, and individuals returned to screening in 12 months. Category 4X: Category 3 or 4 nodules with additional imaging findings that increase the suspicion of lung cancer, such as spiculation, GGN that doubles in size in 1 year, enlarged lymph notes, etc. Category Modifiers: S (significant finding unrelated to lung cancer) Electronically Signed: Radhames Nielsen MD at 15:15 EDT ,
== END | disposition home or self-care (01) ==
LOC: CT 14:24
PROVIDERS: PCP Family Medicine; Referring Provider Nurse Practitioner Acute Care; Visit Provider Nurse Practitioner Acute Care
DX: Z12.2 Encounter for screening for malignant neoplasm of respiratory organs (principal); Z87.891 Personal history of nicotine dependence; G47.30 Sleep apnea, unspecified
CPT/HCPCS: 71271

== ENCOUNTER → 2023-09-27 | Outpatient (CLI) | payer MEDICARE, SELFPAY ==
--- NOTE | 2023-09-27 10:23 | BI_ITS ---
MAMMOGRAPHY - BILATERAL SCREENING REASON FOR EXAM: Female, 68 years old. Routine annual screening examination. PERTINENT HISTORY: Non-contributory. TECHNIQUE: Digital bilateral breast ashley (3D mammographic acquisition) in the CC and MLO projections. 2-D mediolateral oblique (MLO) and craniocaudad (CC) views of both breasts were obtained. CAD: Full Field Digital Mammography with Computer Added Detection was performed. COMPARISON: Comparison is made with prior study March 20, 2021 and March 31, 2018. FINDINGS: Breast Composition: There are scattered areas of fibroglandular density. There is a 3.2 mm x 3.8 mm well-defined nodule in the medial retroareolar region of the right breast. Correlation with ultrasound is recommended for further evaluation. No other significant abnormalities are identified. There has been no significant change since the prior study. BI/SCRN MAMM (CAD)W/ASHLEY BILAT IMPRESSION: 3.2 mm x 3.8 mm well-defined nodule in the medial retroareolar region of the right breast. Correlation with ultrasound is recommended. ASSESSMENT CATEGORY: BIRADS Category 0: Incomplete. Need additional imaging evaluation. A letter regarding these results will be sent to the patient by the facility within 30 days. Approximately 10% of breast cancers are not detected by mammography. A normal mammogram should not delay biopsy of a clinically suspicious abnormality. [id number] Electronically Signed: Radhames Nielsen MD at 13:01 EST ,
== END | disposition home or self-care (01) ==
LOC: OPBI 10:23
PROVIDERS: PCP Family Medicine; Referring Provider Family Medicine; Visit Provider Family Medicine
DX: Z12.31 Encounter for screening mammogram for malignant neoplasm of breast (principal)
CPT/HCPCS: 77063; 77067

== ENCOUNTER → 2023-10-06 | Outpatient (CLI) | payer MEDICARE, SELFPAY ==
--- NOTE | 2023-10-06 11:00 | US_ITS ---
STUDY: ULTRASOUND BREAST - RIGHT REASON FOR EXAM: Female, 68 years old. Abnormal screening mammogram. TECHNIQUE: Axial and longitudinal images of the RIGHT breast were performed with a high resolution ultrasound transducer. # OF IMAGES: 23 COMPARISON: Comparison is made with prior mammogram dated September 27, 2023 and prior sonogram of the right breast dated March 31, 2018. FINDINGS: RIGHT Breast: The mammographic abnormality corresponds to a 4 mm x 6 mm x 4 mm cyst in the medial retroareolar region of the breast. US/Breast Limited Unilateral IMPRESSION: The mammographic abnormality corresponds with 4 mm x 6 mm x 4 mm cyst in the medial retroareolar region of the breast. ASSESSMENT CATEGORY: BIRADS Category 2: Benign. A letter regarding these results will be sent to the patient by the facility within 30 days. Electronically Signed: Radhames Nielsen MD at 9:24 EST ,
== END | disposition home or self-care (01) ==
LOC: OPUS 10:58
PROVIDERS: PCP Family Medicine; Referring Provider Family Medicine; Visit Provider Family Medicine
DX: R92.8 Other abnormal and inconclusive findings on diagnostic imaging of breast (principal); N63.10 Unspecified lump in the right breast, unspecified quadrant
CPT/HCPCS: 76642

== ENCOUNTER → 2024-03-01 | Outpatient (CLI) | payer MEDICARE, SELFPAY ==
[2024-03-01 13:53] LABS: PTHIN 151.8 pg/mL (18.4-80.1)
[2024-03-01 14:01] LABS: Free T3 2.5 pg/mL (2.18-3.98); T4 Free Direct 0.76 ng/dL (0.76-1.46); Thyroid Stim Hormone (TSH) 1.06 uIU/mL (0.358-3.74)
[2024-03-01 14:02] LABS: AST(SGOT) 27 U/L (15-37); Alanine Aminotransfer ALT/SGPT 38 U/L (13-56); Alkaline Phosphatase 95 U/L (45-117); Bilirubin, Direct 0.11 mg/dL (0.00-0.30); Cholesterol 166 mg/dL (200); Globulin 3.7 g/dL (2.2-4.2); High Density Lipoprotein 55 mg/dL; Protein, Total 7.7 g/dL (6.4-8.2); Triglycerides 152 mg/dL; Very Low Density Lipoprotein 30 mg/dL (5-40)
== END | disposition home or self-care (01) ==
LOC: LAB 13:16
PROVIDERS: Surgery; PCP Family Medicine; Referring Provider Physician Assistant Medical; Visit Provider Physician Assistant Medical
DX: E89.2 Postprocedural hypoparathyroidism (principal); E78.5 Hyperlipidemia, unspecified
CPT/HCPCS: 36415; 80061; 80076; 82310; 83970; 84439; 84443; 84481

== ENCOUNTER → 2024-03-14 | Outpatient (CLI) | payer MEDICARE, SELFPAY ==
[2024-03-14 12:18] LABS: Protein, Urine (Random) 24.8 mg/dL (<11.9); Protein:Creat Ratio 95 mg/g CRE (0-200)
[2024-03-14 12:34] LABS: PTHIN 99.1 pg/mL (18.4-80.1)
[2024-03-14 12:36] LABS: Calcium,Total 9.4 mg/dL (8.5-10.1)
[2024-03-14 12:38] LABS: Anion Gap 4 (5-15); BUN 13 mg/dL (7-18); BUN/Creat Ratio 16.4 RATIO (10-20); Calcium,Total 9.3 mg/dL (8.5-10.1); Chloride 111 mmol/L (98-107); Creatinine, Serum 0.79 mg/dL (0.55-1.02); EST Glomerular Filtration Rate 77 mL/min (>60); Est Glom Filt Rate - Afr Amer 93 mL/min (>60); Glucose 120 mg/dL (74-106); Potassium 4.2 mmol/L (3.5-5.1); Sodium Level 144 mmol/L (136-145)
[2024-03-19 12:08] LABS: Vitamin D 1,25-Dihydroxy 53.4 pg/mL (24.8-81.5)
== END | disposition home or self-care (01) ==
LOC: LAB 10:51
PROVIDERS: PCP Family Medicine; Referring Provider Surgery; Visit Provider Surgery
DX: E89.2 Postprocedural hypoparathyroidism (principal); I10 Essential (primary) hypertension
CPT/HCPCS: 36415; 80048; 82310; 82570; 82652; 83970; 84156

== ENCOUNTER → 2024-09-10 | Outpatient (CLI) | payer MEDICARE, SELFPAY ==
[2024-09-10 12:54] LABS: Protein, Urine (Random) 12.9 mg/dL (<11.9); Protein:Creat Ratio 124 mg/g CRE (0-200)
[2024-09-10 13:17] LABS: AST(SGOT) 22 U/L (15-37); Alanine Aminotransfer ALT/SGPT 30 U/L (13-56); Albumin, Serum 4.1 g/dL (3.2-5.0); Alkaline Phosphatase 94 U/L (45-117); Anion Gap 6 (5-15); BUN 15 mg/dL (7-18); BUN/Creat Ratio 18.7 RATIO (10-20); Bilirubin, Direct 0.09 mg/dL (0.00-0.30); Chloride 104 mmol/L (98-107); Cholesterol 202 mg/dL (200); EST Glomerular Filtration Rate 76 mL/min (>60); Est Glom Filt Rate - Afr Amer 92 mL/min (>60); Globulin 3.3 g/dL (2.2-4.2); Glucose 111 mg/dL (74-106); High Density Lipoprotein 47 mg/dL; Protein, Total 7.4 g/dL (6.4-8.2); Sodium Level 138 mmol/L (136-145); Thyroid Stim Hormone (TSH) 0.904 uIU/mL (0.358-3.740); Triglycerides 252 mg/dL; Very Low Density Lipoprotein 50 mg/dL (5-40)
== END | disposition home or self-care (01) ==
LOC: MFPLAB 11:01
PROVIDERS: PCP Family Medicine; Visit Provider Family Medicine
DX: E11.59 Type 2 diabetes mellitus with other circulatory complications (principal); E11.69 Type 2 diabetes mellitus with other specified complication; E78.5 Hyperlipidemia, unspecified; I10 Essential (primary) hypertension
CPT/HCPCS: 36415; 80048; 80061; 80076; 82570; 84156; 84443

== ENCOUNTER → 2024-10-02 | Outpatient (CLI) | payer MEDICARE, SELFPAY ==
--- NOTE | 2024-10-02 08:25 | BI_ITS ---
MAMMOGRAPHY - BILATERAL SCREENING 3-D TOMOSYNTHESIS REASON FOR EXAM: Female, 69 years old. screening PERTINENT HISTORY: No significant family history. TECHNIQUE: 2-D mammograms and 3-D Tomosynthesis of the breast (s) were performed. CAD was performed. COMPARISON: 09/27/2023 FINDINGS: The breast composition is composed of scattered fibroglandular density. Scattered benign calcifications are seen. No dense spiculated masses or suspicious microcalcifications are identified. No architectural distortion is identified. There is no skin thickening or retraction. There has been no significant change since the prior study. No change in the subcentimeter oval circumscribed equal density mass in the retroareolar right breast which has been proven to be a cyst. BI/SCRN MAMM (CAD)W/ASHLEY BILAT IMPRESSION: No mammographic signs of malignancy. Routine yearly mammograms recommended. ASSESSMENT CATEGORY: BIRADS Category 2: Benign. A letter regarding these results will be sent to the patient by the facility within 30 days. FOLLOW UP RECOMMENDATION: Yearly follow up mammogram recommended. (A) Approximately 10% of breast cancers are not detected by mammography. A normal mammogram should not delay biopsy of a clinically suspicious abnormality. Electronically Signed: Deondre Marley MD at 15:40 EST ,
--- NOTE | 2024-10-02 08:27 | BD_ITS ---
STUDY: DUAL ENERGY X-RAY ABSORPTIOMETRY / DXA REASON FOR EXAM: Female, 69 years old. Parathyroidectomy TECHNIQUE: Bone Mineral Density (BMD) measurements of lumbar spine and bilateral hips were obtained. COMPARISON: Comparison is made with prior study dated September 15, 2022. FINDINGS: Lumbar Spine (L1-L4): g/cm2 (0.737) / T-score (-2.8) / Z-score (-0.8) Findings are suggestive of osteoporosis with a high fracture risk. Left Femur Total: g/cm2 (0.742) / T-score (-1.6) / Z-score (-0.2) Left Femoral Neck: g/cm2 (0.577) / T-score (-2.5) / Z-score (-0.8) Right Femur Total: g/cm2 (0.723) / T-score (-1.8) / Z-score (-0.4) Right Femoral Neck: g/cm2 (0.563) / T-score (-2.6) / Z-score (-0.9) The T-Scores on the most recent prior examination were: Lumbar Spine (L1-L4): There has been improvement of bone density since the previous examination. Left Femur Total: which represents an improvement of 9.6%. Right Femur Total: which represents an improvement of 5.9%. BD/Dexa Bone Density Study IMPRESSION: The patient is considered osteoporotic as outlined below according to World [place] Organization (WHO) criteria with a high fracture risk. There has been improvement of bone density since the previous examination. Reference Information: The T-score is the number of standard deviations above or below the standard which is normal for young adults at their peak bone mineral density. The World Health Organization (WHO) interprets the T-scores as follows: Above -1 Normal bone density Between -1 and -2.5 Osteopenia Equal to / or below -2.5 Osteoporosis As a practical clinical guideline, osteopenia may be graded as follows: Mild -1 through -1.5 Moderate -1.6 through -2.0 Severe -2.1 through -2.4 The Z-score is the number of standard deviations above or below age-matched controls. A Z-score of less than -1.5 would be considered abnormal. References: 1. NIH Osteoporosis and Related Bone Diseases www osteo.org 2. International Society for Clinical Densitometry www iscd.org 3. National Osteoporosis Foundation www nof.org Electronically Signed: Radhames Nielsen MD at 15:04 EST ,
== END | disposition home or self-care (01) ==
PROVIDERS: PCP Family Medicine; Referring Provider Surgery; Visit Provider Family Medicine
DX: Z12.31 Encounter for screening mammogram for malignant neoplasm of breast (principal); Z13.820 Encounter for screening for osteoporosis; Z78.0 Asymptomatic menopausal state
CPT/HCPCS: 77063; 77067; 77080

== ENCOUNTER → 2024-10-18 | Outpatient (CLI) | payer MEDICARE, SELFPAY | END | disposition home or self-care (01) | LOC: SL 11:43 | PROVIDERS: PCP Family Medicine; Visit Provider Nurse Practitioner Acute Care | DX: G47.33 Obstructive sleep apnea (adult) (pediatric) (principal) | CPT/HCPCS: 98960; G0463 ==

== ENCOUNTER → 2025-05-02 | Outpatient (CLI) | payer MEDICARE, SELFPAY ==
--- NOTE | 2025-05-02 12:50 | ECHOCS_ITS ---
Reason For Study Reason For Study: Evaluate EF for ASV Consideration Procedure This was a 2D Doppler, Color Flow transthoracic echocardiogram. The study was technically difficult. Contrast injection was performed. Exam performed in department. Left Ventricle Normal LV size. Left ventricular systolic function is normal. The left ventricular ejection fraction is 70 %. Stage 1 diastolic dysfunction. Resting LV gradient 11 mmHg. Valsalva LV gradient 56 mmHg. No regional wall motion abnormalities noted. Right Ventricle Normal RV size. Normal systolic function. Atria Normal left atrium. Normal right atrium. Tricuspid Valve Normal tricuspid valve. Aortic Valve Trisinus/trileaflet aortic valve. Pulmonic Valve Normal pulmonic valve. Great Vessels Normal aortic root. The pulmonary artery is normal size. Inferior vena cava collapse with respiration. Pericardium/Pleural No pericardial effusion. Medication 22 gauge I.V. with prn adaptor inserted into right arm. Diluted definity 2ml given slow IV push to enhance endocardial definition. MMode/2D Measurements & Calculations LVIDd: 3.8 cm IVSd: 0.76 cm Ao root diam: 3.2 cm LVIDs: 2.1 cm LVPWd: 0.79 cm RVDd: 3.4 cm FS: 45.6 % LAV(MOD-bp): 29.5 ml LVAd ap4: 27.6 cm2 SV(MOD-sp4): 56.1 ml LAV(MOD-bp) Indexed: 16.6 ml/m2 LVLd ap4: 8.0 cm SI(MOD-sp4): 31.6 ml/m2 LAV(MOD-sp2): 32.8 ml EDV(MOD-sp4): 77.8 ml LAV(MOD-sp4): 24.2 ml EDV(sp4-el): 81.1 ml LVAs ap4: 12.8 cm2 LVLs ap4: 6.0 cm ESV(MOD-sp4): 21.7 ml ESV(sp4-el): 23.0 ml EF(MOD-sp4): 72.1 % EF(sp4-el): 71.7 % SV(sp4-el): 58.2 ml LA A4 area: 11.3 cm2 LA dimension(2D): 3.3 cm RA A4 area: 12.0 cm2 TAPSE: 2.1 cm Time Measurements MV dec time: 0.34 sec Doppler Measurements & Calculations MV E max mikey: 66.1 cm/sec Lat Peak E' Mikey: 8.2 cm/sec Med Peak E' Mikey: 5.6 cm/sec MV A max mikey: 104.9 cm/sec E/E' lat: 8.1 E/E' med: 11.8 MV E/A: 0.63 MV V2 max: 119.4 cm/sec MV P1/2t max mikey: 82.5 cm/sec Ao V2 max: 188.7 cm/sec MV max P.7 mmHg MV P1/2t: 121.3 msec Ao max P.2 mmHg MV V2 mean: 59.3 cm/sec Ao V2 mean: 143.4 cm/sec MV mean P.7 mmHg MV dec slope: 199.2 cm/sec2 Ao mean P.0 mmHg MV V2 VTI: 32.3 cm MVA(P1/2t): 1.8 cm2 Ao V2 VTI: 47.5 cm LV V1 max: 159.1 cm/sec MR max mikey: 503.9 cm/sec PA V2 max: 133.3 cm/sec LV V1 max P.1 mmHg MR max P.5 mmHg PA V2 mean: 95.3 cm/sec ECHO/Echo Complete W/ Contrast Interpretation Summary Normal LV size. Left ventricular systolic function is normal. The left ventricular ejection fraction is 70 %. Stage 1 diastolic dysfunction. Resting LV gradient 11 mmHg. Valsalva LV gradient 56 mmHg. Contrast injection was performed. Ordering Physician: Eva Lopez Referring Physician: Eva Lopez Performed By: Willie Guerrero RCS
--- OUTSIDE RECORDS SUMMARY | 2025-05-02 21:35 | XMS RPT_ITS | CCD ---
Author Organization [facility] CliniSywv Care Team Providers Care Automatic Maintainer Name Role Phone Dr. Hoda Concepcion Primary Care Provider Dr. Hoda Concepcion Referring Provider [phone] Keon SPENCER, STILL TENDER-C Brooklynn Attending Provider RAGHAVENDRA BRAY MD Attending Unavailable RAGHAVENDRA BRAY MD Primary Care Unavailable RAGHAVENDRA BRAY MD Admitting Unavailable Dr. Hoda Concepcion Primary Care Provider Dr. Hoda Concepcion Referring Provider [phone] Keon STILL TENDER, STILL TENDER-C Brooklynn Attending Provider Flavio STILL TENDER, STILL TENDER-C Kay Attending Provider Dr. Hoda Concepcion Primary Care Provider Dr. Hoda Concepcion Referring Provider [phone] Keon SPENCER, STILL TENDER-C Brooklynn Attending Provider Dr. Chad Zhong Attending Provider Dr. Hoda Concepcion Primary Care Provider [phone] Hoda Concepcion Referring Provider [phone] Flavio SPENCER, STILL TENDER-C Kay Attending Provider Keon SPENCER, STILL TENDER-C Brooklynn Attending Provider Dr. Chad Zhong Attending Provider Dr. Hoda Concepcion Primary Care Provider Dr. Hoda Concepcion Referring Provider [phone] Brandon Wheatley Attending Provider Dr. Chad Zhong Referring Provider Dr. Chad Zhong Other Provider Dr. Ha Sanchez Attending Provider Dr. Christofer Rodrigez Referring Provider Dr. Brandon Wheatley Other Provider Dr. Celestino Wiseman Attending Provider Dr. Hoda Concepcion Primary Care Provider Dr. Hoda Concepcion Referring Provider Dr. Chad Zhong Attending Provider Dr. Ha Sanchez Attending Provider Dr. Christofer Rodrigez Referring Provider Dr. Chad Zhong Referring Provider Dr. Chad Zhong Other Provider Dr. Brandon Wheatley Other Provider Dr. Celestino Wiseman Attending Provider Flavio STILL TENDER, STILL TENDER-C Kay Attending Provider Dr. Hoda Concepcion Primary Care Provider Dr. Hoda Concepcion Referring Provider Titi CHILEL, PA Cary Caal Attending Provider Dr. Rodrigo Coon Attending Provider Dr. Hoda Concepcion Primary Care Provider Dr. Hoda Concepcion Referring Provider Dr. Brandon Wheatley Attending Provider Dr. Hoda Concepcion Primary Care Provider Dr. Hoda Concepcion Referring Provider Titi CHILEL, PA Cary Caal Attending Provider Flavio SPENCER, STILL TENDER-C Kay Attending Provider Dr. Hoda Concepcion MD Primary Care Provider Dr. Hoda Concepcion MD Referring Provider Jessica STILL TENDER-CEva Attending Provider Walter Hall Attending Provider Jolliff, Hoda S Referring Unavailable Jolliff, Hoda S Primary Care Unavailable Eva Lopez Attending Unavailable Walter Hagen Attending Unavailable Jolliff, Hoda S Referring Unavailable Jolliff, Hoda S Primary Care Unavailable Jolliff, Hoda S Referring Unavailable Jolliff, Hoda S Primary Care Unavailable Eva Lopez Attending Unavailable Jolliff, Hoda S Primary Care Unavailable Flavio STILL TENDER, Kay Attending Unavailable Jolliff, Hoda S Referring Unavailable Jolliff, Hoda S Primary Care Unavailable Flavio STILL TENDER, Kay Attending Unavailable Jolliff, Hoda S Referring Unavailable Jolliff, Hoda S Primary Care Unavailable Flavio STILL TENDER, Kay Attending Unavailable Jolliff, Hoda S Primary Care Unavailable Jolliff, Hoda S Attending Unavailable Jolliff, Hoda S Primary Care Unavailable Jolliff, Hoda S Attending Unavailable Chad Zhong Referring Unavailable Shekhar, Chalon Primary Care Unavailable Eva Lopez Attending Unavailable Eva Lopez Referring Unavailable Eva Lopez Referring Unavailable Shekhar, Chalon Primary Care Unavailable Eva Lopez Attending Unavailable Allergies Allergy Classification Reported Allergen(s) Allergy Type Date of Onset Reaction(s) Facility (5 sources) Pollen Allergy to substance 2 URI symptoms [facility] Work Phone: (5 sources) mold spores Allergy to substance 2 URI symptoms [facility] Work Phone: (15 sources) Mold Extract Drug Allergy 2 Other [facility] Comment on above: URI SYMPTOMS (15 sources) Pollen Allergy to substance 2 Other [facility] Comment on above: URI SYMPTOMS (1 source) Mold Extract Drug Allergy 5 [facility] Repository (1 source) Pollen Drug allergy (disorder) 5 [facility] Repository Medications Current Medications Medication Drug Class(es) Dates Sig (Normalized) Sig (Original) Bionutritionals-Adv anced Memory Formula (20 sources) Start: 02-25-2022 take 2 tablets by mouth once daily Bionutritionals-Ad vanced Memory Formula Active 2 TABLET PO DAILY February 25, 2022 9:12am Start: 02-25-2022 End: 04-20-2022 Bionutritionals-Advanced Mem ory Formula Discontinued 2 {tbl} PO DAILY February 25, 2022 12:00am April 20, 2022 9:25am Start: 02-25-2022 End: 04-20-2022 take 2 tablets by mouth once daily Bionutritionals-Advanced Memory Formula Discontinued 2 TABLET PO DAILY February 24, 2022 11:00pm April 20, 2022 8:25am Start: 02-25-2022 End: 04-20-2022 take 2 tablets by mouth once daily Bionutritionals-Advanced Memory Formula Discontinued 2 TABLET PO DAILY February 25, 2022 12:00am April 20, 2022 9:25am DULoxetine 60 mg delayed release oral capsule (20 sources) Serotonin and Norepinephrine Reuptake Inhibitor Start: 06-18-2022 take 1 capsule by mouth once daily Duloxetine 60 mg capsule,delayed release(DR/EC) Active 60 mg PO DAILY June 18, 2022 12:00am Start: 04-20-2022 End: 06-18-2022 take 1 capsule by mouth once daily Duloxetine (Cymbalta) 30 mg capsule,delayed release(DR/EC) Discontinued 30 mg PO DAILY April 20, 2022 12:00am June 18, 2022 10:23am esomeprazole 40 mg delayed release oral capsule (20 sources) Proton Pump Inhibitor Start: 02-27-2018 take 1 capsule by mouth once daily Esomeprazole Magnesium 40 mg capsule,delayed release(DR/EC) Active 40 mg PO daily February 27, 2018 12:00am lisinopril 10 mg oral tablet (20 sources) Angiotensin Converting Enzyme Inhibitor Start: 04-20-2022 End: 05-13-2022 take 1 tablet by mouth once daily Lisinopril 10 mg tablet Active 10 mg PO DAILY May 13, 2022 1:54pm Medical marijuana (20 sources) Start: 02-25-2022 Medical marijuana Active INHALATION February 25, 2022 9:21am Start: 02-25-2022 End: 04-20-2022 Medical marijuana Discontinu ed INHALATION February 24, 2022 11:00pm April 20, 2022 8:02am Start: 02-25-2022 End: 04-20-2022 Medical marijuana Discontinu ed INHALATION February 25, 2022 12:00am April 20, 2022 9:02am 24 hr metoprolol succinate 50 mg extended release oral tablet (20 sources) beta-Adrenergic Francois Start: 05-25-2022 End: 03-19-2025 take 1 tablet by mouth once daily Metoprolol Succinate 50 mg tablet extended release 24 hr Active 50 mg PO daily March 19, 2025 5:43pm Start: 04-14-2022 End: 05-25-2022 Metoprolol Succinate 50 mg t ablet extended release 24 hr Discontinued 100 mg PO daily April 14, 2022 10:39am May 25, 2022 2:11pm Start: 04-14-2022 End: 05-25-2022 take 100 mg by mouth once daily Metoprolol Succinate Discontinued 100 MG PO daily April 14, 2022 10:39am May 25, 2022 2:11pm Start: 02-25-2022 End: 04-14-2022 take 1 tablet by mouth once daily Metoprolol Succinate 50 mg tablet extended release 24 hr Discontinued 50 mg PO daily February 25, 2022 1:20pm April 14, 2022 10:41am Start: 02-17-2021 End: 02-25-2022 take 1 tablet by mouth once daily Metoprolol Succinate 100 mg tablet extended release 24 hr Discontinued 100 mg PO daily March 23, 2021 1:55pm February 25, 2022 1:21pm Start: 03-01-2018 End: 02-17-2021 take 1 tablet by mouth once daily Metoprolol Succinate (Toprol Xl) 50 mg tablet extended release 24 hr Discontinued 50 mg PO daily 90 February 22, 2019 9:05am February 18, 2020 2:29pm Multivitamin (Daily Multi-Vitamin) tablet (2 sources) Start: 01-23-2024 Multivitamin ( Daily Multi-Vitamin) tablet Active 1 {tbl} PO DAILY January 23, 2024 12:00am Start: 01-23-2024 take 1 tablet by taisha th once daily Multivitamin (Daily Multi-Vitamin) tablet Active 1 TABLET PO DAILY January 23, 2024 12:00am Byron-3 Fatty Acids (1 source) Start: 01-23-2024 take 1000 mg by mouth once daily Byron-3 Fatty Acids Active 1000 MG PO DAILY January 23, 2024 12:00am Byron-3 Fatty Acids 1,000 mg capsule (1 source) Start: 01-23-2024 take 1 capsule by mouth once daily Byron-3 Fatty Acids 1,000 mg capsule Active 1000 mg PO DAILY January 23, 2024 12:00am rosuvastatin calcium 40 mg oral tablet (20 sources) HMG-CoA Reductase Inhibitor Start: 02-18-2020 End: 03-19-2025 take 1 tablet by mouth at bedtime Rosuvastatin 40 mg tablet Active 40 mg PO AT BEDTIME March 19, 2025 12:49pm Vitamin B Complex (1 source) Start: 01-23-2024 take 1 tablet by mouth once daily Vitamin B Complex Active 1 TABLET PO DAILY January 23, 2024 12:00am Vitamin B Complex tablet (1 source) Start: 01-23-2024 Vitamin B Comp rody tablet Active 1 {tbl} PO DAILY January 23, 2024 12:00am Completed/Discontinued Medications Medication Drug Class(es) Dates Sig (Normalized) Sig (Original) atorvastatin 40 mg oral tablet (20 sources) HMG-CoA Reductase Inhibitor Start: 02-27-2018 End: 02-18-2020 take 1 tablet by mouth once at bedtime Atorvastatin 40 mg tablet Discontinued 40 mg PO .q hs February 27, 2018 12:00am February 18, 2020 2:21pm calcium carbonate 1500 mg / cholecalciferol 800 unt oral tablet (17 sources) Vitamin D Start: 12-02-2022 End: 01-23-2024 Calcium Carbonate-Vitamin D3 600 mg-20 mcg (800 unit) tablet Discontinued 1 {tbl} PO TWICE A DAY 60 December 02, 2022 1:00am January 23, 2024 10:06am Start: 12-02-2022 End: 01-23-2024 take 1 tablet by mouth twice daily Calcium Carbonate-Vitamin D3 Discontinued 1 TABLET PO TWICE A DAY 60 December 02, 2022 1:00am January 23, 2024 10:06am Start: 12-01-2022 End: 12-02-2022 Calcium Carbonate-Vitamin D3 (Os-Florentino 500 + D3) 500 mg-15 mcg (600 unit) tablet Discontinued 1 {tbl} PO TWICE A DAY 60 December 01, 2022 1:00am December 02, 2022 8:53am estradiol 0.1 mg/ml vaginal cream (20 sources) Estrogen Start: 02-25-2022 End: 04-20-2022 Estradiol 0.01 % (0.1 mg/gram) cream Discontinued 1 NMA VAGINAL every other day February 25, 2022 9:12am April 20, 2022 9:25am for 14 days Start: 02-25-2022 End: 04-20-2022 Estradiol Discontinued 1 MOIRA FUL VAGINAL every other day February 25, 2022 9:12am April 20, 2022 9:25am for 14 days Start: 08-21-2021 End: 02-25-2022 Estradiol 0.01 % (0.1 mg/gra m) cream Discontinued 1 NMA VAGINAL DAILY August 21, 2021 12:00am February 25, 2022 9:16am for 14 days Start: 08-21-2021 End: 02-25-2022 Estradiol Discontinued 1 MOIRA FUL VAGINAL DAILY August 21, 2021 12:00am February 25, 2022 9:16am for 14 days FLUoxetine 20 mg oral capsule (20 sources) Serotonin Reuptake Inhibitor Start: 02-18-2020 End: 02-17-2021 take 1 capsule by mouth once daily Fluoxetine 20 mg capsule Discontinued 20 mg PO DAILY February 18, 2020 12:00am February 17, 2021 9:14am hydroCHLOROthiazide 12.5 mg / lisinopril 10 mg oral tablet (20 sources) Thiazide Diuretic, Angiotensin Converting Enzyme Inhibitor Start: 03-01-2018 End: 04-20-2022 Lisinopril-Hydroc hlorothiazide 10-12.5 mg tablet Discontinued 1 {tbl} PO daily February 25, 2022 1:20pm April 20, 2022 9:27am Start: 03-01-2018 End: 04-20-2022 take 1 tablet by mouth once daily Lisinopril-Hydrochlorothiazide Discontin ued 1 TABLET PO daily March 23, 2021 1:55pm February 25, 2022 1:21pm Start: 02-27-2018 End: 03-01-2018 Lisinopril-Hydrochlorothiazi de 20-25 mg tablet Discontinued 1 {tbl} PO daily February 27, 2018 12:00am March 01, 2018 3:59pm Start: 02-27-2018 End: 03-01-2018 take 1 tablet by mouth once daily Lisinopril-Hydrochlorothiazide Discontin ued 1 TABLET PO daily February 27, 2018 12:00am March 01, 2018 3:59pm loratadine 10 mg oral tablet (20 sources) Start: 02-27-2018 End: 02-18-2020 take 1 tablet by mouth once daily Loratadine (Claritin) 10 mg tablet Discontinued 10 mg PO daily February 27, 2018 12:00am February 18, 2020 2:22pm omega-3 fatty acids 1,250 mg capsule (20 sources) Start: 02-27-2018 End: 03-01-2018 take 1 capsule by mouth once daily omega-3 fatty acids 1,250 mg capsule Discontinued 1250 MG PO daily February 27, 2018 8:56pm March 01, 2018 3:35pm Start: 02-27-2018 End: 03-01-2018 take 1 capsule by mouth once daily Byron-3 Fatty Acids 1,250 mg capsule Discontinued 1250 mg PO daily February 27, 2018 12:00am March 01, 2018 3:35pm Start: 02-27-2018 End: 03-01-2018 take 1 capsule by mouth once daily omega-3 fatty acids 1,250 mg capsule Discontinued 1250 MG PO daily February 26, 2018 11:00pm March 01, 2018 2:35pm Start: 02-27-2018 End: 03-01-2018 take 1 capsule by mouth once daily omega-3 fatty acids 1,250 mg capsule Discontinued 1250 MG PO daily February 27, 2018 12:00am March 01, 2018 3:35pm PARoxetine hydrochloride 40 mg oral tablet (20 sources) Serotonin Reuptake Inhibitor Start: 02-27-2018 End: 02-18-2020 Paroxetine Hcl (Paxil) 40 mg tablet Discontinued 20 mg PO daily February 27, 2018 12:00am February 18, 2020 2:23pm Problems Active Problems Problem Classification Problem Date Documented Date Episodic/Chronic Cardiac dysrhythmias (20 sources) Palpitations; Translations: [Palpitations] Episodic Chronic obstructive pulmonary disease and bronchiectasis (11 sources) Mild chronic obstructive pulmonary disease; Translations: [Chronic obstructive pulmonary disease, unspecified] 01-19-2023 Chronic Complications of surgical procedures or medical care (12 sources) History of parathyroidectomy; Translations: [Postprocedural hypoparathyroidism] 12-01-2022 Chronic Diabetes mellitus with complications (1 source) Type 2 diabetes mellitus with other circulatory complications; Translations: [Type 2 diabetes mellitus with other circulatory complications] Onset: 4 Chronic Diabetes mellitus without complication (12 sources) Prediabetes; Translations: [Prediabetes] 09-03-2022 Episodic Disorders of lipid metabolism (20 sources) Hyperlipidemia; Translations: [Hyperlipidemia, unspecified] Onset: 5 Chronic Esophageal disorders (12 sources) Gastroesophageal reflux disease; Translations: [Gastro-esophageal reflux disease without esophagitis] 09-03-2022 Chronic Essential hypertension (20 sources) Essential hypertension; Translations: [Essential (primary) hypertension] Chronic Fluid and electrolyte disorders (20 sources) Hypokalemia; Translations: [Hypokalemia] Episodic Heart valve disorders (20 sources) Mitral valve prolapse; Translations: [Nonrheumatic mitral (valve) prolapse] 09-03-2022 Chronic Heart valve disorders (12 sources) Heart murmur; Translations: [Cardiac murmur, unspecified] 09-06-2022 Episodic Malaise and fatigue (20 sources) Fatigue; Translations: [Other fatigue] Episodic Nonspecific chest pain (20 sources) Chest pain on exertion; Translations: [Chest pain, unspecified] 02-16-2021 Episodic Osteoarthritis (1 source) Arthropathy of joint of hand; Translations: [Osteoarthritis of first carpometacarpal joint, unspecified] 03-21-2024 Chronic Other connective tissue disease (1 source) Triggering of digit; Translations: [Trigger finger, unspecified finger] 03-21-2024 Episodic Other endocrine disorders (12 sources) Hyperparathyroidism; Translations: [Hyperparathyroidism, unspecified] 10-25-2022 Chronic Comment on above: Is a 67-year-old fem shahid who presents with primary hyperparathyroidism given her laboratories and signs/symptoms. She is now status post parathyroidectomy with removal of parathyroid adenoma as above. Initial excellent response demonstrated both objectively and subjectively. However, pre-clinic labs show a elevation again in her PTH level. Uncertain of the complete clinical significance of this level at this time. Recommending active surveillance at this time. See above for full plan. Other endocrine disorders (13 sources) Hyperparathyroidism, unspecified; Translations: [Hyperparathyroidism, unspecified] Chronic Other lower respiratory disease (20 sources) Dyspnea; Translations: [Shortness of breath] 02-16-2021 Episodic Other lower respiratory disease (20 sources) Dyspnea on exertion; Translations: [Shortness of breath] 02-16-2021 Episodic Other lower respiratory disease (7 sources) Dyspnea, unspecified; Translations: [Other respiratory abnormalities] Episodic Massiel-; endo-; and myocarditis; cardiomyopathy (except that caused by tuberculosis or sexually transmitted disease) (20 sources) Hypertrophic cardiomyopathy; Translations: [Other hypertrophic cardiomyopathy] Chronic Residual codes; unclassified (18 sources) Hypersomnia; Translations: [Hypersomnia, unspecified] 09-06-2022 Chronic Residual codes; unclassified (4 sources) Hypersomnia, unspecified; Translations: [Hypersomnia, unspecified] Chronic Residual codes; unclassified (11 sources) Obstructive sleep apnea syndrome; Translations: [Obstructive sleep apnea (adult) (pediatric)] 04-27-2022 Chronic Residual codes; unclassified (18 sources) Obstructive sleep apnea (adult) (pediatric); Translations: [Obstructive sleep apnea (adult)(pediatric)] Onset: 5 Chronic Residual codes; unclassified (8 sources) Sleep apnea; Translations: [Sleep apnea, unspecified] 04-29-2023 Chronic Residual codes; unclassified (4 sources) Sleep apnea, unspecified; Translations: [Unspecified sleep apnea] 04-27-2023 Chronic Residual codes; unclassified (1 source) Primary central sleep apnea; Translations: [Primary central sleep apnea] Onset: 5 Chronic Residual codes; unclassified (4 sources) History of parathyroidectomy; Translations: [Other specified postprocedural states] 12-08-2022 Episodic Comment on above: Patient recovering w ell now 1 week status post parathyroidectomy. Minimally invasive parathyroidectomy with removal of left inferior adenoma was completed. Pathology confirms 800 mg hyperplastic gland. Initial ex vivo PTH levels fell appropriately to a ayo of 42.8 from a starting level of 174. Patient subjectively much improved with decrease in her myalgia/arthralgias as well as neuropsychiatric symptoms. Postoperative calcium normal, but PTH is elevated at 125. I do not have a good explanation for this elevation given that her intraoperative PTH decrease that even the most stringent of intraoperative PTH monitoring criterion. I suggest we pursue watchful waiting at this point and have recommended that she decrease her calcium supplementation to 1 tab daily. We will plan to repeat her PTH and serum calcium in 2 weeks time. In the interim I have asked patient to begin application of triple antibiotic ointment to her incision line for 1 week followed by massaging the area with either vitamin E oil or cocoa butter ongoing. Substance-related disorders (8 sources) Cigarette smoker ; Translations: [Nicotine dependence, cigarettes, uncomplicated] 04-29-2023 Chronic Syncope (20 sources) Near syncope; Translations: [Syncope and collapse] 07-29-2021 Episodic Viral infection (18 sources) Disease caused by 2019-nCoV; Translations: [COVID-19] 09-06-2022 Episodic Past or Other Problems Problem Classification Problem Date Documented Da te Episodic/Chronic Other screening for suspected conditions (not mental disorders or infectious disease) (1 source) Encounter for screening mammogram for malignant neoplasm of breast; Translations: [Encounter for screening mammogram for malignant neoplasm of breast] Onset: 10-28-2024 Episodic Results Test Name Value Interpretation Reference Range Facility Pulmonary Visit Reporton Pulmonary Visit Report [facility] [address] [place] [address] OFFICE VISIT Date of Service: 04/24/25 MR#: [id number] Acct: [id number] Name: FELIBERTO MENG Rep #: [id number] : [id number] Provider: Eva Lopez NP Age/Sex: 69/F Location: [facility] [email or web address] Status: Signed Assessment and Plan Assessment and Plan (1) Sleep apnea: Status: Chronic Qualifiers: Sleep apnea type: obstructive Qualified Code(s): G47.33 - Obstructive sleep apnea (adult) (pediatric) Comment: treatment emergent central Plan: The patient's sleep apnea is not controlled. She is failing BiPAP therapy. The previous titration study indicated that there were treatment emergent central events present. A titration study is warranted as the patient would likely benefit from ASV device. ECHO prior to evaluate for EF. Follow-up in 8 to 10 weeks with compliance download. At that time the patient will likely have been able to be set up on ASV device and used it at least 30 days. (2) Stage 1 mild COPD by GOLD classification: Status: Chronic Plan: Stable. Not requiring maintenance inhalers. Notify this practice for worsening respiratory symptoms. Orders: Orders Polysomnography with PAP Today G47.33 - Obstructive sleep apnea (adult) (pediatric) Echo Complete W/ Contrast Today G47.33 - Obstructive sleep apnea (adult) (pediatric) Plan Details Follow Up: 8-10 weeks (LMR) HPI HPI Comments Details: Patient is a 69 year old female who presents to the office today for follow-up of her sleep apnea and mild COPD. She is ambulatory and currently on room air. She has not had recent respiratory illness requiring antibiotics or prednisone. She denies wheeze and shortness of breath. She denies cough, sputum production or hemoptysis. She denies chest tightness, chest pain or palpitations. She denies fever, chills, body aches. She has not required inhaler therapy. The patient is using Bipap 10/6 without significant air leak or snore. There is occasional oral dryness present in the morning but this is not occur on a daily basis. Sleep is refreshing. The patient is reporting that she is struggling with compliant use of PAP therapy. She denies morning headaches. She does not nap. Nocturia occurs x 2-3 and she does not put her device on when she gets up to use the bathroom. Daytime hypersomnia is improved when she has been able to use her device. Since decreasing the pressure from last visit, due to difficulty with exhalation against her previous settings, she feels like she is not receiving enough air pressure. She did have her parathyroid removed in November 2022 and reports that she feels like her sleep has changed since then. In the past she was able to use CPAP with 100% compliance, averaging 8 hours nightly but there was an elevated AHI. Due to the elevated AHI and her struggle with exhaling against the pressure she was then transition to BiPAP therapy. The patient has had multiple adjustments and pressure and has not been able to be optimized on BiPAP as far as control of AHI. She reports that she is motivated to treat sleep apnea and has felt an improvement in the past in regards to her daytime functioning when she has been able to be compliant with therapy. She smoked for 20 years less than a pack a day and quit 10 years ago. She then started smoking marijuana until 5 years ago and has now changed to edibles. Compliance report for the past 30 days shows 27% compliance with average use of 2 hours and 21 minutes. Current setting is BiPAP with pressures being utilized at 10/6 cmH2O. Residual AHI of 8.5 events per hour. Leaks do not appear to be problematic. Intake Vital Signs 01/16/25 05:11 04/24/25 07:36 Height 5 ft 3 in 5 ft 3 in Weight: 156 lb BMI 27.6 BP 139/79 H Blood Pressure Location Lt brachial Position Sitting Respiration 16 Pulse 72 Pulse Source NIBP Temp 97.3 F L Temperature Source Temporal Artery Pulse Oximetry (%) 97 Oxygen Delivery Method room air Intake Visit Reasons: 3 m fu Chief Complaint: 3 m fu Admission Nurse Coordinator Required: No DME Vendor: Christina Accompanied by: Self Is patient in pain?: No Allergies pollen extracts Allergy (Intermediate, Verified 04/24/25 10:17) Other mold Adverse Reaction (Intermediate, Verified 04/24/25 10:17) Other Medications ???Medication ???Instructions ???Recorded ???Confirmed ???Type esomeprazole magnesium 40 mg 40 mg PO QDAY 02/27/18 04/24/25 Hi story capsule,delayed release lisinopril 10 mg tablet 10 mg PO DAILY #30 tabs 05/13/22 0 04/24/25 Rx duloxetine 60 mg capsule,delayed 60 mg PO DAILY 06/18/22 04/24/25 H istory release multivitamin (Daily Multi-Vitamin 1 tab PO DAILY 01/23/24 04/24/25 History tablet) omega-3 fatty acids 1,000 mg 1,000 mg PO D (more content not included)... Normal [facility] Center Cardiology Visit Reporton Cardiology Visit Report [facility] [address] [place] [address] OFFICE VISIT Date of Service: 01/21/25 MR#: [id number] Acct: [id number] Name: FELIBERTO MENG Rep #: [id number] : 1955 Provider: RANJANA Ruiz Age/Sex: 69/F Location[place] [facility] [place] Status: Signed HPI HPI History of Present Illness Details: Feliberto Meng is a 69-year-old female who presents to office today for routine follow-up for monitoring of cardiovascular disease. Patient has a history of hypertrophic cardiomyopathy, mitral valve insufficiency, hypertension, hyperlipidemia. Patient underwent echocardiogram 02/16/2021 that demonstrated a sigmoid septum and mitral valve insufficiency. Repeat echocardiogram 03/24/2023 does not demonstrate this. Does have a history of BEKAH and is compliant with her CPAP. Patient has a history of abnormal calcium levels and underwent parathyroidectomy in November 2022. Since last seen, approximately 1 year ago, patient reports doing well. She denies symptoms that she has experienced in the past which consisted of palpitations and feelings as her heart was beating out of her chest. Patient reports feeling better each day since having parathyroidectomy in Nov 2022. Patient feels like she is gaining muscle back and bones are stronger per Dexa scan. Patient denies any concerns today. Further ROS below. Intake Vital Signs 01/23/24 09:08 01/21/25 07:31 Height 5 ft 3 in 5 ft 3 in Weight: 160 lb BMI 28.3 BP 122/67 H Blood Pressure Location Lt brachial Position Sitting Respiration 18 Pulse 66 Pulse Source Monitor Pulse Oximetry (%) 94 Intake Visit Reasons: 1 Y FU Admission Nurse Coordinator Required: No Is patient in pain?: No Allergies pollen extracts Allergy (Intermediate, Verified 01/21/25 08:34) Other mold Adverse Reaction (Intermediate, Verified 01/21/25 08:34) Other Medications ???Medication ???Instructions ???Recorded ???Confirmed ???Type esomeprazole magnesium 40 mg 40 mg PO QDAY 02/27/18 01/21/25 Hi story capsule,delayed release lisinopril 10 mg tablet 10 mg PO DAILY #30 tabs 05/13/22 0 01/21/25 Rx duloxetine 60 mg capsule,delayed 60 mg PO DAILY 06/18/22 01/21/25 H istory release multivitamin (Daily Multi-Vitamin 1 tab PO DAILY 01/23/24 01/21/25 History tablet) omega-3 fatty acids 1,000 mg 1,000 mg PO DAILY 01/23/24 5 History capsule vitamin B complex 1 tab PO DAILY 01/23/24 01/21/25 H istory metoprolol succinate 50 mg 50 mg PO QDAY #90 tabs 02/13/24 Rx tablet,extended release 24 hr rosuvastatin 40 mg tablet 40 mg PO QHS #90 tabs 02/20/24 Rx Ejection fraction %: 60 Have you fallen in the past year?: Yes (Tripped and fell) [facility] Medical History (Updated 01/21/25 @ 09:34 by RANJANA Ruiz) Mitral valve insufficiency Wears glasses Post-menopausal Anxiety Marijuana use Diabetes Arthritis Fatty liver Back pain Injury of head and neck Blackout Former smoker CPAP (continuous positive airway pressure) dependence Shortness of breath on exertion Leg cramps Normal Holter exam History of echocardiogram History of stress test Cardiology follow-up encounter Mitral valve prolapse Fibromyalgia Depression Hypersomnolence Essential (primary) hypertension Hypertrophic cardiomyopathy Seasonal allergies GERD (gastroesophageal reflux disease) Hyperlipidemia Surgical History Hx of parathyroidectomy History of esophagogastroduodenoscopy (EGD) Hx of colonoscopy History of tubal ligation History of tonsillectomy Family History Mother CAD (coronary artery disease) Diabetes Arthritis Father CAD (coronary artery disease) Daughter Thyroid disorder Sister Thyroid disorder Grandmother Thyroid disorder Social History Smoking Status: Former smoker how long ago did patient quit smokin years ago alcohol intake: never substance use type: marijuana caffeine: Yes Type: coffee Number of servings: 2 ROS Const Const: Negative for fatigue, weakness, headache(s) or frequent falls Eyes Eyes: Negative for blurry vision ENT ENT: Negative for headache(s), dizziness or Nosebleed/epistaxis Cardio Chest Pain: No Palpitations: No Edema: None Muscle aches with walking: None Resp Respiratory: Negative for SOB with activity, SOB at rest or SOB orthopnea SOB lying down GI GI: Negative nausea, vomiting, heartburn, bright, red blood in stools or black,tarry stools : Negative for hematuria Neuro Neuro: Negative for dizziness, lightheadedness, near syncope, syncope, frequent falls, headache(s), weakness or blurry vision Endo Endo: Negat (more content not included)... Normal [facility] Pulmonary Visit Reporton Pulmonary Visit Report [facility] [address] [place] [address] OFFICE VISIT Date of Service: 01/16/25 MR#: [id number] Acct: [id number] Name: FELIBERTO MENG Rep #: [id number] : 1955 Provider: Eva oLpez NP Age/Sex: 69/F Location: [facility] [place] Status: Signed Assessment and Plan Assessment and Plan (1) Sleep apnea: Status: Chronic Qualifiers: Sleep apnea type: obstructive Qualified Code(s): G47.33 - Obstructive sleep apnea (adult) (pediatric) Plan: The patient's sleep apnea is suboptimally controlled with an AHI of 10.4. Most of these events are central in nature with the report indicating central 9.1. The titration study indicated that there were treatment emergent central events present. I have recommended empirically decreasing the pressure to 10/6 to determine if this will improve central events. I would like to obtain a compliance download in 4 weeks after making this change to consider decreasing the pressure 1 more time down to 9 over 5 cm. The patient is hesitant about a change in her pressure that is why I would be making these changes slowly for her. A titration study may be warranted on follow up if the BiPAP machine is unable to control the central events, then she may need to proceed with an ASV device. The patient does have occasional dry mouth. I have discussed obtaining a chinstrap. I do not believe that leaks are contributing to the elevation in AHI as they do not correlate on the download. I recommend a nocturnal oximetry on follow-up in 3 months. Obtain compliance download for that follow-up. (2) Stage 1 mild COPD by GOLD classification: Status: Chronic Plan: Asymptomatic. Not requiring maintenance inhalers. Notify this practice if there are worsening respiratory symptoms. Plan Details Follow Up: 3-month (LMR) HPI HPI Comments Details: Patient is a 69 year old female who presents to the office today for follow-up of her sleep apnea and mild COPD. She is ambulatory and currently on room air. She went to urgent care and had a double ear infection and was on an antibiotic October-November. She denies wheeze and shortness of breath. She denies any cough, sputum production or hemoptysis. She denies chest tightness, chest pain or palpitations. She denies fever, chills, body aches. The patient is using Bipap 09/13 without significant air leak or snore. There is occasional oral dryness present in the morning but this is not occur on a daily basis. there are no concerns about the air pressure. Sleep is refreshing. The patient is reporting good compliance. Daytime hypersomnia is improved, she does not require nap. She reports that it is hard for her to exhale against the current pressure. She smoked for 20 years less than a pack a day and quit 10 years ago. She then started smoking marijuana until 5 years ago and has now changed to edibles. Compliance report for the past 30 days shows 80 % compliance with average use of 8 hours and 9 minutes. Current setting is auto BiPAP with pressures being utilized at 11/7 cmH2O. Residual AHI of 10.4 events per hour. Leaks do not appear to be problematic. Intake Vital Signs 10/09/24 07:37 01/16/25 05:11 Height 5 ft 3 in 5 ft 3 in Weight: 155 lb BMI 27.4 BP 120/78 Blood Pressure Location Lt brachial Position Sitting Respiration 20 H Pulse 70 Pulse Source Monitor Temp 96.3 F L Temperature Source Temporal Artery Pulse Oximetry (%) 95 Oxygen Delivery Method room air Intake Visit Reasons: 3 M FU Admission Nurse Coordinator Required: No DME Vendor: francis Accompanied by: Self Is patient in pain?: No Allergies pollen extracts Allergy (Intermediate, Verified 10/09/24 08:15) Other mold Adverse Reaction (Intermediate, Verified 10/09/24 08:15) Other Medications ???Medication ???Instructions ???Recorded ???Confirmed ???Type esomeprazole magnesium 40 mg 40 mg PO QDAY 02/27/18 01/16/25 Hi story capsule,delayed release lisinopril 10 mg tablet 10 mg PO DAILY #30 tabs 05/13/22 0 01/16/25 Rx duloxetine 60 mg capsule,delayed 60 mg PO DAILY 06/18/22 01/16/25 H istory release multivitamin (Daily Multi-Vitamin 1 tab PO DAILY 01/23/24 01/16/25 History tablet) omega-3 fatty acids 1,000 mg 1,000 mg PO DAILY 03/18/24 03/12/2 5 History capsule vitamin B complex 1 tab PO DAILY 01/23/24 01/16/25 H istory metoprolol succinate 50 mg 50 mg PO QDAY #90 tabs 02/13/24 Rx tablet,extended release 24 hr rosuvastatin 40 mg tablet 40 mg PO QHS #90 tabs 02/20/2410/31 Rx Have you fallen in the past year?: Yes PFSH Medical History Mitral valve insufficiency Wears glasses Post-menopausal Anxiety Marijuana use Diabetes Arthritis Fat (more content not included)... Normal [facility] Pulmonary Visit Reporton Pulmonary Visit Report [facility] [place] [address] [place] [address] OFFICE VISIT Date of Service: 10/09/24 MR#: [id number] Acct: [id number] Name: FELIBERTO MENG Rep #: [id number] : 1955 Provider: DENG Muniz Age/Sex: 69/F Location: [facility] [place] Status: Signed Assessment and Plan Assessment and Plan (1) Sleep apnea: Status: Chronic Qualifiers: Sleep apnea type: obstructive Qualified Code(s): G47.33 - Obstructive sleep apnea (adult) (pediatric) Plan: Deteriorated. She continues to struggle to be comfortable and utilize her PAP device. She is attempting to use it. I am going to send her to Pap education to evaluate her current interface and to see if there is an alternative that would be a better choice. Follow-up in the office in 3 months to evaluate her compliance. No indication for titration study at this time. Contact the office with any difficulty acclimating in the meantime. (2) Stage 1 mild COPD by GOLD classification: Status: Chronic Plan: Asymptomatic. Not requiring maintenance inhalers. Orders: Orders Self Mgmnt Educ Training Today G47.33 - Obstructive sleep apnea (adult) (pediatric) Plan Details Follow Up: 3 Months (LMR) HPI 6 M FU Chief Complaint: Poor fitting interface HPI Comments Details: This patient presents to the office today for follow-up of her sleep apnea and mild COPD. She is ambulatory and currently on room air. She has not recently been seen in the ED or urgent care for any respiratory illness. She has not required any antibiotics or prednisone for any breathing problems. She denies any difficulty with shortness of breath. She denies any cough, sputum production or hemoptysis. She has not had any wheezing, chest tightness, chest pain or palpitations. The patient reports that she has not been as compliant with PAP therapy as she would like to be. She states I really want to wear it. Unfortunately, her interface has not been working well. It is falling apart. She has been in communication with 2 separate DME companies, it is confusing as who should be supplying her replacement parts. When the patient is able to use her PAP device she is not experiencing dry mouth. She is sometimes experiencing hide mask leak. She would like to evaluate an alternative interface. Compliance report for the past 30 days shows 40 % compliance with average use of 1 hours and 44 minutes. Current setting is auto BiPAP with pressures being utilized at 10.8/7.8 cmH2O on average. Residual AHI of 9.8 events per hour. Leaks do appear to be somewhat of an issue. Intake Vital Signs 05/03/24 07:47 10/09/24 07:37 Height 5 ft 3 in 5 ft 3 in Weight: 157 lb 159 lb BMI 27.8 28.1 BP 144/60 H 125/76 H Blood Pressure Location Lt brachial Rt brachial Position Sitting Sitting Respiration 18 20 H Pulse 65 63 Pulse Source Monitor Monitor Temp 97.5 F L 97.3 F L Temperature Source Temporal Artery Temporal Artery Pulse Oximetry (%) 96 96 Oxygen Delivery Method room air room air Intake Visit Reasons: 6 M FU Chief Complaint: 3 m fu Admission Nurse Coordinator Required: No DME Vendor: Juliet Accompanied by: Self Allergies pollen extracts Allergy (Intermediate, Verified 10/09/24 08:15) Other mold Adverse Reaction (Intermediate, Verified 10/09/24 08:15) Other Medications ???Medication ???Instructions ???Recorded ???Confirmed ???Type esomeprazole magnesium 40 mg 40 mg PO QDAY 02/27/18 10/09/24 History capsule,delayed release lisinopril 10 mg tablet 10 mg PO DAILY #30 tabs 05/13/22 10/09/24 Rx duloxetine 60 mg capsule,delayed 60 mg PO DAILY 06/18/22 10/09/24 History release multivitamin (Daily Multi-Vitamin 1 tab PO DAILY 01/23/24 10/09/24 History tablet) omega-3 fatty acids 1,000 mg 1,000 mg PO DAILY 01/23/24 10/09/24 History capsule vitamin B complex 1 tab PO DAILY 01/23/24 10/09/24 History metoprolol succinate 50 mg 50 mg PO QDAY #90 tabs 02/13/24 10/09/24 Rx tablet,extended release 24 hr rosuvastatin 40 mg tablet 40 mg PO QHS #90 tabs 02/20/24 10/09/24 Rx Have you fallen in the past year?: No PFSH Medical History Mitral valve insufficiency Wears glasses Post-menopausal Anxiety Marijuana use Diabetes Arthritis Fatty liver High cholesterol Back pain Injury of head and neck Blackout Former smoker CPAP (continuous positive airway pressure) dependence Shortness of breath on exertion Leg cramps Normal Holter exam History of echocardiogram History of stress test Hypertension Cardiology follow-up encounter MVP (mitral valve prolapse) Mitral valve prolapse Fibromyalgia Depression Hypersomnolence Essential (primary) hypertension Hypertrophic cardiomyo (more content not included)... Normal [facility] Dexa Bone Density Studyon Dexa Bone Density Study [facility] [address] [place] [address] [id number] Dexa Bone Density Study MR#: [id number] Acct: [id number] Name: FELIBERTO MENG Rep #: [id number] : 1955 F 69 From: Radhames anguiano MD PCP: Dr. Hoda Concepcion MD Status: [facility] Study: Dexa Bone Density Study Date of Exam: 10/02/24 Exam# [id number] Ordering Dr: Chad Zhong MD :[id number] STUDY: DUAL ENERGY X-RAY ABSORPTIOMETRY / DXA REASON FOR EXAM: Female, 69 years old. Parathyroidectomy TECHNIQUE: Bone Mineral Density (BMD) measurements of lumbar spine and bilateral hips were obtained. COMPARISON: Comparison is made with prior study dated September 15, 2022. FINDINGS: Lumbar Spine (L1-L4): g/cm2 (0.737) / T-score (-2.8) / Z-score (-0.8) Findings are suggestive of osteoporosis with a high fracture risk. Left Femur Total: g/cm2 (0.742) / T-score (-1.6) / Z-score (-0.2) Left Femoral Neck: g/cm2 (0.577) / T-score (-2.5) / Z-score (-0.8) Right Femur Total: g/cm2 (0.723) / T-score (-1.8) / Z-score (-0.4) Right Femoral Neck: g/cm2 (0.563) / T-score (-2.6) / Z-score (-0.9) The T-Scores on the most recent prior examination were: Lumbar Spine (L1-L4): There has been improvement of bone density since the previous examination. Left Femur Total: which represents an improvement of 9.6%. Right Femur Total: which represents an improvement of 5.9%. BD/Dexa Bone Density Study IMPRESSION: The patient is considered osteoporotic as outlined below according to World [place] Organization (WHO) criteria with a high fracture risk. There has been improvement of bone density since the previous examination. Reference Information: The T-score is the number of standard deviations above or below the standard which is normal for young adults at their peak bone mineral density. The World Health Organization (WHO) interprets the T-scores as follows: Above -1 Normal bone density Between -1 and -2.5 Osteopenia Equal to / or below -2.5 Osteoporosis As a practical clinical guideline, osteopenia may be graded as follows: Mild -1 through -1.5 Moderate -1.6 through -2.0 Severe -2.1 through -2.4 The Z-score is the number of standard deviations above or below age-matched controls. A Z-score of less than -1.5 would be considered abnormal. References: 1. NIH Osteoporosis and Related Bone Diseases www osteo.org 2. International Society for Clinical Densitometry www iscd.org 3. National Osteoporosis Foundation www nof.org Electronically Signed: Radhames Nielsen MD at 15:04 EST , CC: Dr. Hoda Concepcion MD; Dr. Chad Zhong MD Machine Puller: Signed Normal [facility] SCRN MAMM (CAD)W/ASHLEY BILATo n 10-02-2024 SCRN MAMM (CAD)W/ASHLEY BILAT [facility] [address] [place] [address] SCRN MAMM (CAD)W/ASHLEY BILAT MR#: [id number] Acct: [id number] Name: FELIBERTO MENG Rep #: [id number] : 1955 F 69 From: Deondre Marley MD PCP: Dr. Hoda Concepcion MD Status: [facility] Study: SCRN MAMM (CAD)W/ASHELY BILAT Date of Exam: 09/08 04/30 Exam# [id number] Ordering Dr: Hoda Concepcion MD :[id number] MAMMOGRAPHY - BILATERAL SCREENING 3-D TOMOSYNTHESIS REASON FOR EXAM: Female, 69 years old. screening PERTINENT HISTORY: No significant family history. TECHNIQUE: 2-D mammograms and 3-D Tomosynthesis of the breast (s) were performed. CAD was performed. COMPARISON: 09/27/2023 FINDINGS: The breast composition is composed of scattered fibroglandular density. Scattered benign calcifications are seen. No dense spiculated masses or suspicious microcalcifications are identified. No architectural distortion is identified. There is no skin thickening or retraction. There has been no significant change since the prior study. No change in the subcentimeter oval circumscribed equal density mass in the retroareolar right breast which has been proven to be a cyst. BI/SCRN MAMM (CAD)W/ASHLEY BILAT IMPRESSION: No mammographic signs of malignancy. Routine yearly mammograms recommended. ASSESSMENT CATEGORY: BIRADS Category 2: Benign. A letter regarding these results will be sent to the patient by the facility within 30 days. FOLLOW UP RECOMMENDATION: Yearly follow up mammogram recommended. (A) Approximately 10% of breast cancers are not detected by mammography. A normal mammogram should not delay biopsy of a clinically suspicious abnormality. Electronically Signed: Deondre Marley MD at 15:40 EST , CC: Dr. Hoda Concepcion MD Machine Puller: Signed Normal [facility] Basic Metabolic Profile (BMP )on 09-10-2024 BUN/CRE 18.7 RATIO Normal 10-20 [facility] Comment on above: Performed By: #### L 501.0900, L501.9520, L500.2500, L500.3400, L500.4100 #### [facility] [address] [place], [address] CA,Total 9.0 mg/dL Normal 8.5-10.1 [facility] Comment on above: Performed By: #### L 501.0900, L501.9520, L500.2500, L500.3400, L500.4100 #### [facility] [address] [place], [address] Chloride [Moles/Vol] 104 mmol/L Normal 98-107 [facility] Comment on above: Performed By: #### L 501.0900, L501.9520, L500.2500, L500.3400, L500.4100 #### [facility] [address] [place], [address] CO2 [Moles/Vol] 28.0 mmol/L Normal 21.0-32.0 [facility] Comment on above: Performed By: #### L 501.0900, L501.9520, L500.2500, L500.3400, L500.4100 #### [facility] [address] [place], [address] Creatinine [Mass/Vol] 0.80 mg/dL Normal 0.55-1.02 [facility] Comment on above: Result Comment: The validity of the calculated GFR GFRAA in patients over 70 years has not been determined. Clinical correlation is essential. Performed By: #### L 501.0900, L501.9520, L500.2500, L500.3400, L500.4100 #### [facility] [address] [place], [address] EST GFR - AA 92 mL/min Normal >60 [facility] Comment on above: Result Comment: Afri can [place] GFR Calc Performed By: #### L 501.0900, L501.9520, L500.2500, L500.3400, L500.4100 #### [facility] [address] [place], [address] GAP 6 Normal 5-15 [facility] Comment on above: Performed By: #### L 501.0900, L501.9520, L500.2500, L500.3400, L500.4100 #### [facility] [address] [place], [address] GFR/1.73 sq M.predicted among non-blacks MDRD (S/P/Bld) [Vol rate/Area] 76 mL/min/{1.73_m2} Normal >60 [facility] Comment on above: Result Comment: Non- GFR Calc Performed By: #### L 501.0900, L501.9520, L500.2500, L500.3400, L500.4100 #### [facility] [address] [place], [address] Glucose [Mass/Vol] 111 mg/dL High 74-106 [facility] Comment on above: Result Comment: Fast ing Glucose result from 100 to 125 mg/dL suggests IMPAIRED HOMEOSTASIS per A.D.A. criteria. Performed By: #### L 501.0900, L501.9520, L500.2500, L500.3400, L500.4100 #### [facility] [address] [place], [address] Potassium [Moles/Vol] 4.0 mmol/L Normal 3.5-5.1 [facility] Comment on above: Performed By: #### L 501.0900, L501.9520, L500.2500, L500.3400, L500.4100 #### [facility] [address] [place], [address] Sodium [Moles/Vol] 138 mmol/L Normal 136-145 [facility] Comment on above: Performed By: #### L 501.0900, L501.9520, L500.2500, L500.3400, L500.4100 #### [facility] [address] [place], [address] Urea nitrogen [Mass/Vol] 15 mg/dL Normal 7-18 [facility] Comment on above: Performed By: #### L 501.0900, L501.9520, L500.2500, L500.3400, L500.4100 #### [facility] [address] [place], [address] Lipid Profileon 09-10-2024 Cholesterol [Mass/Vol] 202 mg/dL High 200 [facility] Comment on above: Result Comment: <200 mg/dL Desirable 200-240 mg/dL Borderline >240 mg/dL High Risk Performed By: #### L 501.0900, L501.9520, L500.2500, L500.3400, L500.4100 #### [facility] [address] [place], [address] Cholesterol in HDL [Mass/Vol] 47 mg/dL Normal [facility] Comment on above: Result Comment: The drugs N-Acetylcysteine and Metamizole may falsely depress this assay. Reference Range HDL <40 mg/dL Low HDL Cholesterol HDL >or= 60 mg/dL High HDL Cholesterol Performed By: #### L 501.0900, L501.9520, L500.2500, L500.3400, L500.4100 #### [facility] [address] [place], [address] Cholesterol in LDL [Mass/Vol] 105 mg/dL Normal 0-130 [facility] Comment on above: Performed By: #### L 501.0900, L501.9520, L500.2500, L500.3400, L500.4100 #### [facility] [address] [place], [address] Cholesterol in VLDL [Mass/Vol] 50 mg/dL High 5-40 [facility] Comment on above: Performed By: #### L 501.0900, L501.9520, L500.2500, L500.3400, L500.4100 #### [facility] [address] [place], [address] Triglyceride [Mass/Vol] 252 mg/dL High [facility] Comment on above: Result Comment: The drugs N-Acetylcysteine and Metamizole may falsely depress this assay. Serum Triglycerides Reference Interval Normal <150 mg/dL Borderline high 150 - 199 mg/dL High 200 - 499 mg/dL Very High > or = 500 mg/dL Performed By: #### L 501.0900, L501.9520, L500.2500, L500.3400, L500.4100 #### [facility] [address] [place], [address] Liver Profileon 09-10-2024 Albumin [Mass/Vol] 4.1 g/dL Normal 3.2-5.0 [facility] Comment on above: Performed By: #### L 501.0900, L501.9520, L500.2500, L500.3400, L500.4100 #### [facility] [address] [place], [address] ALK P 94 U/L Normal 45-117 [facility] Comment on above: Performed By: #### L 501.0900, L501.9520, L500.2500, L500.3400, L500.4100 #### [facility] [address] [place], [address] ALT [Catalytic activity/Vol] 30 U/L Normal 13-56 [facility] Comment on above: Performed By: #### L 501.0900, L501.9520, L500.2500, L500.3400, L500.4100 #### [facility] [address] [place], [address] AST [Catalytic activity/Vol] 22 U/L Normal 15-37 [facility] Comment on above: Performed By: #### L 501.0900, L501.9520, L500.2500, L500.3400, L500.4100 #### [facility] [address] [place], [address] Bilirubin [Mass/Vol] 0.40 mg/dL Normal 0.20-1.00 [facility] Comment on above: Result Comment: For patients on eltrombopag therapy, use of Dimension [place] TBIL is not recommended. Performed By: #### L 501.0900, L501.9520, L500.2500, L500.3400, L500.4100 #### [facility] [address] [place], [address] Bilirubin.direct [Mass/Vol] 0.09 mg/dL Normal 0.00-0.30 [facility] Comment on above: Performed By: #### L 501.0900, L501.9520, L500.2500, L500.3400, L500.4100 #### [facility] [address] [place], [address] Globulin (S) [Mass/Vol] 3.3 g/dL Normal 2.2-4.2 [facility] Comment on above: Performed By: #### L 501.0900, L501.9520, L500.2500, L500.3400, L500.4100 #### [facility] [address] [place], [address] T PROT 7.4 g/dL Normal 6.4-8.2 [facility] Comment on above: Performed By: #### L 501.0900, L501.9520, L500.2500, L500.3400, L500.4100 #### [facility] [address] [place], [address] Protein+Creatinine Ratio,Uri neon 09-10-2024 PROT:CRE RATIO 124 mg/g CRE Normal 0-200 [facility] Comment on above: Performed By: #### L 501.0900, L501.9520, L500.2500, L500.3400, L500.4100 #### [facility] [address] [place], [address] Protein (U) [Mass/Vol] 12.9 mg/dL High <11.9 [facility] Comment on above: Performed By: #### L 501.0900, L501.9520, L500.2500, L500.3400, L500.4100 #### [facility] [address] [place], [address] UR CREAT 104.00 mg/dL Normal NO RANGE EST. [facility] Comment on above: Performed By: #### L 501.0900, L501.9520, L500.2500, L500.3400, L500.4100 #### [facility] [address] [place], [address] Thyroid Stim Hormone (TSH)on 09-10-2024 TSH 0.904 uIU/mL Normal 0.358-3.740 [facility] Comment on above: Performed By: #### L 501.0900, L501.9520, L500.2500, L500.3400, L500.4100 #### [facility] [address] [place], [address] Pulmonary Visit Reporton Pulmonary Visit Report [facility] [address] [place], [place] [address] OFFICE VISIT Date of Service: 05/03/24 MR#: [id number] Acct: [id number] Name: FELIBERTO MENG Rep #: [id number] : 1955 Provider: DENG Muniz Age/Sex: 68/F Location: [facility] [place] Status: Signed Assessment and Plan Assessment and Plan (1) Sleep apnea: Status: Chronic Qualifiers: Sleep apnea type: obstructive Qualified Code(s): G47.33 - Obstructive sleep apnea (adult) (pediatric) Plan: Deteriorated. The patient did not respond well to the increase in pressure. We are going to return to the lower pressure, will treat with BiPAP 11/7 cm of water. Return to the office in 6 months to evaluate response. Contact the office with any difficulty acclimating in the meantime. (2) Stage 1 mild COPD by GOLD classification: Status: Chronic Plan: Asymptomatic. Not requiring maintenance inhalers. Plan Details Follow Up: 6 Months ([facility]) HPI 3 M FU Chief Complaint: Sleep apnea HPI Comments Details: This patient presents to the office today for follow-up of her sleep apnea. She is ambulatory and currently on room air. She has not recently been seen in the ED or urgent care for any respiratory illness. She has not required any antibiotics or prednisone for any breathing problems. She denies any difficulty with shortness of breath. She denies any cough, sputum production or hemoptysis. She has not had any wheezing, chest tightness, chest pain or palpitations. Patient reports that since the pressure was increased, she has not been able to acclimate to it. She is not able to tolerate it and has decreased her compliance significantly. The patient reports feeling as though it is taking my breath away. Compliance report for the past 30 days shows 27% compliance with average use of 2 hours and 17 minutes. Current setting is auto BiPAP with pressures being utilized at 12.7/9.7 cmH2O on average. Residual AHI of 12.7 events per hour. Leaks do appear to be somewhat of an issue. 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: [employer] Allergies pollen extracts Allergy (Intermediate, Verified 05/03/24 08:18) Other mold Adverse Reaction (Intermediate, Verified 05/03/24 08:18) Other Medications ???Medication ???Instructions ???Recorded ???Confirmed ???Type esomeprazole magnesium 40 mg 40 mg PO QDAY 02/27/18 05/03/24 History capsule,delayed release lisinopril 10 mg tablet 10 mg PO DAILY #30 tabs 05/13/22 05/03/24 Rx duloxetine 60 mg capsule,delayed 60 mg PO DAILY 06/18/22 05/03/24 History release multivitamin (Daily Multi-Vitamin 1 tab PO DAILY 01/23/24 05/03/24 History tablet) omega-3 fatty acids 1,000 mg 1,000 mg PO DAILY 01/23/24 05/03/24 History capsule vitamin B complex 1 tab PO DAILY 01/23/24 05/03/24 History metoprolol succinate 50 mg 50 mg PO QDAY #90 tabs 02/13/24 05/03/24 Rx tablet,extended release 24 hr rosuvastatin 40 mg tablet 40 mg PO QHS #90 tabs 02/20/24 05/03/24 Rx Have you fallen in the past year?: No PFSH Medical History Mitral valve insufficiency Wears glasses Post-menopausal Anxiety Marijuana use Diabetes Arthritis Fatty liver High cholesterol Back pain Injury of head and neck Blackout Former smoker CPAP (continuous positive airway pressure) dependence Shortness of breath on exertion Leg cramps Normal Holter exam History of echocardiogram History of stress test Hypertension Cardiology follow-up encounter MVP (mitral valve prolapse) Mitral valve prolapse Fibromyalgia Depression Hypersomnolence Essential (primary) hypertension Hypertrophic cardiomyopathy Seasonal allergies GERD (gastroesophageal reflux disease) Hyperlipidemia Surgical History Hx of parathyroidectomy History of esophagogastroduodenoscopy (EGD) Hx of colonoscopy History of tubal ligation History of tonsillectomy Family History Mother CAD (coronary artery disease) Diabetes Arthritis Father CAD (coronary artery disease) Daughter Thyroid disorder Sister Thyroid disorder Grandmother Thyroid disorder Social History Smoking Status: Former smoker how (more content not included)... Normal [facility] Basophil percentageOrdered B y: Cary Walls on 03-01-2024 Bilirubin [Mass/Vol] 0.50 mg/dL 0.20-1.00 [facility] Comment on above: For patients on eltr ombopag therapy, use of Dimension [place] TBIL is not recommended. Cholesterol [Mass/Vol] 166 mg/dL <200 [facility] Comment on above: <200 mg/dL Desirable 200-240 mg/dL Borderline >240 mg/dL High Risk Protein [Mass/Vol] 7.7 g/dL 6.4-8.2 [facility] Triglyceride [Mass/Vol] 152 mg/dL <199 [facility] Comment on above: The drugs N-Acetylcy steine and Metamizole may falsely depress this assay.Serum Triglycerides Reference Interval Normal <150 mg/dL Borderline high 150 - 199 mg/dL High 200 - 499 mg/dL Very High > or = 500 mg/dL Direct bilirubinOrdered By: Cary Walls on 03-01-2024 Bilirubin.direct [Mass/Vol] 0.11 mg/dL 0.00-0.30 [facility] - Chemistry and C hemistry - challengeOrdered By: Cary Walls on 03-01-2024 ALP [Catalytic activity/Vol] 95 U/L 45-117 [facility] ALT [Catalytic activity/Vol] 38 U/L 13-56 [facility] Cholesterol in HDL [Mass/Vol] 55 mg/dL >40 [facility] Comment on above: The drugs N-Acetylcy steine and Metamizole may falsely depress this assay. Reference Range HDL <40 mg/dL Low HDL Cholesterol HDL >or= 60 mg/dL High HDL Cholesterol Cholesterol in LDL [Mass/Vol] 81 mg/dL 0-130 [facility] Globulin (S) [Mass/Vol] 3.7 g/dL 2.2-4.2 [facility] No Panel InformationOrdered By: Chad Zhong on 03-01-2024 Free Triiodothyronine (T3) pg/dL 2.5 pg/mL 2.18-3.98 [facility] Parathyroid Hormone (Intact) 151.8 pg/mL 18.4-80.1 [facility] No Panel InformationOrdered By: Cary Walls on 03-01-2024 VLDL Cholesterol 30 mg/dL 5-40 [facility] Serum or plasma calcium eileen urement (mass/volume)Ordered By: Chad Zhong on 03-01-2024 Calcium [Mass/Vol] 9.0 mg/dL 8.5-10.1 [facility] Serum or plasma thyroid stim ulating hormone (TSH) measurement (units/volume)Ordered By: Chad Zhong on 03-01-2024 TSH Qn 1.06 uIU/mL 0.358-3.74 [facility] Thin prep Papanicolaou smear with manual screeningOrdered By: Cary Walls on 03-01-2024 Thin prep Papanicolaou smear with manual screening 4.0 g/dL 3.2-5.0 [facility] Thin prep Papanicolaou smear with manual screening 27 U/L 15-37 [facility] Thin prep Papanicolaou smear with manual screeningOrdered By: Chad Zhong on 03-01-2024 Thin prep Papanicolaou smear with manual screening 0.76 ng/dL 0.76-1.46 [facility] No Panel InformationOrdered By: Dr. Zhong on 04-27-2023 Parathyroid Hormone (Intact) 98.3 pg/mL 18.4-80.1 [facility] Serum or plasma calcium eileen urement (mass/volume)Ordered By: Dr. Zhong on 04-27-2023 Calcium [Mass/Vol] 9.4 mg/dL 8.5-10.1 [facility] No Panel InformationOrdered By: Dr. Zhong on 12-17-2022 Parathyroid Hormone (Intact) 132.1 pg/mL 18.4-80.1 [facility] Serum or plasma calcium eileen urement (mass/volume)Ordered By: Dr. Zhong on 12-17-2022 Calcium [Mass/Vol] 9.3 mg/dL 8.5-10.1 [facility] No Panel InformationOrdered By: Dr. Zhong on 12-07-2022 Parathyroid Hormone (Intact) 125.9 pg/mL 18.4-80.1 [facility] Serum or plasma calcium eileen urement (mass/volume)Ordered By: Dr. Zhong on 12-07-2022 Calcium [Mass/Vol] 9.7 mg/dL 8.5-10.1 [facility] No Panel InformationOrdered By: Dr. hZong on 12-01-2022 Parathyroid Hormone (Intact) 42.8 pg/mL 18.4-80.1 [facility] Basophil percentageOrdered B y: Dr. Rodrigez on 11-25-2022 Chloride [Moles/Vol] 107 mmol/L 98-107 [facility] Glucose [Mass/Vol] 140 mg/dL 74-106 [facility] Comment on above: Fasting Glucose resu lt greater than or equal to 126 mg/dL suggests DIABETES MELLITUS per A.D.A. criteria. Potassium [Moles/Vol] 4.3 mmol/L 3.5-5.1 [facility] Sodium [Moles/Vol] 141 mmol/L 136-145 [facility] WBC (Bld) [#/Vol] 5.9 10*3/uL 4.4-11.0 [facility] Blood erythrocytes count (nu mber/volume)Ordered By: Dr. Rodrigez on 11-25-2022 RBC (Bld) [#/Vol] 5.01 10*6/uL 4.2-5.4 [facility] Blood hemoglobin measurement (mass/volume)Ordered By: Dr. Rodrigez on 11-25-2022 Hemoglobin (Bld) [Mass/Vol] 15.0 g/dL 12.0-15.0 [facility] Blood platelet mean volumeOr dered By: Dr. Rodrigez on 11-25-2022 Platelet mean volume (Bld) [Entitic vol] 9.8 fL 6.2-12.0 [facility] Determination of erythrocyte mean corpuscular volume (MCV)Ordered By: Dr. Rodrigez on 11-25-2022 MCV (RBC) [Entitic vol] 93.0 fL 81-99 [facility] Hematocrit Auto (Bld) [Volum e fraction]Ordered By: Dr. Rodrigez on 11-25-2022 Hematocrit (Bld) [Volume fraction] 46.6 % 37-47 [facility] - Chemistry and C hemistry - challengeOrdered By: Dr. Rodrigez on 11-25-2022 CO2 [Moles/Vol] 29.0 mmol/L 21.0-32.0 [facility] Urea nitrogen/Creatinine [Mass ratio] 9.5 mg/mg 10-20 [facility] - Hematology and Cell countsOrdered By: Dr. Rodrigez on 11-25-2022 Erythrocyte distribution width (RBC) [Entitic vol] 41.9 fL 35.1-43.9 [facility] Erythrocyte distribution width (RBC) [Ratio] 12.2 % 11.6-14.6 [facility] MCH (RBC) [Entitic mass] 29.9 pg 27.0-32.0 [facility] MCHC Auto (RBC) [Mass/Vol]Or dered By: Dr. Rodrigez on 11-25-2022 MCHC (RBC) [Mass/Vol] 32.2 g/dL 32-36 [facility] No Panel InformationOrdered By: Dr. Rodrigez on 11-25-2022 Estimated GFR (MDRD) Amer 67 mL/min >60 [facility] Comment on above: GFR Calc Estimated GFR (MDRD) Non-Af Amer 56 mL/min >60 [facility] Comment on above: Non- GFR Calc Platelets bldOrdered By: Dr. Rodrigez on 11-25-2022 Platelets (Bld) [#/Vol] 371 10*3/uL 150-450 [facility] Serum or plasma calcium eileen urement (mass/volume)Ordered By: Dr. Rodrigez on 11-25-2022 Calcium [Mass/Vol] 12.1 mg/dL 8.5-10.1 [facility] Serum or plasma creatinine m easurement (mass/volume)Ordered By: Dr. Rodrigez on 11-25-2022 Creatinine [Mass/Vol] 1.05 mg/dL 0.55-1.02 [facility] Comment on above: The validity of the calculated GFR & GFRAA in patients over 70 years has not been determined. Clinical correlation is essential. Serum or plasma urea nitroge n measurement (mass/volume)Ordered By: Dr. Rodrigez on 11-25-2022 Urea nitrogen [Mass/Vol] 10 mg/dL 7-18 [facility] Thin prep Papanicolaou smear with manual screeningOrdered By: Dr. Rodrigez on 11-25-2022 Thin prep Papanicolaou smear with manual screening 5 5-15 [facility] - Chemistry and C hemistry - challengeOrdered By: Dr. Zhong on 09-03-2022 T4 [Mass/Vol] 9.6 ug/dL 4.8-13.9 [facility] No Panel InformationOrdered By: Dr. Zhong on 09-03-2022 Free Triiodothyronine (T3) pg/dL 3.2 pg/mL 2.18-3.98 [facility] Parathyroid Hormone (Intact) 196.6 pg/mL 18.4-80.1 [facility] Thyroid Stimulating Hormone (TSH) 1.44 uIU/mL 0.358-3.74 [facility] Serum or plasma calcitriol m easurement (mass/volume)Ordered By: Dr. Zhong on 09-03-2022 1,25-dihydroxyvitami n D3 [Mass/Vol] 108.0 pg/mL 24.8-81.5 [facility] Comment on above: Performed at: [address] [id number] Director: Wade Alfaro MD, Phone: [phone] Serum or plasma calcium eileen urement (mass/volume)Ordered By: Dr. Zhong on 09-03-2022 Calcium [Mass/Vol] 11.4 mg/dL 8.5-10.1 [facility] Basophil percentageOrdered B y: Brooklynn Herbert on 08-30-2022 Bilirubin [Mass/Vol] 0.40 mg/dL 0.20-1.00 [facility] Comment on above: For patients on eltr ombopag therapy, use of Dimension [place] TBIL is not recommended. Chloride [Moles/Vol] 107 mmol/L 98-107 [facility] Cholesterol [Mass/Vol] 114 mg/dL <200 [facility] Comment on above: <200 mg/dL Desirable 200-240 mg/dL Borderline >240 mg/dL High Risk Glucose [Mass/Vol] 114 mg/dL 74-106 [facility] Comment on above: Fasting Glucose resu lt from 100 to 125 mg/dL suggests IMPAIRED HOMEOSTASIS per A.D.A. criteria. Potassium [Moles/Vol] 4.2 mmol/L 3.5-5.1 [facility] Protein [Mass/Vol] 7.6 g/dL 6.4-8.2 [facility] Sodium [Moles/Vol] 142 mmol/L 136-145 [facility] Triglyceride [Mass/Vol] 106 mg/dL <199 [facility] Comment on above: The drugs N-Acetylcy steine and Metamizole may falsely depress this assay.Serum Triglycerides Reference Interval Normal <150 mg/dL Borderline high 150 - 199 mg/dL High 200 - 499 mg/dL Very High > or = 500 mg/dL Direct bilirubinOrdered By: Brooklynn Herbert on 08-30-2022 Bilirubin.direct [Mass/Vol] 0.13 mg/dL 0.00-0.30 [facility] - Chemistry and C hemistry - challengeOrdered By: Brooklynn Herbert on 08-30-2022 ALP [Catalytic activity/Vol] 165 U/L 45-117 [facility] ALT [Catalytic activity/Vol] 34 U/L 13-56 [facility] CO2 [Moles/Vol] 26.0 mmol/L 21.0-32.0 [facility] Globulin (S) [Mass/Vol] 3.7 g/dL 2.2-4.2 [facility] Urea nitrogen/Creatinine [Mass ratio] 18.3 mg/mg 10-20 [facility] No Panel InformationOrdered By: Brooklynn Herbert on 08-30-2022 Estimated GFR (MDRD) Amer 90 mL/min >60 [facility] Comment on above: GFR Calc Estimated GFR (MDRD) Non-Af Amer 74 mL/min >60 [facility] Comment on above: Non- GFR Calc Serum or plasma albumin eileen urement (mass/volume)Ordered By: Brooklynn Herbert on 08-30-2022 Albumin [Mass/Vol] 3.9 g/dL 3.2-5.0 [facility] Serum or plasma calcium eileen urement (mass/volume)Ordered By: Brooklynn Herbert on 08-30-2022 Calcium [Mass/Vol] 11.2 mg/dL 8.5-10.1 [facility] Serum or plasma cholesterol in HDL measurement (mass/volume)Ordered By: Brooklynn Herbert on 08-30-2022 Cholesterol in HDL [Mass/Vol] 48 mg/dL >40 [facility] Comment on above: The drugs N-Acetylcy steine and Metamizole may falsely depress this assay. Reference Range HDL <40 mg/dL Low HDL Cholesterol HDL >or= 60 mg/dL High HDL Cholesterol Serum or plasma cholesterol in VLDL measurement (mass/volume)Ordered By: Brooklynn Herbert on 08-30-2022 Cholesterol in VLDL [Mass/Vol] 21 mg/dL 5-40 [facility] Serum or plasma creatinine m easurement (mass/volume)Ordered By: Brooklynn Herbert on 08-30-2022 Creatinine [Mass/Vol] 0.82 mg/dL 0.55-1.02 [facility] Comment on above: The validity of the calculated GFR & GFRAA in patients over 70 years has not been determined. Clinical correlation is essential. Serum or plasma low density lipoprotein (LDL) cholesterol measurement (mass/volume)Ordered By: Brooklynn Herbert on 08-30-2022 Cholesterol in LDL [Mass/Vol] 45 mg/dL 0-130 [facility] Serum or plasma urea nitroge n measurement (mass/volume)Ordered By: Brooklynn Herbert on 10-24-2022 Urea nitrogen [Mass/Vol] 15 mg/dL 7-18 [facility] Thin prep Papanicolaou smear with manual screeningOrdered By: Brooklynn Herbert on 08-30-2022 Thin prep Papanicolaou smear with manual screening 21 U/L 15-37 [facility] Thin prep Papanicolaou smear with manual screening 9 5-15 [facility] No Panel InformationOrdered By: Dr. Concepcion on 08-25-2022 Parathyroid Hormone (Intact) 202.6 pg/mL 18.4-80.1 [facility] Basophil percentageon 2021 Chloride [Moles/Vol] 104 mmol/L 98-107 [facility] Work Phone: Glucose [Mass/Vol] 102 mg/dL 74-106 [facility] Work Phone: Comment on above: Fasting Glucose resu lt from 100 to 125 mg/dL suggests IMPAIRED HOMEOSTASIS per A.D.A. criteria. Potassium [Moles/Vol] 4.5 mmol/L 3.5-5.1 [facility] Work Phone: Sodium [Moles/Vol] 138 mmol/L 136-145 [facility] Work Phone: Laboratory - Chemistry and C hemistry - challengeon 06-30-2022 CO2 [Moles/Vol] 30.0 mmol/L 21.0-32.0 [facility] Work Phone: Urea nitrogen/Creatinine [Mass ratio] 25.9 mg/mg 10-20 [facility] Work Phone: No Panel Informationon 06-30 Estimated GFR (MDRD) Amer 86 mL/min >60 [facility] Work Phone: Comment on above: GFR Calc Estimated GFR (MDRD) Non-Af Amer 71 mL/min >60 [facility] Work Phone: Comment on above: Non- GFR Calc Serum or plasma calcium eileen urement (mass/volume)on 06-30-2022 Calcium [Mass/Vol] 11.1 mg/dL 8.5-10.1 [facility] Work Phone: Serum or plasma creatinine m easurement (mass/volume)on 06-30-2022 Creatinine [Mass/Vol] 0.85 mg/dL 0.55-1.02 [facility] Work Phone: Comment on above: The validity of the calculated GFR & GFRAA in patients over 70 years has not been determined. Clinical correlation is essential. Serum or plasma urea nitroge n measurement (mass/volume)on 06-30-2022 Urea nitrogen [Mass/Vol] 22 mg/dL 7-18 [facility] Work Phone: Thin prep Papanicolaou smear with manual screeningon 06-30-2022 Thin prep Papanicolaou smear with manual screening 4 5-15 [facility] Work Phone: Absolute lymphocyte counton 04-22-2022 Lymphocytes Auto (Unsp spec) [#/Vol] 1.36 10*3/uL 0.83-4.51 [facility] Work Phone: Basophil percentageon 2021 Basophils/100 WBC (Bld) 0.3 % 0-1 [facility] Work Phone: Bilirubin [Mass/Vol] 0.60 mg/dL 0.20-1.00 [facility] Work Phone: Comment on above: For patients on eltr ombopag therapy, use of Dimension [place] TBIL is not recommended. Chloride [Moles/Vol] 99 mmol/L 98-107 [facility] Work Phone: Eosinophils/100 WBC (Bld) 0.3 % 0-5 [facility] Work Phone: Glucose [Mass/Vol] 100 mg/dL 74-106 [facility] Work Phone: Comment on above: Fasting Glucose resu lt from 100 to 125 mg/dL suggests IMPAIRED HOMEOSTASIS per A.D.A. criteria. Lactate [Moles/Vol] 1.3 mmol/L 0.4-2.0 [facility] Work Phone: Neutrophils (Bld) [#/Vol] 1.1 10*3/uL 2.0-7.7 [facility] Work Phone: Neutrophils/100 WBC (Bld) 38.4 % 47-70 [facility] Work Phone: Potassium [Moles/Vol] 3.9 mmol/L 3.5-5.1 [facility] Work Phone: Protein [Mass/Vol] 8.0 g/dL 6.4-8.2 [facility] Work Phone: Sodium [Moles/Vol] 133 mmol/L 136-145 [facility] Work Phone: WBC (Bld) [#/Vol] 2.9 10*3/uL 4.4-11.0 [facility] Work Phone: Blood erythrocytes count (nu mber/volume)on 04-22-2022 RBC (Bld) [#/Vol] 5.12 10*6/uL 4.2-5.4 [facility] Work Phone: Blood hemoglobin measurement (mass/volume)on 04-22-2022 Hemoglobin (Bld) [Mass/Vol] 15.4 g/dL 12.0-15.0 [facility] Work Phone: Blood lymphocytes/100 leukoc yteson 04-22-2022 Lymphocytes/100 WBC (Bld) 47.2 % 19-41 [facility] Work Phone: [phone] Blood monocytes/100 leukocyt eson 04-22-2022 Monocytes/100 WBC (Bld) 13.5 % 0-10 [facility] Work Phone: Blood platelet mean volumeon 04-22-2022 Platelet mean volume (Bld) [Entitic vol] 9.8 fL 6.2-12.0 [facility] Work Phone: Determination of erythrocyte mean corpuscular volume (MCV)on 04-22-2022 MCV (RBC) [Entitic vol] 88.1 fL 81-99 [facility] Work Phone: Hematocrit Auto (Bld) [Volum e fraction]on 04-22-2022 Hematocrit (Bld) [Volume fraction] 45.1 % 37-47 [facility] Work Phone: Laboratory - Chemistry and C hemistry - challengeon 04-22-2022 ALP [Catalytic activity/Vol] 120 U/L 45-117 [facility] Work Phone: ALT [Catalytic activity/Vol] 56 U/L 13-56 [facility] Work Phone: CO2 [Moles/Vol] 29.0 mmol/L 21.0-32.0 [facility] Work Phone: Globulin (S) [Mass/Vol] 3.9 g/dL 2.2-4.2 [facility] Work Phone: Magnesium [Mass/Vol] 2.3 mg/dL 1.6-2.6 [facility] Work Phone: Urea nitrogen/Creatinine [Mass ratio] 15.4 mg/mg 10-20 [facility] Work Phone: Laboratory - Hematology and Cell countson 04-22-2022 Erythrocyte distribution width (RBC) [Entitic vol] 38.3 fL 35.1-43.9 [facility] Work Phone: Erythrocyte distribution width (RBC) [Ratio] 11.8 % 11.6-14.6 [facility] Work Phone: Immature granulocytes/100 WBC (Bld) 0.300 % 0.0-0.9 [facility] Work Phone: Comment on above: IG% - Immature Granu locytes (promyelocytes, myelocytes and metamyelocytes) > 1% indicates that a LEFT SHIFT is Present. MCH (RBC) [Entitic mass] 30.1 pg 27.0-32.0 [facility] Work Phone: Nucleated RBC/100 WBC (Bld) [Ratio] 0 % 0-5 [facility] Work Phone: [phone] MCHC Auto (RBC) [Mass/Vol]on 04-22-2022 MCHC (RBC) [Mass/Vol] 34.1 g/dL 32-36 [facility] Work Phone: No Panel Informationon 04-22 Estimated Creatinine Clearance Calc 67.27 ml/min [facility] Work Phone: Estimated GFR (MDRD) Amer 105 mL/min >60 [facility] Work Phone: Comment on above: GFR Calc Estimated GFR (MDRD) Non-Af Amer 87 mL/min >60 [facility] Work Phone: Comment on above: Non- GFR Calc Platelets bldon 04-22-2022 Platelets (Bld) [#/Vol] 223 10*3/uL 150-450 [facility] Work Phone: Serum or plasma albumin eileen urement (mass/volume)on 04-22-2022 Albumin [Mass/Vol] 4.1 g/dL 3.2-5.0 [facility] Work Phone: Serum or plasma albumin/glob ulin mass ratioon 04-22-2022 Albumin/Globulin [Mass ratio] 1.1 {ratio} 0.9-2.4 [facility] Work Phone: Serum or plasma calcium eileen urement (mass/volume)on 04-22-2022 Calcium [Mass/Vol] 11.5 mg/dL 8.5-10.1 [facility] Work Phone: Serum or plasma creatinine m easurement (mass/volume)on 04-22-2022 Creatinine [Mass/Vol] 0.72 mg/dL 0.55-1.02 [facility] Work Phone: Comment on above: The validity of the calculated GFR & GFRAA in patients over 70 years has not been determined. Clinical correlation is essential. Serum or plasma urea nitroge n measurement (mass/volume)on 04-22-2022 Urea nitrogen [Mass/Vol] 11 mg/dL 7-18 [facility] Work Phone: Thin prep Papanicolaou smear with manual screeningon 04-22-2022 Thin prep Papanicolaou smear with manual screening 29 U/L 15-37 [facility] Work Phone: Thin prep Papanicolaou smear with manual screening 5 5-15 [facility] Work Phone: Absolute lymphocyte counton 04-20-2022 Lymphocytes Auto (Unsp spec) [#/Vol] 1.03 10*3/uL 0.83-4.51 [facility] Work Phone: Basophil percentageon 2021 Basophils/100 WBC (Bld) 0.8 % 0-1 [facility] Work Phone: Eosinophils/100 WBC (Bld) 0.4 % 0-5 [facility] Work Phone: Neutrophils (Bld) [#/Vol] 1.0 10*3/uL 2.0-7.7 [facility] Work Phone: Neutrophils/100 WBC (Bld) 41.5 % 47-70 [facility] Work Phone: WBC (Bld) [#/Vol] 2.5 10*3/uL 4.4-11.0 [facility] Work Phone: [phone] Blood erythrocytes count (nu mber/volume)on 04-20-2022 RBC (Bld) [#/Vol] 4.72 10*6/uL 4.2-5.4 [facility] Work Phone: Blood hemoglobin measurement (mass/volume)on 04-20-2022 Hemoglobin (Bld) [Mass/Vol] 14.3 g/dL 12.0-15.0 [facility] Work Phone: Blood lymphocytes/100 leukoc yteson 04-20-2022 Lymphocytes/100 WBC (Bld) 41.0 % 19-41 [facility] Work Phone: Blood monocytes/100 leukocyt eson 04-20-2022 Monocytes/100 WBC (Bld) 15.9 % 0-10 [facility] Work Phone: [phone] Blood platelet mean volumeon 04-20-2022 Platelet mean volume (Bld) [Entitic vol] 9.9 fL 6.2-12.0 [facility] Work Phone: Determination of erythrocyte mean corpuscular volume (MCV)on 04-20-2022 MCV (RBC) [Entitic vol] 89.8 fL 81-99 [facility] Work Phone: Hematocrit Auto (Bld) [Volum e fraction]on 04-20-2022 Hematocrit (Bld) [Volume fraction] 42.4 % 37-47 [facility] Work Phone: Laboratory - Chemistry and C hemistry - challengeon 04-20-2022 Natriuretic peptide B (Bld) [Mass/Vol] 6.5 pg/mL 0-100 [facility] Work Phone: Laboratory - Hematology and Cell countson 04-20-2022 Erythrocyte distribution width (RBC) [Entitic vol] 39.4 fL 35.1-43.9 [facility] Work Phone: Erythrocyte distribution width (RBC) [Ratio] 11.9 % 11.6-14.6 [facility] Work Phone: Immature granulocytes/100 WBC (Bld) 0.400 % 0.0-0.9 [facility] Work Phone: Comment on above: IG% - Immature Granu locytes (promyelocytes, myelocytes and metamyelocytes) > 1% indicates that a LEFT SHIFT is Present. MCH (RBC) [Entitic mass] 30.3 pg 27.0-32.0 [facility] Work Phone: Nucleated RBC/100 WBC (Bld) [Ratio] 0 % 0-5 [facility] Work Phone: MCHC Auto (RBC) [Mass/Vol]on 04-20-2022 MCHC (RBC) [Mass/Vol] 33.7 g/dL 32-36 [facility] Work Phone: Platelets bldon 04-20-2022 Platelets (Bld) [#/Vol] 228 10*3/uL 150-450 [facility] Work Phone: Basophil percentageon 2021 Chloride [Moles/Vol] 98 mmol/L 98-107 [facility] Work Phone: Glucose [Mass/Vol] 105 mg/dL 74-106 [facility] Work Phone: Comment on above: Fasting Glucose resu lt from 100 to 125 mg/dL suggests IMPAIRED HOMEOSTASIS per A.D.A. criteria. Potassium [Moles/Vol] 3.8 mmol/L 3.5-5.1 [facility] Work Phone: Sodium [Moles/Vol] 134 mmol/L 136-145 [facility] Work Phone: EMERGENCY REPORTon 2 EMERGENCY REPORT [facility] EMERGENCY ROOM REPORT NAME ACCOUNT SEX AGE ADMIT DISCHARGE PT MED. RECORD# NUMBER DATE DATE TYPE YUNI, [id number] F 66 04/17/22 04/17/22 3 FELIBERTO Kerr [id number] ROOM: ER DATE OF : 1955 DICTATING PHYSICIAN: Raghavendra Bray CHIEF COMPLAINT/HISTORY OF PRESENT ILLNESS: This 66-year-old female presents with weakness and nausea since this morning. She states that she has been feeling tired and achy with a mild headache and feeling dehydrated. She states that this has been an ongoing occurrence with her and her mom has had a similar like symptoms in the past. She reports not being able to eat much today and just feels generally unwell. She denies cough, fevers, chills, chest pain, shortness of breath, abdominal pain, dysuria, constipation, diarrhea or unilateral weakness. PAST MEDICAL HISTORY: Hypertension, hyperlipidemia, GERD and fibromyalgia. PAST SURGICAL HISTORY: Denies. SOCIAL HISTORY: Denies alcohol use. Uses daily medical marijuana but denies cigarette use. REVIEW OF SYSTEMS: Remainder of 10 point review of systems otherwise without abnormalities. PHYSICAL EXAMINATION: VITAL SIGNS: Temperature at 98.2, blood pressure 136/57, pulse 82, respiratory rate of 16, 97% on room air. HEENT: Head is atraumatic. Pupils are equal and reactive. Equal ocular motion. Mucous membranes are dry. NECK: Supple. No cervical lymphadenopathy. There is no tenderness to the chest wall. No carotid bruits. HEART: Regular rate and rhythm. LUNGS: Clear to auscultation bilaterally. ABDOMEN: Nontender, nondistended. SKIN: Capillary refill is 3 seconds. Skin appears normal tone. NEUROLOGIC: Cranial nerves II through XII intact. EXTREMITIES: Moving all extremities appropriately with equal strength. She does have a tired appearance. DIAGNOSTIC DATA: We obtained laboratory evaluation which consisted of CBC, CMP, and COVID test, EKG and troponin. Where were findings of hypomagnesia. Calcium had mild elevation at 11.2 with repeat of 10.6 after 1 L of fluid. There is no leukocytosis or no anemia. Chest x-ray without acute findings. EKG nondiagnostic for acute cardiac ischemia. Troponin x2 within normal limits. Page 1 of 2 FELIBERTO MENG Emergency Room Report FELIBERTO MENG : 1955 MEDICAL DECISION MAKING/EMERGENCY DEPARTMENT COURSE AND TREATMENT: This is a 66-year-old female patient who presents with weakness, nausea and feeling of dehydration with similar occurrences in the past. Differential diagnosis includes but not limited to ACS, pneumonia, anemia, electrolyte abnormality, dehydration, COVID infection, viral infection. Laboratory evaluation with mild elevated calcium that was found on repeat after initial calcium was 11.2. Repeat after 1 L of fluid was 10.6. Magnesium was low at 1.7 for which patient was given a prescription for magnesium to use on an outpatient basis, also she was given a prescription for Zofran for nausea and vomiting. After the 1 L of fluid she states feeling a lot better. Her potassium was also just slightly low at 3.3 for which she was given oral potassium. Sodium was low at 134 for which he received 1 L of fluid. She has normal GFR. After a liter of fluid she states feeling a lot better. I gave her a prescription for magnesium and for Zofran and I encouraged her to follow up with her primary care physician Dr. Wise within the next 2 to 4 days to which she endorses good understanding. PLAN/DISPOSITION: She was discharged in stable condition. Dictated By: Raghavendra Bray MD 04/17/22 16:12 JOB #: [id number] Transcribed By: [email or web address] 04/17/22 17:21 Electronically signed by: Dr. Hernandez Bray MD 04/19/22 17:45 Page 2 of 2 MENG, FELIBERTO S Emergency Room Report Normal [facility] Laboratory - Chemistry and C hemistry - challengeon 04-19-2022 CO2 [Moles/Vol] 29.0 mmol/L 21.0-32.0 [facility] Work Phone: Magnesium [Mass/Vol] 2.1 mg/dL 1.6-2.6 [facility] Work Phone: Urea nitrogen/Creatinine [Mass ratio] 15.4 mg/mg 10-20 [facility] Work Phone: No Panel Informationon 04-19 Estimated GFR (MDRD) Amer 74 mL/min >60 [facility] Work Phone: Comment on above: GFR Calc Estimated GFR (MDRD) Non-Af Amer 61 mL/min >60 [facility] Work Phone: Comment on above: Non- GFR Calc Serum or plasma calcium eileen urement (mass/volume)on 04-19-2022 Calcium [Mass/Vol] 11.7 mg/dL 8.5-10.1 [facility] Work Phone: Serum or plasma creatinine m easurement (mass/volume)on 04-19-2022 Creatinine [Mass/Vol] 0.97 mg/dL 0.55-1.02 [facility] Work Phone: Comment on above: The validity of the calculated GFR & GFRAA in patients over 70 years has not been determined. Clinical correlation is essential. Serum or plasma urea nitroge n measurement (mass/volume)on 04-19-2022 Urea nitrogen [Mass/Vol] 15 mg/dL 7-18 [facility] Work Phone: Thin prep Papanicolaou smear with manual screeningon 04-19-2022 Thin prep Papanicolaou smear with manual screening 7 5-15 [facility] Work Phone: CALCIUM TOTALon 04-17-2022 Calcium [Mass/Vol] 10.6 mg/dL High 8.5 - 10.1 [facility] Comment on above: Performed By: #### 2 [id number] #### [facility],[address] [place] [address]381 CBC + DIFFon 04-17-2022 Baso # 0.00 x10EE3/UL Normal 0.00 - 0.10 [facility] Comment on above: Performed By: #### 2 68044 #### [facility],[address] [place] [address] 81358 Basophils/100 WBC (Bld) 0.5 % Normal 0.0 - 2.0 [facility] Comment on above: Performed By: #### 2 41787 #### [facility],[address] [place] [address] 89384 CBC + DIFF Normal [facility] Comment on above: Result Comment: CBC- COMPLETE BLOOD COUNT Performed By: #### 2 48155 #### [facility],[address] [place] [address] 04276 EO # 0.00 x10EE3/UL Normal 0.00 - 0.50 [facility] Comment on above: Performed By: #### 2 17078 #### [facility],[address] [place] [address] 74403 Eosinophils/100 WBC (Bld) 0.3 % Normal 0.0 - 7.0 [facility] Comment on above: Performed By: #### 2 32744 #### [facility],[address] [place] [address] 17485 Erythrocyte distribution width (RBC) [Ratio] 12.7 % Normal 12.0 - 15.6 [facility] Comment on above: Performed By: #### 2 86722 #### [facility],[address] [place] [address] 57284 Hematocrit (Bld) [Volume fraction] 41.5 % Normal 34.0 - 46.0 [facility] Comment on above: Performed By: #### 2 30341 #### [facility],[address] [place] [address] 66977 Hemoglobin (Bld) [Mass/Vol] 14.3 g/dL Normal 12.0 - 16.0 [facility] Comment on above: Performed By: #### 2 30774 #### [facility],[address] [place] [address] Lymph # 0.30 x10EE3/UL Low 0.80 - 2.80 [facility] Comment on above: Performed By: #### 2 70776 #### [facility],[address] [place] [address] Lymphocytes/100 WBC (Bld) 3.9 % Low 20.0 - 45.0 [facility] Comment on above: Performed By: #### 2 69675 #### [facility],[address] [place] [address] MANUAL DIFF N/A Normal [facility] Comment on above: Performed By: #### 2 02362 #### [facility],[address] [place] [address] MCH (RBC) [Entitic mass] 31 pg Normal 27 - 33 [facility] Comment on above: Performed By: #### 2 08154 #### [place] [address] MCHC 34 X10 3 Normal 32 - 36 [facility] Comment on above: Performed By: #### 2 32607 #### [facility],[address] [place] [address] MCV (RBC) [Entitic vol] 89 fL Normal 80 - 99 [facility] Comment on above: Performed By: #### 2 95976 #### [place] [address] Richardson # 0.50 x10EE3/UL Normal 0.20 - 1.00 [facility] Comment on above: Performed By: #### 2 51850 #### [place] [address] MONOS % 6.3 % Normal 0.0 - 10.0 [facility] Comment on above: Performed By: #### 2 34875 #### [facility],[address] [place], [place] [id number] Morphology [place] (Bld) [Interp] N/A Normal [facility] Comment on above: Result Comment: {CD] Performed By: #### 2 60687 #### [facility],[address] [place] [address] Neut # 7.30 x10EE3/UL High 1.50 - 7.10 [facility] Comment on above: Performed By: #### 2 94715 #### [place] [address] Neutrophils/100 WBC (Bld) 89.0 % High 46.0 - 76.0 [facility] Comment on above: Performed By: #### 2 12985 #### [place] [address] PLATELET 267 x10EE3/UL Normal 150 - 450 [facility] Comment on above: Performed By: #### 2 56212 #### [facility],[address] [place] [address] Platelet mean volume (Bld) [Entitic vol] 8.1 fL Normal 6.6 - 10.5 [facility] Comment on above: Result Comment: AUTO MATED DIFFERENTIAL Performed By: #### 2 19380 #### [facility],[address] [place] [address] RBC 4.68 x 10EE6/UL Normal 4.10 - 5.30 [facility] Comment on above: Performed By: #### 2 27930 #### [place] [address] WBC 8.2 x 10EE3/UL Normal 4.5 - 10.8 [facility] Comment on above: Performed By: #### 2 84580 #### [facility],[address] [place] [address] CHEST 1 VIEWon 04-17-2022 CHEST 1 VIEW [place] [address] Patient: FELIBERTO MENG Phone#: : 1955 Age: 66 Gender: F Pt. Type: ER Account: [id number] Location: [facility] Ordering: DR. RAGHAVENDRA BRAY Exam Date: 04/17/2022/13:15 Family Phys: Charge Code: [id number] Physician: Ocean Order #: [id number] DLP Dose#: PROCEDURE: X-RAY CHEST 1 VIEW COMPARISON: None. INDICATIONS: Shortness of breath. FINDINGS: LUNGS: Normal. No significant pulmonary parenchymal abnormalities. VASCULATURE: Normal. Unremarkable pulmonary vasculature. CARDIAC: Normal. No cardiac silhouette abnormality or cardiomegaly. MEDIASTINUM: Normal. No visible mass or adenopathy. PLEURA: Normal. No effusion or pleural thickening. BONES: Normal. No fracture or visible bony lesion. OTHER: Negative. CONCLUSION: No acute disease. Dictated by: Fannie Herrera MD on 04/17/2022 at 19:08 Approved by: Fannie Herrera MD on 04/17/2022 at 19:09 Normal [facility] CMP with eGFRon 04-17-2022 AGE 66 years Normal [facility] Comment on above: Performed By: #### 2 50454 #### [facility],[address] [place] [address] 06326 Albumin [Mass/Vol] 4.2 g/dL Normal 3.4 - 5.0 [facility] Comment on above: Performed By: #### 2 75001 #### [facility],[address] [place] [address] 50049 Albumin/Globulin [Mass ratio] 1.3 {ratio} Normal 0.9 - 1.6 [facility] Comment on above: Performed By: #### 2 56146 #### [facility],[address] [place] [address] 82142 ALK PHOS 118 U/L High 46 - 116 [facility] Comment on above: Performed By: #### 2 37865 #### [facility],[address] [place] [address] 78907 ALT [Catalytic activity/Vol] 42 U/L Normal 14 - 59 [facility] Comment on above: Performed By: #### 2 88824 #### [facility],[address] [place] [address] Anion gap [Moles/Vol] 13 mmol/L Normal 10 - 20 [facility] Comment on above: Performed By: #### 2 40674 #### [facility],[address] [place] [address] AST [Catalytic activity/Vol] 22 U/L Normal 13 - 39 [facility] Comment on above: Performed By: #### 2 07756 #### [facility],[address] [place] [address] B/C RATIO 16 ratio Normal 0 - 30 [facility] Comment on above: Performed By: #### 2 58854 #### [facility],[address] [place] [address] 35385 Bilirubin [Mass/Vol] 0.7 mg/dL Normal 0.2 - 1.0 [facility] Comment on above: Performed By: #### 2 07273 #### [facility],[address] [place] [address] 74152 Calcium [Mass/Vol] 11.2 mg/dL High 8.5 - 10.1 [facility] Comment on above: Performed By: #### 2 16926 #### [facility],[address] [place] [address] 35719 Chloride [Moles/Vol] 98 mmol/L Normal 98 - 107 [facility] Comment on above: Performed By: #### 2 38081 #### [facility],[address] [place] [address] 78530 CMP with eGFR Normal [facility] Comment on above: Result Comment: COMP REHENSIVE METABOLIC PANEL Performed By: #### 2 16085 #### [facility],[address] [place] [address] 42029 CO2 [Moles/Vol] 26.0 mmol/L Normal 21.0 - 32.0 [facility] Comment on above: Performed By: #### 2 78072 #### [address] [address] Creatinine [Mass/Vol] 0.82 mg/dL Normal 0.55 - 1.02 [facility] Comment on above: Performed By: #### 2 03527 #### [facility],[address] [place], [place] [id number] GFR/1.73 sq M.predicted among non-blacks MDRD (S/P/Bld) [Vol rate/Area] mL/min/{1.73_m2} Normal 60 - 999 [facility] Comment on above: Performed By: #### 2 63667 #### [address] [address] Result Comment: ACCO RDING TO THE NATIONAL KIDNEY DISEASE EDUCATION PROGRAM(NKDE), A NORMAL eGFR IS A VALUE GREATER THAN OR EQUAL TO 60 ML/MIN/1.73 SQ METERS. CHRONIC KIDNEY DISEASE: <60mL/MIN/1.73 SQ METERS KIDNEY FAILURE: <15mL/MIN/1.73 SQ METERS THIS TEST SHOULD ONLY BE USED FOR PATIENTS 18 YEARS OF AGE AND OLDER. Globulin (S) [Mass/Vol] 3.3 g/dL Normal 1.5 - 3.8 [facility] Comment on above: Performed By: #### 2 70215 #### [address] [address] Glucose [Mass/Vol] 112 mg/dL High 74 - 106 [facility] Comment on above: Performed By: #### 2 59774 #### [address] [address] Potassium [Moles/Vol] 3.3 mmol/L Low 3.5 - 5.1 [facility] Comment on above: Performed By: #### 2 24609 #### [facility],[address] [place] [address] Protein [Mass/Vol] 7.5 g/dL Normal 6.4 - 8.2 [facility] Comment on above: Performed By: #### 2 49377 #### [facility],[address] [place] [address] Sodium [Moles/Vol] 134 mmol/L Low 136 - 145 [facility] Comment on above: Performed By: #### 2 00133 #### [facility],[address] [place] [address] Urea nitrogen [Mass/Vol] 13 mg/dL Normal 7 - 18 [facility] Comment on above: Performed By: #### 2 56116 #### [facility],[address] [place] [address] CORONAVIRUS (SARS) ANTIGEN T ESTon 04-17-2022 EXTERNAL QC DONE? YES Normal [facility] Comment on above: Performed By: #### 2 75856 #### [facility],[address] [place] [address] INTERNAL CONTROL PASS Normal [facility] Comment on above: Performed By: #### 2 67250 #### [place] [address] SARS ANTIGEN Negative Normal NORMAL: NEGATIVE [facility] Comment on above: Performed By: #### 2 06292 #### [facility],[address] [place], [place] [address] SEND TO ? YES Normal [facility] Comment on above: Result Comment: SARS -CoV-2 THIS TEST IS BEING USED UNDER THE FDA EUA PROCEDURE. THIS ASSAY HAS BEEN VALIDATED AT [facility] FOR USE WITH NASAL AND NASOPHARYNGEAL SWAB SPECIMENS. INTERPRETIVE DATA TEST RESULTS SHOULD ALWAYS BE CONSIDERED IN THE CONTEXT OF CLINICAL OBSERVATIONS AND EPIDEMIOLOGICAL DATA IN MAKING FINAL DIAGNOSIS AND PATIENT MANAGEMENT DECISIONS. PATIENT MANAGEMENT SHOULD FOLLOW CURRENT CDC GUIDELINES. THE TRACY SARS ANTIGEN SHALOM DOES NOT DIFFERENTIATE BETWEEN SARS-CoV & SARS-CoV-2. A POSITIVE TEST RESULT INDICATES THE PRESENCE OF SARS-CoV-2 NUCLEOCAPSID PROTEIN ANTIGEN, AND THE PATIENT IS INFECTED WITH THE VIRUS AND PRESUMED TO BE CONTAGIOUS. A NEGATIVE TEST RESULT FOR THIS TEST MEANS THAT SARS-CoV-2 NUCLEOCAPSID PROTEIN ANTIGEN WAS NOT PRESENT IN THE SPECIMEN ABOVE THE LIMIT OF DETECTION. HOWEVER, A NEGATIVE RESULT DOES NOT RULE OUT COVID-19 AND SHOULD NOT BE USED THE SOLE BASIS FOR TREATMENT OR PATIENT MANAGEMENT DECISIONS. A NEGATIVE RESULT DOES NOT EXCLUDE THE POSSIBILITY OF COVID-19. NEGATIVE RESULTS, FROM PATIENTS WITH SYMPTOM ONSET BEYOND FIVE DAYS, SHOULD BE TREATED PRESUMPTIVE AND CONFIRMATION WITH A MOLECULAR ASSAY, IF NECESSARY, FOR PATIENT MANAGEMENT, MAY BE PERFORMED. WHEN DIAGNOSTIC TESTING IS NEGATIVE, THE POSSIBLILTY OF A FALSE NEGATIVE RESULT SHOULD BE CONSIDERED IN THE CONTEXT OF A PATIENT'S RECENT EXPOSURES AND THE PRESENCE OF CLINICAL SIGNS AND SYMPTOMS CONSISTENT WITH COVID-19. THE POSSIBILITY OF A FALSE NEGATIVE RESULT SHOULD ESPECIALLY BE CONSIDERED IF THE PATIENT'S RECENT EXPOSURES OR CLINICAL PRESENTATION INDICATE THAT COVID-19 IS LIKELY, AND DIAGNOSTIC TESTS FOR OTHER CAUSES OF ILLNESS (e.g., OTHER RESPIRATORY ILLNESS) ARE NEGATIVE. IF COVID-19 IS STILL SUSPECTED BASED ON EXPOSURE HISTORY TOGETHER WITH OTHER CLINICAL FINDINGS, RE-TESTING SHOULD BE CONSIDERED BY HEALTHCARE PROVIDERS IN CONSULTATION WITH PUBLIC HEALTH AUTHORITIES. Performed By: #### [id number] #### [place] [id number] MAGNESIUMon 04-17-2022 Magnesium [Mass/Vol] 1.7 mg/dL Low 1.8 - 2.4 [facility] Comment on above: Performed By: #### [id number] #### [address] [address] TROPONIN I, HIGH SENSITIVITY on 04-17-2022 HS TROPONIN 4.8 pg/mL Normal 0.0 - 51.4 [facility] Comment on above: Performed By: #### [id number] #### [place] [id number] HS TROPONIN 4.9 pg/mL Normal 0.0 - 51.4 [facility] Comment on above: Performed By: #### [id number] #### [facility],[address] [place] [id number] Absolute lymphocyte counton 02-25-2022 Lymphocytes Auto (Unsp spec) [#/Vol] 2.32 10*3/uL 0.83-4.51 [facility] Work Phone: Basophil percentageon 2021 Basophils/100 WBC (Bld) 1.4 % 0-1 [facility] Work Phone: Bilirubin [Mass/Vol] 0.40 mg/dL 0.20-1.00 [facility] Work Phone: [phone] Comment on above: For patients on eltr ombopag therapy, use of Dimension [place] TBIL is not recommended. Chloride [Moles/Vol] 106 mmol/L 98-107 [facility] Work Phone: Cholesterol [Mass/Vol] 150 mg/dL <200 [facility] Work Phone: [phone] Comment on above: <200 mg/dL Desirable 200-240 mg/dL Borderline >240 mg/dL High Risk Eosinophils/100 WBC (Bld) 2.7 % 0-5 [facility] Work Phone: [phone] Glucose [Mass/Vol] 107 mg/dL 74-106 [facility] Work Phone: Comment on above: Fasting Glucose resu lt from 100 to 125 mg/dL suggests IMPAIRED HOMEOSTASIS per A.D.A. criteria. Neutrophils (Bld) [#/Vol] 2.9 10*3/uL 2.0-7.7 [facility] Work Phone: Neutrophils/100 WBC (Bld) 49.3 % 47-70 [facility] Work Phone: Potassium [Moles/Vol] 4.1 mmol/L 3.5-5.1 [facility] Work Phone: Protein [Mass/Vol] 7.7 g/dL 6.4-8.2 [facility] Work Phone: Sodium [Moles/Vol] 140 mmol/L 136-145 [facility] Work Phone: Triglyceride [Mass/Vol] 138 mg/dL <199 [facility] Work Phone: Comment on above: The drugs N-Acetylcy steine and Metamizole may falsely depress this assay.Serum Triglycerides Reference Interval Normal <150 mg/dL Borderline high 150 - 199 mg/dL High 200 - 499 mg/dL Very High > or = 500 mg/dL WBC (Bld) [#/Vol] 5.9 10*3/uL 4.4-11.0 [facility] Work Phone: Blood erythrocytes count (nu mber/volume)on 02-25-2022 RBC (Bld) [#/Vol] 4.79 10*6/uL 4.2-5.4 [facility] Work Phone: Blood hemoglobin measurement (mass/volume)on 02-25-2022 Hemoglobin (Bld) [Mass/Vol] 14.4 g/dL 12.0-15.0 [facility] Work Phone: Blood lymphocytes/100 leukoc yteson 02-25-2022 Lymphocytes/100 WBC (Bld) 39.6 % 19-41 [facility] Work Phone: Blood monocytes/100 leukocyt eson 02-25-2022 Monocytes/100 WBC (Bld) 6.7 % 0-10 [facility] Work Phone: Blood platelet mean volumeon 02-25-2022 Platelet mean volume (Bld) [Entitic vol] 10.0 fL 6.2-12.0 [facility] Work Phone: Determination of erythrocyte mean corpuscular volume (MCV)on 02-25-2022 MCV (RBC) [Entitic vol] 89.8 fL 81-99 [facility] Work Phone: Direct bilirubinon 2 Bilirubin.direct [Mass/Vol] 0.10 mg/dL 0.00-0.30 [facility] Work Phone: Hematocrit Auto (Bld) [Volum e fraction]on 02-25-2022 Hematocrit (Bld) [Volume fraction] 43.0 % 37-47 [facility] Work Phone: Laboratory - Chemistry and C hemistry - challengeon 02-25-2022 ALP [Catalytic activity/Vol] 137 U/L 45-117 [facility] Work Phone: ALT [Catalytic activity/Vol] 35 U/L 13-56 [facility] Work Phone: CO2 [Moles/Vol] 31.0 mmol/L 21.0-32.0 [facility] Work Phone: Free T4 [Mass/Vol] 0.85 ng/dL 0.76-1.46 [facility] Work Phone: Globulin (S) [Mass/Vol] 3.7 g/dL 2.2-4.2 [facility] Work Phone: Magnesium [Mass/Vol] 2.1 mg/dL 1.6-2.6 [facility] Work Phone: Urea nitrogen/Creatinine [Mass ratio] 13.3 mg/mg 10-20 [facility] Work Phone: Laboratory - Hematology and Cell countson 02-25-2022 Erythrocyte distribution width (RBC) [Entitic vol] 40.5 fL 35.1-43.9 [facility] Work Phone: Erythrocyte distribution width (RBC) [Ratio] 12.2 % 11.6-14.6 [facility] Work Phone: Immature granulocytes/100 WBC (Bld) 0.300 % 0.0-0.9 [facility] Work Phone: Comment on above: IG% - Immature Granu locytes (promyelocytes, myelocytes and metamyelocytes) > 1% indicates that a LEFT SHIFT is Present. MCH (RBC) [Entitic mass] 30.1 pg 27.0-32.0 [facility] Work Phone: Nucleated RBC/100 WBC (Bld) [Ratio] 0 % 0-5 [facility] Work Phone: MCHC Auto (RBC) [Mass/Vol]on 02-25-2022 MCHC (RBC) [Mass/Vol] 33.5 g/dL 32-36 [facility] Work Phone: No Panel Informationon 02-25 Estimated GFR (MDRD) Amer 89 mL/min >60 [facility] Work Phone: Comment on above: GFR Calc Estimated GFR (MDRD) Non-Af Amer 73 mL/min >60 [facility] Work Phone: Comment on above: Non- GFR Calc Free Triiodothyronine (T3) pg/dL 2.6 pg/mL 2.18-3.98 [facility] Work Phone: Thyroid Stimulating Hormone (TSH) 1.27 uIU/mL 0.358-3.74 [facility] Work Phone: Platelets bldon 02-25-2022 Platelets (Bld) [#/Vol] 292 10*3/uL 150-450 [facility] Work Phone: Serum or plasma albumin eileen urement (mass/volume)on 02-25-2022 Albumin [Mass/Vol] 4.0 g/dL 3.2-5.0 [facility] Work Phone: Serum or plasma calcium eileen urement (mass/volume)on 02-25-2022 Calcium [Mass/Vol] 11.3 mg/dL 8.5-10.1 [facility] Work Phone: Serum or plasma cholesterol in HDL measurement (mass/volume)on 02-25-2022 Cholesterol in HDL [Mass/Vol] 54 mg/dL >40 [facility] Work Phone: Comment on above: The drugs N-Acetylcy steine and Metamizole may falsely depress this assay. Reference Range HDL <40 mg/dL Low HDL Cholesterol HDL >or= 60 mg/dL High HDL Cholesterol Serum or plasma cholesterol in VLDL measurement (mass/volume)on 02-25-2022 Cholesterol in VLDL [Mass/Vol] 28 mg/dL 5-40 [facility] Work Phone: Serum or plasma creatinine m easurement (mass/volume)on 02-25-2022 Creatinine [Mass/Vol] 0.83 mg/dL 0.55-1.02 [facility] Work Phone: Comment on above: The validity of the calculated GFR & GFRAA in patients over 70 years has not been determined. Clinical correlation is essential. Serum or plasma low density lipoprotein (LDL) cholesterol measurement (mass/volume)on 02-25-2022 Cholesterol in LDL [Mass/Vol] 68 mg/dL 0-130 [facility] Work Phone: Serum or plasma urea nitroge n measurement (mass/volume)on 02-25-2022 Urea nitrogen [Mass/Vol] 11 mg/dL 7-18 [facility] Work Phone: Thin prep Papanicolaou smear with manual screeningon 02-25-2022 Thin prep Papanicolaou smear with manual screening 23 U/L 15-37 [facility] Work Phone: Thin prep Papanicolaou smear with manual screening 3 5-15 [facility] Work Phone: Laboratory - Microbiology an d Antimicrobial susceptibility Bacteria identified Cx Nom (Bld) No growth in 5 days. [facility] Work Phone: No Panel Information SARS-CoV-2 & FLU Antigen (Rapid) SARS-CoV-2 (COVID 19) [facility] Work Phone: Vital Signs Date Time Vital Sign Value Performing Clinician Faci lity 04-24-2025 07:36-0400 Body mass index (BMI) [Ratio] 27.6 kg/m2 Dr. Hoda Concepcion MD Work Phone: [facility] 04-24-2025 07:36-0400 Body temperature 97.3 [degF] Dr. Hoda Concepcion MD Work Phone: [facility] 04-24-2025 07:36-0400 Body weight 70.[address] Hoda Concepcion MD Work Phone: 4(941)045-225389 [place] [address] 04-24-2025 07:36-0400 Diastolic blood pressure 79 mm[Hg] Dr. Hoda Concepcion MD Work Phone: 4(149)207-857689 [place] [address] 04-24-2025 07:36-0400 Heart rate 72 /min Dr. Hoda Concepcion MD Work Phone: 4(988)255-451407 [address] 04-24-2025 07:36-0400 Respiratory rate 16 /min Dr. Hoda Concepcion MD Work Phone: 8(921)053-051707 [address] 04-24-2025 07:36-0400 SaO2% (BldA) [Mass fraction] 97 % Dr. Hoda Concepcion MD Work Phone: 1(248)004-252507 [address] 04-24-2025 07:36-0400 Systolic blood pressure 139 mm[Hg] Dr. Hoda Concepcion MD Work Phone: 0(753)502-181707 [address] 01-21-2025 07:31-0400 Body mass index (BMI) [Ratio] 28.3 kg/m2 Dr. Hoda Concepcion MD Work Phone: 1(512)824-617144 [place] [address] 01-21-2025 07:31-0400 Body weight 72.[address] Hoda Concepcion MD Work Phone: 7(505)769-542044 [place] [address] 01-21-2025 07:31-0400 Diastolic blood pressure 67 mm[Hg] Dr. Hoda Concepcion MD Work Phone: 6(864)195-849289 [place] [address] 01-21-2025 07:31-0400 Heart rate 66 /min Dr. Hoda Concepcion MD Work Phone: 7(526)696-290289 [place] [address] 01-21-2025 07:31-0400 Respiratory rate 18 /min Dr. Hoda Concepcion MD Work Phone: 3(012)247-214407 [address] 01-21-2025 07:31-0400 SaO2% (BldA) [Mass fraction] 94 % Dr. Hoda Concepcion MD Work Phone: 0(663)320-899389 [place] [address] 01-21-2025 07:31-0400 Systolic blood pressure 122 mm[Hg] Dr. Hoda Concepcion MD Work Phone: [facility] 01-16-2025 05:11-0400 Body mass index (BMI) [Ratio] 27.4 kg/m2 Dr. Hoda Concepcion MD Work Phone: [facility] 01-16-2025 05:11-0400 Body temperature 96.3 [degF] Dr. Hoda Concepcion MD Work Phone: [facility] 01-16-2025 05:11-0400 Body weight 70.[address] Hoda Concepcion MD Work Phone: 1(223)149-963289 [place] [address] 01-16-2025 05:11-0400 Diastolic blood pressure 78 mm[Hg] Dr. Hoda Concepcion MD Work Phone: 8(655)824-053689 [place] [address] 01-16-2025 05:11-0400 Heart rate 70 /min Dr. Hoda Concepcion MD Work Phone: [facility] 01-16-2025 05:11-0400 Respiratory rate 20 /min Dr. Hoad Concepcion MD Work Phone: 8(879)332-189607 [address] 01-16-2025 05:11-0400 SaO2% (BldA) [Mass fraction] 95 % Dr. Hoda Concepcion MD Work Phone: [facility] 01-16-2025 05:11-0400 Systolic blood pressure 120 mm[Hg] Dr. Hoda Concepcion MD Work Phone: [facility] 01-23-2024 09:08-0400 Body height 160.[address] Hoda Concepcion Work Phone: [facility] 01-23-2024 09:08-0400 Body mass index (BMI) [Ratio] 27.8 kg/m2 Dr. Hoda Concepcion Work Phone: [facility] 01-23-2024 09:08-0400 Body weight 71.[address] Hoda Concepcion Work Phone: [facility] 01-23-2024 09:08-0400 Diastolic blood pressure 53 mm[Hg] Dr. Hoda Concepcion Work Phone: [facility] 01-23-2024 09:08-0400 Heart rate 71 /min Dr. Hoda Concepcion Work Phone: [facility] 01-23-2024 09:08-0400 Respiratory rate 18 /min Dr. Hoda Concepcion Work Phone: [facility] 01-23-2024 09:08-0400 SaO2% (BldA) [Mass fraction] 95 % Dr. Hoda Concepcion Work Phone: [facility] 01-23-2024 09:08-0400 Systolic blood pressure 122 mm[Hg] Dr. Hoda Concepcion Work Phone: [facility] 07-25-2023 06:26-0400 Body height 160.[address] Hoda Concepcion Work Phone: [facility] 07-25-2023 06:26-0400 Body mass index (BMI) [Ratio] 26.2 kg/m2 Dr. Hoda Concepcion Work Phone: [facility] 07-25-2023 06:26-0400 Body temperature 98.2 [degF] Dr. Hoda Concepcion Work Phone: [facility] 07-25-2023 06:26-0400 Body weight 67.[address] Hoda Concepcion Work Phone: [facility] 07-25-2023 06:26-0400 Diastolic blood pressure 69 mm[Hg] Dr. Hoda Concepcion Work Phone: [facility] 07-25-2023 06:26-0400 Heart rate 67 /min Dr. Hoda Concepcion Work Phone: [facility] 07-25-2023 06:26-0400 Respiratory rate 18 /min Dr. Hoda Concepcion Work Phone: [facility] 07-25-2023 06:26-0400 SaO2% (BldA) [Mass fraction] 97 % Dr. Hoda Concepcion Work Phone: [facility] 07-25-2023 06:26-0400 Systolic blood pressure 131 mm[Hg] Dr. Hoda Concepcion Work Phone: [facility] 04-27-2023 07:50-0400 Body height 160.[address] Hoda Concepcion Work Phone: 0(915)888-311007 [address] 04-27-2023 07:50-0400 Body mass index (BMI) [Ratio] 27.8 kg/m2 Dr. Hoda Concepcion Work Phone: 0(679)471-043944 [place] [address] 04-27-2023 07:50-0400 Body temperature 97.1 [degF] Dr. Hoda Concepcion Work Phone: 9(596)697-007707 [address] 04-27-2023 07:50-0400 Body weight 71.[address] Hoda Concepcion Work Phone: 0(237)382-583489 [place] [address] 04-27-2023 07:50-0400 Diastolic blood pressure 80 mm[Hg] Dr. Hoda Concepcion Work Phone: 5(279)468-758607 [address] 04-27-2023 07:50-0400 Heart rate 66 /min Dr. Hoda Concepcion Work Phone: 7(870)739-604744 [place] [address] 04-27-2023 07:50-0400 Respiratory rate 18 /min Dr. Hoda Concepcion Work Phone: 6(168)241-625489 [place] [address] 04-27-2023 07:50-0400 SaO2% (BldA) [Mass fraction] 96 % Dr. Hoda Concepcion Work Phone: 4(216)034-092889 [place] [address] 04-27-2023 07:50-0400 Systolic blood pressure 149 mm[Hg] Dr. Hoda Concepcion Work Phone: [facility] 02-14-2023 15:03-0400 Body mass index (BMI) [Ratio] 28.1 kg/m2 Dr. Hoda Concepcion Work Phone: 0(282)744-220789 [place] [address] 02-14-2023 15:03-0400 Body weight 72.[address] Hoda Concepcion Work Phone: [facility] 02-14-2023 15:03-0400 Diastolic blood pressure 84 mm[Hg] Dr. Hoda Concepcion Work Phone: [facility] 02-14-2023 15:03-0400 Heart rate 78 /min Dr. Hoda Concepcion Work Phone: [facility] 02-14-2023 15:03-0400 Respiratory rate 18 /min Dr. Hoda Concepcion Work Phone: 9(525)874-144489 [place] [address] 02-14-2023 15:03-0400 SaO2% (BldA) [Mass fraction] 96 % Dr. Hoda Concepcion Work Phone: 0(066)746-666089 [place] [address] 02-14-2023 15:03-0400 Systolic blood pressure 131 mm[Hg] Dr. Hoda Concepcion Work Phone: 9(886)668-306589 [place] [address] 01-19-2023 08:11-0400 Body height 160.[address] Hoda Concepcion Work Phone: 2(331)159-448044 [place] [address] 01-19-2023 08:11-0400 Body mass index (BMI) [Ratio] 28.3 kg/m2 Dr. Hoda Concepcion Work Phone: 0(852)919-036089 [place] [address] 01-19-2023 08:11-0400 Body temperature 97.2 [degF] Dr. Hoda Concepcion Work Phone: [facility] 01-19-2023 08:11-0400 Body weight 72.[address] Hoda Concepcion Work Phone: 0(760)943-297189 [place] [address] 01-19-2023 08:11-0400 Diastolic blood pressure 80 mm[Hg] Dr. Hoda Concepcion Work Phone: [facility] 01-19-2023 08:11-0400 Heart rate 68 /min Dr. Hoda Concepcion Work Phone: [facility] 01-19-2023 08:11-0400 Respiratory rate 18 /min Dr. Hoda Concepcion Work Phone: [facility] 01-19-2023 08:11-0400 SaO2% (BldA) [Mass fraction] 97 % Dr. Hoda Cnocepcion Work Phone: [facility] 01-19-2023 08:11-0400 Systolic blood pressure 125 mm[Hg] Dr. Hoda Concepcion Work Phone: 7(862)032-791689 [place] [address] 12-01-2022 12:40-0500 Body temperature 97.9 [degF] Dr. Hoda Concepcion Work Phone: 6(414)693-400907 [address] 12-01-2022 12:40-0500 Diastolic blood pressure 72 mm[Hg] Dr. Hoda Concepcion Work Phone: 8(983)682-517607 [address] 12-01-2022 12:40-0500 Heart rate 85 /min Dr. Hoda Concepcion Work Phone: 0(801)248-049789 [place] [address] 12-01-2022 12:40-0500 Respiratory rate 16 /min Dr. Hoda Concepcion Work Phone: 1(847)499-811289 [place] [address] 12-01-2022 12:40-0500 SaO2% (BldA) [Mass fraction] 97 % Dr. Hoda Concepcino Work Phone: [facility] 12-01-2022 12:40-0500 Systolic blood pressure 119 mm[Hg] Dr. Hoda Concepcion Work Phone: 5(054)395-197089 [place] [address] 12-01-2022 11:00-0500 Inhaled oxygen flow rate 2 L/min Dr. Hoda Concepcion Work Phone: 7(947)517-909189 [place] [address] 12-01-2022 06:26-0500 Body height 160.[address] Hoda Concepcion Work Phone: [facility] 12-01-2022 06:26-0500 Body mass index (BMI) [Ratio] 27.7 kg/m2 Dr. Hoda Concepcion Work Phone: [facility] 12-01-2022 06:26-0500 Body weight [address] Hoda Concepcion Work Phone: [facility] 10-25-2022 09:14-0500 Body mass index (BMI) [Ratio] 27.3 kg/m2 Dr. Hoda Concepcion Work Phone: [facility] 10-25-2022 09:14-0500 Body temperature 97 [degF] Dr. Hoda Concepcion Work Phone: [facility] 10-25-2022 09:14-0500 Body weight 70.[address] Hoda Concepcion Work Phone: [facility] 10-25-2022 09:14-0500 Diastolic blood pressure 80 mm[Hg] Dr. Hoda Concepcion Work Phone: [facility] 10-25-2022 09:14-0500 Heart rate 76 /min Dr. Hoda Concepcion Work Phone: [facility] 10-25-2022 09:14-0500 Respiratory rate 18 /min Dr. Hoda Concepcion Work Phone: [facility] 10-25-2022 09:14-0500 SaO2% (BldA) [Mass fraction] 96 % Dr. Hoda Concepcion Work Phone: [facility] 10-25-2022 09:14-0500 Systolic blood pressure 119 mm[Hg] Dr. Hoda Concepcion Work Phone: [facility] 09-22-2022 14:17-0500 Body mass index (BMI) [Ratio] 26.2 kg/m2 Dr. Hoda Concepcion Work Phone: [facility] 09-22-2022 14:17-0500 Body temperature 98.2 [degF] Dr. Hoda Concepcion Work Phone: [facility] 09-22-2022 14:17-0500 Body weight 69.[address] Hoda Concepcion Work Phone: [facility] 09-22-2022 14:17-0500 Diastolic blood pressure 79 mm[Hg] Dr. Hoda Concepcion Work Phone: [facility] 09-22-2022 14:17-0500 Heart rate 73 /min Dr. Hoda Concepcion Work Phone: [facility] 09-22-2022 14:17-0500 Respiratory rate 16 /min Dr. Hoda Concepcion Work Phone: [facility] 09-22-2022 14:17-0500 SaO2% (BldA) [Mass fraction] 95 % Dr. Hoda Concepcion Work Phone: [facility] 09-22-2022 14:17-0500 Systolic blood pressure 131 mm[Hg] Dr. Hoda Concepcion Work Phone: [facility] 09-03-2022 08:28-0400 Body height 162.[address] Hoda Concepcino Work Phone: [facility] Work Phone: 09-03-2022 08:28-0400 Body mass index (BMI) [Ratio] 26.1 kg/m2 Dr. Hoda Concepcion Work Phone: [facility] 09-03-2022 08:28-0400 Body weight 68.[address] Hoda Concepcion Work Phone: [facility] 09-03-2022 08:28-0400 Diastolic blood pressure 81 mm[Hg] Dr. Hoda Concepcion Work Phone: [facility] 09-03-2022 08:28-0400 Heart rate 84 /min Dr. Hoda Concepcion Work Phone: [facility] 09-03-2022 08:28-0400 Respiratory rate 17 /min Dr. Hoda Concepcion Work Phone: [facility] 09-03-2022 08:28-0400 SaO2% (BldA) [Mass fraction] 95 % Dr. Hoda Concepcion Work Phone: [facility] 09-03-2022 08:28-0400 Systolic blood pressure 172 mm[Hg] Dr. Hoda Concepcion Work Phone: [facility] 06-30-2022 14:47-0400 Body height 162.[address] Hoda Concepcion Work Phone: [facility] Work Phone: 06-30-2022 14:47-0400 Body mass index (BMI) [Ratio] 25.7 kg/m2 Dr. Hoda Concepcion Work Phone: [facility] Work Phone: 06-30-2022 14:47-0400 Body weight 68.[address] Hoda Concepcion Work Phone: [facility] Work Phone: 06-30-2022 14:47-0400 Diastolic blood pressure 74 mm[Hg] Dr. Hoda Concepcion Work Phone: [facility] Work Phone: 06-30-2022 14:47-0400 Heart rate 67 /min Dr. Hoda Concepcion Work Phone: [facility] Work Phone: 06-30-2022 14:47-0400 Respiratory rate 18 /min Dr. Hoda Concepcion Work Phone: [facility] Work Phone: 06-30-2022 14:47-0400 SaO2% (BldA) [Mass fraction] 95 % Dr. Hoda Concepcion Work Phone: [facility] Work Phone: 06-30-2022 14:47-0400 Systolic blood pressure 120 mm[Hg] Dr. Hoda Concepcion Work Phone: [facility] Work Phone: 06-18-2022 10:24-0400 Body mass index (BMI) [Ratio] 25.9 kg/m2 Dr. Hoda Concepcion Work Phone: [facility] Work Phone: 06-18-2022 10:24-0400 Body temperature 97.6 [degF] Dr. Hoda Concepcion Work Phone: [facility] Work Phone: 06-18-2022 10:24-0400 Body weight 68.[address] Hoda Concepcion Work Phone: [facility] Work Phone: 06-18-2022 10:24-0400 Diastolic blood pressure 80 mm[Hg] Dr. Hoda Concepcion Work Phone: [facility] Work Phone: 06-18-2022 10:24-0400 Heart rate 65 /min Dr. Hoda Concepcion Work Phone: [facility] Work Phone: 06-18-2022 10:24-0400 Respiratory rate 16 /min Dr. Hoda Concepcion Work Phone: [facility] Work Phone: 06-18-2022 10:24-0400 SaO2% (BldA) [Mass fraction] 97 % Dr. Hoda Concepcion Work Phone: [facility] Work Phone: 06-18-2022 10:24-0400 Systolic blood pressure 122 mm[Hg] Dr. Hoda Concepcion Work Phone: [facility] Work Phone: 04-22-2022 12:38-0400 Respiratory rate 18 /min Dr. Hoda Concepcion Work Phone: [facility] Work Phone: 04-22-2022 11:19-0400 Body height 162.[address] Hoda Concepcion Work Phone: [facility] Work Phone: 04-22-2022 11:19-0400 Body mass index (BMI) [Ratio] 24.5 kg/m2 Dr. Hoda Concepcion Work Phone: [facility] Work Phone: 04-22-2022 11:19-0400 Body temperature 98.1 [degF] Dr. Hoda Concepcion Work Phone: [facility] Work Phone: 04-22-2022 11:19-0400 Body weight 64.[address] Hoda Concepcion Work Phone: [facility] Work Phone: 04-22-2022 11:19-0400 Diastolic blood pressure 83 mm[Hg] Dr. Hoda Concepcion Work Phone: [facility] Work Phone: 04-22-2022 11:19-0400 Heart rate 74 /min Dr. Hoda Concepcion Work Phone: [facility] Work Phone: 04-22-2022 11:19-0400 Respiratory rate 12 /min Dr. Hoda Concepcion Work Phone: [facility] Work Phone: 04-22-2022 11:19-0400 SaO2% (BldA) [Mass fraction] 99 % Dr. Hoda Concepcion Work Phone: [facility] Work Phone: 04-22-2022 11:19-0400 Systolic blood pressure 146 mm[Hg] Dr. Hoda Concepcion Work Phone: [facility] Work Phone: 04-20-2022 08:59-0400 Body mass index (BMI) [Ratio] 25.4 kg/m2 Dr. Hoda Concepcion Work Phone: [facility] Work Phone: 04-20-2022 08:59-0400 Body weight 65.[address] Hoda Concepcion Work Phone: [facility] Work Phone: 04-20-2022 08:59-0400 Diastolic blood pressure 74 mm[Hg] Dr. Hoda Concepcion Work Phone: [facility] Work Phone: 04-20-2022 08:59-0400 Heart rate 74 /min Dr. Hoda Concepcion Work Phone: [facility] Work Phone: 04-20-2022 08:59-0400 Respiratory rate 18 /min Dr. Hoda Concepcion Work Phone: [facility] Work Phone: 04-20-2022 08:59-0400 SaO2% (BldA) [Mass fraction] 97 % Dr. Hoda Concepcion Work Phone: [facility] Work Phone: 04-20-2022 08:59-0400 Systolic blood pressure 113 mm[Hg] Dr. Hoda Concepcion Work Phone: [facility] Work Phone: 02-25-2022 09:05-0400 Body mass index (BMI) [Ratio] 26.2 kg/m2 Dr. Hoda Concepcion Work Phone: [facility] Work Phone: 02-25-2022 09:05-0400 Body weight 67.[address] Hoda Concepcion Work Phone: [facility] Work Phone: 02-25-2022 09:05-0400 Diastolic blood pressure 72 mm[Hg] Dr. Hoda Concepcion Work Phone: [facility] Work Phone: 02-25-2022 09:05-0400 Heart rate 67 /min Dr. Hoda Concepcion Work Phone: [facility] Work Phone: 02-25-2022 09:05-0400 Respiratory rate 16 /min Dr. Hoda Concepcion Work Phone: [facility] Work Phone: 02-25-2022 09:05-0400 Systolic blood pressure 142 mm[Hg] Dr. Hoda Concepcion Work Phone: [facility] Work Phone: 02-25-2022 09:05-0400 Body height 160.[address] Hoda Concepcion Work Phone: [facility] Work Phone: 02-25-2022 09:05-0400 Body mass index (BMI) [Ratio] 26.2 kg/m2 Dr. Hoda Concepcion Work Phone: [facility] Work Phone: 02-25-2022 09:05-0400 Body weight 67.[address] Hoda Concepcion Work Phone: [facility] Work Phone: 02-25-2022 09:05-0400 Diastolic blood pressure 72 mm[Hg] Dr. Hoda Concepcion Work Phone: [facility] Work Phone: 02-25-2022 09:05-0400 Heart rate 67 /min Dr. Hoda Concepcion Work Phone: [facility] Work Phone: 02-25-2022 09:05-0400 Respiratory rate 16 /min Dr. Hoda Concepcion Work Phone: [facility] Work Phone: 02-25-2022 09:05-0400 Systolic blood pressure 142 mm[Hg] Dr. Hoda Concepcion Work Phone: [facility] Work Phone: Encounters Encounter Date Encounter Type Care Provider Facility Start: 05-13-2025 ambulatory Stephany Shekhar Facility:[facility] Start: 05-02-2025 ambulatory Eva Mitchell ty:[facility] Start: 04-24-2025 End: 04-24-2025 Patient encounter procedure STILL TENDER Eva Lopez -[facility] Work Phone: Start: 04-24-2025 End: 04-24-[address] Hoda Concepcion MD Work Phone: [facility] Work Phone: Start: 01-21-2025 End: 01-21-2025 Patient encounter procedure Walter Felicitasiter [place] -[facility] Work Phone: Start: 01-21-2025 End: 01-21-2025 ambulatory Walter Demiter Facility:[facility] Start: 01-16-2025 End: 01-16-2025 Patient encounter procedure STILL TENDER Eva Lopez [facility] Work Phone: Start: 01-16-2025 End: 01-16-2025 ambulatory Hoda S Jolliff Facility:[facility] Start: 10-18-2024 End: 10-18-2024 ambulatory Hoda S Jolliff Facility:[facility] Start: 10-09-2024 End: 10-09-2024 ambulatory Hoda S Jolliff Facility:[facility] Start: 10-02-2024 End: 10-02-2024 ambulatory Hoda S Jolliff Facility:[facility] Start: 09-10-2024 End: 09-10-2024 ambulatory Hoda S Jolliff Facility:[facility] Start: 05-03-2024 End: 05-03-2024 ambulatory Hoda S Jolliff Facility:[facility] Start: 03-01-2024 End: 03-01-[address] Hoda Concepcion Work Phone: [facility] Work Phone: Start: 03-01-2024 End: 03-01-[address] Hoda Concepcion Work Phone: [facility]-Laboratory Work Phone: Start: 01-23-2024 End: 01-23-[address] Hoda Concepcion Work Phone: [facility] Work Phone: Start: 10-06-2023 End: 10-06-[address] Hoda Concepcion Work Phone: [facility] Work Phone: Start: 10-06-2023 End: 10-06-[address] Hoda Concepcion Work Phone: [facility]-Outpatient Pavilion Ultrasound Work Phone: Start: 09-27-2023 End: 09-27-[address] Hoda Concepcion Work Phone: [facility] Work Phone: Start: 09-27-2023 End: 09-27-[address] Hoda Concepcion Work Phone: [facility]-Outpatient Breast Imaging Work Phone: Start: 07-25-2023 End: 07-25-[address] Hoda Concepcion [facility] Work Phone: Start: 04-27-2023 End: 04-27-[address] Hoda Concepcion Work Phone: [facility] Work Phone: Start: 04-27-2023 End: 04-27-[address] Hoda Concepcion Work Phone: [facility]-Pulmonary Medicine [facility] Start: 03-24-2023 Non-patient / Non-visit Dr. Nolan Concepcion Work Phone: [facility] Start: 03-24-2023 End: 03-24-[address] Hoda Concepcion Work Phone: [facility]-Cardiovascular Services Start: 02-14-2023 End: 02-14-[address] Hoda Concepcion Work Phone: [facility] Start: 02-01-2023 End: 02-01-[address] Hoda Concepcion Work Phone: [facility] Work Phone: Start: 02-01-2023 End: 02-01-[address] Hoda Concepcion Work Phone: [facility]-Sleep Lab Start: 01-19-2023 End: 01-19-[address] Hoda Concepcion Work Phone: [facility]-Pulmonary Medicine [facility] Start: 12-17-2022 End: 12-17-[address] Hoda Concepcion Work Phone: [facility]-Laboratory Start: 12-14-2022 Non-patient / Non-visit Dr. Nolan Concepcion Work Phone: [facility] Start: 12-13-2022 End: 12-13-[address] Hoda Concepcion Work Phone: [facility] Work Phone: Start: 12-13-2022 End: 12-13-[address] Hoda Concepcion Work Phone: [facility]-Pulmonary Services/Neurology Start: 12-08-2022 End: 12-08-[address] Hoda Concepcion Work Phone: [facility] Start: 12-07-2022 End: 12-07-[address] Hoda Concepcion Work Phone: [facility] Work Phone: Start: 12-07-2022 End: 12-07-[address] Hoda Concepcion Work Phone: [facility]-Laboratory Start: 12-01-2022 Non-patient / Non-visit Dr. Nolan Concepcion Work Phone: [facility] Start: 12-01-2022 End: 12-01-2022 Admission to same day surgery center Dr. Hoda Concepcion Work Phone: [facility]-Surgical Day Care Start: 12-01-2022 End: 12-01-[address] Hoda Concepcion Work Phone: [facility] Work Phone: Start: 11-25-2022 End: 11-25-2022 Non-patient / Non-visit Dr. Hoda Concepcion Work Phone: [facility] Start: 10-25-2022 End: 10-25-[address] Hoda Concepcion Work Phone: [facility] Start: 09-27-2022 End: 09-27-[address] Hoda Concepcion [facility] Phone[facility] Start: 09-22-2022 End: 09-22-[address] Hoda Concepcion Work Phone: [facility]-Pulmonary Medicine [facility] Start: 09-15-2022 End: 09-15-[address] Hoda Concepcion Work Phone: [facility] Work Phone: Start: 09-15-2022 End: 09-15-[address] Hoda Concepcion Work Phone: [facility]-Outpatient Bone Densitometry Start: 09-03-2022 End: 09-03-[address] Hoda Concepcion Work Phone: [facility]-Laboratory Start: 09-03-2022 End: 09-03-[address] Hoda Concepcion Work Phone: [facility] Start: 2022 End: [address] Hoda Concepcion Work Phone: [facility] Work Phone: Start: 2022 End: [address] Hoda Concepcion Work Phone: [facility]-Ultrasound, [facility] Start: 08-30-2022 End: 08-30-[address] Hoda Concepcion Work Phone: [facility] Work Phone: Start: 08-30-2022 End: 08-30-[address] Hoda Concepcion [facility] Start: 08-25-2022 End: 08-25-[address] Hoda Concepcion Work Phone: [facility] Work Phone: Start: 08-25-2022 End: 08-25-[address] Hoda Concepcion Work Phone[facility] Start: 08-20-2022 End: 08-20-[address] Hoda Concepcion Work Phone: [facility] Work Phone: Start: 08-20-2022 End: 08-20-[address] Hoda Concepcion Work Phone: [facility]-Sleep Lab Start: 06-30-2022 End: 06-30-[address] Hoda Concepcion Work Phone: [facility] Work Phone: Start: 06-30-2022 End: 06-30-[address] Hoda Concepcion Work Phone: [facility] Start: 06-18-2022 End: 06-18-[address] Hoda Concepcion Work Phone: [facility]-Pulmonary Medicine [facility] Start: 05-03-2022 End: 05-03-[address] Hoda Concepcion Work Phone: [facility]-Sleep Lab Start: 04-22-2022 End: 04-22-2022 Emergency department patient visit Dr. Hoda Concepcion Work Phone: [facility]-Emergency Department Start: 04-20-2022 End: 04-20-[address] Hoda Concepcion Work Phone: [facility] Start: 04-19-2022 End: 04-19-[address] Hoda Concepcion Work Phone: [facility]-Laboratory, [facility] Start: 04-17-2022 End: 04-17-2022 Emergency department patient visit RAGHAVENDRA PRATER [facility] Start: 03-16-2022 End: 03-16-[address] Hoda Concepcion Work Phone: [facility]-Pulmonary Services/Neurology Start: 02-25-2022 End: 02-25-[address] Hoda Concepcion Work Phone: [facility]-Laboratory Start: 02-25-2022 End: 02-25-[address] Hoda Concepcion Work Phone: [facility] Procedures Date Procedure Procedure Detail Performing Clinician Start: 10-06-[address] Hoda Concepcion Work Phone: Start: 09-27-2023 Screening mammography Ondina Concepcion Work Phone: Start: 12-01-[address] Alma Concepcion Work Phone: Start: 09-27-2022 Single photon emissi on computed tomography of parathyroid Dr. Hoda Concepcion Work Phone: Start: 09-15-2022 Dual energy X-ray absorptiometry Dr. Hoda Concepcion Work Phone: Start: 10-25-2022 US scan of thyroid Dr. Hoda Concepcion Work Phone: Start: 08-25-2022 Plain chest X-ray Dr. Alma Concepcion Work Phone: Start: 04-22-2022 Plain chest X-ray Dr. Alma Concepcion Work Phone: Bacteria identified in Blood by Culture Dr. Hoda Concepcion Work Phone: SARS-CoV-2 & FLU Ant igen (Rapid) Dr. Hoda Concepcion Work Phone: Plan of Treatment Date Care Activity Detail Author Start: 12-01-2022 Anes esoph thyrd larynx trach & lymph neck 1yr ANESTH NECK ORGAN 1YR/> [facility] Start: 12-01-2022 Parathyroidectomy/explorati on parathyroids EXPLORE PARATHYROID GLANDS [facility] Start: 12-01-2022 Patient discharge [facility] Start: 12-01-2022 [facility] Start: 12-01-2022 Application of ice collar, cap or bag [facility] Start: 09-03-2022 Vitamin D, 1,25-dihydroxy measurement [facility] Work Phone: Start: 04-22-2022 Blood culture [facility] Work Phone: Start: 04-22-2022 Plain chest X-ray Chest 1 View (Portable) [facility] Work Phone: Start: 04-22-2022 XR Chest Single view [facility] Work Phone: Bacteria identified in Blood by Culture Blood Culture [facility] Work Phone: Blood chemistry [facility] Work Phone: Blood culture [facility] Work Phone: Calcium [Mass/volume ] in Serum or Plasma [facility] Calcium [Mass/volume ] in Serum or Plasma [facility] CT Chest [facility] DXA Bone [Mass/Area] Bone density [facility] Work Phone: Hepatic function panel [facility] Lipid 1996 panel - S michela or Plasma [facility] Measurement of respi ratory function [facility] Patient Education [facility] Work Phone: Patient referral [facility] Work Phone: Polysomnography [facility] Work Phone: SPECT Parathyroid gland [facility] Work Phone: [facility] Payers Date Payer Category Payer Self-pay [id number] 2024 Private Health Insurance [id number] 2015 Private Health Insurance [id number] 1955 Unknown [id number] Medicare [id number] Unknown [id number] 2.16.8 [id number] Unknown [id number] 2.16.8 [id number] Unknown [id number] 2.16.8 [id number] Unknown [id number] 2.16.8 [id number] Unknown [id number] 2.16.8 [id number] Unknown [id number] 2.16.8 [id number] Unknown [id number] 2.16.8 [id number] Unknown [id number] 2.16.8 [id number] Unknown [id number] 2.16.8 [id number] Unknown [id number] 2.16.8 [id number] Social History Date Type Detail Facility Start: 02-25-2022 End: 01-23-2024 Tobacco smoking status MAIS Unknown if ever smoked [facility] Start: 1955 Sex Assigned At Female [facility] Start: 01-21-2025 Tobacco smoking status NHIS Ex-smoker (finding) [facility] NEGATED: Highlighted row [facility] Medical Equipment Procedure Code Equipment Code Equipment Origin al Text Equipment Identifier Dates Parathyroidectomy Ligation clip, metallic [id number] FDA Start: 12-01-2022 Goals Date Patient Goal Desired Activity /State Mental Status Date Assessment Result Facility 12-01-2022 Cognitive function Voice/Name;Touch/Kacy melendez [facility] Work Phone: 04-22-2022 Cognitive function Level Of Cons ciousness Awake;Appropriate;Follows Commands [facility] Work Phone: Clinical Notes 12-01-2022 to 01-16-2025 Note Date & Type Note Facility 01-16-2025 Evaluation note Diagnosis Onset Date Resolution Sleep apnea chronic January 16 9:57am 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 Work Phone: [phone] 814-599102-07-2023 Procedure [facility] 12-01-2022 Procedure [facility]01-25-2023 History and physical note Author Dr. Zhong [facility] December 01, 2022 7:29am Note Date/Time December 01, 2022 7 :29am [facility] Medical Records Department [address] [place] [address] History & Physical Exam 12/01/22726 MR#: [id number] Acct: [id number] Name: FELIBERTO MENG Rep #:[id number] : 1955 67 From: [place] PCP: Dr. Hoda Concepcion MD Status:[facility] Location: [place] [address] History and Physical Date of Admission: 12/01/22 Date of Service:? 10/25/22 MR#: [id number] Acct: [id number] Name:? FELIBERTO MENG Rep #: [id number] : 1955 ? ? Provider: Dr. Chad Zhong MD Age/Sex:? 67/F ? ? Location: [facility] Status: Signed Intake Vital Signs ? 10/25/2209:14 Height 5 ft 3 in Weight: 154 lb 8 oz BMI 27.3 BP 119/80 Blood Pressure Location Lt brachial Position Sitting Respiration 18 Pulse 76 Pulse Source Monitor Temp 97 F L Temp Source Temporal Pulse Oximetry (%) 96 Oxygen Delivery Method room air Intake Visit Reasons:?DISCUSS SURGERY FOR PARATHYROIDECTOMY Chief Complaint: Discuss surgery for parathyroidectomy Is patient in pain?: No Allergies pollen extracts Allergy (Intermediate, Verified 10/25/22 09:15) Othermold Adverse Reaction (Intermediate, Verified 10/25/22 09:15) Other Medications esomeprazole magnesium 40 mg capsule,delayed release 40 mg PO QDAY 02/27/18 [History Confirmed 10/25/22] rosuvastatin 40 mg tablet 40 mg PO DAILY #90 tabs 02/25/22 [Rx Confirmed 10/25/22] lisinopril 10 mg tablet 10 mg PO DAILY #30 tabs 05/13/22 [Rx Confirmed 10/25/22] metoprolol succinate 50 mg tablet,extended release 24 hr 50 mg PO QDAY #90 tabs 05/25/22 [Rx Confirmed 10/25/22] duloxetine 60 mg capsule,delayed release 60 mg PO DAILY 06/18/22 [History Confirmed 10/25/22] PFSH Medical History? Depression Essential (primary) hypertension Fibromyalgia GERD (gastroesophageal reflux disease) History of back problems Hyperlipidemia Hypersomnolence Hypertrophic cardiomyopathy Mitral valve prolapse Obstructive sleep apnea Seasonal allergies Surgical History? History of tonsillectomy History of tubal ligation Family History? Mother CAD (coronary artery disease) Diabetes ArthritisFather CAD (coronary artery disease)Daughter Thyroid disorderSister Thyroid disorderGrandmother Thyroid disorder Social History? Smoking Status:? Former smoker how long ago did patient quit smoking:? 20 years ago alcohol intake:? never substance use type:? marijuana caffeine:? Yes Type: coffee Number of servings: 2 HPI HPI HPI: Patient reports for update H&P and review of recent clinical work-up regarding her diagnosis of primary hyperparathyroidism.? She denies any significant personal interval health updates.? Patient's last visit was 09/03/2022 Below is recapitulated from patient's initial consultation visit for ease of review: HPI: Patient is a 67-year-old female who presents for probable hyperparathyroidism given recent history of hypercalcemia and elevated PTH.? They are referred from Dr. Concepcion.? Patient has no history of bone density evaluation. Patient has no history of pathologic fractures. ? Patient initially denies a history of kidney stones, but her record is reviewed and renal ultrasound imaging from February 2021 shows a 5 mm nonobstructing kidney stone.? Patient has no history of frequent dental caries or chipped teeth.? Patient has a history of brittle fingernails.? Patient has a history of GERD, but she reports this is well controlled with her consistent of Nexium.? Patient has a history of hypertension which she states has been somewhat worse in recent months (technically dating back to 2019).? Additional symptoms include: Difficulty concentrating, fatigue, depression, and some muscle aches.? In fact, patient reports that she just retired from her job in November after she felt that she could no longer intellectually handle her work as she was finding herself making too many mistakes.? She also reports thatsince her jail, she expected to feel more refreshed, but feels her self persistently fatigued despite sleeping 10 hours a night.? Overall her depressionhas gotten better with treatment?as well as her myalgias which she states have been diagnosed as fibromyalgia. And screening patient for general thyroid issues, she reports some heat and coldintolerance which has been present most of her life.? She also reports some visual changes at her peripheral vision and some ongoing hair loss.? She also notes from a compressive standpoint that her granddaughter is commented that shehas some hoarseness now.? She is not sure whether this may be actually due to her more consistent use of a CPAP now at night with her diagnosis of obstructivesleep apnea. Patient has no history of significant prior radiation exposure.? Patient has a family history of other endocrinopathies including hypothyroidism and her sisterand daughter as well as goiter in her maternal grandmother. Patient does have a diet high in dairy and she states she enjoys foods such as cheese, yogurt, and milk. Patient's current labs are calcium: 11.2 mg/dL 08/30/2022 (range of 11-11.7 overthe past 1 year), Vitamin D: 46.7 ng/mL to 12/27/2014, Ionized calcium: [Value]mg/dL [date], PTH: [Value]pg/mL [date] [(Range of: over time period)], Phosphorus: [Value] [date] Current medications include: No calcium or vitamin D supplementation as patient confirms she has stopped her daily multivitamin. Imaging as been done thyroid ultrasound 2022 and showed some subcentimeter nodules of the left thyroid lobe as well as a possible parathyroid adenoma inferior to the inferior pole of the left thyroid lobe. Patient has a history of hypertrophic cardiomyopathy as well as some mitral valve insufficiency.? She follows with [place] [facility] for this issue and reports that she is due for a follow-up visit with Dr. Coon on 09/06/2022.? She states that they have been in continual flux with some antihypertensive agents as her heart rate and blood pressure have been varying indirectly for some time. ROS General General: Yes fatigue; No weight change, appetite, colon cancer, breast cancer or weakness HEENT HEENT: Yes hoarseness; No difficulty swallowing, eye injury, eye surgery or swollen glands Endo Endocrine: Yes diabetes mellitus; No thyroid disease, thyroid cancer, Hair loss, heat intolerance or cold intolerance Additional Details: Consult for parathyroid. Symptoms include hoarseness, heat/cold intolerance sweating, visual changes/watery eyes, difficulty concentrating, hair loss, kidney stones, brittle/chipping nails Skin Skin: No rash or changing moles Musc Musculoskeletal: Yes back problems; No arthritis, rheumatoid arthritis, gout or joint pain Cardio Cardiovascular: Yes murmur and high blood pressure; No pacemaker, heart disease, atrial fibrillation, heart attack, heart stent, palpitations, shortness of breat with exertion or chest pain Psych Psychiatric: Yes depression and anxiety; No hearing voices Resp Respiratory: No shortness of breath, Yes sleep apnea, No cough, No COPD, No asthma, No emphysema and No wheezing Gastro Gastrointestinal: No abdominal pain, No nausea or vomiting, No diarrhea, No constipation, No blood in stool, Yes acid reflux, No hemorrhoids, No ulcers, No gallbladder problem and No black,tarry stools Marco Hematologic: No blood thinners, No blood disorders, No bleeding, No anemia and No blood clots Neuro Neurologic: No system reviewed and no additional complaints, except as documented, No as per HPI, No abnormal gait, No abnormal hearing, No abnormal movements, No abnormal speech, No behavioral changes, No burning sensations, No confusion, No convulsions, No disequilibrium, No dizziness, No localized weakness, No frequent falls, No headache(s), No lack of coordination, No loss of vision, No memory loss, No numbness, No other visual disturbances, No radicular pain, No restless legs, No sensory deficit, No syncope, No tingling, No tremor(s), No weakness and No other Exam Const General: cooperative, healthy appearing, comfortable, no acute distress and not anxious Orientation: alert, awake and oriented x3 Neck Other: Neck is reexamined and soft to palpation.? Patient has skin creases at the level of the top of the thyroid cartilage and then very low in the cervical neck.? I do not see an ideal skin crease for incision planning. Assessment and Plan Assessment and Plan (1) Hyperparathyroidism: ?Status:?Acute ?Comment: Is a 67-year-old female who presents with primary hyperparathyroidism given her laboratories and signs/symptoms.? Diagnosis is confirmed biochemically.? Patient is a surgical candidate on the basis of a calcium value greater than 1 g/dL over the upper limit of normal as well as objective findings of kidney stones with abdominal imaging and now most recently finding of osteoporosis with recent DEXA scan.? I reviewed with patient these DEXA results as well as her sestamibi imaging which finds itself in accordance with patient's ultrasound imaging suggesting a adenoma location along the inferior pole of the left thyroid lobe. With both of these results, I have recommended we proceed with planned minimally invasive parathyroidectomy with intraoperative nerve and PTH monitoring.? I have shared with her that I would plan for an outpatient procedure, but that if the intraoperative results differed from those expected, would reserve the right to admit for overnight observation (in the event of 4 gland hyperplasia and need to do a subtotal parathyroidectomy).? Patient expresses understanding of this information and wishes to know when we would be able to proceed as described. ?Plan: ? Plan for minimally invasive parathyroidectomy with intraoperative nerve and PTH monitoring.? Tentatively planning for middle November 2022 I have examined the patient and the H&P has been reviewed. There are no clinical changes since date of exam. Procedure and post procedure expectations were reviewed with patient and her spouse. They offer no further questions and breast that they are ready to proceed as described. 12/01/22 0729 <Electronically signed by Chad Zhong MD> Cosigner Signature (if applicable): CC: Dr. Hoda Concepcion MD; Dr. Chad Zhong MD~ Signed [facility] Work Phone: Evaluation note* Diagnosis Onset Date Resolution Status Palpitations acute Essential (primary) hypertension chronic Hyperlipidemia chronic Hypertrophic cardiomyopathy [facility] Work Phone: Evaluation note* Diagnosis Onset Date Resolution Status Palpitations acute Essential (primary) hypertension chronic Hyperlipidemia chronic Hypertrophic cardiomyopathy chronic Dyspnea acute Fatigue acute Hypersomnolence acute Hyponatremia acute Essential (primary) hypertension chronic Hyperlipidemia chronic Hypertrophic cardiomyopathy [facility] Work Phone: Evaluation note* Diagnosis Onset Date Resolution Status Dyspnea acute Fatigue acute Hypersomnolence acute Hyponatremia acute Essential (primary) hypertension chronic Hyperlipidemia chronic Hypertrophic cardiomyopathy chronic Obstructive sleep apnea acut e Hypertrophic cardiomyopathy chronic Hyponatremia acute Obstructive sleep apnea acut e Essential (primary) hypertension chronic Hyperlipidemia chronic Hypertrophic cardiomyopathy [facility] Work Phone: Evaluation note* Diagnosis Onset Date Resolution Status Obstructive sleep apnea acut e Hypertrophic cardiomyopathy chronic Hyponatremia acute Obstructive sleep apnea acut e Essential (primary) hypertension chronic Hyperlipidemia chronic Hypertrophic cardiomyopathy [facility] Work Phone: Evaluation note* Diagnosis Onset Date Resolution Status Obstructive sleep apnea acut e Hypertrophic cardiomyopathy chronic Hyponatremia acute Obstructive sleep apnea acut e Essential (primary) hypertension chronic Hyperlipidemia chronic Hypertrophic cardiomyopathy chronic Hyperparathyroidism acute [facility] Work Phone: Evaluation note* Diagnosis Onset Date Resolution Status Hyperparathyroidism acute Dyspnea acute Obstructive sleep apnea acut e Hyperparathyroidism acute Status post parathyroidectomy acute [facility] Work Phone: Evaluation note* Diagnosis Onset Date Resolution Status Hyperparathyroidism acute Dyspnea acute Obstructive sleep apnea acut e Hyperparathyroidism acute Status post parathyroidectomy acute Hyperparathyroidism acute Status post parathyroidectomy acute [facility] Work Phone: Evaluation note* Diagnosis Onset Date Resolution Status Hyperparathyroidism acute Status post parathyroidectomy acute Hyperparathyroidism acute Status post parathyroidectomy acute Stage 1 mild COPD by GOLD classification 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 [facility] Work Phone: Evaluation note* Diagnosis Onset Date Resolution Status Stage 1 mild COPD by GOLD classification acute Mitral valve insufficiency a cute Essential (primary) hypertension chronic Hyperlipidemia chronic Hypertrophic cardiomyopathy chronic Sleep apnea chronic Smoking greater than 20 pack years [facility] Work Phone: Evaluation note* Diagnosis Onset Date Resolution Status Sleep apnea chronic Smoking greater than 20 pack years [facility] Work Phone: Evaluation note* Diagnosis Onset Date Resolution Status Mitral valve insufficiency a cute Essential (primary) hypertension chronic Hyperlipidemia chronic Hypertrophic cardiomyopathy chronic Sleep apnea chronic Stage 1 mild COPD by GOLD classification [facility] Work Phone: Reason for referral (narrative)No reason for referral [facility] Work Phone: Chief Complaint and Reason for Visit Chief Complaint 6 M FU Reason for Visit Palpitations Essential (primary) hypertension Hyperlipidemia Hypertrophic cardiomyopathy Chief Complaint 6 M FU PALPITATIONS Reason for Visit Palpitations Essential (primary) hypertension Hyperlipidemia Hypertrophic cardiomyopathy Chief Complaint 6 M FU PALPITATIONS 8WK FU INT LABS WEAKNESS Reason for Visit Palpitations Essential (primary) hypertension Hyperlipidemia Hypertrophic cardiomyopathy Dyspnea Fatigue Hypersomnolence Hyponatremia Essential (primary) hypertension Hyperlipidemia Hypertrophic cardiomyopathy Chief Complaint 6 M FU PALPITATIONS 8WK FU INT LABS WEAKNESS BEKAH Reason for Visit Palpitations Essential (primary) hypertension Hyperlipidemia Hypertrophic cardiomyopathy Dyspnea Fatigue Hypersomnolence Hyponatremia Essential (primary) hypertension Hyperlipidemia Hypertrophic cardiomyopathy Chief Complaint PALPITATIONS 8WK FU INT LABS WEAKNESS BEKAH Sleep problems 6 WK FU E-ORDER Reason for Visit Dyspnea Fatigue Hypersomnolence Hyponatremia Essential (primary) hypertension Hyperlipidemia Hypertrophic cardiomyopathy Obstructive sleep apnea Hypertrophic cardiomyopathy Hyponatremia Obstructive sleep apnea Essential (primary) hypertension Hyperlipidemia Hypertrophic cardiomyopathy Chief Complaint BEKAH Sleep problems 6 WK FU E-ORDER BEKAH,CPAP SET UP *INVENTORY TAGGED Reason for Visit Obstructive sleep ap kyle Hypertrophic cardiomyopathy Hyponatremia Obstructive sleep apnea Essential (primary) hypertension Hyperlipidemia Hypertrophic cardiomyopathy Chief Complaint BEKAH Sleep problems 6 WK FU E-ORDER BEKAH,CPAP SET UP *INVENTORY TAGGED HYPERCALCEMIA- LABS AND XRAY EORDER Reason for Visit Obstructive sleep ap kyle Hypertrophic cardiomyopathy Hyponatremia Obstructive sleep apnea Essential (primary) hypertension Hyperlipidemia Hypertrophic cardiomyopathy Chief Complaint Sleep problems 6 WK FU E-ORDER BEKAH,CPAP SET UP *INVENTORY TAGGED HYPERCALCEMIA- LABS AND XRAY EORDER ELEVATED PARATHYROID HORMONE PARATHYROID; US 08/31 E ORDERS Reason for Visit Obstructive sleep ap kyle Hypertrophic cardiomyopathy Hyponatremia Obstructive sleep apnea Essential (primary) hypertension Hyperlipidemia Hypertrophic cardiomyopathy Hyperparathyroidism Chief Complaint Sleep problems 6 WK FU E-ORDER BEKAH,CPAP SET UP *INVENTORY TAGGED HYPERCALCEMIA- LABS AND XRAY EORDER ELEVATED PARATHYROID HORMONE PARATHYROID; US 08/31 E ORDERS POST CLAUDINE Reason for Visit Obstructive sleep ap kyle Hypertrophic cardiomyopathy Hyponatremia Obstructive sleep apnea Essential (primary) hypertension Hyperlipidemia Hypertrophic cardiomyopathy Hyperparathyroidism Chief Complaint BEKAH,CPAP SET UP *INV ENTORY TAGGED HYPERCALCEMIA- LABS AND XRAY EORDER ELEVATED PARATHYROID HORMONE PARATHYROID; US 08/31 E ORDERS POST CLAUDINE 3 M FU Hyperparathyroidism, unspecified DISCUSS SURGERY FOR PARATHYROIDECTOMY PARATHYROIDECTOMY WITH PT AND INTRAOPERATIVE NERVE PARATHYROIDECTOMY WITH PT AND INTRAOPERATIVE NERVE Reason for Visit Hyperparathyroidism Dyspnea Obstructive sleep apnea Hyperparathyroidism Status post parathyroidectomy Chief Complaint BEKAH,CPAP SET UP *INV ENTORY TAGGED HYPERCALCEMIA- LABS AND XRAY EORDER ELEVATED PARATHYROID HORMONE PARATHYROID; US 08/31 E ORDERS POST CLAUDINE 3 M FU Hyperparathyroidism, unspecified DISCUSS SURGERY FOR PARATHYROIDECTOMY PREOP PARATHYROIDECTOMY WITH PT AND INTRAOPERATIVE NERVE PARATHYROIDECTOMY WITH PT AND INTRAOPERATIVE NERVE E ORDERS 1WK F/U 12/01 PARATHYROIDECTOMY DYSPNEA DYSPNEA Reason for Visit Hyperparathyroidism Dyspnea Obstructive sleep apnea Hyperparathyroidism Status post parathyroidectomy Hyperparathyroidism Status post parathyroidectomy Chief Complaint HYPERCALCEMIA- LABS AND XRAY EORDER ELEVATED PARATHYROID HORMONE PARATHYROID; US 08/31 E ORDERS POST CLAUDINE 3 M FU Hyperparathyroidism, unspecified DISCUSS SURGERY FOR PARATHYROIDECTOMY PREOP PARATHYROIDECTOMY WITH PT AND INTRAOPERATIVE NERVE PARATHYROIDECTOMY WITH PT AND INTRAOPERATIVE NERVE E ORDERS 1WK F/U 12/01 PARATHYROIDECTOMY DYSPNEA DYSPNEA E ORDER Reason for Visit Hyperparathyroidism Dyspnea Obstructive sleep apnea Hyperparathyroidism Status post parathyroidectomy Hyperparathyroidism Status post parathyroidectomy Chief Complaint DISCUSS SURGERY FOR PARATHYROIDECTOMY PREOP PARATHYROIDECTOMY WITH PT AND INTRAOPERATIVE NERVE PARATHYROIDECTOMY WITH PT AND INTRAOPERATIVE NERVE E ORDERS 1WK F/U 12/01 PARATHYROIDECTOMY DYSPNEA DYSPNEA E ORDER 4 M FU BEKAH Reason for Visit Hyperparathyroidism Status post parathyroidectomy Hyperparathyroidism Status post parathyroidectomy Stage 1 mild COPD by GOLD classification Obstructive sleep apnea Chief Complaint 4 M FU BEKAH 6 m fu (MOVED FROM [facility]) BEKAH, HYPERTROPHIC CMP 3 M FU E ORDER Reason for Visit Stage 1 mild COPD by GOLD classification Mitral valve insufficiency Essential (primary) hypertension Hyperlipidemia Hypertrophic cardiomyopathy Sleep apnea Smoking greater than 20 pack years Chief Complaint 6 M FU SCREENING Reason for Visit Sleep apnea Smoking greater than 20 pack years Chief Complaint 6 M FU SCREENING ABNORMAL MAMMO Reason for Visit Sleep apnea Smoking greater than 20 pack years Chief Complaint 1 Y FU 6 M FU INT LABS TWO DR'S Reason for Visit Mitral valve insuffi ciency Essential (primary) hypertension Hyperlipidemia Hypertrophic cardiomyopathy Sleep apnea Stage 1 mild COPD by GOLD classification Chief Complaint Admit Date 3 M FU January 16, 2025 9:5 7am 1 Y FU January 21, 2025 8:2 8am 3 m fu April 24, 2025 9:56 am Reason for Visit Admit Date Sleep apnea January 16, 2025 9:5 7am Stage 1 mild COPD by GOLD classification January 16, 2025 9:57am Mitral valve insufficiency January 21, 8:28am Essential (primary) hypertension January 052024 8:28am Hyperlipidemia January 21, 2025 8:2 8am Hypertrophic cardiomyopathy January 21, 2025 8:28am Sleep apnea January 21, 2025 8:2 8am Sleep apnea April 24, 2025 9:56 am Stage 1 mild COPD by GOLD classification April 24, 2025 9:56am Family History No Family History Records Found Relationship Condition Age at Onset Recorded Date/T robles mother Coronary artery disease Unknown Diabetes mellitus Unknown Arthritis Unknown father Coronary artery disease Unknown Relationship Condition Age at Onset Recorded Date/T robles mother Coronary artery disease Unknown Diabetes mellitus Unknown Arthritis Unknown father Coronary artery disease Unknown daughter Disorder of thyroid Unknown sister Disorder of thyroid Unknown grandmother Disorder of thyroid Unknown Advance Directives No Advanced Directives Records Found Advance Directive Response Recorded Date/ Time Living Will No July 21, 2021 10:06pm Power of Hat Cutter No July 10:06pm Advance Directive Response Recorded Date/ Time Living Will No April 22, 2022 12:36pm Power of Hat Cutter No April 22 12:36pm Advance Directive Response Recorded Date/ Time Living Will No April 22, 2022 11:36am Power of Hat Cutter No April 22 11:36am Advance Directive Response Recorded Date/ Time Living Will No November 24 10:16am Power of Hat Cutter No November 24, 2022 10:16am Advance Directive Response Recorded Date/ Time Living Will No November 24 11:16am Power of Hat Cutter No November 24, 2022 11:16am Advance Directive Response Recorded Date/ Time Living Will No November 24 11:16am Do you have a Healthcare Power of Hat Cutter? No November 24, 2022 11:16am Summary Purpose Additional Source Comments Goals (unrecognized section and content) Goals may be documented in a n alternate sectionGoals may be documented in an alternate sectionGoals may be documented in an alternate sectionGoals may be documented in an alternate sectionGoals may be documented in an alternate sectionGoals may be documented in an alternate sectionGoals may be documented in an alternate sectionGoals may be documented in an alternate sectionGoals may be documented in an alternate sectionGoals may be documented in an alternate sectionGoals may be documented in an alternate sectionGoals may be documented in an alternate sectionGoals may be documented in an alternate sectionGoals may be documented in an alternate sectionGoals may be documented in an alternate sectionGoals may be documented in an alternate section INFORMATION SOURCE (unrecogn ized section and content) DATE CREATED AUTHOR 04/20/2022 Tayo Bills [facility] DATE CREATED AUTHOR 'S ORGANIZ ATION [facility] Care Teams (unrecognized sec tion and content) Team Status: Active Member Role Status Dates Dr. Hoda Concepcion MD Family Provider Active Dr. Hoda Concepcion MD Primary Care Provider Active Team Status: Inactive Member Role Status Dates Dr. Hoda Concepcion MD Primary Care Provider, Referrin g Provider Active Dr. Brandon Wheatley MD Attending Provider Active Team Status: Inactive Member Role Status Dates Dr. Hoda Concepcion MD Primary Care Provider, Referrin g Provider Active Dr. Chad Zhong MD Attending Provider Active Team Status: Active Member Role Status Dates Dr. Hoda Concepcion MD Primary Care Provider Active Dr. Chad Zhong MD Attending Provide r, Referring Provider, Other Provider Active Team Status: Inactive Member Role Status Dates Dr. Hoda Concepcion MD Primary Care Provider Active Kay Muniz STILL TENDER, STILL TENDER-C Attending Provider Active Team Status: Inactive Member Role Status Dates Dr. Hoda Concepcion MD Primary Care Provider, Attendin g Provider Active Team Status: Inactive Member Role Status Dates Dr. Hoda Concepcion MD Primary Care Prov ider, Attending Provider, Referring Provider Active Team Status: Inactive Member Role Status Dates Dr. Hoda Concepcion MD Primary Care Provider Active Brooklynn Herbert NP, STILL TENDER-C Attending Provider, Referring P rovider Active Team Status: Inactive Member Role Status Dates Dr. Hoda Concepcion MD Primary Care Provider Active Dr. Chad Zhong MD Attending Provider, Referring P rovider Active Team Status: Active Member Role Status Dates Dr. Hoda Concepcion MD Primary Care Provider Active Dr. Ha Sanchez MD Attending Provider Activ e Dr. Christofer Rodrigez MD Referring Provider Active Team Status: Active Member Role Status Dates Dr. Hoda Concepcion MD Primary Care Provider Active Dr. Brandon Wheatley MD Other Provider Active Dr. Celestino Wiseman DO Attending Provider Active Team Status: Active Member Role Status Dates Dr. Hoda Concepcion MD Primary Care Provider Active Dr. Brandon Wheatley MD Attending Provider Active Team Status: Inactive Member Role Status Dates Dr. Hoda Concepcion MD Primary Care Provider Active Dr. Bradnon Wheatley MD Attending Provider Active Team Status: Active Member Role Status Dates Dr. Hoda Concepcion MD Primary Care Provider Active Dr. Chad Zhong MD Attending Provider Active Team Status: Inactive Member Role Status Dates Dr. Hoda Concepcion MD Primary Care Provider, Referrin g Provider Active Kay Muniz STILL TENDER, STILL TENDER-C Attending Provider Active Team Status: Inactive Member Role Status Dates Dr. Hoda Concepcion MD Primary Care Provider Active Dr. Chad Zhong MD Attending Provider Active Team Status: Inactive Member Role Status Dates Dr. Hoda Concepcion MD Primary Care Provider, Referrin g Provider Active Cary CHILEL, PA Attending Provider Active Team Status: Active Member Role Status Dates Dr. Hoda Concepcion MD Primary Care Provider Active Dr. Rodrigo Coon MD Attending Provider Active Team Status: Inactive Member Role Status Dates Dr. Hoda Concepcion MD Primary Care Provider Active Cary Walls PA, PA Attending Provider, Referr ing Provider Active Team Status: Inactive Member Role Status Dates Dr. Hoda Concepcion MD Primary Care Provider Active Cary Walls PA, PA Attending Provider, Referr ing Provider Active Dr. Chad Zhong MD Other Provider Active Team Status: Active Member Role Status Dates Dr. Hoda Concepcion MD Primary Care Provider Active Team Status: Inactive Member Role Status Dates Dr. Hoda Concepcion MD Primary Care Provider Active Start: January 16, 2025 End: January 16, 2025 Dr. Hoda Concepcion MD Referring Provider Active Start: January 16, 2025 End: January 16, 2025 DENG Artis Attending Provider Active Start: January 16, 2025 End: January 16, 2025 Team Status: Inactive Member Role Status Dates Dr. Hoda Concepcion MD Primary Care Provider Active Start: January 21, 2025 End: January 21, 2025 Dr. Hoda Concepcion MD Referring Provider Active Start: January 21, 2025 End: January 21, 2025 RANJANA Ruiz Attending Provider Active St art: January 21, 2025 End: January 21, 2025 Team Status: Inactive Member Role Status Dates Dr. Hoda Concepcion MD Primary Care Provider Active Start: April 24, 2025 End: April 24, 2025 Dr. Hoda Concepcion MD Referring Provider Active Start: April 24, 2025 End: April 24, 2025 DENG Artis Attending Provider Active Start: April 24, 2025 End: April 24, 2025 FOR RECORDS PERTAINING TO PATIENTS WHO ARE OR HAVE BEEN ENROLLED IN A CHEMICAL DEPENDENCY/SUBSTANCEABUSE PROGRAM, SOME INFORMATION MAY BE OMITTED. This clinical summary was aggregated from multiple sources. Caution should be exercised in using it in the provision of clinical care. This summary normalizes information from multiple sources, and as a consequence, information in this document may materially change the coding, format and clinical context of patient data. In addition, data may be omitted in some cases. CLINICAL DECISIONS SHOULD BE BASED ON THE PRIMARY CLINICAL RECORDS. [facility], [facility]. provides no warranty or guarantee of the accuracy or completeness of information in this document.
== END | disposition home or self-care (01) ==
PROVIDERS: PCP Family Medicine; Referring Provider Nurse Practitioner Family; Visit Provider Nurse Practitioner Family
DX: G47.33 Obstructive sleep apnea (adult) (pediatric) (principal)
CPT/HCPCS: 93306; Q9957; A4216; C8929

== ENCOUNTER → 2025-06-03 | Outpatient (CLI) | payer MEDICARE, SELFPAY | END | disposition home or self-care (01) | LOC: SL 20:09 | PROVIDERS: PCP Family Medicine; Referring Provider Nurse Practitioner Family; Visit Provider Nurse Practitioner Family | DX: G47.31 Primary central sleep apnea (principal) | CPT/HCPCS: 95811 ==

== ENCOUNTER → 2025-06-13 | Outpatient (CLI) | payer MEDICARE, SELFPAY ==
--- OUTSIDE RECORDS SUMMARY | 2025-06-13 17:16 | XMS RPT_ITS | CCD ---
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 Hoda Concepcion Primary Care Provider Dr. Hoda Concepcion Referring Provider [phone] Keon SPENCER, RN CLINICAL APPEALS-C Brooklynn Attending Provider RAGHAVENDRA BRAY MD Attending Unavailable RAGHAVENDRA BRAY MD Primary Care Unavailable RAGHAVENDRA BRAY MD Admitting Unavailable Dr. Hoda Concepcion Primary Care Provider Dr. Hoda Concepcion Referring Provider [phone] Keon RN CLINICAL APPEALS, RN CLINICAL APPEALS-C Brooklynn Attending Provider Flavio RN CLINICAL APPEALS, RN CLINICAL APPEALS-C Kay Attending Provider Dr. Hoda Concepcion Primary Care Provider Dr. Hoda Concepcion Referring Provider [phone] Keon SPENCER, RN CLINICAL APPEALS-C Brooklynn Attending Provider Dr. Chad Zhong Attending Provider Dr. Hoda Concepcion Primary Care Provider [phone] Hoda Concepcion Referring Provider [phone] Flavio SPENCER, RN CLINICAL APPEALS-C Kay Attending Provider Keon SPENCER, RN CLINICAL APPEALS-C Brooklynn Attending Provider Dr. Chad Zhong Attending Provider Dr. oHda Concepcion Primary Care Provider Dr. Hoda Concepcion [...] Provider Dr. Celestino Wiseman Attending Provider Flavio RN CLINICAL APPEALS, RN CLINICAL APPEALS-C Kay Attending Provider Dr. Hoda Concepcion Primary Care Provider Dr. Hoda Concepcion Referring Provider Titi CHILEL, PA Cary Caal Attending Provider Dr. Rodrigo Coon Attending Provider Dr. Hoda Concepcion Primary Care Provider Dr. Hoda Concepcion Referring Provider Dr. Brandon Wheatley Attending Provider Dr. Hoda Concepcion Primary Care Provider Dr. Hoda Concepcion Referring Provider Titi CHILEL, PA Cary Caal Attending Provider Flavio SPENCER, RN CLINICAL APPEALS-C Kay Attending Provider Dr. Hoda Concepcion MD Primary Care Provider Dr. Hoda Concepcion MD S Referring Provider Jessica RN CLINICAL APPEALS-C, Eva Caal Attending Provider Walter Hall Attending Provider Jessica RN CLINICAL APPEALS-C, Eva Caal Referring Provider Shekhar PRATER, Stephany Primary Care Provider [phone] Jaymie PRATER, Dr. Wallace Attending Provider Carlene PRATER, Dr. Hoda Kerr Primary Care Provider [phone] Carlene PRATER, Dr. Hoda Kerr Referring Provider Jessica RN CLINICAL APPEALS-C, Eva Caal Attending Provider Eva Lopez Attending Unavailable Jolliff, Hoda S Referring Unavailable Jolliff, Hoda S Primary Care Unavailable Shekhar, Chalon Primary Care Unavailable Rodrigo Coon Attending Unavailable Jolliff, Hoda S Referring Unavailable Flavio SPENCER, Kay Attending Unavailable Jolliff, Hoda S Primary Care Unavailable Shekhar, Chalon Primary Care Unavailable RuEva eaton Attending Unavailable Eva Lopez Referring Unavailable Flavio SPENCER, Kay Attending Unavailable Jolliff, Hoda S Primary Care Unavailable Jolliff, Hoda S Attending Unavailable Jolliff, Hoda S Primary Care Unavailable RufenEva lara Referring Unavailable Eva Lopez Attending Unavailable Shekhar, Chalon Primary Care Unavailable Eva Lopez Referring Unavailable RufenEva lara Attending Unavailable Shekhar, Chalon Primary Care Unavailable Chad Zhong Referring Unavailable Jolliff, Hoda S Attending Unavailable Jolliff, Hoda S Primary Care Unavailable RufenerEva Attending Unavailable Jolliff, Hoda S Primary Care Unavailable Jolliff, Hoda S Referring Unavailable Jolliff, Hoda S Referring Unavailable Walter Hagen Attending Unavailable Jolliff, Hoda S Primary Care Unavailable Allergies Allergy Classification Reported Allergen(s) Allergy Type Date of Onset Reaction(s) Facility (5 sources) Pollen Allergy to substance 2 URI symptoms [facility] Work Phone: (5 sources) mold spores Allergy to substance 2 URI symptoms [facility] Work Phone: (17 sources) Mold Extract Drug Allergy 2 Other [facility] Comment on above: URI SYMPTOMS (17 sources) Pollen Allergy to substance 2 Other [facility] Comment on above: URI SYMPTOMS (1 source) Mold Extract Drug Allergy 5 [facility] Repository (1 source) Pollen Drug allergy (disorder) 5 [facility] Medications Current Medications Medication Drug Class(es) Dates Sig (Normalized) Sig (Original) Bionutritionals-Adv anced Memory Formula (20 sources) Start: 02-25-2022 take 2 tablets by mouth once daily Bionutritionals-Ad vanced Memory Formula Active 2 TABLET PO DAILY February 25, 2022 9:12am Start: 02-25-2022 End: 04-20-2022 Bionutritionals-Advanced Mem ory Formula Discontinued 2 {tbl} PO DAILY 0 February 25, 2022 12:00am April 20, 2022 9:25am Start: 02-25-2022 End: 04-20-2022 Bionutritionals-Advanced Mem ory [...] mg tablet Active 10 mg PO DAILY 06 10May 13, 2022 1:54pm Medical marijuana (20 sources) Start: 02-25-2022 Medical marijuana Active INHALATION February 25, 2022 9:21am Start: 02-25-2022 End: 04-20-2022 Medical marijuana Discontinu ed INHALATION 0 February 25, 2022 12:00am April 20, 2022 9:02am Start: 02-25-2022 End: 04-20-2022 Medical marijuana Discontinu ed INHALATION February 24, 2022 11:00pm April 20, 2022 8:02am Start: 02-25-2022 End: 04-20-2022 Medical marijuana Discontinu ed INHALATION February 25, 2022 12:00am April 20, 2022 9:02am Multivitamin (Daily Multi-Vitamin) tablet (4 sources) Start: 01-23-2024 Multivitamin ( Daily Multi-Vitamin) tablet Active 1 {tbl} PO DAILY January 23, 2024 12:00am Start: 01-23-2024 take 1 tablet by taisha th once daily Multivitamin (Daily Multi-Vitamin) tablet Active 1 TABLET PO DAILY January 23, 2024 12:00am Croydon-3 Fatty Acids (1 source) Start: 01-23-2024 take 1000 mg by mout h once daily [place]roydon-3 Fatty Acids Active 1000 MG PO DAILY January 23, 2024 12:00am Croydon-3 Fatty Acids 1,000 mg capsule (3 sources) Start: 01-23-2024 take 1 capsule by mouth once daily Croydon-3 Fatty Acids 1,000 mg capsule Active 1000 mg PO DAILY January 23, 2024 12:00am Vitamin B Complex (1 source) Start: 01-23-2024 take 1 tablet by taisha th once daily Vitamin B Complex Active 1 TABLET PO DAILY January 23, 2024 12:00am Vitamin B Complex tablet (3 sources) Start: 01-23-2024 Vitamin B Comp rody tablet [...] mg / cholecalciferol 800 unt oral tablet (20 sources) Vitamin D Start: 12-02-2022 End: 01-23-2024 Calcium Carbonate-Vitamin D3 600 mg-20 mcg (800 unit) tablet Discontinued 1 {tbl} PO TWICE A DAY 60 0 December 02, 2022 1:00am January 23, 2024 10:06am Start: 12-02-2022 End: 01-23-2024 take 1 tablet by mouth twice daily Calcium Carbonate-Vitamin D3 Discontinued 1 TABLET PO TWICE A DAY 60 December 02, 2022 1:00am January 23, 2024 10:06am Start: 12-01-2022 End: 12-02-2022 Calcium Carbonate-Vitamin D3 (Os-Florentino 500 + D3) 500 mg-15 mcg (600 unit) tablet Discontinued 1 {tbl} PO TWICE A DAY 60 30 0 December 01, 2022 1:00am December 02, 2022 8:53am Status post parathyroidectomy Postprocedural hypoparathyroidism estradiol 0.1 mg/ml vaginal cream (20 sources) [...] mg tablet Discontinued 1 {tbl} PO daily March 23, 2021 1:55pm February 25, 2022 1:21pm Start: 03-01-2018 End: 04-20-2022 take 1 tablet [...] 27, 2018 12:00am February 18, 2020 2:22pm 24 hr metoprolol succinate 50 mg extended release oral tablet (20 sources) beta-Adrenergic Francois Start: 05-25-2022 End: 05-13-2025 take 1 tablet by mouth once daily Metoprolol Succinate 50 mg tablet extended release 24 hr Discontinued 50 mg PO daily 90 3 February 13, 2024 9:37am March 19, 2025 5:43pm Start: 04-14-2022 End: 05-25-2022 Metoprolol Succinate 50 mg t ablet extended release 24 hr Discontinued 100 mg PO daily 90 3 April 14, 2022 10:39am May 25, 2022 2:11pm Start: 04-14-2022 End: 05-25-2022 take 100 mg by mouth once daily Metoprolol Succinate Discontinued 100 MG PO daily 90 April 14, 2022 10:39am May 25, 2022 2:11pm Start: 02-25-2022 End: 04-14-2022 take 1 tablet by mouth once daily Metoprolol Succinate 50 mg tablet extended release 24 hr Discontinued 50 mg PO daily 90 3 February 25, 2022 1:20pm April 14, 2022 10:41am Start: 02-17-2021 End: 02-25-2022 take 1 tablet by mouth once daily Metoprolol Succinate 100 mg tablet extended release 24 hr Discontinued 100 mg PO daily 90 3 March 23, 2021 1:55pm February 25, 2022 1:21pm Start: 03-01-2018 End: 02-17-2021 take 1 tablet by mouth once daily Metoprolol Succinate (Toprol Xl) 50 mg tablet extended release 24 hr Discontinued 50 mg PO daily 90 3 February 22, 2019 9:05am February 18, 2020 2:29pm omega-3 fatty acids 1,250 mg capsule (20 sources) Start: 02-27-2018 End: 03-01-2018 take 1 capsule by mouth once daily omega-3 fatty acids 1,250 mg capsule Discontinued 1250 MG PO daily February 27, 2018 8:56pm March 01, 2018 3:35pm Start: 02-27-2018 End: 03-01-2018 take 1 capsule by mouth once daily Croydon-3 Fatty Acids 1,250 mg capsule Discontinued 1250 [...] 27, 2018 12:00am February 18, 2020 2:23pm rosuvastatin calcium 40 mg oral tablet (20 sources) HMG-CoA Reductase Inhibitor Start: 02-18-2020 End: 03-19-2025 take 1 tablet by mouth at bedtime Rosuvastatin 40 mg tablet Discontinued 40 mg PO AT BEDTIME 90 3 February 20, 2024 8:08am March 19, 2025 12:49pm Problems Active Problems Problem Classification Problem Date Documented Date Episodic/Chronic Cardiac dysrhythmias (20 sources) Palpitations; Translations: [Palpitations] Episodic Chronic obstructive pulmonary disease and bronchiectasis (16 sources) Mild chronic obstructive pulmonary disease; Translations: [Chronic obstructive pulmonary disease, unspecified] 01-19-2023 Chronic Complications of surgical procedures or medical care (12 sources) History of parathyroidectomy; Translations: [Postprocedural hypoparathyroidism] 12-01-2022 Chronic Diabetes mellitus with complications (1 source) Type 2 diabetes mellitus with other circulatory complications; Translations: [Type 2 diabetes mellitus with other circulatory complications] Onset: 4 Chronic Diabetes mellitus without complication (14 sources) Prediabetes; Translations: [Prediabetes] 09-03-2022 Episodic Disorders of lipid metabolism (20 sources) Hyperlipidemia; Translations: [Hyperlipidemia, unspecified] Onset: 5 Chronic Esophageal disorders (14 sources) Gastroesophageal reflux disease; Translations: [Gastro-esophageal reflux disease without esophagitis] 09-03-2022 Chronic Essential hypertension (20 sources) Essential hypertension; Translations: [Essential (primary) hypertension] Chronic Fluid and electrolyte disorders (20 sources) Hypokalemia; Translations: [Hypokalemia] Episodic Heart valve disorders (20 sources) Mitral valve prolapse; Translations: [Nonrheumatic mitral (valve) prolapse] 09-03-2022 Chronic Heart valve disorders (14 sources) Heart murmur; Translations: [Cardiac murmur, unspecified] 09-06-2022 Episodic Malaise and fatigue (20 sources) Fatigue; Translations: [Other fatigue] Episodic Nonspecific chest pain (20 sources) Chest pain on exertion; Translations: [Chest pain, unspecified] 02-16-2021 Episodic Osteoarthritis (3 sources) Arthropathy of joint of hand; Translations: [Osteoarthritis of first carpometacarpal joint, unspecified] 03-21-2024 Chronic Other connective tissue disease (3 sources) Triggering of digit; Translations: [Trigger finger, unspecified finger] 03-21-2024 Episodic Other endocrine disorders (14 sources) Hyperparathyroidism; Translations: [Hyperparathyroidism, unspecified] 10-25-2022 Chronic [...] [Other hypertrophic cardiomyopathy] Chronic Residual codes; unclassified (20 sources) Hypersomnia; Translations: [Hypersomnia, unspecified] 09-06-2022 Chronic Residual codes; unclassified (4 sources) Hypersomnia, unspecified; Translations: [Hypersomnia, unspecified] Chronic Residual codes; unclassified (11 sources) Obstructive sleep apnea syndrome; Translations: [Obstructive sleep apnea (adult) (pediatric)] 04-27-2022 Chronic Residual codes; unclassified (17 sources) Obstructive sleep apnea (adult) (pediatric); Translations: [Obstructive sleep apnea (adult)(pediatric)] Onset: 5 Chronic Residual codes; unclassified (14 sources) Sleep apnea; Translations: [Sleep apnea, unspecified] 04-29-2023 Chronic Comment on above: treatment emergent c entral Residual codes; unclassified (4 sources) Sleep apnea, unspecified; Translations: [Unspecified sleep apnea] 04-27-2023 Chronic Residual codes; unclassified (2 sources) Central sleep apnea syndrome; Translations: [Primary central sleep apnea] 04-30-2025 Chronic Residual codes; unclassified (1 source) Primary central sleep apnea; Translations: [Primary central sleep apnea] Onset: 5 Chronic Residual codes; unclassified (6 sources) History of parathyroidectomy; Translations: [Other specified [...] oil or cocoa butter ongoing. Substance-related disorders (10 sources) Cigarette smoker ; Translations: [Nicotine dependence, cigarettes, uncomplicated] 04-29-2023 Chronic Syncope (20 sources) Near syncope; Translations: [Syncope and collapse] 07-29-2021 Episodic Viral infection (20 sources) Disease caused by 2019-nCoV; Translations: [COVID-19] [...] Test Name Value Interpretation Reference Range Facility Echo Complete W/ Contraston 05-02-2025 Echo Complete W/ Contrast [facility] [place] [address] Echo Complete W/ Contrast 05/02/25 1301 MR#: [id number] Acct: [id number] Name: FELIBERTO MENG Rep #: [id number] : 1955 69 From: Rodrigo Coon MD Attending Dr: Eva Lopez, RN CLINICAL APPEALS Status: REG CL I Ordering Dr: Eva Lopez RN CLINICAL APPEALS-C Date: 05/02/25 Location: [facility] Sex: F C Admitted: Reason For Study Reason For Study: Evaluate EF for ASV Consideration Procedure This was a 2D Doppler, Color Flow transthoracic echocardiogram. The study was technically difficult. Contrast injection was performed. Exam performed in department. Left Ventricle Normal LV size. Left ventricular systolic function is normal. The left ventricular ejection fraction is 70 %. Stage 1 diastolic dysfunction. Resting LV gradient 11 mmHg. Valsalva LV gradient 56 mmHg. No regional wall motion abnormalities noted. Right Ventricle Normal RV size. Normal systolic function. Atria Normal left atrium. Normal right atrium. Tricuspid Valve Normal tricuspid valve. Aortic Valve Trisinus/trileaflet aortic valve. Pulmonic Valve Normal pulmonic valve. Great Vessels Normal aortic root. The pulmonary artery is normal size. Inferior vena cava collapse with respiration. Pericardium/Pleural No pericardial effusion. Medication 22 gauge I.V. with prn adaptor inserted into right arm. Diluted definity 2ml given slow IV push to enhance endocardial definition. MMode/2D Measurements Calculations LVIDd: 3.8 cm IVSd: 0.76 cm Ao root diam: 3.2 cm LVIDs: 2.1 cm LVPWd: 0.79 cm RVDd: 3.4 cm FS: 45.6 % LAV(MOD-bp): 29.5 ml LVAd ap4: 27.6 cm2 SV(MOD-sp4): 56.1 ml LAV(MOD-bp) Indexed: 16.6 ml/m2 LVLd ap4: 8.0 cm SI(MOD-sp4): 31.6 ml/m2 LAV(MOD-sp2): 32.8 ml EDV(MOD-sp4): 77.8 ml LAV(MOD-sp4): 24.2 ml EDV(sp4-el): 81.1 ml LVAs ap4: 12.8 cm2 LVLs ap4: 6.0 cm ESV(MOD-sp4): 21.7 ml ESV(sp4-el): 23.0 ml EF(MOD-sp4): 72.1 % EF(sp4-el): 71.7 % SV(sp4-el): 58.2 ml LA A4 area: 11.3 cm2 LA dimension(2D): 3.3 cm RA A4 area: 12.0 cm2 TAPSE: 2.1 cm Time Measurements MV dec time: 0.34 sec Doppler Measurements Calculations MV E max sundar: 66.1 cm/sec Lat Peak E' Sundar: 8.2 cm/sec Med Peak E' Sundar: 5.6 cm/sec MV A max sundar: 104.9 cm/sec E/E' lat: 8.1 E/E' med: 11.8 MV E/A: 0.63 MV V2 max: 119.4 cm/sec MV P1/2t max sundar: 82.5 cm/sec Ao V2 max: 188.7 cm/sec MV max P.7 mmHg MV P1/2t: 121.3 msec Ao max P.2 mmHg MV V2 mean: 59.3 cm/sec Ao V2 mean: 143.4 cm/sec MV mean P.7 mmHg MV dec slope: 199.2 cm/sec2 Ao mean P.0 mmHg MV V2 VTI: 32.3 cm MVA(P1/2t): 1.8 cm2 Ao V2 VTI: 47.5 cm LV V1 max: 159.1 cm/sec MR max sundar: 503.9 cm/sec PA V2 max: 133.3 cm/sec LV V1 max P.1 mmHg MR max P.5 mmHg PA V2 mean: 95.3 cm/sec ECHO/Echo Complete W/ Contrast Interpretation Summary Normal LV size. Left ventricular systolic function is normal. The left ventricular ejection fraction is 70 %. Stage 1 diastolic dysfunction. Resting LV gradient 11 mmHg. Valsalva LV gradient 56 mmHg. Contrast injection was performed. Ordering Physician: Eva Lopez Referring Physician: Eva Lopez Performed By: Willie Guerrero RCS 05/02/25 1552 Date Rodrigo Coon MD CC: Dr. Stephany Corrigan MD; Eva Lopez NP Date Dictated: 05/02/25 1301 Date Transcribed: 05/02/251551 Supervisor Drying And Winding: Signed Normal [facility] Echocardiogram study reportO rdered By: Rodrigo Coon on 05-02-2025 Study report [facility] [address] [place] [address] Echo Complete W/ Contrast 05/02/25 130 MR#: [id number] Acct: [id number] Name: FELIBERTO MENG Rep #:[id number] : 1955 69 From: Rodrigo Nj Attending Dr: Eva Lopez NP atus: REG CLI Ordering Dr: Eva Lopez RN CLINICAL APPEALS-C Dk e: 05/02/25 Location: [facility] Sex: F C Admitted: Reason For Study Reason For Study: Evaluate EF for ASV Consideration Procedure This was a 2D Doppler, Color Flow transthoracic echocardiogram. The study was technically difficult. Contrast injection was performed. Exam performed in department. Left Ventricle Normal LV size. Left ventricular systolic function is normal. The left ventricular ejection fraction is 70 %. Stage 1 diastolic dysfunction. Resting LV gradient 11 mmHg. Valsalva LV gradient 56 mmHg. No regional wall motion abnormalities noted. Right Ventricle Normal RV size. Normal systolic function. Atria Normal left atrium. Normal right atrium. Tricuspid Valve Normal tricuspid valve. Aortic Valve Trisinus/trileaflet aortic valve. Pulmonic Valve Normal pulmonic valve. Great Vessels Normal aortic root. The pulmonary artery is normal size. Inferior vena cava collapse with respiration. Pericardium/Pleural No pericardial effusion. Medication 22 gauge I.V. with prn adaptor inserted into right arm. Diluted definity 2ml given slow IV push to enhance endocardial definition. MMode/2D Measurements & Calculations LVIDd: 3.8 cm IVSd: 0.76 cm Ao root diam: 3.2 cm LVIDs: 2.1 cm LVPWd: 0.79 cm RVDd: 3.4 cm FS: 45.6 % LAV(MOD-bp): 29.5 ml LVAd ap4: 27.6 cm2 SV(MOD-sp4): 56.1 ml LAV(MOD-bp) Indexed: 16.6 ml/m2 LVLd ap4: 8.0 cm SI(MOD-sp4): 31.6 ml/m2 LAV(MOD-sp2): 32.8 ml EDV(MOD-sp4): 77.8 ml LAV(MOD-sp4): 24.2 ml EDV(sp4-el): 81.1 ml LVAs ap4: 12.8 cm2 LVLs ap4: 6.0 cm ESV(MOD-sp4): 21.7 ml ESV(sp4-el): 23.0 ml EF(MOD-sp4): 72.1 % EF(sp4-el): 71.7 % SV(sp4-el): 58.2 ml LA A4 area: 11.3 cm2 LA dimension(2D): 3.3 cm RA A4 area: 12.0 cm2 TAPSE: 2.1 cm Time Measurements MV dec time: 0.34 sec Doppler Measurements & Calculations MV E max sundar: 66.1 cm/sec Lat Peak E' Sundar: 8.2 cm/sec Med Peak E' Sundar: 5.6 cm/sec MV A max sundar: 104.9 cm/sec E/E' lat: 8.1 E/E' med: 11.8 MV E/A: 0.63 MV V2 max: 119.4 cm/sec MV P1/2t max sundar: 82.5 cm/sec Ao V2 max: 188.7 cm/sec MV max P.7 mmHg MV P1/2t: 121.3 msec Ao max P.2 mmHg MV V2 mean: 59.3 cm/sec Ao V2 mean: 143.4 cm/sec MV mean P.7 mmHg MV dec slope: 199.2 cm/sec2 Ao mean P.0 mmHg MV V2 VTI: 32.3 cm MVA(P1/2t): 1.8 cm2 Ao V2 VTI: 47.5 cm LV V1 max: 159.1 cm/sec MR max sundar: 503.9 cm/sec PA V2 max: 133.3 cm/sec LV V1 max P.1 mmHg MR max P.5 mmHg PA V2 mean: 95.3 cm/sec ECHO/Echo Complete W/ Contrast Interpretation Summary Normal LV size. Left ventricular systolic function is normal. The left ventricular ejection fraction is 70 %. Stage 1 diastolic dysfunction. Resting LV gradient 11 mmHg. Valsalva LV gradient 56 mmHg. Contrast injection was performed. Ordering Physician: Eva Lopez Referring Physician: Eva Lopez Performed By: Willie Guerrero RCS 05/02/25 1552 Date _ Rodrigo Coon MD CC: Dr. Stephany Corrigan MD; Eva Lopez NP ~ Date Dictated: 05/02/25 1301 Date Transcribed: 05/02/25 1552 Supervisor Drying And Winding: Signed [facility] Work Phone: Pulmonary Visit Reporton Pulmonary Visit Report [facility] [place] [address] [place] [address] OFFICE VISIT Date of Service: 04/24/25 MR#: [id number] Acct: [id number] Name: FELIBERTO MENG Rep #: [id number] : 1955 Provider: Eva Lopez NP Age/Sex: 69/F Location: [facility] [place] Status: Signed Assessment and Plan Assessment and [...] m fu Chief Complaint: 3 m fu Engineering Test Specialist Required: No DME Vendor: Christina Accompanied by: [...] PO D (more content not included)... Normal [facility] Cardiology Visit Reporton Cardiology Visit Report [facility] [address] [place] [address] OFFICE VISIT Date of Service: 01/21/25 MR#: [id number] Acct: [id number] Name: FELIBERTO MENG Rep #: [id number] : 1955 Provider: RANJANA Ruiz Age/Sex: 69/F Location: [facility] [place] Status: Signed HPI HPI History of Present [...] 94 Intake Visit Reasons: 1 Y FU Engineering Test Specialist Required: No Is patient in pain?: No [...] the past year?: Yes (Tripped and fell) [facility], [facility] Medical History (Updated 01/21/25 @ 09:34 by [...] Endo: Negat (more content not included)... Normal [facility] Pulmonary Visit Reporton Pulmonary Visit Report [facility] of [address] [place] [address] OFFICE VISIT Date of Service: 01/16/25 MR#: [id number] Acct: [id number] Name: FELIBERTO MENG Rep #: [id number] : 1955 Provider: Eva Lopez NP Age/Sex: 69/F Location: [facility] [place].[facility] Status: Signed Assessment and Plan Assessment and [...] body aches. The patient is using Bipap 11/7 without significant air leak or snore. There [...] air Intake Visit Reasons: 3 M FU Engineering Test Specialist Required: No DAMIAN Vendor: [employer] Accompanied by: Self Is patient in pain?: [...] you fallen in the past year?: [facility] History Mitral valve insufficiency Wears glasses Post-menopausal Anxiety Marijuana use Diabetes Arthritis Fat (more content not included)... Normal [facility] Pulmonary Visit Reporton Pulmonary Visit Report [facility] [place] [address] [facility] [facility] [place] [address] OFFICE VISIT Date of Service: 10/09/24 MR#: [id number] Acct: [id number] Name: FELIBERTO MENG Rep #: [id number] : 1955 Provider: DENG Muniz Age/Sex: 69/F Location: [facility] – [place].[facility] Status: Signed Assessment and Plan Assessment and [...] has been in communication with 2 separate [facility] companies, it is confusing as who should [...] M FU Chief Complaint: 3 m fu Engineering Test Specialist Required: No DME Vendor: Lidia Accompanied by: Self Allergies pollen extracts Allergy [...] Hypertrophic cardiomyo (more content not included)... Normal [facility] Dexa Bone Density Studyon Dexa Bone Density Study [facility] Imaging Services [address] [place], [place] [address] Dexa Bone Density Study MR#: [id number] Acct: [id number] Name: FELIBERTO MENG Rep #: [id number] : 1955 F 69 From: Radhames anguiano MD PCP: Dr. Hoda Concepcion MD Status: [facility] CL Study: Dexa Bone Density Study Date of Exam: 10/02/24 Exam# [id number] Ordering Dr: Chad Zhong MD :[id number] STUDY: DUAL ENERGY X-RAY ABSORPTIOMETRY / DXA [...] Signed: Radhames Nielsen MD at 15:04 EST Reading Location ID and State: [address] [place] [address] , Service support , CC: Dr. oHda Concepcion MD; Dr. Chad Zhong MD Supervisor Drying And Winding: Signed Normal [facility] SCRN MAMM (CAD)W/ASHLEY Jeny n 10-02-2024 SCRN MAMM (CAD)W/ASH[facility] Imaging Services [address] [place], [place] [address] SCRN MAMM (CAD)W/ASHLEY LYNNEAT MR#: [id number] Acct: [id number] Name: FELIBERTO MENG Rep #: [id number] : 1955 F 69 From: Deondre Marley MD PCP: Dr. Hoda Concepcion MD Status: REG CLI Study: SCRN MAMM (CAD)W/ASHLEY BILAT Date of Exam: 09/08 04/30 Exam# [id number] Ordering Dr: Hoda Concepcion MD :[id number] MAMMOGRAPHY - BILATERAL SCREENING 3-D TOMOSYNTHESIS REASON [...] EST , CC: Dr. Hoda Concepcion MD Supervisor Drying And Winding: Signed Normal [facility] Basic Metabolic Profile (BMP )on 09-10-2024 BUN/CRE 18.7 RATIO Normal - [facility] Comment on above: Performed By: #### L 501.0900, L501.9520, L500.2500, L500.3400, L500.4100 #### [facility] [address] [place], [address] CA,Total 9.0 mg/dL Normal 8.5-10.1 [facility] Comment on above: Performed By: #### L 501.0900, L501.9520, L500.2500, L500.3400, L500.4100 #### [facility] [address] [place], [address] Chloride [Moles/Vol] 104 mmol/L Normal 98-107 [facility] [place] Comment on above: Performed By: #### L 501.0900, L501.9520, L500.2500, L500.3400, L500.4100 #### [facility] [address] [place], [address] CO2 [Moles/Vol] 28.0 mmol/L Normal 21.0-32.0 [facility] Comment on above: Performed By: #### L 501.0900, L501.9520, L500.2500, L500.3400, L500.4100 #### [facility] [address] [place], [address] Creatinine [Mass/Vol] 0.80 mg/dL Normal 0.55-1.02 [facility] Comment on above: Result Comment: The validity of the calculated GFR GFRAA in patients over 70 years has not been determined. Clinical correlation is essential. Performed By: #### L 501.0900, L501.9520, L500.2500, L500.3400, L500.4100 #### [facility] [address] [place], [address] EST GFR - AA 92 mL/min Normal >60 [facility] Comment on above: Result Comment: Afri can Faroese GFR Calc Performed By: #### L 501.0900, L501.9520, L500.2500, L500.3400, L500.4100 #### [facility] [address] [place], [address] GAP 6 Normal 5-15 [facility] Comment on above: Performed By: #### L 501.0900, L501.9520, L500.2500, L500.3400, L500.4100 #### [facility] [address] [place], [address] GFR/1.73 sq M.predicted among non-blacks MDRD (S/P/Bld) [Vol rate/Area] 76 mL/min/{1.73_m2} Normal >60 [facility] Comment on above: Result Comment: Non- GFR Calc Performed By: #### L 501.0900, L501.9520, L500.2500, L500.3400, L500.4100 #### [facility] [address] [place], [address] Glucose [Mass/Vol] 111 mg/dL High 74-106 [facility] Comment on above: Result Comment: Fast ing Glucose result from 100 to 125 mg/dL suggests IMPAIRED HOMEOSTASIS per A.D.A. criteria. Performed By: #### L 501.0900, L501.9520, L500.2500, L500.3400, L500.4100 #### [facility] [address] [place], [address] Potassium [Moles/Vol] 4.0 mmol/L Normal 3.5-5.1 [facility] Comment on above: Performed By: #### L 501.0900, [id number], L500.2500, L500.3400, L500.4100 #### [facility] [address] [place], [address] Sodium [Moles/Vol] 138 mmol/L Normal 136-145 [facility] Comment on above: Performed By: #### L 501.0900, L501.9520, L500.2500, L500.3400, L500.4100 #### [facility] [address] [place], [address] Urea nitrogen [Mass/Vol] 15 mg/dL Normal 7-18 [facility] Comment on above: Performed By: #### L 501.0900, L501.9520, L500.2500, L500.3400, L500.4100 #### [facility] [address] [place], [address] Lipid Profileon 09-10-2024 Cholesterol [Mass/Vol] 202 mg/dL High 200 [facility] Comment on above: Result Comment: <200 mg/dL Desirable 200-240 mg/dL Borderline >240 mg/dL High Risk Performed By: #### L 501.0900, L501.9520, L500.2500, L500.3400, L500.4100 #### [facility] [address] [place], [address] Cholesterol in HDL [Mass/Vol] 47 mg/dL Normal [facility] Comment on above: Result Comment: The drugs N-Acetylcysteine and Metamizole may falsely depress this assay. Reference Range HDL <40 mg/dL Low HDL Cholesterol HDL >or= 60 mg/dL High HDL Cholesterol Performed By: #### L 501.0900, L501.9520, L500.2500, L500.3400, L500.4100 #### [facility] [address] [place], [address] Cholesterol in LDL [Mass/Vol] 105 mg/dL Normal 0-130 [facility] Comment on above: Performed By: #### L 501.0900, L501.9520, L500.2500, L500.3400, L500.4100 #### [facility] [address] [place], [address] Cholesterol in VLDL [Mass/Vol] 50 mg/dL High 5-40 [facility] Comment on above: Performed By: #### L 501.0900, L501.9520, L500.2500, L500.3400, L500.4100 #### [facility] [address] [place], [address] Triglyceride [Mass/Vol] 252 mg/dL High [facility] Comment on above: Result Comment: The drugs N-Acetylcysteine and Metamizole may falsely depress this assay. Serum Triglycerides Reference Interval Normal <150 mg/dL Borderline high 150 - 199 mg/dL High 200 - 499 mg/dL Very High > or = 500 mg/dL Performed By: #### L 501.0900, L501.9520, L500.2500, L500.3400, L500.4100 #### [facility] [address] [place], [address] Liver Profileon 09-10-2024 Albumin [Mass/Vol] 4.1 g/dL Normal 3.2-5.0 [facility] Comment on above: Performed By: #### L 501.0900, L501.9520, L500.2500, L500.3400, L500.4100 #### [facility] [address] [place], [address] ALK P 94 U/L Normal 45-117 [facility] Comment on above: Performed By: #### L 501.0900, L501.9520, L500.2500, L500.3400, L500.4100 #### [facility] [address] [place], [address] ALT [Catalytic activity/Vol] 30 U/L Normal 13-56 [facility] Comment on above: Performed By: #### L 501.0900, L501.9520, L500.2500, L500.3400, L500.4100 #### [facility] [address] [place], [address] AST [Catalytic activity/Vol] 22 U/L Normal 15-37 [facility] Comment on above: Performed By: #### L 501.0900, L501.9520, L500.2500, L500.3400, L500.4100 #### [facility] [address] [place], [address] Bilirubin [Mass/Vol] 0.40 mg/dL Normal 0.20-1.00 [facility] [place] Comment on above: Result Comment: For patients on eltrombopag therapy, use of Dimension [place] TBIL is not recommended. Performed By: #### L 501.0900, L501.9520, L500.2500, L500.3400, L500.4100 #### [facility] [address] [place], [address] Bilirubin.direct [Mass/Vol] 0.09 mg/dL Normal 0.00-0.30 [facility] Comment on above: Performed By: #### L 501.0900, L501.9520, L500.2500, L500.3400, L500.4100 #### [facility] [address] [place], [address] Globulin (S) [Mass/Vol] 3.3 g/dL Normal 2.2-4.2 [facility] Comment on above: Performed By: #### L 501.0900, L501.9520, L500.2500, L500.3400, L500.4100 #### [facility] [address] [place], [address] T PROT 7.4 g/dL Normal 6.4-8.2 [facility] Comment on above: Performed By: #### L 501.0900, L501.9520, L500.2500, L500.3400, L500.4100 #### [facility] [address] [place], [address] Protein+Creatinine Ratio,Uri neon 09-10-2024 PROT:CRE RATIO 124 mg/g CRE Normal 0-200 [facility] Comment on above: Performed By: #### L 501.0900, L501.9520, L500.2500, L500.3400, L500.4100 #### [facility] [address], [address] Protein (U) [Mass/Vol] 12.9 mg/dL High <11.9 [facility] Comment on above: Performed By: #### L 501.0900, L501.9520, L500.2500, L500.3400, L500.4100 #### [facility] [address] [place], [address] UR CREAT 104.00 mg/dL Normal NO RANGE EST. [facility] Comment on above: Performed By: #### L 501.0900, L501.9520, L500.2500, L500.3400, L500.4100 #### [facility] [address], [address] Thyroid Stim Hormone (TSH)on 09-10-2024 TSH 0.904 uIU/mL Normal 0.358-3.740 [facility] Comment on above: Performed By: #### L 501.0900, L501.9520, L500.2500, L500.3400, L500.4100 #### [facility] [address] [place], [address] Basophil percentageOrdered B y: Cary Walls on 03-01-2024 Bilirubin [Mass/Vol] 0.50 mg/dL 0.20-1.00 [facility] [place] Comment on above: For patients on eltr ombopag therapy, use of Dimension [place] TBIL is not recommended. Cholesterol [Mass/Vol] 166 mg/dL <200 [facility] Comment on above: <200 mg/dL Desirable 200-240 mg/dL Borderline >240 mg/dL High Risk Protein [Mass/Vol] 7.7 g/dL 6.4-8.2 [facility] Triglyceride [Mass/Vol] 152 mg/dL <199 [facility] Comment on above: The drugs N-Acetylcy steine and Metamizole may falsely depress this assay.Serum Triglycerides Reference Interval Normal <150 mg/dL Borderline high 150 - 199 mg/dL High 200 - 499 mg/dL Very High > or = 500 mg/dL Direct bilirubinOrdered By: Cary Walls on 03-01-2024 Bilirubin.direct [Mass/Vol] 0.11 mg/dL 0.00-0.30 [facility] - Chemistry and C hemistry - challengeOrdered By: Cary Walls on 03-01-2024 ALP [Catalytic activity/Vol] 95 U/L 45-117 [facility] ALT [Catalytic activity/Vol] 38 U/L 13-56 [facility] Cholesterol in HDL [Mass/Vol] 55 mg/dL >40 [facility] Comment on above: The drugs N-Acetylcy steine and Metamizole may falsely depress this assay. Reference Range HDL <40 mg/dL Low HDL Cholesterol HDL >or= 60 mg/dL High HDL Cholesterol Cholesterol in LDL [Mass/Vol] 81 mg/dL 0-130 [facility] Globulin (S) [Mass/Vol] 3.7 g/dL 2.2-4.2 [facility] No Panel InformationOrdered By: Chad Zhong on 03-01-2024 Free Triiodothyronine (T3) pg/dL 2.5 pg/mL 2.18-3.98 [facility] Parathyroid Hormone (Intact) 151.8 pg/mL 18.4-80.1 [facility] No Panel InformationOrdered By: Cary Walls on 03-01-2024 VLDL Cholesterol 30 mg/dL 5-40 [facility] Serum or plasma calcium eileen urement (mass/volume)Ordered By: Chad Zhong on 03-01-2024 Calcium [Mass/Vol] 9.0 mg/dL 8.5-10.1 [facility] Serum or plasma thyroid stim ulating hormone (TSH) measurement (units/volume)Ordered By: Chad Zhong on 03-01-2024 TSH Qn 1.06 uIU/mL 0.358-3.74 [facility] Thin prep Papanicolaou smear with manual screeningOrdered By: Cary Walls on 03-01-2024 Thin prep Papanicolaou smear with manual screening 4.0 g/dL 3.2-5.0 [facility] Thin prep Papanicolaou smear with manual screening 27 U/L 15-37 [facility] Thin prep Papanicolaou smear with manual screeningOrdered By: Chad Zhong on 03-01-2024 Thin prep Papanicolaou smear with manual screening 0.76 ng/dL 0.76-1.46 [facility] No Panel InformationOrdered By: Dr. Zhong on 04-27-2023 Parathyroid Hormone (Intact) 98.3 pg/mL 18.4-80.1 [facility] Serum or plasma calcium eileen urement (mass/volume)Ordered By: Dr. Zhong on 04-27-2023 Calcium [Mass/Vol] 9.4 mg/dL 8.5-10.1 [facility] No Panel InformationOrdered By: Dr. Zhong on 12-17-2022 Parathyroid Hormone (Intact) 132.1 pg/mL 18.4-80.1 [facility] Serum or plasma calcium eileen urement (mass/volume)Ordered By: Dr. Zhong on 12-17-2022 Calcium [Mass/Vol] 9.3 mg/dL 8.5-10.1 [facility] No Panel InformationOrdered By: Dr. Zhong on 12-07-2022 Parathyroid Hormone (Intact) 125.9 pg/mL 18.4-80.1 [facility] Serum or plasma calcium eileen urement (mass/volume)Ordered By: Dr. Zhong on 12-07-2022 Calcium [Mass/Vol] 9.7 mg/dL 8.5-10.1 [facility] No Panel InformationOrdered By: Dr. Zhong on 12-01-2022 Parathyroid Hormone (Intact) 42.8 pg/mL 18.4-80.1 [facility] Basophil percentageOrdered B y: Dr. Rodrigez on 11-25-2022 Chloride [Moles/Vol] 107 mmol/L 98-107 [facility] [place] Glucose [Mass/Vol] 140 mg/dL 74-106 [facility] Comment on above: Fasting Glucose resu lt greater than or equal to 126 mg/dL suggests DIABETES MELLITUS per A.D.A. criteria. Potassium [Moles/Vol] 4.3 mmol/L 3.5-5.1 [facility] Sodium [Moles/Vol] 141 mmol/L 136-145 [facility] WBC (Bld) [#/Vol] 5.9 10*3/uL 4.4-11.0 [facility] Blood erythrocytes count (nu mber/volume)Ordered By: Dr. Rodrigez on 11-25-2022 RBC (Bld) [#/Vol] 5.01 10*6/uL 4.2-5.4 [facility] Blood hemoglobin measurement (mass/volume)Ordered By: Dr. Rodrigez on 11-25-2022 Hemoglobin (Bld) [Mass/Vol] 15.0 g/dL 12.0-15.0 [facility] Blood platelet mean volumeOr dered By: Dr. Rodrigez on 11-25-2022 Platelet mean volume (Bld) [Entitic vol] 9.8 fL 6.2-12.0 [facility] Determination of erythrocyte mean corpuscular volume (MCV)Ordered By: Dr. Rodrigez on 11-25-2022 MCV (RBC) [Entitic vol] 93.0 fL 81-99 [facility] Hematocrit Auto (Bld) [Volum e fraction]Ordered By: Dr. Rodrigez on 11-25-2022 Hematocrit (Bld) [Volume fraction] 46.6 % 37-47 [facility] - Chemistry and C hemistry - challengeOrdered By: Dr. Rodrigez on 11-25-2022 CO2 [Moles/Vol] 29.0 mmol/L 21.0-32.0 [facility] Urea nitrogen/Creatinine [Mass ratio] 9.5 mg/mg 10-20 [facility] - Hematology and Cell countsOrdered By: Dr. Rodrigez on 11-25-2022 Erythrocyte distribution width (RBC) [Entitic vol] 41.9 fL 35.1-43.9 [facility] Erythrocyte distribution width (RBC) [Ratio] 12.2 % 11.6-14.6 [facility] MCH (RBC) [Entitic mass] 29.9 pg 27.0-32.0 [facility] MCHC Auto (RBC) [Mass/Vol]Or dered By: Dr. Rodrigez on 11-25-2022 MCHC (RBC) [Mass/Vol] 32.2 g/dL 32-36 [facility] No Panel InformationOrdered By: Dr. Rodrigez on 11-25-2022 Estimated GFR (MDRD) Amer 67 mL/min >60 [facility] Comment on above: GFR Calc Estimated GFR (MDRD) Non-Af Amer 56 mL/min >60 [facility] Comment on above: Non- GFR Calc Platelets bldOrdered By: Dr. Rodrigez on 11-25-2022 Platelets (Bld) [#/Vol] 371 10*3/uL 150-450 [facility] Serum or plasma calcium eileen urement (mass/volume)Ordered By: Dr. Rodrigez on 11-25-2022 Calcium [Mass/Vol] 12.1 mg/dL 8.5-10.1 [facility] Serum or plasma creatinine m easurement (mass/volume)Ordered By: Dr. Rodrigez on 11-25-2022 Creatinine [Mass/Vol] 1.05 mg/dL 0.55-1.02 [facility] Comment on above: The validity of the calculated GFR & GFRAA in patients over 70 years has not been determined. Clinical correlation is essential. Serum or plasma urea nitroge n measurement (mass/volume)Ordered By: Dr. Rodrigez on 11-25-2022 Urea nitrogen [Mass/Vol] 10 mg/dL 7-18 [facility] Thin prep Papanicolaou smear with manual screeningOrdered By: Dr. Rodrigez on 11-25-2022 Thin prep Papanicolaou smear with manual screening 5 5-15 [facility] - Chemistry and C hemistry - challengeOrdered By: Dr. Zhong on 09-03-2022 T4 [Mass/Vol] 9.6 ug/dL 4.8-13.9 [facility] No Panel InformationOrdered By: Dr. Zhong on 09-03-2022 Free Triiodothyronine (T3) pg/dL 3.2 pg/mL 2.18-3.98 [facility] Parathyroid Hormone (Intact) 196.6 pg/mL 18.4-80.1 [facility] Thyroid Stimulating Hormone (TSH) 1.44 uIU/mL 0.358-3.74 [facility] Serum or plasma calcitriol m easurement (mass/volume)Ordered By: Dr. Zhong on 09-03-2022 1,25-dihydroxyvitami n D3 [Mass/Vol] 108.0 pg/mL 24.8-81.5 [facility] Comment on above: Performed at: - [address] [id number] Director: Wade Alfaro MD, Phone: [phone] Serum or plasma calcium eileen urement (mass/volume)Ordered By: Dr. Zhong on 09-03-2022 Calcium [Mass/Vol] 11.4 mg/dL 8.5-10.1 [facility] Basophil percentageOrdered B y: Brooklynn Herbert on 08-30-2022 Bilirubin [Mass/Vol] 0.40 mg/dL 0.20-1.00 [facility] [place] Comment on above: For patients on eltr ombopag therapy, use of Dimension [place] TBIL is not recommended. Chloride [Moles/Vol] 107 mmol/L 98-107 [facility] [place] Cholesterol [Mass/Vol] 114 mg/dL <200 [facility] Comment on above: <200 mg/dL Desirable 200-240 mg/dL Borderline >240 mg/dL High Risk Glucose [Mass/Vol] 114 mg/dL 74-106 [facility] Comment on above: Fasting Glucose resu lt from 100 to 125 mg/dL suggests IMPAIRED HOMEOSTASIS per A.D.A. criteria. Potassium [Moles/Vol] 4.2 mmol/L 3.5-5.1 [facility] Protein [Mass/Vol] 7.6 g/dL 6.4-8.2 [facility] Sodium [Moles/Vol] 142 mmol/L 136-145 [facility] Triglyceride [Mass/Vol] 106 mg/dL <199 [facility] Comment on above: The drugs N-Acetylcy steine and Metamizole may falsely depress this assay.Serum Triglycerides Reference Interval Normal <150 mg/dL Borderline high 150 - 199 mg/dL High 200 - 499 mg/dL Very High > or = 500 mg/dL Direct bilirubinOrdered By: Brooklynn Herbert on 08-30-2022 Bilirubin.direct [Mass/Vol] 0.13 mg/dL 0.00-0.30 [facility] - Chemistry and C hemistry - challengeOrdered By: Brooklynn Herbert on 08-30-2022 ALP [Catalytic activity/Vol] 165 U/L 45-117 [facility] ALT [Catalytic activity/Vol] 34 U/L 13-56 [facility] CO2 [Moles/Vol] 26.0 mmol/L 21.0-32.0 [facility] Globulin (S) [Mass/Vol] 3.7 g/dL 2.2-4.2 [facility] Urea nitrogen/Creatinine [Mass ratio] 18.3 mg/mg 10-20 [facility] No Panel InformationOrdered By: Brooklynn Herbert on 08-30-2022 Estimated GFR (MDRD) Amer 90 mL/min >60 [facility] Comment on above: GFR Calc Estimated GFR (MDRD) Non-Af Amer 74 mL/min >60 [facility] Comment on above: Non- GFR Calc Serum or plasma albumin eileen urement (mass/volume)Ordered By: Brooklynn Herbert on 08-30-2022 Albumin [Mass/Vol] 3.9 g/dL 3.2-5.0 [facility] Serum or plasma calcium eileen urement (mass/volume)Ordered By: Brooklynn Herbert on 08-30-2022 Calcium [Mass/Vol] 11.2 mg/dL 8.5-10.1 [facility] Serum or plasma cholesterol in HDL measurement (mass/volume)Ordered By: Brooklynn Herbert on 08-30-2022 Cholesterol in HDL [Mass/Vol] 48 mg/dL >40 [facility] Comment on above: The drugs N-Acetylcy steine and Metamizole may falsely depress this assay. Reference Range HDL <40 mg/dL Low HDL Cholesterol HDL >or= 60 mg/dL High HDL Cholesterol Serum or plasma cholesterol in VLDL measurement (mass/volume)Ordered By: Brooklynn Herbert on 08-30-2022 Cholesterol in VLDL [Mass/Vol] 21 mg/dL 5-40 [facility] Serum or plasma creatinine m easurement (mass/volume)Ordered By: Brooklynn Herbert on 08-30-2022 Creatinine [Mass/Vol] 0.82 mg/dL 0.55-1.02 [facility] Comment on above: The validity of the calculated GFR & GFRAA in patients over 70 years has not been determined. Clinical correlation is essential. Serum or plasma low density lipoprotein (LDL) cholesterol measurement (mass/volume)Ordered By: Brooklynn Herbert on 08-30-2022 Cholesterol in LDL [Mass/Vol] 45 mg/dL 0-130 [facility] Serum or plasma urea nitroge n measurement (mass/volume)Ordered By: Brooklynn Herbert on 08-30-2022 Urea nitrogen [Mass/Vol] 15 mg/dL 7-18 [facility] Thin prep Papanicolaou smear with manual screeningOrdered By: Brooklynn Herbert on 08-30-2022 Thin prep Papanicolaou smear with manual screening 21 U/L 15-37 [facility] Thin prep Papanicolaou smear with manual screening 9 5-15 [facility] No Panel InformationOrdered By: Dr. Concepcion on 08-25-2022 Parathyroid Hormone (Intact) 202.6 pg/mL 18.4-80.1 [facility] Basophil percentageon 2021 Chloride [Moles/Vol] 104 mmol/L 98-107 [facility] [place] Work Phone: Glucose [Mass/Vol] 102 mg/dL 74-106 [facility] Work Phone: Comment on above: Fasting Glucose resu lt from 100 to 125 mg/dL suggests IMPAIRED HOMEOSTASIS per A.D.A. criteria. Potassium [Moles/Vol] 4.5 mmol/L 3.5-5.1 [facility] Work Phone: Sodium [Moles/Vol] 138 mmol/L 136-145 [facility] Work Phone: Laboratory - Chemistry and C hemistry - challengeon 06-30-2022 CO2 [Moles/Vol] 30.0 mmol/L 21.0-32.0 [facility] Work Phone: Urea nitrogen/Creatinine [Mass ratio] 25.9 mg/mg 10-20 [facility] Work Phone: No Panel Informationon 06-30 Estimated GFR (MDRD) Amer 86 mL/min >60 [facility] Work Phone: Comment on above: GFR Calc Estimated GFR (MDRD) Non-Af Amer 71 mL/min >60 [facility] Work Phone: Comment on above: Non- GFR Calc Serum or plasma calcium eileen urement (mass/volume)on 06-30-2022 Calcium [Mass/Vol] 11.1 mg/dL 8.5-10.1 [facility] Work Phone: Serum or plasma creatinine m easurement (mass/volume)on 06-30-2022 Creatinine [Mass/Vol] 0.85 mg/dL 0.55-1.02 [facility] Work Phone: Comment on above: The validity of the calculated GFR & GFRAA in patients over 70 years has not been determined. Clinical correlation is essential. Serum or plasma urea nitroge n measurement (mass/volume)on 06-30-2022 Urea nitrogen [Mass/Vol] 22 mg/dL 7-18 [facility] Work Phone: Thin prep Papanicolaou smear with manual screeningon 06-30-2022 Thin prep Papanicolaou smear with manual screening 4 5-15 [facility] Work Phone: Absolute lymphocyte counton 04-22-2022 Lymphocytes Auto (Unsp spec) [#/Vol] 1.36 10*3/uL 0.83-4.51 [facility] Work Phone: Basophil percentageon 2021 Basophils/100 WBC (Bld) 0.3 % 0-1 [facility] Work Phone: Bilirubin [Mass/Vol] 0.60 mg/dL 0.20-1.00 [facility] [place] Work Phone: Comment on above: For patients on eltr ombopag therapy, use of Dimension [place] TBIL is not recommended. Chloride [Moles/Vol] 99 mmol/L 98-107 [facility] [place] Work Phone: Eosinophils/100 WBC (Bld) 0.3 % 0-5 [facility] Work Phone: Glucose [Mass/Vol] 100 mg/dL 74-106 [facility] Work Phone: Comment on above: Fasting Glucose resu lt from 100 to 125 mg/dL suggests IMPAIRED HOMEOSTASIS per A.D.A. criteria. Lactate [Moles/Vol] 1.3 mmol/L 0.4-2.0 [facility] Work Phone: Neutrophils (Bld) [#/Vol] 1.1 10*3/uL 2.0-7.7 [facility] Work Phone: Neutrophils/100 WBC (Bld) 38.4 % 47-70 [facility] Work Phone: Potassium [Moles/Vol] 3.9 mmol/L 3.5-5.1 [facility] Work Phone: Protein [Mass/Vol] 8.0 g/dL 6.4-8.2 [facility] Work Phone: Sodium [Moles/Vol] 133 mmol/L 136-145 [facility] Work Phone: WBC (Bld) [#/Vol] 2.9 10*3/uL 4.4-11.0 [facility] Work Phone: Blood erythrocytes count (nu mber/volume)on 04-22-2022 RBC (Bld) [#/Vol] 5.12 10*6/uL 4.2-5.4 [facility] Work Phone: Blood hemoglobin measurement (mass/volume)on 04-22-2022 Hemoglobin (Bld) [Mass/Vol] 15.4 g/dL 12.0-15.0 [facility] Work Phone: Blood lymphocytes/100 leukoc yteson 04-22-2022 Lymphocytes/100 WBC (Bld) 47.2 % 19-41 [facility] Work Phone: [phone] Blood monocytes/100 leukocyt eson 04-22-2022 Monocytes/100 WBC (Bld) 13.5 % 0-10 [facility] Work Phone: [phone] Blood platelet mean volumeon 04-22-2022 Platelet mean volume (Bld) [Entitic vol] 9.8 fL 6.2-12.0 [facility] Work Phone: Determination of erythrocyte mean corpuscular volume (MCV)on 04-22-2022 MCV (RBC) [Entitic vol] 88.1 fL 81-99 [facility] Work Phone: Hematocrit Auto (Bld) [Volum e fraction]on 04-22-2022 Hematocrit (Bld) [Volume fraction] 45.1 % 37-47 [facility] Work Phone: Laboratory - Chemistry and C hemistry - challengeon 04-22-2022 ALP [Catalytic activity/Vol] 120 U/L 45-117 [facility] Work Phone: ALT [Catalytic activity/Vol] 56 U/L 13-56 [facility] Work Phone: CO2 [Moles/Vol] 29.0 mmol/L 21.0-32.0 [facility] Work Phone: Globulin (S) [Mass/Vol] 3.9 g/dL 2.2-4.2 [facility] Work Phone: Magnesium [Mass/Vol] 2.3 mg/dL 1.6-2.6 [facility] [place] Work Phone: Urea nitrogen/Creatinine [Mass ratio] 15.4 mg/mg 10-20 [facility] Work Phone: Laboratory - Hematology and Cell countson 04-22-2022 Erythrocyte distribution width (RBC) [Entitic vol] 38.3 fL 35.1-43.9 [facility] Work Phone: Erythrocyte distribution width (RBC) [Ratio] 11.8 % 11.6-14.6 [facility] Work Phone: Immature granulocytes/100 WBC (Bld) 0.300 % 0.0-0.9 [facility] Work Phone: Comment on above: IG% - Immature Granu locytes (promyelocytes, myelocytes and metamyelocytes) > 1% indicates that a LEFT SHIFT is Present. MCH (RBC) [Entitic mass] 30.1 pg 27.0-32.0 [facility] Work Phone: Nucleated RBC/100 WBC (Bld) [Ratio] 0 % 0-5 [facility] Work Phone: MCHC Auto (RBC) [Mass/Vol]on 04-22-2022 MCHC (RBC) [Mass/Vol] 34.1 g/dL 32-36 [facility] Work Phone: No Panel Informationon 04-22 Estimated Creatinine Clearance Calc 67.27 ml/min [facility] Work Phone: Estimated GFR (MDRD) Amer 105 mL/min >60 [facility] Work Phone: Comment on above: GFR Calc Estimated GFR (MDRD) Non-Af Amer 87 mL/min >60 [facility] Work Phone: Comment on above: Non- GFR Calc Platelets bldon 04-22-2022 Platelets (Bld) [#/Vol] 223 10*3/uL 150-450 [facility] Work Phone: Serum or plasma albumin eileen urement (mass/volume)on 04-22-2022 Albumin [Mass/Vol] 4.1 g/dL 3.2-5.0 [facility] Work Phone: Serum or plasma albumin/glob ulin mass ratioon 04-22-2022 Albumin/Globulin [Mass ratio] 1.1 {ratio} 0.9-2.4 [facility] Work Phone: Serum or plasma calcium eileen urement (mass/volume)on 04-22-2022 Calcium [Mass/Vol] 11.5 mg/dL 8.5-10.1 [facility] Work Phone: Serum or plasma creatinine m easurement (mass/volume)on 04-22-2022 Creatinine [Mass/Vol] 0.72 mg/dL 0.55-1.02 [facility] Work Phone: Comment on above: The validity of the calculated GFR & GFRAA in patients over 70 years has not been determined. Clinical correlation is essential. Serum or plasma urea nitroge n measurement (mass/volume)on 04-22-2022 Urea nitrogen [Mass/Vol] 11 mg/dL 7-18 [facility] Work Phone: Thin prep Papanicolaou smear with manual screeningon 04-22-2022 Thin prep Papanicolaou smear with manual screening 29 U/L 15-37 [facility] Work Phone: Thin prep Papanicolaou smear with manual screening 5 5-15 [facility] Work Phone: Absolute lymphocyte counton 04-20-2022 Lymphocytes Auto (Unsp spec) [#/Vol] 1.03 10*3/uL 0.83-4.51 [facility] Work Phone: Basophil percentageon 2021 Basophils/100 WBC (Bld) 0.8 % 0-1 [facility] Work Phone: [phone] Eosinophils/100 WBC (Bld) 0.4 % 0-5 [facility] Work Phone: [phone] Neutrophils (Bld) [#/Vol] 1.0 10*3/uL 2.0-7.7 [facility] Work Phone: [phone] Neutrophils/100 WBC (Bld) 41.5 % 47-70 [facility] Work Phone: [phone] WBC (Bld) [#/Vol] 2.5 10*3/uL 4.4-11.0 [facility] Work Phone: [phone] Blood erythrocytes count (nu mber/volume)on 04-20-2022 RBC (Bld) [#/Vol] 4.72 10*6/uL 4.2-5.4 [facility] Work Phone: [phone] Blood hemoglobin measurement (mass/volume)on 04-20-2022 Hemoglobin (Bld) [Mass/Vol] 14.3 g/dL 12.0-15.0 [facility] Work Phone: Blood lymphocytes/100 leukoc yteson 04-20-2022 Lymphocytes/100 WBC (Bld) 41.0 % 19-41 [facility] Work Phone: Blood monocytes/100 leukocyt eson 04-20-2022 Monocytes/100 WBC (Bld) 15.9 % 0-10 [facility] Work Phone: Blood platelet mean volumeon 04-20-2022 Platelet mean volume (Bld) [Entitic vol] 9.9 fL 6.2-12.0 [facility] Work Phone: Determination of erythrocyte mean corpuscular volume (MCV)on 04-20-2022 MCV (RBC) [Entitic vol] 89.8 fL 81-99 [facility] Work Phone: Hematocrit Auto (Bld) [Volum e fraction]on 04-20-2022 Hematocrit (Bld) [Volume fraction] 42.4 % 37-47 [facility] Work Phone: Laboratory - Chemistry and C hemistry - challengeon 04-20-2022 Natriuretic peptide B (Bld) [Mass/Vol] 6.5 pg/mL 0-100 [facility] Work Phone: Laboratory - Hematology and Cell countson 04-20-2022 Erythrocyte distribution width (RBC) [Entitic vol] 39.4 fL 35.1-43.9 [facility] Work Phone: Erythrocyte distribution width (RBC) [Ratio] 11.9 % 11.6-14.6 [facility] Work Phone: Immature granulocytes/100 WBC (Bld) 0.400 % 0.0-0.9 [facility] Work Phone: Comment on above: IG% - Immature Granu locytes (promyelocytes, myelocytes and metamyelocytes) > 1% indicates that a LEFT SHIFT is Present. MCH (RBC) [Entitic mass] 30.3 pg 27.0-32.0 [facility] Work Phone: Nucleated RBC/100 WBC (Bld) [Ratio] 0 % 0-5 [facility] Work Phone: MCHC Auto (RBC) [Mass/Vol]on 04-20-2022 MCHC (RBC) [Mass/Vol] 33.7 g/dL 32-36 [facility] Work Phone: Platelets bldon 04-20-2022 Platelets (Bld) [#/Vol] 228 10*3/uL 150-450 [facility] Work Phone: Basophil percentageon 2021 Chloride [Moles/Vol] 98 mmol/L 98-107 [facility] Work Phone: Glucose [Mass/Vol] 105 mg/dL 74-106 [facility] Work Phone: Comment on above: Fasting Glucose resu lt from 100 to 125 mg/dL suggests IMPAIRED HOMEOSTASIS per A.D.A. criteria. Potassium [Moles/Vol] 3.8 mmol/L 3.5-5.1 [facility] Work Phone: Sodium [Moles/Vol] 134 mmol/L 136-145 [facility] Work Phone: EMERGENCY REPORTon 2 EMERGENCY REPORT [facility] EMERGENCY ROOM REPORT NAME ACCOUNT SEX AGE ADMIT DISCHARGE PT MED. RECORD# NUMBER DATE DATE TYPE YUNI, [id number] F 66 04/17/22 04/17/22 3 FELIBERTO Kerr [id number] ROOM: ER DATE OF : 1955 DICTATING [...] Raghavendra Bray MD 04/17/22 16:12 JOB #: [id number] Transcribed By: [email or web address] 04/17/22 17:21 Electronically signed by: Dr. Hernandez Bray MD 04/19/22 17:45 Page 2 of 2 FELIBERTO MENG Emergency Room Report Normal [facility] Laboratory - Chemistry and C hemistry - challengeon 04-19-2022 CO2 [Moles/Vol] 29.0 mmol/L 21.0-32.0 [facility] Work Phone: Magnesium [Mass/Vol] 2.1 mg/dL 1.6-2.6 [facility] Work Phone: Urea nitrogen/Creatinine [Mass ratio] 15.4 mg/mg 10-20 [facility] Work Phone: No Panel Informationon 04-19 Estimated GFR (MDRD) Amer 74 mL/min >60 [facility] Work Phone: Comment on above: GFR Calc Estimated GFR (MDRD) Non-Af Amer 61 mL/min >60 [facility] Work Phone: Comment on above: Non- GFR Calc Serum or plasma calcium eileen urement (mass/volume)on 04-19-2022 Calcium [Mass/Vol] 11.7 mg/dL 8.5-10.1 [facility] Work Phone: Serum or plasma creatinine m easurement (mass/volume)on 04-19-2022 Creatinine [Mass/Vol] 0.97 mg/dL 0.55-1.02 [facility] Work Phone: Comment on above: The validity of the calculated GFR & GFRAA in patients over 70 years has not been determined. Clinical correlation is essential. Serum or plasma urea nitroge n measurement (mass/volume)on 04-19-2022 Urea nitrogen [Mass/Vol] 15 mg/dL 7-18 [facility] Work Phone: Thin prep Papanicolaou smear with manual screeningon 04-19-2022 Thin prep Papanicolaou smear with manual screening 7 5-15 [facility] Work Phone: CALCIUM TOTALon 04-17-2022 Calcium [Mass/Vol] 10.6 mg/dL High 8.5 - 10.1 [facility] Comment on above: Performed By: #### 2 [id number] #### [facility],[address] [place] [address] 41524 CBC + DIFFon 04-17-2022 Baso # 0.00 x10EE3/UL Normal 0.00 - 0.10 [facility] Comment on above: Performed By: #### 2 70302 #### [facility],[address] [place] [address] 24961 Basophils/100 WBC (Bld) 0.5 % Normal 0.0 - 2.0 [facility] Comment on above: Performed By: #### 2 51630 #### [facility],[address] [place] [address] 83383 CBC + DIFF Normal [facility] Comment on above: Result Comment: CBC- COMPLETE BLOOD COUNT Performed By: #### 2 83957 #### [facility],[address] [place] [address] 22126 EO # 0.00 x10EE3/UL Normal 0.00 - 0.50 [facility] Comment on above: Performed By: #### 2 98289 #### [facility],[address] [place] [address] 26209 Eosinophils/100 WBC (Bld) 0.3 % Normal 0.0 - 7.0 [facility] Comment on above: Performed By: #### 2 22430 #### [facility],[address] [place] [address] 71190 Erythrocyte distribution width (RBC) [Ratio] 12.7 % Normal 12.0 - 15.6 [facility] Comment on above: Performed By: #### 2 [id number] #### [facility],[address] [place] [address] 92675 Hematocrit (Bld) [Volume fraction] 41.5 % Normal 34.0 - 46.0 [facility] Comment on above: Performed By: #### 2 91445 #### [facility],[address] [place] [address] 38012 Hemoglobin (Bld) [Mass/Vol] 14.3 g/dL Normal 12.0 - 16.0 [facility] Comment on above: Performed By: #### 2 92583 #### [facility],[address] [place] [address] 82699 Lymph # 0.30 x10EE3/UL Low 0.80 - 2.80 [facility] Comment on above: Performed By: #### 2 86126 #### [facility],[address] [place] [address] 99579 Lymphocytes/100 WBC (Bld) 3.9 % Low 20.0 - 45.0 [facility] Comment on above: Performed By: #### 2 81313 #### [facility],[address] [place] [address] 54012 MANUAL DIFF N/A Normal [facility] Comment on above: Performed By: #### 2 86237 #### [facility],[address] [place] [address] 88433 MCH (RBC) [Entitic mass] 31 pg Normal 27 - 33 [facility] Comment on above: Performed By: #### 2 86095 #### [facility],[address] [place] [address] 65117 MCHC 34 X10 3 Normal 32 - 36 [facility] Comment on above: Performed By: #### 2 20841 #### [facility],[address] [place] [address] 57152 MCV (RBC) [Entitic vol] 89 fL Normal 80 - 99 [facility] Comment on above: Performed By: #### 2 96131 #### [facility],[address] [place] [address] 75085 [place] # 0.50 x10EE3/UL Normal 0.20 - 1.00 [facility] Comment on above: Performed By: #### 2 55381 #### [facility],[address] [place] [address] 38130 MONOS % 6.3 % Normal 0.0 - 10.0 [facility] Comment on above: Performed By: #### 2 90505 #### [facility],[address] [place] [address] 92606 Morphology [place] (Bld) [Interp] N/A Normal [facility] Comment on above: Result Comment: {CD] Performed By: #### 2 87763 #### [facility],[address] [place] [address] 87120 Neut # 7.30 x10EE3/UL High 1.50 - 7.10 [facility] Comment on above: Performed By: #### 2 13728 #### [facility],[address] [place] [address] 90400 Neutrophils/100 WBC (Bld) 89.0 % High 46.0 - 76.0 [facility] Comment on above: Performed By: #### 2 73685 #### [facility],[address] [place] [address] 60247 PLATELET 267 x10EE3/UL Normal 150 - 450 [facility] Comment on above: Performed By: #### 2 89765 #### [facility],[address] [place] [address] 32049 Platelet mean volume (Bld) [Entitic vol] 8.1 fL Normal 6.6 - 10.5 [facility] Comment on above: Result Comment: AUTO MATED DIFFERENTIAL Performed By: #### 2 81132 #### [facility],[address] [place] [address] 38587 RBC 4.68 x 10EE6/UL Normal 4.10 - 5.30 [facility] Comment on above: Performed By: #### 2 11605 #### [facility],[address] [place] [address] 59918 WBC 8.2 x 10EE3/UL Normal 4.5 - 10.8 [facility] Comment on above: Performed By: #### 2 32787 #### [facility],[address] [place] [address] 01909 CHEST 1 VIEWon 04-17-2022 CHEST 1 VIEW [place] [address] Patient: FELIBERTO MENG Phone#: : [phone] Age: 66 Gender: F Pt. Type: ER Account: [id number] Location: [facility] Ordering: DR. RAGHAVENDRA BRAY Exam Date: 04/17/2022/13:15 Family Phys: Charge Code: [id number] Physician: Edmonson Order #: [id number] DLP Dose#: PROCEDURE: X-RAY CHEST 1 VIEW [...] Herrera MD on 04/17/2022 at 19:09 Normal [facility] CMP with eGFRon 04-17-2022 AGE 66 years Normal [facility] Comment on above: Performed By: #### 2 04958 #### [facility],[address] [place] [address] 21064 Albumin [Mass/Vol] 4.2 g/dL Normal 3.4 - 5.0 [facility] Comment on above: Performed By: #### 2 54810 #### [facility],[address] [place] [address] 17031 Albumin/Globulin [Mass ratio] 1.3 {ratio} Normal 0.9 - 1.6 [facility] Comment on above: Performed By: #### 2 95195 #### [facility],[address] [place] [address] 81473 ALK PHOS 118 U/L High 46 - 116 [facility] Comment on above: Performed By: #### 2 67597 #### [facility],[address] [place] [address] 98707 ALT [Catalytic activity/Vol] 42 U/L Normal 14 - 59 [facility] Comment on above: Performed By: #### 2 27358 #### [facility],[address] [place] [address] 38355 Anion gap [Moles/Vol] 13 mmol/L Normal 10 - 20 [facility] Comment on above: Performed By: #### 2 62168 #### [facility],[address] [place] [address] 75561 AST [Catalytic activity/Vol] 22 U/L Normal 13 - 39 [facility] Comment on above: Performed By: #### 2 15859 #### [facility],[address] [place] [address] 52766 B/C RATIO 16 ratio Normal 0 - 30 [facility] Comment on above: Performed By: #### 2 55434 #### [facility],[address] [place] [address] 57224 Bilirubin [Mass/Vol] 0.7 mg/dL Normal 0.2 - 1.0 [facility] Comment on above: Performed By: #### 2 59768 #### [facility],[address] [place] [address] 29303 Calcium [Mass/Vol] 11.2 mg/dL High 8.5 - 10.1 [facility] Comment on above: Performed By: #### 2 76085 #### [facility],[address] [place] [address] 63319 Chloride [Moles/Vol] 98 mmol/L Normal 98 - 107 [facility] Comment on above: Performed By: #### 2 21718 #### [facility],[address] [place] [address] 68970 CMP with eGFR Normal [facility] Comment on above: Result Comment: COMP REHENSIVE METABOLIC PANEL Performed By: #### 2 95989 #### [facility],[address] [place] [address] 19698 CO2 [Moles/Vol] 26.0 mmol/L Normal 21.0 - 32.0 [facility] Comment on above: Performed By: #### 2 57968 #### [facility],[address] [place] [address] 39450 Creatinine [Mass/Vol] 0.82 mg/dL Normal 0.55 - 1.02 [facility] Comment on above: Performed By: #### 2 03440 #### [facility],[address] [place] [address] 70581 GFR/1.73 sq M.predicted among non-blacks MDRD (S/P/Bld) [Vol rate/Area] mL/min/{1.73_m2} Normal 60 - 999 [facility] Comment on above: Performed By: #### 2 50962 #### [facility],[address] [place] [address] 28246 Result Comment: ACCO RDING TO THE NATIONAL KIDNEY DISEASE EDUCATION PROGRAM(NKDE), A NORMAL eGFR IS A VALUE GREATER THAN OR EQUAL TO 60 ML/MIN/1.73 SQ METERS. CHRONIC KIDNEY DISEASE: <60mL/MIN/1.73 SQ METERS KIDNEY FAILURE: <15mL/MIN/1.73 SQ METERS THIS TEST SHOULD ONLY BE USED FOR PATIENTS 18 YEARS OF AGE AND OLDER. Globulin (S) [Mass/Vol] 3.3 g/dL Normal 1.5 - 3.8 [facility] Comment on above: Performed By: #### 2 22600 #### [facility],[address] [place] [address] 58882 Glucose [Mass/Vol] 112 mg/dL High 74 - 106 [facility] Comment on above: Performed By: #### 2 86288 #### [facility],[address] [place] [address] 75410 Potassium [Moles/Vol] 3.3 mmol/L Low 3.5 - 5.1 [facility] Comment on above: Performed By: #### 2 29759 #### [facility],[address] [place] [address] 66915 Protein [Mass/Vol] 7.5 g/dL Normal 6.4 - 8.2 [facility] Comment on above: Performed By: #### 2 95545 #### [facility],[address] [place] [address] 24183 Sodium [Moles/Vol] 134 mmol/L Low 136 - 145 [facility] Comment on above: Performed By: #### 2 47616 #### [facility],[address] [place] [address] 96634 Urea nitrogen [Mass/Vol] 13 mg/dL Normal 7 - 18 [facility] Comment on above: Performed By: #### 2 47559 #### [facility],[address] [place] [address] 56000 CORONAVIRUS (SARS) ANTIGEN T ESTon 04-17-2022 EXTERNAL QC DONE? YES Normal [facility] Comment on above: Performed By: #### 2 46881 #### [facility],[address] [place] [address] 26298 INTERNAL CONTROL PASS Normal [facility] Comment on above: Performed By: #### 2 31437 #### [facility],[address] [place] [address] 02201 SARS ANTIGEN Negative Normal NORMAL: NEGATIVE [facility] Comment on above: Performed By: #### 2 64992 #### [facility],[address] [place], [place] [id number] SEND TO ? YES Normal [facility] Comment on above: Result Comment: SARS -CoV-2 THIS TEST IS BEING USED UNDER THE FDA EUA PROCEDURE. THIS ASSAY HAS BEEN VALIDATED AT [facility] FOR USE WITH NASAL AND NASOPHARYNGEAL SWAB [...] PUBLIC HEALTH AUTHORITIES. Performed By: #### 2 77996 #### [facility],[address] [place], [place] [id number] MAGNESIUMon 04-17-2022 Magnesium [Mass/Vol] 1.7 mg/dL Low 1.8 - 2.4 [facility] Comment on above: Performed By: #### 2 03057 #### [facility],[address] [place] [address] 94089 TROPONIN I, HIGH SENSITIVITY on 04-17-2022 HS TROPONIN 4.8 pg/mL Normal 0.0 - 51.4 [facility] Comment on above: Performed By: #### 2 05297 #### [facility],[address] [place] [address] 07424 HS TROPONIN 4.9 pg/mL Normal 0.0 - 51.4 [facility] Comment on above: Performed By: #### 2 80046 #### [facility],[address] [place] [address] 58441 Absolute lymphocyte counton 02-25-2022 Lymphocytes Auto (Unsp spec) [#/Vol] 2.32 10*3/uL 0.83-4.51 [facility] Work Phone: Basophil percentageon 2021 Basophils/100 WBC (Bld) 1.4 % 0-1 [facility] Work Phone: Bilirubin [Mass/Vol] 0.40 mg/dL 0.20-1.00 [facility] Work Phone: Comment on above: For patients on eltr ombopag therapy, use of Dimension [place] TBIL is not recommended. Chloride [Moles/Vol] 106 mmol/L 98-107 [facility] Work Phone: Cholesterol [Mass/Vol] 150 mg/dL <200 [facility] Work Phone: [phone] Comment on above: <200 mg/dL Desirable 200-240 mg/dL Borderline >240 mg/dL High Risk Eosinophils/100 WBC (Bld) 2.7 % 0-5 [facility] Work Phone: Glucose [Mass/Vol] 107 mg/dL 74-106 [facility] Work Phone: Comment on above: Fasting Glucose resu lt from 100 to 125 mg/dL suggests IMPAIRED HOMEOSTASIS per A.D.A. criteria. Neutrophils (Bld) [#/Vol] 2.9 10*3/uL 2.0-7.7 [facility] Work Phone: Neutrophils/100 WBC (Bld) 49.3 % 47-70 [facility] Work Phone: Potassium [Moles/Vol] 4.1 mmol/L 3.5-5.1 [facility] Work Phone: Protein [Mass/Vol] 7.7 g/dL 6.4-8.2 [facility] Work Phone: [phone] Sodium [Moles/Vol] 140 mmol/L 136-145 [facility] Work Phone: Triglyceride [Mass/Vol] 138 mg/dL <199 [facility] Work Phone: Comment on above: The drugs N-Acetylcy steine and Metamizole may falsely depress this assay.Serum Triglycerides Reference Interval Normal <150 mg/dL Borderline high 150 - 199 mg/dL High 200 - 499 mg/dL Very High > or = 500 mg/dL WBC (Bld) [#/Vol] 5.9 10*3/uL 4.4-11.0 [facility] Work Phone: Blood erythrocytes count (nu mber/volume)on 02-25-2022 RBC (Bld) [#/Vol] 4.79 10*6/uL 4.2-5.4 [facility] Work Phone: Blood hemoglobin measurement (mass/volume)on 02-25-2022 Hemoglobin (Bld) [Mass/Vol] 14.4 g/dL 12.0-15.0 [facility] Work Phone: Blood lymphocytes/100 leukoc yteson 02-25-2022 Lymphocytes/100 WBC (Bld) 39.6 % 19-41 [facility] Work Phone: Blood monocytes/100 leukocyt eson 02-25-2022 Monocytes/100 WBC (Bld) 6.7 % 0-10 [facility] Work Phone: Blood platelet mean volumeon 02-25-2022 Platelet mean volume (Bld) [Entitic vol] 10.0 fL 6.2-12.0 [facility] Work Phone: Determination of erythrocyte mean corpuscular volume (MCV)on 02-25-2022 MCV (RBC) [Entitic vol] 89.8 fL 81-99 [facility] Work Phone: Direct bilirubinon 2 Bilirubin.direct [Mass/Vol] 0.10 mg/dL 0.00-0.30 [facility] Work Phone: Hematocrit Auto (Bld) [Volum e fraction]on 02-25-2022 Hematocrit (Bld) [Volume fraction] 43.0 % 37-47 [facility] Work Phone: Laboratory - Chemistry and C hemistry - challengeon 02-25-2022 ALP [Catalytic activity/Vol] 137 U/L 45-117 [facility] Work Phone: ALT [Catalytic activity/Vol] 35 U/L 13-56 [facility] Work Phone: CO2 [Moles/Vol] 31.0 mmol/L 21.0-32.0 [facility] Work Phone: Free T4 [Mass/Vol] 0.85 ng/dL 0.76-1.46 [facility] Work Phone: Globulin (S) [Mass/Vol] 3.7 g/dL 2.2-4.2 [facility] Work Phone: Magnesium [Mass/Vol] 2.1 mg/dL 1.6-2.6 [facility] Work Phone: Urea nitrogen/Creatinine [Mass ratio] 13.3 mg/mg 10-20 [facility] Work Phone: Laboratory - Hematology and Cell countson 02-25-2022 Erythrocyte distribution width (RBC) [Entitic vol] 40.5 fL 35.1-43.9 [facility] Work Phone: Erythrocyte distribution width (RBC) [Ratio] 12.2 % 11.6-14.6 [facility] Work Phone: Immature granulocytes/100 WBC (Bld) 0.300 % 0.0-0.9 [facility] Work Phone: Comment on above: IG% - Immature Granu locytes (promyelocytes, myelocytes and metamyelocytes) > 1% indicates that a LEFT SHIFT is Present. MCH (RBC) [Entitic mass] 30.1 pg 27.0-32.0 [facility] Work Phone: Nucleated RBC/100 WBC (Bld) [Ratio] 0 % 0-5 [facility] Work Phone: MCHC Auto (RBC) [Mass/Vol]on 02-25-2022 MCHC (RBC) [Mass/Vol] 33.5 g/dL 32-36 [facility] Work Phone: No Panel Informationon 02-25 Estimated GFR (MDRD) Amer 89 mL/min >60 [facility] Work Phone: Comment on above: GFR Calc Estimated GFR (MDRD) Non-Af Amer 73 mL/min >60 [facility] Work Phone: Comment on above: Non- GFR Calc Free Triiodothyronine (T3) pg/dL 2.6 pg/mL 2.18-3.98 [facility] Work Phone: Thyroid Stimulating Hormone (TSH) 1.27 uIU/mL 0.358-3.74 [facility] Work Phone: Platelets bldon 02-25-2022 Platelets (Bld) [#/Vol] 292 10*3/uL 150-450 [facility] Work Phone: Serum or plasma albumin eileen urement (mass/volume)on 02-25-2022 Albumin [Mass/Vol] 4.0 g/dL 3.2-5.0 [facility] Work Phone: Serum or plasma calcium eileen urement (mass/volume)on 02-25-2022 Calcium [Mass/Vol] 11.3 mg/dL 8.5-10.1 [facility] Work Phone: Serum or plasma cholesterol in HDL measurement (mass/volume)on 02-25-2022 Cholesterol in HDL [Mass/Vol] 54 mg/dL >40 [facility] Work Phone: Comment on above: The drugs N-Acetylcy steine and Metamizole may falsely depress this assay. Reference Range HDL <40 mg/dL Low HDL Cholesterol HDL >or= 60 mg/dL High HDL Cholesterol Serum or plasma cholesterol in VLDL measurement (mass/volume)on 02-25-2022 Cholesterol in VLDL [Mass/Vol] 28 mg/dL 5-40 [facility] Work Phone: Serum or plasma creatinine m easurement (mass/volume)on 02-25-2022 Creatinine [Mass/Vol] 0.83 mg/dL 0.55-1.02 [facility] Work Phone: Comment on above: The validity of the calculated GFR & GFRAA in patients over 70 years has not been determined. Clinical correlation is essential. Serum or plasma low density lipoprotein (LDL) cholesterol measurement (mass/volume)on 02-25-2022 Cholesterol in LDL [Mass/Vol] 68 mg/dL 0-130 [facility] Work Phone: Serum or plasma urea nitroge n measurement (mass/volume)on 02-25-2022 Urea nitrogen [Mass/Vol] 11 mg/dL 7-18 [facility] Work Phone: Thin prep Papanicolaou smear with manual screeningon 02-25-2022 Thin prep Papanicolaou smear with manual screening 23 U/L 15-37 [facility] Work Phone: Thin prep Papanicolaou smear with manual screening 3 5-15 [facility] Work Phone: Laboratory - Microbiology an d Antimicrobial susceptibility Bacteria identified Cx Nom (Bld) No growth in 5 days. [facility] Work Phone: No Panel Information SARS-CoV-2 & FLU Antigen (Rapid) SARS-CoV-2 (COVID 19) [facility] Work Phone: Vital Signs Date Time Vital Sign Value Performing Clinician Faci lity 04-24-2025 07:36-0400 Body mass index (BMI) [Ratio] 27.6 kg/m2 Dr. Hoda Concepcion MD Work Phone: [facility] 04-24-2025 07:36-0400 Body temperature 97.3 [degF] Dr. Hoda Concepcion MD Work Phone: [facility] 04-24-2025 07:36-0400 Body weight 70.[address] Hoda Concepcion MD Work Phone: [facility] 04-24-2025 07:36-0400 Diastolic blood pressure 79 mm[Hg] Dr. Hoda Concepcion MD Work Phone: [facility] 04-24-2025 07:36-0400 Heart rate 72 /min Dr. Hoda Concepcion MD Work Phone: [facility] 04-24-2025 07:36-0400 Respiratory rate 16 /min Dr. Hoda Concepcion MD Work Phone: [facility] 04-24-2025 07:36-0400 SaO2% (BldA) [Mass fraction] 97 % Dr. Hoda Concepcion MD Work Phone: [facility] 04-24-2025 07:36-0400 Systolic blood pressure 139 mm[Hg] Dr. Hoda Concepcion MD Work Phone: [facility] 01-21-2025 07:31-0400 Body mass index (BMI) [Ratio] 28.3 kg/m2 Dr. Hoda Concepcion MD Work Phone: [facility] 01-21-2025 07:31-0400 Body weight 72.[address] Hoda Concepcion MD Work Phone: [facility] 01-21-2025 07:31-0400 Diastolic blood pressure 67 mm[Hg] Dr. Hoda Concepcion MD Work Phone: [facility] 01-21-2025 07:31-0400 Heart rate 66 /min Dr. Hoda Concepcion MD Work Phone: [facility] 01-21-2025 07:31-0400 Respiratory rate 18 /min Dr. Hoda Concepcion MD Work Phone: [facility] 01-21-2025 07:31-0400 SaO2% (BldA) [Mass fraction] 94 % Dr. Hoda Concepcion MD Work Phone: 7(849)961-531154 [place] [address] 01-21-2025 07:31-0400 Systolic blood pressure 122 mm[Hg] Dr. Hoda Concepcion MD Work Phone: 2(157)278-476354 [place] [address] 01-16-2025 05:11-0400 Body mass index (BMI) [Ratio] 27.4 kg/m2 Dr. Hoda Concepcion MD Work Phone: 0(432)764-349518 [place] [address] 01-16-2025 05:11-0400 Body temperature 96.3 [degF] Dr. Hoda Concepcion MD Work Phone: 1(071)559-331618 [place] [address] 01-16-2025 05:11-0400 Body weight 70.[address] Hoda Concepcion MD Work Phone: 9(891)685-678123 [address] 01-16-2025 05:11-0400 Diastolic blood pressure 78 mm[Hg] Dr. Hoda Concepcion MD Work Phone: 2(880)079-529718 [place] [address] 01-16-2025 05:11-0400 Heart rate 70 /min Dr. Hoda Concepcion MD Work Phone: 9(026)439-482154 [place] [address] 01-16-2025 05:11-0400 Respiratory rate 20 /min Dr. Hoda Concepcion MD Work Phone: 0(722)771-422923 [address] 01-16-2025 05:11-0400 SaO2% (BldA) [Mass fraction] 95 % Dr. Hoda Concepcion MD Work Phone: 3(812)138-623923 [address] 01-16-2025 05:11-0400 Systolic blood pressure 120 mm[Hg] Dr. Hoda Concepcion MD Work Phone: 7(982)415-092423 [address] 01-23-2024 09:08-0400 Body height 160.[address] Hoda Concepcion Work Phone: [facility] 01-23-2024 09:08-0400 Body mass index (BMI) [Ratio] 27.8 kg/m2 Dr. Hoda Concepcion Work Phone: [facility] 01-23-2024 09:08-0400 Body weight 71.[address] Hoda Concepcion Work Phone: 9(255)106-769518 [place] [address] 01-23-2024 09:08-0400 Diastolic blood pressure 53 mm[Hg] Dr. Hoda Concepcion Work Phone: 4(130)905-001018 [place] [address] 01-23-2024 09:08-0400 Heart rate 71 /min Dr. Hoda Concepcion Work Phone: 1(443)767-967818 [place] [address] 01-23-2024 09:08-0400 Respiratory rate 18 /min Dr. Hoda Concepcion Work Phone: 6(515)818-388818 [place] [address] 01-23-2024 09:08-0400 SaO2% (BldA) [Mass fraction] 95 % Dr. Hoda Concepcion Work Phone: 7(269)667-691918 [place] [address] 01-23-2024 09:08-0400 Systolic blood pressure 122 mm[Hg] Dr. Hoda Concepcion Work Phone: 0(686)153-317118 [place] [address] 07-25-2023 06:26-0400 Body height 160.[address] Hoda Concepcion Work Phone: 7(275)963-474818 [place] [address] 07-25-2023 06:26-0400 Body mass index (BMI) [Ratio] 26.2 kg/m2 Dr. Hoda Concepcion Work Phone: 8(370)022-565118 [place] [address] 07-25-2023 06:26-0400 Body temperature 98.2 [degF] Dr. Hoda Concepcion Work Phone: 0(238)770-666818 [place] [address] 07-25-2023 06:26-0400 Body weight 67.[address] Hoda Concepcion Work Phone: 5(562)559-062418 [place] [address] 07-25-2023 06:26-0400 Diastolic blood pressure 69 mm[Hg] Dr. Hoda Concepcion Work Phone: [facility] 07-25-2023 06:26-0400 Heart rate 67 /min Dr. Hoda Concepcion Work Phone: [facility] 07-25-2023 06:26-0400 Respiratory rate 18 /min Dr. Hoda Concepcion Work Phone: [facility] 07-25-2023 06:26-0400 SaO2% (BldA) [Mass fraction] 97 % Dr. Hoda Concepcion Work Phone: [facility] 07-25-2023 06:26-0400 Systolic blood pressure 131 mm[Hg] Dr. Hoda Concepcion Work Phone: [facility] 04-27-2023 07:50-0400 Body height 160.[address] Hoda Concepcion Work Phone: [facility] 04-27-2023 07:50-0400 Body mass index (BMI) [Ratio] 27.8 kg/m2 Dr. Hoda Concepcion Work Phone: [facility] 04-27-2023 07:50-0400 Body temperature 97.1 [degF] Dr. Hoda Concepcion Work Phone: [facility] 04-27-2023 07:50-0400 Body weight 71.[address] Hoda Concepcion Work Phone: [facility] 04-27-2023 07:50-0400 Diastolic blood pressure 80 mm[Hg] Dr. Hoda Concepcion Work Phone: [facility] 04-27-2023 07:50-0400 Heart rate 66 /min Dr. Hoda Concepcion Work Phone: [facility] 04-27-2023 07:50-0400 Respiratory rate 18 /min Dr. Hoda Concepcion Work Phone: [facility] 04-27-2023 07:50-0400 SaO2% (BldA) [Mass fraction] 96 % Dr. Hoda Concepcion Work Phone: [facility] 04-27-2023 07:50-0400 Systolic blood pressure 149 mm[Hg] Dr. Hoda Concepcion Work Phone: [facility] 02-14-2023 15:03-0400 Body mass index (BMI) [Ratio] 28.1 kg/m2 Dr. Hoda Concepcion Work Phone: [facility] 02-14-2023 15:03-0400 Body weight 72.[address] Hoda Concepcion Work Phone: [facility] 02-14-2023 15:03-0400 Diastolic blood pressure 84 mm[Hg] Dr. Hoda Concepcion Work Phone: [facility] 02-14-2023 15:03-0400 Heart rate 78 /min Dr. Hoda Concepcion Work Phone: [facility] 02-14-2023 15:03-0400 Respiratory rate 18 /min Dr. Hoda Concepcion Work Phone: [facility] 02-14-2023 15:03-0400 SaO2% (BldA) [Mass fraction] 96 % Dr. Hoda Concepcion Work Phone: [facility] 02-14-2023 15:03-0400 Systolic blood pressure 131 mm[Hg] Dr. Hoda Concepcion Work Phone: [facility] 01-19-2023 08:11-0400 Body height 160.[address] Hoda Concepcion Work Phone: [facility] 01-19-2023 08:11-0400 Body mass index (BMI) [Ratio] 28.3 kg/m2 Dr. Hoda Concepcion Work Phone: [facility] 01-19-2023 08:11-0400 Body temperature 97.2 [degF] Dr. Hoda Concepcion Work Phone: [facility] 01-19-2023 08:11-0400 Body weight 72.[address] Hoda Concepcion Work Phone: [facility] 01-19-2023 08:11-0400 Diastolic blood pressure 80 mm[Hg] Dr. Hoda Concepcion Work Phone: [facility] 01-19-2023 08:11-0400 Heart rate 68 /min Dr. Hoda Concepcion Work Phone: [facility] 01-19-2023 08:11-0400 Respiratory rate 18 /min Dr. Hoda Concepcion Work Phone: [facility] 01-19-2023 08:11-0400 SaO2% (BldA) [Mass fraction] 97 % Dr. Hoda Concepcion Work Phone: 8(211)793-826354 [place] [address] 01-19-2023 08:11-0400 Systolic blood pressure 125 mm[Hg] Dr. Hoda Concepcion Work Phone: 1(449)809-287054 [place] [address] 12-01-2022 12:40-0500 Body temperature 97.9 [degF] Dr. Hoda Concepcion Work Phone: [facility] 12-01-2022 12:40-0500 Diastolic blood pressure 72 mm[Hg] Dr. Hoda Concepcion Work Phone: 0(044)977-139023 [address] 12-01-2022 12:40-0500 Heart rate 85 /min Dr. Hoda Concepcion Work Phone: [facility] 12-01-2022 12:40-0500 Respiratory rate 16 /min Dr. Hoda Concepcion Work Phone: [facility] 12-01-2022 12:40-0500 SaO2% (BldA) [Mass fraction] 97 % Dr. Hoda Concepcion Work Phone: [facility] 12-01-2022 12:40-0500 Systolic blood pressure 119 mm[Hg] Dr. Hoda Concepcion Work Phone: [facility] 12-01-2022 11:00-0500 Inhaled oxygen flow rate 2 L/min Dr. Hoda Concepcion Work Phone: 4(737)219-707054 [place] [address] 12-01-2022 06:26-0500 Body height 160.[address] Hoda Concepcion Work Phone: 7(682)034-670954 [place] [address] 12-01-2022 06:26-0500 Body mass index (BMI) [Ratio] 27.7 kg/m2 Dr. Hoda Concepcion Work Phone: 9(247)519-124754 [place] [address] 12-01-2022 06:26-0500 Body weight [address] Hoda Concepcion Work Phone: 1(336)042-700523 [address] 10-25-2022 09:14-0500 Body mass index (BMI) [Ratio] 27.3 kg/m2 Dr. Hoda Concepcion Work Phone: 8(722)464-986223 [address] 10-25-2022 09:14-0500 Body temperature 97 [degF] Dr. Hoda Concepcion Work Phone: 9(624)162-745923 [address] 10-25-2022 09:14-0500 Body weight 70.[address] Hoda Concepcion Work Phone: 0(120)594-480254 [place] [address] 10-25-2022 09:14-0500 Diastolic blood pressure 80 mm[Hg] Dr. Hoda Concepcion Work Phone: 0(386)824-028723 [address] 10-25-2022 09:14-0500 Heart rate 76 /min Dr. Hoda Concepcion Work Phone: 9(392)426-709618 [place] [address] 10-25-2022 09:14-0500 Respiratory rate 18 /min Dr. Hoda Concepcion Work Phone: 0(658)603-220223 [address] 10-25-2022 09:14-0500 SaO2% (BldA) [Mass fraction] 96 % Dr. Hoda Concepcion Work Phone: 5(606)591-538223 [address] 10-25-2022 09:14-0500 Systolic blood pressure 119 mm[Hg] Dr. Hoda Concepcion Work Phone: 5(616)120-493254 [place] [address] 09-22-2022 14:17-0500 Body mass index (BMI) [Ratio] 26.2 kg/m2 Dr. Hoda Concepcion Work Phone: [facility] 09-22-2022 14:17-0500 Body temperature 98.2 [degF] Dr. Hoda Concepcion Work Phone: [facility] 09-22-2022 14:17-0500 Body weight 69.[address] Hoda Concepcion Work Phone: [facility] 09-22-2022 14:17-0500 Diastolic blood pressure 79 mm[Hg] Dr. Hoda Concepcion Work Phone: [facility] 09-22-2022 14:17-0500 Heart rate 73 /min Dr. Hoda Concepcion Work Phone: [facility] 09-22-2022 14:17-0500 Respiratory rate 16 /min Dr. Hoda Concepcion Work Phone: [facility] 09-22-2022 14:17-0500 SaO2% (BldA) [Mass fraction] 95 % Dr. Hoda Concepcion Work Phone: [facility] 09-22-2022 14:17-0500 Systolic blood pressure 131 mm[Hg] Dr. Hoda Concepcion Work Phone: [facility] 09-03-2022 08:28-0400 Body height 162.[address] Hoda Concepcion Work Phone: [facility] Work Phone: 09-03-2022 08:28-0400 Body mass index (BMI) [Ratio] 26.1 kg/m2 Dr. Hoda Concepcion Work Phone: [facility] 09-03-2022 08:28-0400 Body weight 68.[address] Hoda Concepcion Work Phone: [facility] 09-03-2022 08:28-0400 Diastolic blood pressure 81 mm[Hg] Dr. Hoda Concepcion Work Phone: [facility] 09-03-2022 08:28-0400 Heart rate 84 /min Dr. Hoda Concepcion Work Phone: [facility] 09-03-2022 08:28-0400 Respiratory rate 17 /min Dr. Hoda Concepcion Work Phone: [facility] 09-03-2022 08:28-0400 SaO2% (BldA) [Mass fraction] 95 % Dr. Hoda Concepcion Work Phone: [facility] 09-03-2022 08:28-0400 Systolic blood pressure 172 mm[Hg] Dr. Hoda Concepcion Work Phone: [facility] 06-30-2022 14:47-0400 Body height 162.[address] oHda Concepcion Work Phone: [facility] Work Phone: 06-30-2022 14:47-0400 Body mass index (BMI) [Ratio] 25.7 kg/m2 Dr. Hoda Concepcion Work Phone: [facility] Work Phone: 06-30-2022 14:47-0400 Body weight 68.[address] Hoda Concepcion Work Phone: [facility] Work Phone: 06-30-2022 14:47-0400 Diastolic blood pressure 74 mm[Hg] Dr. Hoda Concepcion Work Phone: [facility] Work Phone: 06-30-2022 14:47-0400 Heart rate 67 /min Dr. Hoda Concepcion Work Phone: [facility] Work Phone: 06-30-2022 14:47-0400 Respiratory rate 18 /min Dr. Hoda Concepcion Work Phone: [facility] Work Phone: 06-30-2022 14:47-0400 SaO2% (BldA) [Mass fraction] 95 % Dr. Hoda Concepcion Work Phone: [facility] Work Phone: 06-30-2022 14:47-0400 Systolic blood pressure 120 mm[Hg] Dr. Hoda Concepcion Work Phone: [facility] Work Phone: 06-18-2022 10:24-0400 Body mass index (BMI) [Ratio] 25.9 kg/m2 Dr. Hoda Concepcion Work Phone: [facility] Work Phone: 06-18-2022 10:24-0400 Body temperature 97.6 [degF] Dr. Hoda Concepcion Work Phone: [facility] Work Phone: 06-18-2022 10:24-0400 Body weight 68.[address] Hoda Concepcion Work Phone: [facility] Work Phone: 06-18-2022 10:24-0400 Diastolic blood pressure 80 mm[Hg] Dr. Hoda Concepcion Work Phone: [facility] Work Phone: 06-18-2022 10:24-0400 Heart rate 65 /min Dr. Hoda Concepcion Work Phone: [facility] Work Phone: 06-18-2022 10:24-0400 Respiratory rate 16 /min Dr. Hoda Concepcion Work Phone: [facility] Work Phone: 06-18-2022 10:24-0400 SaO2% (BldA) [Mass fraction] 97 % Dr. Hoda Concepcion Work Phone: [facility] Work Phone: 06-18-2022 10:24-0400 Systolic blood pressure 122 mm[Hg] Dr. Hoda Concepcion Work Phone: [facility] Work Phone: 04-22-2022 12:38-0400 Respiratory rate 18 /min Dr. Hoda Concepcion Work Phone: [facility] Work Phone: 04-22-2022 11:19-0400 Body height 162.[address] Hoda Concepcion Work Phone: [facility] Work Phone: 04-22-2022 11:19-0400 Body mass index (BMI) [Ratio] 24.5 kg/m2 Dr. Hoda Concepcion Work Phone: [facility] Work Phone: 04-22-2022 11:19-0400 Body temperature 98.1 [degF] Dr. Hoda Concepcion Work Phone: [facility] Work Phone: 04-22-2022 11:19-0400 Body weight 64.[address] Hoda Concepcion Work Phone: [facility] Work Phone: 04-22-2022 11:19-0400 Diastolic blood pressure 83 mm[Hg] Dr. Hoda Concepcion Work Phone: [facility] Work Phone: 04-22-2022 11:19-0400 Heart rate 74 /min Dr. Hoda Concepcion Work Phone: [facility] Work Phone: 04-22-2022 11:19-0400 Respiratory rate 12 /min Dr. Hoda Concepcion Work Phone: [facility] Work Phone: 04-22-2022 11:19-0400 SaO2% (BldA) [Mass fraction] 99 % Dr. Hoda Concepcion Work Phone: [facility] Work Phone: 04-22-2022 11:19-0400 Systolic blood pressure 146 mm[Hg] Dr. Hoda Concepcion Work Phone: [facility] Work Phone: 04-20-2022 08:59-0400 Body mass index (BMI) [Ratio] 25.4 kg/m2 Dr. Hoda Concepcion Work Phone: [facility] Work Phone: 04-20-2022 08:59-0400 Body weight 65.[address] Hoda Concepcion Work Phone: [facility] Work Phone: 04-20-2022 08:59-0400 Diastolic blood pressure 74 mm[Hg] Dr. Hoda Concepcion Work Phone: [facility] Work Phone: 04-20-2022 08:59-0400 Heart rate 74 /min Dr. Hoda Concepcion Work Phone: [facility] Work Phone: 04-20-2022 08:59-0400 Respiratory rate 18 /min Dr. Hoda Concepcion Work Phone: [facility] Work Phone: 04-20-2022 08:59-0400 SaO2% (BldA) [Mass fraction] 97 % Dr. Hoda Concepcion Work Phone: [facility] Work Phone: 04-20-2022 08:59-0400 Systolic blood pressure 113 mm[Hg] Dr. Hoda Concepcion Work Phone: [facility] Work Phone: 02-25-2022 09:05-0400 Body mass index (BMI) [Ratio] 26.2 kg/m2 Dr. Hoda Concepcion Work Phone: [facility] Work Phone: 02-25-2022 09:05-0400 Body weight 67.[address] Hoda Concepcion Work Phone: [facility] Work Phone: 02-25-2022 09:05-0400 Diastolic blood pressure 72 mm[Hg] Dr. Hoda Concepcion Work Phone: [facility] Work Phone: 02-25-2022 09:05-0400 Heart rate 67 /min Dr. Hoda Concepcion Work Phone: [facility] Work Phone: 02-25-2022 09:05-0400 Respiratory rate 16 /min Dr. Hoda Concepcion Work Phone: [facility] Work Phone: 02-25-2022 09:05-0400 Systolic blood pressure 142 mm[Hg] Dr. Hoda Concepcion Work Phone: [facility] Work Phone: 02-25-2022 09:05-0400 Body height 160.[address] Hdoa Concepcion Work Phone: [facility] Work Phone: 02-25-2022 09:05-0400 Body mass index (BMI) [Ratio] 26.2 kg/m2 Dr. Hoda Concepcion Work Phone: [facility] Work Phone: 02-25-2022 09:05-0400 Body weight 67.[address] Hoda Concepcion Work Phone: [facility] Work Phone: 02-25-2022 09:05-0400 Diastolic blood pressure 72 mm[Hg] Dr. Hoda Concepcion Work Phone: [facility] Work Phone: 02-25-2022 09:05-0400 Heart rate 67 /min Dr. Hoda Concepcion Work Phone: [facility] Work Phone: 02-25-2022 09:05-0400 Respiratory rate 16 /min Dr. Hoda Concepcion Work Phone: [facility] Work Phone: 02-25-2022 09:05-0400 Systolic blood pressure 142 mm[Hg] Dr. Hoda Concepcion Work Phone: [facility] Work Phone: Encounters Encounter Date Encounter Type Care Provider Facility Start: 06-13-2025 ambulatory Stephany Shekhar Facility:[facility] Start: 06-03-2025 End: 06-03-[address] Hoda Concepcion MD Work Phone: -Sleep Lab Start: 06-03-2025 End: 06-03-2025 Patient encounter procedure RN [facility] Eva Lopez -Sleep Lab Work Phone: Start: 06-03-2025 End: 06-03-2025 ambulatory Eva Lopez Facility:[facility] Start: 05-02-2025 Non-patient / Non-visit Dr. Rodrigo Coon MD -[facility] Start: 05-02-2025 End: 05-02-[address] Hoda Concepcion MD Work Phone: -Cardiovascular Services Start: 05-02-2025 End: 05-02-2025 Patient encounter procedure RN [facility] APPEALS Eva Lopez -Cardiovascular Services Work Phone: Start: 05-02-2025 End: 05-02-2025 ambulatory Eva Lopez Facility:[facility] Start: 04-24-2025 End: 04-24-2025 Patient encounter procedure JOHANNA Lopez -[facility] Work Phone: Start: 04-24-2025 End: 04-24-[address] Hoda Concepcion MD Work Phone: [facility] Work Phone: Start: 01-21-2025 End: 01-21-2025 Patient encounter procedure Walter CHILEL -[facility] Work Phone: Start: 01-21-2025 End: 01-21-2025 ambulatory Hoda Concepcion Facility:[facility] Start: 01-16-2025 End: 01-16-2025 Patient encounter procedure RN CL[facility] APPEALS Eva Lopez -[facility] Work Phone: Start: 01-16-2025 End: 01-16-2025 ambulatory Eva Lopez Facility:[facility] [place] Start: 10-18-2024 End: 10-18-2024 ambulatory Kay Muniz NP Facility:[facility] Start: 10-09-2024 End: 10-09-2024 ambulatory Hoda Concepcion Facility:[facility] [place] Start: 10-02-2024 End: 10-02-2024 ambulatory Chad Zhong Facility:[facility] Start: 09-10-2024 End: 09-10-2024 ambulatory Hoda Concepcion Facility:[facility] Start: 03-01-2024 End: 03-01-[address] Hoda Concepcion Work Phone: [facility] Work Phone: Start: 03-01-2024 End: 03-01-[address] Hoda Concepcion Work Phone: [facility]-Laboratory Work Phone: Start: 01-23-2024 End: 01-23-[address] Hoda Concepcion Work Phone: [facility] Work Phone: Start: 10-06-2023 End: 10-06-[address] Hoda Concepcion Work Phone: [facility] Work Phone: Start: 10-06-2023 End: 10-06-[address] Hoda Concepcion Work Phone: [facility] Work Phone: Start: 09-27-2023 End: 09-27-[address] Hoda Concepcion Work Phone: [facility] Work Phone: Start: 09-27-2023 End: 09-27-[address] Hoda Concepcion Work Phone: [facility]-Outpatient Breast Imaging Work Phone: Start: 07-25-2023 End: 07-25-[address] [facility] Work Phone: Start: 04-27-2023 End: 04-27-[address] Hoda Concepcion Work Phone: [facility] Work Phone: Start: 04-27-2023 End: 04-27-[address] Hoda Concepcion Work Phone: [facility] Start: 03-24-2023 Non-patient / Non-visit Dr. Hoda Concepcion Work Phone: [facility] Start: 03-24-2023 End: 03-24-[address] Hoda Concepcion Work Phone: [facility]-Cardiovascular Services Start: 02-14-2023 End: 02-14-[address] Hdoa Concepcion Work Phone: [facility] Start: 02-01-2023 End: 02-01-[address] Hoda Concepcion Work Phone: [facility] Work Phone: Start: 02-01-2023 End: 02-01-[address] Hoda Concepcion Work Phone: [facility]-Sleep Lab Start: 01-19-2023 End: 01-19-[address] Hoda Concepcion Work Phone: [facility] Start: 12-17-2022 End: 12-17-[address] Hoda Concepcion Work Phone: [facility]-Laboratory Start: 12-14-2022 Non-patient / Non-visit Dr. Hoda Concepcion Work Phone: [facility] Start: 12-13-2022 End: 12-13-[address] Hoda Concepcion Work Phone: [facility] Work Phone: Start: 12-13-2022 End: 12-13-[address] Hoda Concepcion Work Phone: [facility]-Pulmonary Services/Neurology Start: 12-08-2022 End: 12-08-[address] Hoda Concepcion Work Phone: [facility] Start: 12-07-2022 End: 12-07-[address] Hoda Concepcion Work Phone: [facility] Work Phone: Start: 12-07-2022 End: 12-07-[address] Hoad Concepcion Work Phone: [facility]-Laboratory Start: 12-01-2022 Non-patient / Non-visit Dr. Hoda Concepcion Work Phone: [facility] Start: 12-01-2022 End: 12-01-2022 Admission to same day surgery center Dr. Hoda Concepcion Work Phone: [facility]-S[facility] Start: 12-01-2022 End: 12-01-[address] Hoda Concepcion Work Phone: [facility] Work Phone: Start: 11-25-2022 End: 11-25-2022 Non-patient / Non-visit Dr. Hoda Concepcion Work Phone: [facility] Start: 10-25-2022 End: 10-25-[address] Hoda Concepcion Work Phone: [facility] Start: 09-27-2022 End: 09-27-[address] Hoda Concepcion [facility] Start: 09-22-2022 End: 09-22-[address] Hoda Concepcion Work Phone: [facility]Pulmonary [facility] Start: 09-15-2022 End: 09-15-[address] Hoda Concepcion Work Phone: [facility] Work Phone: Start: 09-15-2022 End: 09-15-[address] Hoda Concepcion Work Phone: [facility]-Outpatient Bone Densitometry Start: 09-03-2022 End: 09-03-[address] Hoda Concepcion Work Phone: [facility]-Laboratory Start: 09-03-2022 End: 09-03-[address] Hoda Concepcion Work Phone: [facility] Start: 2022 End: [address] Hoda Concepcion Work Phone: [facility] Work Phone: Start: 2022 End: [address] Hoda Concepcion Work Phone: [facility] Start: 08-30-2022 End: 08-30-[address] Hoda Concepcion Work Phone: [facility] Work Phone: Start: 08-30-2022 End: 08-30-[address] Hoda Concepcion Work Phone: [facility] Start: 08-25-2022 End: 08-25-[address] Hoda Concepcion Work Phone: [facility] Work Phone: Start: 08-25-2022 End: 08-25-[address] Hoda Concepcion Work Phone: [facility] Start: 08-20-2022 End: 08-20-[address] Hoda Concepcion Work Phone: [facility] Work Phone: Start: 08-20-2022 End: 08-20-[address] Hoda Concepcion Work Phone: [facility] Start: 06-30-2022 End: 06-30-[address] Hoda Concepcion Work Phone: [facility] Work Phone: Start: 06-30-2022 End: 06-30-[address] Hoda Concepcion Work Phone: [facility] Start: 06-18-2022 End: 06-18-[address] Hoda Concepcion Work Phone: [facility] Start: 05-03-2022 End: 05-03-[address] Hoda Concepcion Work Phone: [facility] Start: 04-22-2022 End: 04-22-2022 Emergency department patient visit Dr. Hoda Concepcion Work Phone: [facility] Start: 04-20-2022 End: 04-20-[address] Hoda Concepcion Work Phone: [facility] Start: 04-19-2022 End: 04-19-[address] Hoda Concepcion Work Phone: [facility] Start: 04-17-2022 End: 04-17-2022 Emergency department patient visit [facility] Start: 03-16-2022 End: 03-16-[address] Hoda Concepcion Work Phone: [facility] Services/Neurology Start: 02-25-2022 End: 02-25-[address] Hoda Concepcion Work Phone: [facility]Laboratory Start: 02-25-2022 End: 02-25-[address] Hoda Concepcion Work Phone: [facility] Procedures Date Procedure Procedure Detail Performing Clinician Start: 10-06-[address] Hoda Concepcion Work Phone: Start: 09-27-2023 Screening mammography Ondina Concepcion Work Phone: Start: 12-01-[address] Alma Concepcion Work Phone: Start: 09-27-2022 Single photon emissi on computed tomography of parathyroid Dr. Hoda Concepcion Work Phone: Start: 09-15-2022 Dual energy X-ray absorptiometry Dr. Hoda Concepcion Work Phone: Start: 2022 US scan of thyroid Dr. Hoda Concepcion Work Phone: Start: 08-25-2022 Plain chest X-ray Dr. Alma Concepcion Work Phone: Start: 04-22-2022 Plain chest X-ray Dr. Alma Concepcion Work Phone: Bacteria identified in Blood by Culture Dr. Hoda Concepcion Work Phone: SARS-CoV-2 & FLU Ant igen (Rapid) Dr. Hoda Concepcion Work Phone: Plan of Treatment Date Care Activity Detail Author Start: 05-13-2025 [facility] Start: 12-01-2022 Anes esoph thyrd larynx trach & lymph neck 1yr ANESTH NECK ORGAN 1YR/> [facility] Start: 12-01-2022 Parathyroidectomy/explorati on parathyroids EXPLORE PARATHYROID GLANDS [facility] Start: 12-01-2022 Patient discharge [facility] Start: 12-01-2022 [facility] Start: 12-01-2022 Application of ice collar, cap or bag [facility] Start: 09-03-2022 Vitamin D, 1,25-dihydroxy measurement [facility] Work Phone: Start: 04-22-2022 Blood culture [facility] Work Phone: Start: 04-22-2022 Plain chest X-ray Chest 1 View (Portable) [facility] Work Phone: Start: 04-22-2022 XR Chest Single view [facility] Work Phone: Bacteria identified in Blood by Culture Blood Culture [facility] Work Phone: Blood chemistry [facility] Work Phone: Blood culture [facility] Work Phone: Calcium [Mass/volume ] in Serum or Plasma [facility] Calcium [Mass/volume ] in Serum or Plasma [facility] CT Chest [facility] DXA Bone [Mass/Area] Bone density [facility] Work Phone: Hepatic function panel [facility] Lipid 1996 panel - S michela or Plasma [facility] Measurement of respi ratory function [facility] Patient Education [facility] Work Phone: Patient referral [facility] Work Phone: Polysomnography [facility] Work Phone: SPECT Parathyroid gland [facility] Work Phone: [facility] Payers Date Payer Category Payer Self-pay [id number] 2024 Private Health Insurance [id number] 2015 Private Health Insurance [id number] 1955 Unknown [id number] [id number] Medicare [id number] Unknown [id number] 2.16.8 [id number] Unknown [id number] 2.16.8 [id number] Unknown [id number] 2.16.8 [id number] Unknown [id number] 2.16.8 [id number] Unknown [id number] 2.16.8 [id number] Unknown [id number] 2.16.8 [id number] Unknown [id number] 2.16.8 [id number] Unknown [id number] 2.16.8 [id number] Unknown [id number] 2.16.8 [id number] Unknown [id number] 2.16.8 [id number] Unknown [id number] 2.16.8 [id number] Social History Date Type Detail Facility Start: 02-25-2022 End: 01-23-2024 Tobacco smoking status ALIS Unknown if ever smoked [facility] Start: 1955 Sex Assigned At Female [facility] Start: 01-21-2025 Tobacco smoking status NHIS Ex-smoker (finding) [facility] NEGATED: Highlighted row [facility] Medical Equipment Procedure Code Equipment Code Equipment Origin al Text Equipment Identifier Dates Parathyroidectomy Ligation clip, metallic [id number] [facility] Start: 12-01-2022 Goals Date Patient Goal Desired Activity /State Mental Status Date Assessment Result Facility 12-01-2022 Cognitive function Voice/Name;Touch/Federicoki nora [facility] Work Phone: 04-22-2022 Cognitive function Level Of Cons ciousness Awake;Appropriate;Follows Commands [facility] Work Phone: Clinical Notes 12-01-2022 to 04-24-2025 Note Date & Type Note Facility 04-24-2025 Evaluation note Diagnosis Onset Date Resolution Sleep apnea chronic April 24 9:56am Stage 1 mild COPD by GOLD classification chronic April 24 9:56am [facility] Work Phone: 1(375) 505-458103-12-2025 Evaluation note* Diagnosis Onset Date Resolution Status Admit Date Sleep apnea chronic January 16 9:57am Stage 1 mild COPD by GOLD classification chronic January 16, 2025 9:57am Mitral valve insufficiency acute January 21, 2025 8:28am Essential (primary) hypertension chr onic January 21, 2025 8:28am Hyperlipidemia chronic January 8:28am Hypertrophic cardiomyopathy chronic January 21, 2025 8:28am Sleep apnea chronic January 21 8:28am Sleep apnea chronic April 24 9:56am Stage 1 mild COPD by GOLD classification chronic April 24, 2025 9:56am [facility] Work Phone: 1(743) 535-685502-07-2023 Procedure [facility] 12-01-2022 Procedure [facility]2023 History and physical note Author Dr. Zhong [facility] December 01, 2022 7:29am Note Date/Time December 01, 2022 7 :29am [facility] Medical Records Department [address] [place] [address] History & Physical Exam 12/01/22726 MR#: [id number] Acct: [id number] Name: FELIBERTO MENG Rep #:[id number] : 1955 67 From: [place] PCP: Dr. Hoda Concepcion MD Status:[facility] Location: [place] [address] History and Physical Date of Admission: 12/01/22 Date of Service:? 10/25/22 MR#: [id number] Acct: [id number] Name:FELIBERTO PINEDO Rep #: [id number] : 1955 ? ? Provider: Dr. Chad Zhong MD Age/Sex:? 67/F ? ? Location: [facility] Status: Signed Intake Vital Signs ? 10/25/2209:14 [...] many mistakes.? She also reports thatsince her half-way, she expected to feel more refreshed, but [...] some mitral valve insufficiency.? She follows with [facility] for this issue and reports that [...] nerve and PTH monitoring.? Tentatively planning for November 2022 I have examined the patient [...] Concepcion MD; Dr. Chad Zhong MD~ Signed [facility] Work Phone: Evaluation note* Diagnosis Onset Date Resolution Status Palpitations acute Essential (primary) hypertension chronic Hyperlipidemia chronic Hypertrophic cardiomyopathy [facility] Work Phone: Evaluation note* Diagnosis Onset Date Resolution Status Palpitations acute Essential (primary) hypertension chronic Hyperlipidemia chronic Hypertrophic cardiomyopathy chronic Dyspnea acute Fatigue acute Hypersomnolence acute Hyponatremia acute Essential (primary) hypertension chronic Hyperlipidemia chronic Hypertrophic cardiomyopathy [facility] Work Phone: Evaluation note* Diagnosis Onset Date Resolution Status Dyspnea acute Fatigue acute Hypersomnolence acute Hyponatremia acute Essential (primary) hypertension chronic Hyperlipidemia chronic Hypertrophic cardiomyopathy chronic Obstructive sleep apnea acut e Hypertrophic cardiomyopathy chronic Hyponatremia acute Obstructive sleep apnea acut e Essential (primary) hypertension chronic Hyperlipidemia chronic Hypertrophic cardiomyopathy [facility] Work Phone: Evaluation note* Diagnosis Onset Date Resolution Status Obstructive sleep apnea acut e Hypertrophic cardiomyopathy chronic Hyponatremia acute Obstructive sleep apnea acut e Essential (primary) hypertension chronic Hyperlipidemia chronic Hypertrophic cardiomyopathy [facility] Work Phone: Evaluation note* Diagnosis Onset Date Resolution Status Obstructive sleep apnea acut e Hypertrophic cardiomyopathy chronic Hyponatremia acute Obstructive sleep apnea acut e Essential (primary) hypertension chronic Hyperlipidemia chronic Hypertrophic cardiomyopathy chronic Hyperparathyroidism acute [facility] Work Phone: Evaluation note* Diagnosis Onset Date Resolution Status Hyperparathyroidism acute Dyspnea acute Obstructive sleep apnea acut e Hyperparathyroidism acute Status post parathyroidectomy acute [facility] Work Phone: Evaluation note* Diagnosis Onset Date Resolution Status Hyperparathyroidism acute Dyspnea acute Obstructive sleep apnea acut e Hyperparathyroidism acute Status post parathyroidectomy acute Hyperparathyroidism acute Status post parathyroidectomy acute [facility] Work Phone: Evaluation note* Diagnosis Onset Date Resolution Status Hyperparathyroidism acute Status post parathyroidectomy acute Hyperparathyroidism acute Status post parathyroidectomy acute Stage 1 mild COPD by GOLD classification acute Obstructive sleep apnea chromium 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 jb [facility] Work Phone: Evaluation note* Diagnosis Onset Date Resolution Status Stage 1 mild COPD by GOLD classification acute Mitral valve insufficiency a cute Essential (primary) hypertension chronic Hyperlipidemia chronic Hypertrophic cardiomyopathy chronic Sleep apnea chronic Smoking greater than 20 pack years [facility] Work Phone: evaluation note* Diagnosis Onset Date Resolution Status Sleep apnea chronic Smoking greater than 20 pack years [facility] Work Phone: Evaluation note* Diagnosis Onset Date Resolution Status Mitral valve insufficiency a cute Essential (primary) hypertension chronic Hyperlipidemia chronic Hypertrophic cardiomyopathy chronic Sleep apnea chronic Stage 1 mild COPD by GOLD classification [facility] Work Phone: Reason for referral (narrative)No reason for referral [facility] Work Phone: Chief Complaint and [...] FU BEKAH 6 m fu (MOVED FROM [facility]) BEKAH, HYPERTROPHIC CMP 3 M FU E [...] 16, 2025 9:57am Mitral valve insufficiency January 21 8:28am Essential (primary) hypertension January 052024 8:28am Hyperlipidemia January 21, 2025 8:2 8am Hypertrophic cardiomyopathy January 21, 2025 8:28am Sleep apnea January 21, 2025 8:2 8am Sleep apnea April 24, 2025 9:56 am Stage 1 mild COPD by GOLD classification April 24, 2025 9:56am Chief Complaint Admit Date 3 M FU January 16, 2025 9:5 7am 1 Y FU January 21, 2025 8:2 8am 3 m fu April 24, 2025 9:56 am EVAL EF FOR ASV CONSIDERATION May 02, 2025 12:46pm Chief Complaint Admit Date 3 m fu April 24, 2025 9:56 am EVAL EF FOR ASV CONSIDERATION May 02, 2025 12:46pm CENTRAL SLEEP APNEA June 03, 2025 8:09 pm Reason for Visit Admit Date Sleep apnea April 24, 2025 9:56 am [...] No July 21, 2021 10:06pm Power of Metalworking Instructor No July 10:06pm Advance Directive Response Recorded Date/ Time Living Will No April 22, 2022 12:36pm Power of Metalworking Instructor No April 22 12:36pm Advance Directive Response Recorded Date/ Time Living Will No April 22, 2022 11:36am Power of Metalworking Instructor No April 22 11:36am Advance Directive Response Recorded Date/ Time Living Will No November 24 10:16am Power of Metalworking Instructor No November 24, 2022 10:16am Advance Directive Response Recorded Date/ Time Living Will No November 24 11:16am Power of Metalworking Instructor No November 24, 2022 11:16am Advance Directive Response Recorded Date/ Time Living Will No November 24 11:16am Do you have a Healthcare Power of Metalworking Instructor? No November 24, 2022 11:16am Summary Purpose [...] section and content) DATE CREATED AUTHOR 04/20/2022 [facility] DATE CREATED AUTHOR AUTHOR'S ORGANIZ ATION 06/13/2025 [facility] Care Teams (unrecognized sec tion and [...] MD Primary Care Provider Active Kay Muniz RN CLINICAL APPEALS, RN CLINICAL APPEALS-C Attending Provider Active Team Status: Inactive Member Role Status Dates Dr. Hoda Concepcion MD Primary Care Provider, Attendin g Provider Active Team Status: Inactive Member Role Status Dates Dr. Hoda Concepcion MD Primary Care Prov ider, Attending Provider, Referring Provider Active Team Status: Inactive Member Role Status Dates Dr. Hoda Concepcion MD Primary Care Provider Active Brooklynn Herbert RN CLINICAL APPEALS, RN CLINICAL APPEALS-C Attending Provider, Referring P rovider Active Team [...] Provider, Referrin g Provider Active Kay Muniz NP RN CLINICAL APPEALS-C Attending Provider Active Team Status: Inactive Member Role Status Dates Dr. Hoda Concepcion MD Primary Care Provider Active Dr. Chad Zhong MD Attending Provider Active Team Status: Inactive Member Role Status Dates Dr. Hoda Concepcion MD Primary Care Provider, Referrin g Provider Active Cary Walls PA, PA Attending Provider Active Team Status: Active [...] Concepcion MD Primary Care Provider Active Cary CHILEL, PA Attending Provider, Referr ing Provider Active [...] January 16, 2025 End: January 16, 2025 Eva Lopez NP-C Attending Provider Active Start: January 16, 2025 [...] April 24, 2025 End: April 24, 2025 NEIL ArtisC Attending Provider Active Start: April 24, 2025 End: April 24, 2025 Team Status: Active Member Role/Relationship Status Dates Stephany Corrigan MD Primary Care Provider Active Team Status: Inactive Member Role/Relationship Status Dates Dr. Hoda Concepcion MD Primary Care Provider Active Start: January 16, 2025 End: January 16, 2025 Dr. Hoda Concepcion MD Referring Provider Active Start: January 16, 2025 End: January 16, 2025 DENG Artis Attending Provider Active Start: January 16, 2025 End: January 16, 2025 Team Status: Inactive Member Role/Relationship Status Dates Dr. Hoda Concepcion MD Primary Care Provider Active Start: January 21, 2025 End: January 21, 2025 Dr. Hoda Concepcion MD Referring Provider Active Start: January 21, 2025 End: January 21, 2025 RANJANA Ruiz Attending Provider Active St art: January 21, 2025 End: January 21, 2025 Team Status: Inactive Member Role/Relationship Status Dates Dr. Hoda Concepcion MD Primary Care Provider Active Start: April 24, 2025 End: April 24, 2025 Dr. Hoda Concepcion MD Referring Provider Active Start: April 24, 2025 End: April 24, 2025 DENG Artis Attending Provider Active Start: April 24, 2025 End: April 24, 2025 Team Status: Inactive Member Role/Relationship Status Dates DENG Artis Attending Provider Active Start: May 02, 2025 End: May 02, 2025 DENG Artis Referring Provider Active Start: May 02, 2025 End: May 02, 2025 Stephany Corrigan MD Primary Care Provider Active St art: May 02, 2025 End: May 02, 2025 Team Status: Active Member Role/Relationship Status Dates Stephany Corrigan MD Primary Care Provider Active St art: May 02, 2025 Dr. Rodrigo Coon MD Attending Provider Active S tart: May 02, 2025 Team Status: Inactive Member Role/Relationship Status Dates Dr. Hoda Concepcion MD Primary Care Provider Active Start: April 24, 2025 End: April 24, 2025 Dr. Hoda Concepcion MD Referring Provider Active Start: April 24, 2025 End: April 24, 2025 DENG Artis Attending Provider Active Start: April 24, 2025 End: April 24, 2025 Team Status: Inactive Member Role/Relationship Status Dates DENG Artis Attending Provider Active Start: May 02, 2025 End: May 02, 2025 DEGN Artis Referring Provider Active Start: May 02, 2025 End: May 02, 2025 Stephany Corrigan MD Primary Care Provider Active St art: May 02, 2025 End: May 02, 2025 Team Status: Active Member Role/Relationship Status Dates Stephany Corrigan MD Primary Care Provider Active St art: May 02, 2025 Dr. Rodrigo Coon MD Attending Provider Active S tart: May 02, 2025 Team Status: Inactive Member Role/Relationship Status Dates DENG Artis Attending Provider Active Start: June 03, 2025 End: June 03, 2025 DENG Artis Referring Provider Active Start: June 03, 2025 End: June 03, 2025 Stephany Corrigan MD Primary Care Provider Active St art: June 03, 2025 End: June 03, 2025 FOR RECORDS PERTAINING TO PATIENTS WHO [...] BE BASED ON THE PRIMARY CLINICAL RECORDS. [employer] provides no warranty or guarantee of the accuracy or completeness of information in this document.
== END | disposition home or self-care (01) ==
LOC: SL 13:44
PROVIDERS: PCP Family Medicine; Referring Provider Nurse Practitioner Family; Visit Provider Nurse Practitioner Family
DX: Z00.00 Encounter for general adult medical examination without abnormal findings (principal)

== ENCOUNTER → 2025-10-21 | Outpatient (CLI) | payer MEDICARE, SELFPAY ==
--- NOTE | 2025-10-21 09:56 | ECHOLC_ITS ---
Reason For Study Reason For Study: Hypertrophic CMP Procedure This was a limited 2D transthoracic echocardiogram. The patient is in sinus rhythm. The study was technically difficult. Contrast injection was performed. Exam performed in department. Left Ventricle Normal LV size. The left ventricular ejection fraction is 65 %. Resting LV gradient 11 mmHg. Valsalva LV gradient 65 mmHg. No regional wall motion abnormalities noted. Right Ventricle Normal RV size. Normal systolic function. Pericardium/Pleural No pericardial effusion. Medication 22 gauge I.V. with prn adaptor inserted into right arm. Diluted definity 2ml given slow IV push to enhance endocardial definition. MMode/2D Measurements & Calculations LVIDd: 3.4 cm IVSd: 0.86 cm LVAd ap4: 25.2 cm2 LVIDs: 2.0 cm LVPWd: 0.83 cm LVLd ap4: 7.3 cm FS: 42.7 % EDV(MOD-sp4): 69.6 ml EDV(sp4-el): 74.4 ml LVAs ap4: 13.8 cm2 LVLs ap4: 6.2 cm ESV(MOD-sp4): 25.0 ml ESV(sp4-el): 25.8 ml EF(MOD-sp4): 64.0 % EF(sp4-el): 65.3 % LVAd ap2: 22.2 cm2 SV(MOD-sp4): 44.6 ml LVLd ap2: 7.4 cm EDV(MOD-bp): 61.9 ml SI(MOD-sp4): 25.7 ml/m2 EDV(MOD-sp2): 54.5 ml ESV(MOD-bp): 20.2 ml EDV(sp2-el): 56.8 ml EF(MOD-bp): 67.4 % LVAs ap2: 9.8 cm2 LVLs ap2: 5.4 cm ESV(MOD-sp2): 14.8 ml ESV(sp2-el): 14.9 ml EF(MOD-sp2): 72.9 % SV(MOD-sp2): 39.7 ml SV(sp4-el): 48.5 ml SI(MOD-sp2): 22.9 ml/m2 ECHO/Echo Limited w/Contrast Interpretation Summary The left ventricular ejection fraction is 65 %. Normal LV size. Resting LV gradient 11 mmHg. Valsalva LV gradient 65 mmHg. Contrast injection was performed. Ordering Physician: Cary Walls Referring Physician: Cary Walls Performed By: Willie Guerrero RCS
== END | disposition home or self-care (01) ==
LOC: CVS 09:55
PROVIDERS: PCP Family Medicine; Referring Provider Physician Assistant Medical; Visit Provider Physician Assistant Medical
DX: I42.2 Other hypertrophic cardiomyopathy (principal)
CPT/HCPCS: 93308; Q9957; A4216; C8924